=== PATIENT | male | born 1975 | race African-American/Black ===

== ENCOUNTER 2016-11-01 09:22 | Inpatient (IN) | payer OTHER ==
[2016-11-01 10:57] VITALS: BMI 24.5
--- NOTE | 2016-11-01 12:16 | HP ---
COWS - Scale Resting Pulse: 0= [place] 80 or Below Sweatin=Flushed/Facial Moisture Restless Observation: 1= Difficult to Sit Still Pupil Size: 0= Normal to Room Light Bone or Joint Aches: 2= Severe Diffuse Aches Runny Nose/ Eye Tearin= Runny Nose/Eyes GI Upset > 30mins: 0= None Tremor Observation: 2= Slight Tremor Visible Yawning Observation: 2= >3x During Session Anxiety or Irritability: 2=Irritable/Anxious Goose Flesh Skin: 3=Piloerection COWS Score: 16 CIWA Score - CIWA Score Nausea/Vomitin-No Nausea/No Vomiting Muscle Tremors: 4-Moderate,w/Arms Extend Anxiety: 3 Agitation: 4-Moderately Restless Paroxysmal Sweats: 3 Orientation: 0-Oriented Tacttile Disturbances: 0-None Auditory Disturbances: 0-None Visual Disturbances: 0-None Headache: 1-Very Mild CIWA-Ar Total Score: 15 Admission ROS BHS - HPI Chief Complaint: I am here to detox and get clean. Allergies/Adverse Reactions: Allergies Allergy/AdvReac Type Severity Reaction Status Date / Time peanut Allergy Swelling Verified 11/01/16 11:28 NKDA Allergy Uncoded 11/01/16 11:28 History of Present Illness: pt is a 40yr old male with a history of alcohol and heroin dependence seeking detox for treatment. Exam Limitations: No Limitations - Ebola screening Have you traveled outside of the country in the last 21 days: No Have you had contact with anyone from an Ebola affected area: No Have you been sick,other than usual withdrawal symptoms: No Do you have a fever: No - Review of Systems Constitutional: Chills, Diaphoresis, Loss of Appetite, Night Sweats EENT: reports: No Symptoms Reported, Nose Congestion Respiratory: reports: Cough Cardiac: reports: No Symptoms Reported GI: reports: Poor Appetite, Poor Fluid Intake, Indigestion : reports: No Symptoms Reported Musculoskeletal: reports: Back Pain, Joint Pain Integumentary: reports: Flushing, Sweating Neuro: reports: Headache, Tingling, Tremors Endocrine: reports: Excessive Sweating, Flushing, Intolerance to Cold, Intolerance to Heat Hematology: reports: No Symptoms Reported Psychiatric: reports: Judgement Intact, Mood/Affect Appropiate, Orientated x3, Agitated, Anxious Other Systems: Reviewed and Negative Patient History - Patient Medical History Hx Anemia: No Hx Asthma: Yes Hx Chronic Obstructive Pulmonary Disease (COPD): No Hx Cancer: No Hx Cardiac Disorders: No Hx Congestive Heart Failure: No Hx Hypertension: No Hx Hypercholesterolemia: No Hx Pacemaker: No HX Cerebrovascular Accident: No Hx Seizures: No Hx Dementia: No Hx Diabetes: No Hx Gastrointestinal Disorders: Yes (acid reflux) Hx Liver Disease: No Hx Genitourinary Disorders: No Hx Sexually Transmitted Disorders: No Hx Renal Disease (ESRD): No Hx Thyroid Disease: No Hx Human Immunodeficiency Virus (HIV): No Hx Hepatitis C: No Hx Depression: No Hx Suicide Attempt: No Hx Bipolar Disorder: No Hx Schizophrenia: No - Patient Surgical History Past Surgical History: No Hx Neurologic Surgery: No Hx Cataract Extraction: No Hx Cardiac Surgery: No Hx Lung Surgery: No Hx Breast Surgery: No Hx Breast Biopsy: No Hx Abdominal Surgery: No Hx Appendectomy: No Hx Cholecystectomy: No Hx Genitourinary Surgery: No Hx Section: No Hx Orthopedic Surgery: No Anesthesia Reaction: No - PPD History Previous Implant?: Yes Documented Results: Negative w/o proof Implanted On Prior [facility] Admission?: Yes Results: 0 mm PPD to be Administered?: Yes - Reproductive History Patient is a Female of Child Bearing Age (11 -55 yrs old): No - Smoking Cessation Smoking history: Current every day smoker Have you smoked in the past 12 months: Yes Aproximately how many cigarettes per day: 10 Hx Chewing Tobacco Use: No Initiated information on smoking cessation: Yes 'Breaking Loose' booklet given: 11/01/16 - Substance & Tx. History Hx Alcohol Use: Yes Hx Substance Use: Yes Substance Use Type: Alcohol, Cocaine, Heroin Hx Substance Use Treatment: Yes - Substances Abused Heroin Route: Inhalation Frequency: Daily Amount used: 5-10 bags Age of first use: 21 Date of Last Use: 10/31/16 Crack Route: Smoking Frequency: 1-2 times per week Amount used: $40 Age of first use: 30 Date of Last Use: 10/30/16 Alcohol-vodka Route: Oral Frequency: Daily Amount used: 2 pts. Age of first use: 13 Date of Last Use: 10/31/16 Family Disease History - Family Disease History Family History: Denies Admission Physical Exam BHS - Vital Signs Vital Signs: Vital Signs - 24 hr 11/01/16 10:55 Temperature 97.7 F Pulse Rate 66 Respiratory 18 Rate Blood Pressure 132/82 - Physical General Appearance: Yes: Appropriately Dressed, Moderate Distress, Tremorous, Irritable, Sweating, Anxious HEENTM: Yes: Hearing grossly Normal, Normal Voice Respiratory: Yes: Normal Breath Sounds, No Respiratory Distress, Wheezing Neck: Yes: No masses,lesions,Nodules Breast: Yes: Within Normal Limits Cardiology: Yes: Regular Rhythm, Regular Rate, S1, S2 Abdominal: Yes: Normal Bowel Sounds, Non Tender, Soft Genitourinary: Yes: Within Normal Limits Back: Yes: Normal Inspection Musculoskeletal: Yes: full range of Motion, Back pain Extremities: Yes: Normal Capillary Refill, Normal Inspection, Tremors Neurological: Yes: Fully Oriented, Alert, Normal Response Integumentary: Yes: Normal Color, Diaphoresis Lymphatic: Yes: Within Normal Limits - Diagnostic (1) Alcohol dependence with uncomplicated withdrawal Current Visit: Yes Status: Chronic (2) Asthma Current Visit: Yes Status: Chronic Qualifiers: Asthma severity: mild intermittent Asthma complication type: uncomplicated Qualified Code(s): J45.20 - Mild intermittent asthma, uncomplicated (3) Opioid dependence with withdrawal Current Visit: Yes Status: Chronic (4) GERD (gastroesophageal reflux disease) Current Visit: Yes Status: Chronic Qualifiers: Esophagitis presence: without esophagitis Qualified Code(s): K21.9 - Gastro-esophageal reflux disease without esophagitis (5) Nicotine dependence Current Visit: Yes Status: Chronic Qualifiers: Nicotine product type: cigarettes Substance use status: uncomplicated Qualified Code(s): F17.210 - Nicotine dependence, cigarettes, uncomplicated Cleared for Admission S - Detox or Rehab [facility] Level of Care: Medically Managed Detox Regimen/Protocol: Methadone/Librium [facility] Breath Alcohol Content Breath Alcohol Content: 0 Urine Drug Screen - Results Drug Screen Negative: No Urine Drug Screen Results: NIKIA-Cocaine, OPI-Opiates, TCA-Tricyclic Antidepress
[2016-11-01] MEDS ORDERED: hydrOXYzine PAMOATE 50 MG CAPSULE (FP) PO PRN (12:18)
[2016-11-01] MEDS ORDERED: MAG HYDROX/AL HYDROX/SIMETH 30 ML UNIT-DOSE CUP PO PRN (12:18)
[2016-11-01] MEDS ORDERED: chlordiazePOXIDE HCL 25 MG CAPSULE PO PRN (12:18)
[2016-11-01] MEDS ORDERED: MAGNESIUM HYDROX 2400MG/30ML ORAL SUSPENSION 30 ML CUP PO PRN (12:18)
[2016-11-01] MEDS ORDERED: P-EPHED 60MG/TRIPROLIDI 2.5MG TABLET PO PRN (12:18)
[2016-11-01] MEDS ORDERED: MENTHOL/PHENOL 1 EACH UD MM PRN (12:18)
[2016-11-01] MEDS ORDERED: IBUPROFEN 400 MG TABLET (FP) PO PRN (12:18)
[2016-11-01] MEDS ORDERED: LOPERAMIDE HCL 2 MG CAPSULE PO PRN (12:18)
[2016-11-01] MEDS ORDERED: MAGNESIUM CITRATE 300 ML BOTTLE PO PRN (12:18)
[2016-11-01] MEDS ORDERED: chlordiazePOXIDE HCL 25 MG CAPSULE PO ONE (13:15)
[2016-11-01] MEDS ORDERED: ALBUTEROL SO4 2.5/IPRATROPIUM 0.5 INH SOL 3 ML VIAL.NEB. NEB ONE (13:15)
[2016-11-01] MEDS ORDERED: METHADONE HCL 10 MG TABLET (FOR DETOX USE ONLY) PO ONE ×2 (13:15→23:00)
--- NOTE | 2016-11-01 14:07 | EKG ---
Test Reason : Blood Pressure : / mmHG Vent. Rate : 067 BPM Atrial Rate : 067 BPM P-R Int : 140 ms QRS Dur : 090 ms QT Int : 422 ms P-R-T Axes : 064 059 050 degrees QTc Int : 445 ms SINUS RHYTHM WITH PREMATURE ATRIAL COMPLEXES MINIMAL VOLTAGE CRITERIA FOR LVH, MAY BE NORMAL VARIANT BORDERLINE ECG NO PREVIOUS ECGS AVAILABLE Confirmed by ASA MELGAR MD ([id number]) on 11/01/2016 2:06:50 PM Referred By: Vito Poe Confirmed By:ASA MELGAR MD
[2016-11-01] MEDS: chlordiazePOXIDE HCL 25 MG CAPSULE PO SCH ×2 (17:09→22:02)
[2016-11-01] MEDS: ALBUTEROL SO4 6.7 GM HFA INHALER IH PRN (17:11)
[2016-11-01 17:42] LABS: URINE APPEARANCE CLEAR; URINE BILIRUBIN NEGATIVE (NEGATIVE); URINE BLOOD NEGATIVE (NEGATIVE); URINE COLOR LTYELLOW; URINE GLUCOSE (UA) NEGATIVE (NEGATIVE); URINE KETONE NEGATIVE (NEGATIVE); URINE LEUK ESTERASE NEGATIVE (NEGATIVE); URINE NITRITE NEGATIVE (NEGATIVE); URINE PROTEIN NEGATIVE (NEGATIVE); URINE UROBILINOGEN NEGATIVE E.U./dl (0.2-1.0)
[2016-11-01] MEDS: NICOTINE POLACRILEX 4 MG GUM BC PRN ×2 (18:55→21:12)
[2016-11-01] MEDS: ALBUTEROL SO4 2.5/IPRATROPIUM 0.5 INH SOL 3 ML VIAL.NEB. NEB PRN (19:46)
[2016-11-01] MEDS: ACETAMINOPHEN 325 MG TABLET (FP) PO PRN (21:12)
[2016-11-01] MEDS: guaiFENesin/D-METHORPHAN HB 10 ML UNIT-DOSE CUPS PO PRN (21:13)
[2016-11-01] MEDS: diphenhydrAMINE HCL 50 MG CAPSULE PO PRN (22:02)
[2016-11-01] MEDS: THIAMINE HCL 100 MG TABLET (FP) PO SCH (22:02)
[2016-11-02] MEDS: ALBUTEROL SO4 2.5/IPRATROPIUM 0.5 INH SOL 3 ML VIAL.NEB. NEB PRN (01:20)
[2016-11-02] MEDS: ALBUTEROL SO4 6.7 GM HFA INHALER IH PRN ×4 (01:21→20:13)
[2016-11-02] MEDS: NICOTINE POLACRILEX 4 MG GUM BC PRN ×4 (01:41→20:17)
[2016-11-02] MEDS: chlordiazePOXIDE HCL 25 MG CAPSULE PO SCH ×4 (05:39→22:00)
[2016-11-02] MEDS: guaiFENesin/D-METHORPHAN HB 10 ML UNIT-DOSE CUPS PO PRN (08:02)
[2016-11-02] MEDS: PRENATAL VITAMINS W/ FOLIC ACID TABLET (FP) PO SCH (09:09)
[2016-11-02] MEDS: ALBUTEROL SO4 2.5/IPRATROPIUM 0.5 INH SOL 3 ML VIAL.NEB. NEB SCH ×4 (09:10→22:03)
--- NOTE | 2016-11-02 09:58 | PN ---
[facility] CIWA - CIWA Score Nausea/Vomitin-No Nausea/No Vomiting Muscle Tremors: 3 Anxiety: 4-Mod. Anxious/Guarded Agitation: 4-Moderately Restless Paroxysmal Sweats: 1-Minimal Palms Moist Orientation: 0-Oriented Tacttile Disturbances: 3-Moderate Itch/Numb/Burn Auditory Disturbances: 0-None Visual Disturbances: 0-None Headache: 0-None Present CIWA-Ar Total Score: 15 BHS COWS - Scale Resting Pulse: 1= [place] 81-100 Sweatin= Chills/Flushing Restless Observation: 3= Extraneous Movement Pupil Size: 2= Moderately Dilated Bone or Joint Aches: 4=Acute Joint/Muscle Pain Runny Nose/ Eye Tearin= Nasal Congestion GI Upset > 30mins: 1= Stomach Cramp Tremor Observation of Outstretched Hands: 1= Tremor [place], Not Seen Yawning Observation: 2= >3x During Session Anxiety or Irritability: 2=Irritable/Anxious Goose Flesh Skin: 0=Smooth Skin COWS Score: 18 S Progress Note (SOAP) Subjective: ANXIETY,SWEATS,UNCONTROLLABLE DRY COUGH, WHEEZING, SOB. Objective: 11/02/16 09:59 Vital Signs Temperature 98.5 F 11/02/16 09:34 Pulse Rate 96 H 11/02/16 09:34 Respiratory Rate 18 11/02/16 09:34 Blood Pressure 124/72 11/02/16 09:34 O2 Sat by Pulse Oximetry (%) 96 11/02/16 08:45 Laboratory Last Values Urine Color Ltyellow 11/01/16 14:00 Urine Appearance Clear 11/01/16 14:00 Urine pH 7.0 (5.0-8.0) D 11/01/16 14:00 Ur Specific [place] 1.015 (1.005-1.025) 11/01/16 14:00 Urine Protein Negative (NEGATIVE) 11/01/16 14:00 Urine Glucose (UA) Negative (NEGATIVE) 11/01/16 14:00 Urine Ketones Negative (NEGATIVE) 11/01/16 14:00 Urine Blood Negative (NEGATIVE) 11/01/16 14:00 Urine Nitrite Negative (NEGATIVE) 11/01/16 14:00 Urine Bilirubin Negative (NEGATIVE) 11/01/16 14:00 Urine Urobilinogen Negative E.U./dl (0.2-1.0) 11/01/16 14:00 Ur Leukocyte Esterase Negative (NEGATIVE) 11/01/16 14:00 Assessment: 11/02/16 10:00 WITHDRAWAL SX ASTHMA EXACERBATION Plan: CONTINUE DETOX RESP TX DIRECTED
[2016-11-02] MEDS ORDERED: METHADONE HCL 10 MG TABLET (FOR DETOX USE ONLY) PO SCH (10:00)
[2016-11-02] MEDS ORDERED: predniSONE 20 MG TABLET (UD) PO SCH (10:00)
[2016-11-02 10:03] LABS: MCH 28.8 pg (25.7-33.7); MCHC 33.3 g/dl (32.0-35.9); MEAN CELL VOLUME 86.6 fl (80-96); MEAN PLT VOLUME 8.3 fl (7.5-11.1); PLATELET COUNT 242 K/MM3 (134-434); RDW 14.5 % (11.9-15.9); WHITE BLOOD COUNT 3.6 K/mm3 (4.0-10.0)
[2016-11-02] MEDS: BUDESONIDE/FORMETEROL FUMARATE 80/4.5 mcg INHALER IH SCH ×2 (10:21→22:03)
[2016-11-02] MEDS: NICOTINE 21 MG/24 HOURS TOPICAL PATCH TD SCH (10:32)
[2016-11-02 11:06] LABS: ANION GAP 7 (8-16); CO2 30 mmol/L (21-32); COCKROFT - GAULT 82.42; CREATININE 1.2 mg/dL (0.7-1.3); GLUCOSE,RANDOM 70 mg/dL (74-106)
[2016-11-02 11:07] LABS: ALBUMIN 3.9 g/dl (3.4-5.0); ALK PHOS 76 U/L (45-117); BILIRUBIN,TOTAL 0.4 mg/dL (0.2-1.0); CALCIUM 8.9 mg/dL (8.5-10.1); SGOT/AST 26 U/L (15-37); SGPT/ALT 31 U/L (12-78); TOT PROT 6.7 g/dl (6.4-8.2)
[2016-11-02 14:58] LABS: METAMYELOCYTE 1 % (0-2); PLATELET ESTIMATE ADEQUATE (NORMAL)
[2016-11-02] MEDS: ACETAMINOPHEN 325 MG TABLET (FP) PO PRN (20:34)
[2016-11-02] MEDS: THIAMINE HCL 100 MG TABLET (FP) PO SCH (22:00)
[2016-11-02] MEDS: RANITIDINE HCL 150 MG TABLET (FP) PO SCH (22:00)
[2016-11-02] MEDS: VITAMINS A AND D TOPICAL OINTMENT 60 GM TUBE TP SCH (22:00)
[2016-11-02] MEDS: diphenhydrAMINE HCL 50 MG CAPSULE PO PRN (22:02)
[2016-11-03] MEDS: ALBUTEROL SO4 2.5/IPRATROPIUM 0.5 INH SOL 3 ML VIAL.NEB. NEB PRN (05:09)
[2016-11-03] MEDS: ACETAMINOPHEN 325 MG TABLET (FP) PO PRN (05:19)
[2016-11-03] MEDS: chlordiazePOXIDE HCL 25 MG CAPSULE PO SCH ×2 (05:19→10:07)
[2016-11-03] MEDS: ALBUTEROL SO4 2.5/IPRATROPIUM 0.5 INH SOL 3 ML VIAL.NEB. NEB SCH ×4 (09:04→23:12)
[2016-11-03] MEDS: METHADONE HCL 5 MG TABLET (FOR DETOX USE ONLY) PO SCH (09:31)
[2016-11-03] MEDS: RANITIDINE HCL 150 MG TABLET (FP) PO SCH ×2 (09:32→22:21)
[2016-11-03] MEDS: VITAMINS A AND D TOPICAL OINTMENT 60 GM TUBE TP SCH ×2 (09:32→22:22)
--- NOTE | 2016-11-03 09:32 | PN ---
S CIWA - CIWA Score Nausea/Vomitin Muscle Tremors: 3 Anxiety: 3 Agitation: 2 Paroxysmal Sweats: 1-Minimal Palms Moist Orientation: 0-Oriented Tacttile Disturbances: 1-Very Mild Itch/Numbness Auditory Disturbances: 1-Very Mild Visual Disturbances: 1-Very Mild Sensitivity Headache: 2-Mild CIWA-Ar Total Score: 17 BHS COWS - Scale Resting Pulse: 0= [place] 80 or Below Sweatin=Flushed/Facial Moisture Restless Observation: 3= Extraneous Movement Pupil Size: 1= Pupils >than Normal Bone or Joint Aches: 2= Severe Diffuse Aches Runny Nose/ Eye Tearin= Nasal Congestion GI Upset > 30mins: 2= Nausea/Diarrhea Tremor Observation of Outstretched Hands: 2= Slight Tremor Visible Yawning Observation: 1= 1-2x During Session Anxiety or Irritability: 2=Irritable/Anxious Goose Flesh Skin: 0=Smooth Skin COWS Score: 16 BHS Progress Note (SOAP) Subjective: ALERT,IRRITABLE,ANXIOUS,INTERRUPTED SLEEP,PAIN IN THE BODY,MILD WHEEZING Objective: 11/03/16 09:29 Vital Signs Temperature 97.6 F 11/03/16 09:21 Pulse Rate 71 11/03/16 09:21 Respiratory Rate 18 11/03/16 09:21 Blood Pressure 144/90 11/03/16 09:21 O2 Sat by Pulse Oximetry (%) 96 11/02/16 08:45 Laboratory Last Values WBC 3.6 K/mm3 (4.0-10.0) L 11/02/16 06:00 RBC 4.99 M/mm3 (4.00-5.60) 11/02/16 06:00 Hgb 14.4 GM/dL (11.7-16.9) D 11/02/16 06:00 Hct 43.2 % (35.4-49) 11/02/16 06:00 MCV 86.6 fl (80-96) 11/02/16 06:00 MCHC 33.3 g/dl (32.0-35.9) 11/02/16 06:00 RDW 14.5 % (11.9-15.9) 11/02/16 06:00 Plt Count 242 K/MM3 (134-434) 11/02/16 06:00 MPV 8.3 fl (7.5-11.1) 11/02/16 06:00 Neutrophils % 60.0 % (42.8-82.8) 11/02/16 06:00 Lymphocytes % 25.0 % (8-40) 11/02/16 06:00 Monocytes % 7.0 % (3.8-10.2) 11/02/16 06:00 Eosinophils % 1.0 % (0-4.5) 11/02/16 06:00 Basophils % 5.0 % (0-2.0) H 11/02/16 06:00 Band Neutrophils 1.0 % (0-10) 11/02/16 06:00 Metamyelocytes 1 % (0-2) 11/02/16 06:00 Differential Comment Manual diff done 11/02/16 06:00 Platelet Estimate Adequate (NORMAL) 11/02/16 06:00 Sodium 142 mmol/L (136-145) 11/02/16 06:00 Potassium 4.6 mmol/L (3.5-5.1) 11/02/16 06:00 Chloride 105 mmol/L (98-107) 11/02/16 06:00 Carbon Dioxide 30 mmol/L (21-32) 11/02/16 06:00 Anion Gap 7 (8-16) L 11/02/16 06:00 BUN 17 mg/dL (7-18) 11/02/16 06:00 Creatinine 1.2 mg/dL (0.7-1.3) D 11/02/16 06:00 Creat Clearance w eGFR > 60 (>60) 11/02/16 06:00 Random Glucose 70 mg/dL (74-106) L 11/02/16 06:00 Calcium 8.9 mg/dL (8.5-10.1) 11/02/16 06:00 Total Bilirubin 0.4 mg/dL (0.2-1.0) 11/02/16 06:00 AST 26 U/L (15-37) D 11/02/16 06:00 ALT 31 U/L (12-78) D 11/02/16 06:00 Alkaline Phosphatase 76 U/L (45-117) 11/02/16 06:00 Total Protein 6.7 g/dl (6.4-8.2) 11/02/16 06:00 Albumin 3.9 g/dl (3.4-5.0) D 11/02/16 06:00 Urine Color Ltyellow 11/01/16 14:00 Urine Appearance Clear 11/01/16 14:00 Urine pH 7.0 (5.0-8.0) D 11/01/16 14:00 Ur Specific [place] 1.015 (1.005-1.025) 11/01/16 14:00 Urine Protein Negative (NEGATIVE) 11/01/16 14:00 Urine Glucose (UA) Negative (NEGATIVE) 11/01/16 14:00 Urine Ketones Negative (NEGATIVE) 11/01/16 14:00 Urine Blood Negative (NEGATIVE) 11/01/16 14:00 Urine Nitrite Negative (NEGATIVE) 11/01/16 14:00 Urine Bilirubin Negative (NEGATIVE) 11/01/16 14:00 Urine Urobilinogen Negative E.U./dl (0.2-1.0) 11/01/16 14:00 Ur Leukocyte Esterase Negative (NEGATIVE) 11/01/16 14:00 RPR Titer Nonreactive (NONREACTIVE) 11/02/16 06:00 Assessment: 11/03/16 09:30 WITHDRAWAL SYMPTOM Plan: CONTINUE DETOX,TAPER OFF PREDNISONE,CONTINUE ALBUTEROL AND NEBULIZER
[2016-11-03] MEDS: NICOTINE 21 MG/24 HOURS TOPICAL PATCH TD SCH (09:33)
[2016-11-03] MEDS: PRENATAL VITAMINS W/ FOLIC ACID TABLET (FP) PO SCH (09:33)
[2016-11-03] MEDS: BUDESONIDE/FORMETEROL FUMARATE 80/4.5 mcg INHALER IH SCH ×2 (09:35→22:22)
[2016-11-03] MEDS: NICOTINE POLACRILEX 4 MG GUM BC PRN ×3 (09:35→17:27)
[2016-11-03] MEDS ORDERED: predniSONE 20 MG TABLET (UD) PO ONE (10:00)
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
[2016-11-03] MEDS: chlordiazePOXIDE 5 MG CAPSULE PO SCH ×2 (16:49→22:21)
[2016-11-03] MEDS: MONTELUKAST NA 10 MG TABLET PO SCH (22:22)
[2016-11-03] MEDS: THIAMINE HCL 100 MG TABLET (FP) PO SCH (22:22)
[2016-11-03] MEDS: diphenhydrAMINE HCL 50 MG CAPSULE PO PRN (22:23)
[2016-11-04] MEDS: chlordiazePOXIDE 5 MG CAPSULE PO SCH ×2 (05:57→10:20)
[2016-11-04] MEDS: ALBUTEROL SO4 2.5/IPRATROPIUM 0.5 INH SOL 3 ML VIAL.NEB. NEB PRN (06:03)
[2016-11-04] MEDS: NICOTINE POLACRILEX 4 MG GUM BC PRN ×4 (07:11→20:46)
[2016-11-04] MEDS: ALBUTEROL SO4 2.5/IPRATROPIUM 0.5 INH SOL 3 ML VIAL.NEB. NEB SCH ×4 (09:55→22:41)
[2016-11-04] MEDS ORDERED: predniSONE 20 MG TABLET (UD) PO ONE (10:00)
[2016-11-04] MEDS: METHADONE HCL 5 MG TABLET (FOR DETOX USE ONLY) PO SCH (10:19)
[2016-11-04] MEDS: VITAMINS A AND D TOPICAL OINTMENT 60 GM TUBE TP SCH ×2 (10:20→22:05)
[2016-11-04] MEDS: PRENATAL VITAMINS W/ FOLIC ACID TABLET (FP) PO SCH (10:20)
[2016-11-04] MEDS: NICOTINE 21 MG/24 HOURS TOPICAL PATCH TD SCH (10:20)
[2016-11-04] MEDS: RANITIDINE HCL 150 MG TABLET (FP) PO SCH ×2 (10:20→22:06)
[2016-11-04] MEDS: BUDESONIDE/FORMETEROL FUMARATE 80/4.5 mcg INHALER IH SCH ×2 (10:21→22:06)
--- NOTE | 2016-11-04 11:15 | PN ---
BHS Progress Note (SOAP) Subjective: Stomach Cramping, H/A, Interrupted Sleep. Objective: PT. A & O X 3, OBSERVED AMBULATING ON UNIT. 11/04/16 11:14 Vital Signs Temperature 97.5 F L 11/04/16 09:03 Pulse Rate 90 11/04/16 09:03 Respiratory Rate 20 11/04/16 09:03 Blood Pressure 138/88 11/04/16 09:03 O2 Sat by Pulse Oximetry (%) 96 11/02/16 08:45 Laboratory Tests 11/01/16 11/02/16 11/02/16 14:00 06:00 06:00 WBC 3.6 L RBC 4.99 Hgb 14.4 D Hct 43.2 MCV 86.6 MCHC 33.3 RDW 14.5 Plt Count 242 MPV 8.3 Neutrophils % 60.0 Lymphocytes % 25.0 Monocytes % 7.0 Eosinophils % 1.0 Basophils % 5.0 H Band Neutrophils 1.0 Metamyelocytes 1 Differential Comment Manual diff done Platelet Estimate Adequate Sodium 142 Potassium 4.6 Chloride 105 Carbon Dioxide 30 Anion Gap 7 L BUN 17 Creatinine 1.2 D Creat Clearance w eGFR > 60 Random Glucose 70 L Calcium 8.9 Total Bilirubin 0.4 AST 26 D ALT 31 D Alkaline Phosphatase 76 Total Protein 6.7 Albumin 3.9 D Urine Color Ltyellow Urine Appearance Clear Urine pH 7.0 D Ur Specific [place] 1.015 Urine Protein Negative Urine Glucose (UA) Negative Urine Ketones Negative Urine Blood Negative Urine Nitrite Negative Urine Bilirubin Negative Urine Urobilinogen Negative Ur Leukocyte Esterase Negative RPR Titer 11/02/16 06:00 WBC RBC Hgb Hct MCV MCHC RDW Plt Count MPV Neutrophils % Lymphocytes % Monocytes % Eosinophils % Basophils % Band Neutrophils Metamyelocytes Differential Comment Platelet Estimate Sodium Potassium Chloride Carbon Dioxide Anion Gap BUN Creatinine Creat Clearance w eGFR Random Glucose Calcium Total Bilirubin AST ALT Alkaline Phosphatase Total Protein Albumin Urine Color Urine Appearance Urine pH Ur Specific [place] Urine Protein Urine Glucose (UA) Urine Ketones Urine Blood Urine Nitrite Urine Bilirubin Urine Urobilinogen Ur Leukocyte Esterase RPR Titer Nonreactive LABS NOTED. Assessment: 11/04/16 11:14 WITHDRAWAL SYMPTOMS. Plan: CONTINUE DETOX. CONTINUE PREDNISONE TAPER AND CONTINUE DUONEB FOR ASTHMA. ADVISED PATIENT TO FOLLOW-UP WITH BUSINESS OPERATIONS DIRECTOR AFTER DISCHARGE FOR GENERAL MEDICAL ASSESSMENT AND FOR HISTORY OF ASTHMA.
[2016-11-04] MEDS: chlordiazePOXIDE HCL 10 MG CAPSULE PO SCH ×2 (17:18→22:05)
[2016-11-04] MEDS: THIAMINE HCL 100 MG TABLET (FP) PO SCH (22:05)
[2016-11-04] MEDS: diphenhydrAMINE HCL 50 MG CAPSULE PO PRN (22:07)
[2016-11-04] MEDS: MONTELUKAST NA 10 MG TABLET PO SCH (22:07)
[2016-11-05] MEDS: chlordiazePOXIDE HCL 10 MG CAPSULE PO SCH (05:43)
[2016-11-05] MEDS: ALBUTEROL SO4 2.5/IPRATROPIUM 0.5 INH SOL 3 ML VIAL.NEB. NEB PRN (06:03)
[2016-11-05] MEDS: NICOTINE POLACRILEX 4 MG GUM BC PRN (06:21)
[2016-11-05 07:59] VITALS: PULSE 85
[2016-11-05 09:08] VITALS: BP 127/86; TEMP 97.7
[2016-11-05] MEDS: RANITIDINE HCL 150 MG TABLET (FP) PO SCH (09:53)
[2016-11-05] MEDS: PRENATAL VITAMINS W/ FOLIC ACID TABLET (FP) PO SCH (09:53)
[2016-11-05] MEDS: BUDESONIDE/FORMETEROL FUMARATE 80/4.5 mcg INHALER IH SCH (09:54)
[2016-11-05] MEDS: NICOTINE 21 MG/24 HOURS TOPICAL PATCH TD SCH (09:56)
[2016-11-05] MEDS: VITAMINS A AND D TOPICAL OINTMENT 60 GM TUBE TP SCH (09:56)
[2016-11-05] MEDS: ALBUTEROL SO4 2.5/IPRATROPIUM 0.5 INH SOL 3 ML VIAL.NEB. NEB SCH (09:56)
[2016-11-05] MEDS ORDERED: METHADONE HCL 10 MG TABLET (FOR DETOX USE ONLY) PO SCH (10:00)
[2016-11-05] MEDS ORDERED: predniSONE 10 MG TABLET (UD) PO ONE (10:00)
--- NOTE | 2016-11-05 11:18 | PN ---
BHS Progress Note (SOAP) Subjective: Sweating,interrupted sleep,restless Objective: 11/05/16 11:17 Vital Signs - 8 hr 11/05/16 11/05/16 11/05/16 03:30 06:11 07:58 Temperature 98 F Pulse Rate 62 85 Respiratory 20 18 Rate Blood Pressure 180/94 136/88 11/05/16 09:07 Temperature 97.7 F Pulse Rate 85 Respiratory 18 Rate Blood Pressure 127/86 Laboratory Last Values WBC 3.6 K/mm3 (4.0-10.0) L 11/02/16 06:00 RBC 4.99 M/mm3 (4.00-5.60) 11/02/16 06:00 Hgb 14.4 GM/dL (11.7-16.9) D 11/02/16 06:00 Hct 43.2 % (35.4-49) 11/02/16 06:00 MCV 86.6 fl (80-96) 11/02/16 06:00 MCHC 33.3 g/dl (32.0-35.9) 11/02/16 06:00 RDW 14.5 % (11.9-15.9) 11/02/16 06:00 Plt Count 242 K/MM3 (134-434) 11/02/16 06:00 MPV 8.3 fl (7.5-11.1) 11/02/16 06:00 Neutrophils % 60.0 % (42.8-82.8) 11/02/16 06:00 Lymphocytes % 25.0 % (8-40) 11/02/16 06:00 Monocytes % 7.0 % (3.8-10.2) 11/02/16 06:00 Eosinophils % 1.0 % (0-4.5) 11/02/16 06:00 Basophils % 5.0 % (0-2.0) H 11/02/16 06:00 Band Neutrophils 1.0 % (0-10) 11/02/16 06:00 Metamyelocytes 1 % (0-2) 11/02/16 06:00 Differential Comment Manual diff done 11/02/16 06:00 Platelet Estimate Adequate (NORMAL) 11/02/16 06:00 Sodium 142 mmol/L (136-145) 11/02/16 06:00 Potassium 4.6 mmol/L (3.5-5.1) 11/02/16 06:00 Chloride 105 mmol/L (98-107) 11/02/16 06:00 Carbon Dioxide 30 mmol/L (21-32) 11/02/16 06:00 Anion Gap 7 (8-16) L 11/02/16 06:00 BUN 17 mg/dL (7-18) 11/02/16 06:00 Creatinine 1.2 mg/dL (0.7-1.3) D 11/02/16 06:00 Creat Clearance w eGFR > 60 (>60) 11/02/16 06:00 Random Glucose 70 mg/dL (74-106) L 11/02/16 06:00 Calcium 8.9 mg/dL (8.5-10.1) 11/02/16 06:00 Total Bilirubin 0.4 mg/dL (0.2-1.0) 11/02/16 06:00 AST 26 U/L (15-37) D 11/02/16 06:00 ALT 31 U/L (12-78) D 11/02/16 06:00 Alkaline Phosphatase 76 U/L (45-117) 11/02/16 06:00 Total Protein 6.7 g/dl (6.4-8.2) 11/02/16 06:00 Albumin 3.9 g/dl (3.4-5.0) D 11/02/16 06:00 Urine Color Ltyellow 11/01/16 14:00 Urine Appearance Clear 11/01/16 14:00 Urine pH 7.0 (5.0-8.0) D 11/01/16 14:00 Ur Specific [place] 1.015 (1.005-1.025) 11/01/16 14:00 Urine Protein Negative (NEGATIVE) 11/01/16 14:00 Urine Glucose (UA) Negative (NEGATIVE) 11/01/16 14:00 Urine Ketones Negative (NEGATIVE) 11/01/16 14:00 Urine Blood Negative (NEGATIVE) 11/01/16 14:00 Urine Nitrite Negative (NEGATIVE) 11/01/16 14:00 Urine Bilirubin Negative (NEGATIVE) 11/01/16 14:00 Urine Urobilinogen Negative E.U./dl (0.2-1.0) 11/01/16 14:00 Ur Leukocyte Esterase Negative (NEGATIVE) 11/01/16 14:00 RPR Titer Nonreactive (NONREACTIVE) 11/02/16 06:00 labs noted Assessment: 11/05/16 11:17 Withdrawal sx. Plan: Continue detox
[2016-11-06] MEDS ORDERED: METHADONE HCL 5 MG TABLET (FOR DETOX USE ONLY) PO SCH (06:00)
--- NOTE | 2016-11-10 17:39 | DS ---
[facility] Detox Discharge Summary Admission Date: 11/01/16 Discharge Date: 11/05/16 - History Present History: Alcohol Dependence, Opioid Dependence, Sedative Dependence Pertinent Past History: Asthma GERD - Physical Exam Results Vital Signs: Vital Signs Temperature 97.7 F 11/05/16 09:07 Pulse Rate 85 11/05/16 09:07 Respiratory Rate 18 11/05/16 09:07 Blood Pressure 127/86 11/05/16 09:07 O2 Sat by Pulse Oximetry (%) 96 11/02/16 08:45 Pertinent Admission Physical Exam Findings: Withdrawal sx. Laboratory Last Values WBC 3.6 K/mm3 (4.0-10.0) L 11/02/16 06:00 RBC 4.99 M/mm3 (4.00-5.60) 11/02/16 06:00 Hgb 14.4 GM/dL (11.7-16.9) D 11/02/16 06:00 Hct 43.2 % (35.4-49) 11/02/16 06:00 MCV 86.6 fl (80-96) 11/02/16 06:00 MCHC 33.3 g/dl (32.0-35.9) 11/02/16 06:00 RDW 14.5 % (11.9-15.9) 11/02/16 06:00 Plt Count 242 K/MM3 (134-434) 11/02/16 06:00 MPV 8.3 fl (7.5-11.1) 11/02/16 06:00 Neutrophils % 60.0 % (42.8-82.8) 11/02/16 06:00 Lymphocytes % 25.0 % (8-40) 11/02/16 06:00 Monocytes % 7.0 % (3.8-10.2) 11/02/16 06:00 Eosinophils % 1.0 % (0-4.5) 11/02/16 06:00 Basophils % 5.0 % (0-2.0) H 11/02/16 06:00 Band Neutrophils 1.0 % (0-10) 11/02/16 06:00 Metamyelocytes 1 % (0-2) 11/02/16 06:00 Differential Comment Manual diff done 11/02/16 06:00 Platelet Estimate Adequate (NORMAL) 11/02/16 06:00 Sodium 142 mmol/L (136-145) 11/02/16 06:00 Potassium 4.6 mmol/L (3.5-5.1) 11/02/16 06:00 Chloride 105 mmol/L (98-107) 11/02/16 06:00 Carbon Dioxide 30 mmol/L (21-32) 11/02/16 06:00 Anion Gap 7 (8-16) L 11/02/16 06:00 BUN 17 mg/dL (7-18) 11/02/16 06:00 Creatinine 1.2 mg/dL (0.7-1.3) D 11/02/16 06:00 Creat Clearance w eGFR > 60 (>60) 11/02/16 06:00 Random Glucose 70 mg/dL (74-106) L 11/02/16 06:00 Calcium 8.9 mg/dL (8.5-10.1) 11/02/16 06:00 Total Bilirubin 0.4 mg/dL (0.2-1.0) 11/02/16 06:00 AST 26 U/L (15-37) D 11/02/16 06:00 ALT 31 U/L (12-78) D 11/02/16 06:00 Alkaline Phosphatase 76 U/L (45-117) 11/02/16 06:00 Total Protein 6.7 g/dl (6.4-8.2) 11/02/16 06:00 Albumin 3.9 g/dl (3.4-5.0) D 11/02/16 06:00 Urine Color Ltyellow 11/01/16 14:00 Urine Appearance Clear 11/01/16 14:00 Urine pH 7.0 (5.0-8.0) D 11/01/16 14:00 Ur Specific [place] 1.015 (1.005-1.025) 11/01/16 14:00 Urine Protein Negative (NEGATIVE) 11/01/16 14:00 Urine Glucose (UA) Negative (NEGATIVE) 11/01/16 14:00 Urine Ketones Negative (NEGATIVE) 11/01/16 14:00 Urine Blood Negative (NEGATIVE) 11/01/16 14:00 Urine Nitrite Negative (NEGATIVE) 11/01/16 14:00 Urine Bilirubin Negative (NEGATIVE) 11/01/16 14:00 Urine Urobilinogen Negative E.U./dl (0.2-1.0) 11/01/16 14:00 Ur Leukocyte Esterase Negative (NEGATIVE) 11/01/16 14:00 RPR Titer Nonreactive (NONREACTIVE) 11/02/16 06:00 labs noted - Medication Discharge Medications: Ambulatory Orders Albuterol Sulfate Inhaler - [Ventolin HFA Inhaler -] 2 inh PO Q4H PRN 07/16/15 Budesonide/Formeterol Fumarate [SYMBICORT 80/4.5mcg -] 2 inh PO BID 11/02/16 Fluticasone Prop 0.05% Nasal [Flonase -] 1 - 2 spray NS DAILY 11/02/16 Loratadine [Claritin] 10 mg PO HS 11/02/16 Montelukast Na [Singulair -] 10 mg PO HS 11/02/16 - Diagnosis (1) Alcohol dependence with uncomplicated withdrawal Status: Acute (2) Nicotine dependence Status: Acute Qualifiers: Nicotine product type: cigarettes Substance use status: uncomplicated Qualified Code(s): F17.210 - Nicotine dependence, cigarettes, uncomplicated (3) Opioid dependence with withdrawal Status: Acute (4) Sedative, hypnotic, or anxiolytic withdrawal Status: Acute (5) Substance induced mood disorder Status: Acute (6) Asthma Status: Chronic Qualifiers: Asthma severity: mild intermittent Asthma complication type: uncomplicated Qualified Code(s): J45.20 - Mild intermittent asthma, uncomplicated (7) GERD (gastroesophageal reflux disease) Status: Chronic Qualifiers: Esophagitis presence: without esophagitis Qualified Code(s): K21.9 - Gastro-esophageal reflux disease without esophagitis - AMA Did Patient Leave Against Medical Advice: Yes
== END 2016-11-05 10:03 | disposition left against medical advice (07) | DRG 770 ==
LOC: YASAS 09:22 → Y3N 12:07
PROVIDERS: ADMIT Internal Medicine; ATTEND Internal Medicine
PROC: HZ2ZZZZ Detoxification Services for Substance Abuse Treatment (ICD-10-PCS; principal; 2016-11-05)
DX: F11.23 Opioid dependence with withdrawal (principal); F10.230 Alcohol dependence with withdrawal, uncomplicated; F14.20 Cocaine dependence, uncomplicated; F17.210 Nicotine dependence, cigarettes, uncomplicated; F19.24 Other psychoactive substance dependence with psychoactive substance-induced mood disorder; J45.20 Mild intermittent asthma, uncomplicated; K21.9 Gastro-esophageal reflux disease without esophagitis
CPT/HCPCS: 36415; 80053; 81003; 85027; 86593; 93005; 93010; 94640

== ENCOUNTER 2018-10-28 10:01 | Inpatient (IN) | payer OTHER ==
[2018-10-28 10:39] VITALS: BMI 25.7
--- NOTE | 2018-10-28 11:48 | HP ---
COWS - Scale Resting Pulse: 1= [place] 81-100 Sweatin= Chills/Flushing Restless Observation: 1= Difficult to Sit Still Pupil Size: 0= Normal to Room Light Bone or Joint Aches: 2= Severe Diffuse Aches Runny Nose/ Eye Tearin= None GI Upset > 30mins: 2= Nausea/Diarrhea Tremor Observation: 2= Slight Tremor Visible Yawning Observation: 0= None Anxiety or Irritability: 2=Irritable/Anxious Goose Flesh Skin: 3=Piloerection COWS Score: 14 CIWA Score Nausea/Vomitin Muscle Tremors: 2 Anxiety: 3 Agitation: 4-Moderately Restless Paroxysmal Sweats: 2 Orientation: 0-Oriented Tacttile Disturbances: 0-None Auditory Disturbances: 0-None Visual Disturbances: 0-None Headache: 0-None Present CIWA-Ar Total Score: 14 - Admission Criteria [facility]ASAS Guidelines: Admission for Medically Managed Detox: Requires at least one of the followin. CIWA greater than 12 2. Seizures within the past 24 hours 3. Delirium tremens within the past 24 hours 4. Hallucinations within the past 24 hours 5. Acute intervention needed for co occurring medical disorder 6. Acute intervention needed for co occurring psychiatric disorder 7. Severe withdrawal that cannot be handled at a lower level of care (continued vomiting, continued diarrhea, abnormal vital signs) requiring intravenous medication and/or fluids 8. Patient presents the following: CIWA greater than 12 Admission Criteria Met: Admission criteria met Admission ROS [facility] Chief Complaint: "I relapsed, i need help Allergies/Adverse Reactions: Allergies Allergy/AdvReac Type Severity Reaction Status Date / Time No Known Drug Allergies Allergy Verified 11/01/16 12:50 peanut Allergy Swelling Verified 11/01/16 11:28 NKDA Allergy Uncoded 11/01/16 11:28 History of Present Illness: 42 y/o male presents requesting detox from heroin and alcohol. Pt was last here in 10/2016. He is in a methadone program at [facility] (verified by MADELIN Carrizales), last medicated on 10/25. He said he missed the last two days bvecause he relapsed. Utox positive for Methadone and opiates.He verbalized intent to return to his program after detox.He understands he will be started on 30mg today and from tomorrow will begin to get 40mg. Denies alcohol induced seizures or blackouts. Denies previous nor current suicidal or homicidal ideation. Hx: Asthma - Ebola screening Have you traveled outside of the country in the last 21 days: No (N) Have you had contact with anyone from an Ebola affected area: No Do you have a fever: No - Review of Systems Constitutional: Loss of Appetite, Changes in sleep, Unintentional Wgt. Loss EENT: reports: Other (wear glasses) Respiratory: reports: No Symptoms reported Cardiac: reports: No Symptoms Reported GI: reports: Nausea : reports: No Symptoms Reported Musculoskeletal: reports: See HPI, Back Pain, Joint Pain Integumentary: reports: No Symptoms Reported Neuro: reports: No Symptoms reported Endocrine: reports: No Symptoms Reported Hematology: reports: No Symptoms Reported Psychiatric: reports: No Sypmtoms Reported Other Systems: Reviewed and Negative Patient History - Patient Medical History Hx Anemia: No Hx Asthma: Yes Hx Chronic Obstructive Pulmonary Disease (COPD): No Hx Cancer: No Hx Cardiac Disorders: No Hx Congestive Heart Failure: No Hx Hypertension: No Hx Hypercholesterolemia: No Hx Pacemaker: No HX Cerebrovascular Accident: No Hx Seizures: No Hx Dementia: No Hx Diabetes: No Hx Gastrointestinal Disorders: Yes (acid reflux) Hx Liver Disease: No Hx Genitourinary Disorders: No Hx Sexually Transmitted Disorders: No Hx Renal Disease (ESRD): No Hx Thyroid Disease: No Hx Human Immunodeficiency Virus (HIV): No Hx Hepatitis C: No Hx Depression: No Hx Suicide Attempt: No Hx Bipolar Disorder: No Hx Schizophrenia: No - Patient Surgical History Past Surgical History: No Hx Neurologic Surgery: No Hx Cataract Extraction: No Hx Cardiac Surgery: No Hx Lung Surgery: No Hx Breast Surgery: No Hx Breast Biopsy: No Hx Abdominal Surgery: No Hx Appendectomy: No Hx Cholecystectomy: No Hx Genitourinary Surgery: No Hx Section: No Hx Orthopedic Surgery: No Anesthesia Reaction: No - PPD History Date: 11/03/16 Results: 0 mm - Reproductive History Patient is a Female of Child Bearing Age (11 -55 yrs old): No - Smoking Cessation Smoking history: Current every day smoker Have you smoked in the past 12 months: Yes Aproximately how many cigarettes per day: 10 Hx Chewing Tobacco Use: No Initiated information on smoking cessation: Yes 'Breaking Loose' booklet given: 10/28/18 - Substance & Tx. History Hx Alcohol Use: Yes Hx Substance Use: Yes Substance Use Type: Alcohol, Cocaine, Heroin, Marijuana Hx Substance Use Treatment: Yes ([facility] 2016) - Substances abused Alcohol Substance route: Oral Frequency: Daily Amount used: pint Age of first use: 13 Date of last use: 10/27/18 Heroin Substance route: Inhalation Frequency: Daily Amount used: 3-4 bags Age of first use: 21 Cocaine Substance route: Smoking Frequency: 3-6 times per week Amount used: 10 Age of first use: 21 Date of last use: 10/27/18 Family Disease History - Family Disease History Family History: Unremarkable Admission Physical Exam S - Vital Signs Vital Signs: Vital Signs - 24 hr 10/28/18 10:24 Temperature 97.9 F Pulse Rate 90 Respiratory 19 Rate Blood Pressure 153/118 H - Physical General Appearance: Yes: Moderate Distress, Irritable, Anxious HEENTM: Yes: Within Normal Limits Respiratory: Yes: Lungs Clear, Normal Breath Sounds, No Respiratory Distress Neck: Yes: No masses,lesions,Nodules, Trachea in good position Breast: Yes: Breast Exam Deferred Cardiology: Yes: Regular Rhythm, Regular Rate, S1, S2 Abdominal: Yes: Normal Bowel Sounds, Non Tender, Soft Genitourinary: Yes: Within Normal Limits Back: Yes: Normal Inspection Musculoskeletal: Yes: full range of Motion, Gait Steady, Back pain Extremities: Yes: Normal Capillary Refill, Normal Inspection, Normal Range of Motion Neurological: Yes: Fully Oriented, Alert, Motor Strength 5/5 Integumentary: Yes: Normal Color, Dry, Warm Lymphatic: Yes: Within Normal Limits - Diagnostic (1) Alcohol dependence with uncomplicated withdrawal Current Visit: Yes Status: Acute (2) Opioid dependence with withdrawal Current Visit: Yes Status: Acute (3) Asthma Current Visit: Yes Status: Chronic Qualifiers: Asthma severity: mild intermittent Asthma complication type: uncomplicated Qualified Code(s): J45.20 - Mild intermittent asthma, uncomplicated (4) GERD (gastroesophageal reflux disease) Current Visit: Yes Status: Chronic Qualifiers: Esophagitis presence: without esophagitis Qualified Code(s): K21.9 - Gastro -esophageal reflux disease without esophagitis (5) Nicotine dependence Current Visit: Yes Status: Acute Qualifiers: Nicotine product type: cigarettes Substance use status: uncomplicated Qualified Code(s): F17.210 - Nicotine dependence, cigarettes, uncomplicated (6) Substance induced mood disorder Current Visit: Yes Status: Chronic (7) Marijuana dependence Current Visit: Yes Status: Chronic Cleared for Admission [facility] - Detox or Rehab [facility] Level of Care: Medically Managed Detox Regimen/Protocol: Methadone/Librium Breathalyzer - Breathalyzer Breathalyzer: 0 Urine Drug Screen - Test Device Lot number: [id number] Expiration date: 07/13/20 - Control Is test valid?: Yes - Results Drug screen NEGATIVE: No Urine drug screen results: THC-Marijuana, NIKIA-Cocaine, MET-Methamphetamine, FEN- Fentanyl, MOP-Opiates, MTD-Methadone Inpatient Rehab Admission - Rehab Decision to Admit Inpatient rehab admission?: No
[2018-10-28] MEDS ORDERED: IBUPROFEN 400 MG TABLET (FP) PO PRN (11:59)
[2018-10-28] MEDS ORDERED: MAGNESIUM CITRATE 300 ML BOTTLE PO PRN (11:59)
[2018-10-28] MEDS ORDERED: MENTHOL/PHENOL 1 EACH UD MM PRN (11:59)
[2018-10-28] MEDS ORDERED: BISMUTH SUBSALICYLATE 524 MG/30 ML UD PO PRN (11:59)
[2018-10-28] MEDS ORDERED: MAGNESIUM HYDROX 2400MG/30ML ORAL SUSPENSION 30 ML CUP PO PRN (11:59)
[2018-10-28] MEDS ORDERED: MELATONIN 5 MG TABLETS PO PRN (11:59)
[2018-10-28] MEDS ORDERED: METHOCARBAMOL 500 MG TABLET PO PRN (11:59)
[2018-10-28] MEDS ORDERED: ACETAMINOPHEN 325 MG TABLET (FP) PO PRN ×2 (11:59)
[2018-10-28] MEDS ORDERED: ALBUTEROL SO4 8 GM HFA INHALER IH PRN (12:04)
[2018-10-28] MEDS: chlordiazePOXIDE HCL 25 MG CAPSULE PO SCH ×2 (13:00→22:32)
[2018-10-28] MEDS: METHADONE HCL 40 MG DISPERSABLE TABLET PO SCH (13:00)
[2018-10-28] MEDS: NICOTINE 14 MG/24 HOURS TOPICAL PATCH TD SCH (13:03)
[2018-10-28] MEDS: chlordiazePOXIDE HCL 10 MG CAPSULE PO PRN (17:42)
[2018-10-28] MEDS: THIAMINE HCL 100 MG TABLET (FP) PO SCH (22:32)
[2018-10-29] MEDS: METHADONE HCL 40 MG DISPERSABLE TABLET PO SCH (05:48)
[2018-10-29] MEDS: chlordiazePOXIDE HCL 25 MG CAPSULE PO SCH (05:48)
[2018-10-29] MEDS: NICOTINE 14 MG/24 HOURS TOPICAL PATCH TD SCH (10:06)
[2018-10-29] MEDS: PRENATAL VITAMINS W/ FOLIC ACID TABLET (FP) PO SCH (10:06)
[2018-10-29 10:24] LABS: HEMATOCRIT 42.1 % (35.4-49); HEMOGLOBIN 14.1 GM/dL (11.7-16.9); MCH 27.9 pg (25.7-33.7); MCHC 33.5 g/dl (32.0-35.9); MEAN CELL VOLUME 83.2 fl (80-96); MEAN PLT VOLUME 7.9 fl (7.5-11.1); PLATELET COUNT 275 K/MM3 (134-434); RBC 5.06 M/mm3 (4.00-5.60); RDW 15.4 % (11.9-15.9); WHITE BLOOD COUNT 2.9 K/mm3 (4.0-10.0)
[2018-10-29 10:25] LABS: ALBUMIN 3.6 g/dl (3.4-5.0); BILIRUBIN,TOTAL 0.7 mg/dL (0.2-1); CALCIUM 9.2 mg/dL (8.5-10.1); POTASSIUM 3.5 mmol/L (3.5-5.1); TOT PROT 6.4 g/dl (6.4-8.2)
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
[2018-10-29] MEDS: chlordiazePOXIDE 5 MG CAPSULE PO SCH ×2 (14:01→22:17)
--- NOTE | 2018-10-29 16:06 | PN ---
S CIWA - CIWA Score Nausea/Vomitin-Mild Nausea/No Vomiting Muscle Tremors: 4-Moderate,w/Arms Extend Anxiety: 3 Agitation: 2 Paroxysmal Sweats: 3 Orientation: 0-Oriented Tacttile Disturbances: 0-None Auditory Disturbances: 0-None Visual Disturbances: 0-None Headache: 0-None Present CIWA-Ar Total Score: 13 BHS Progress Note (SOAP) Subjective: Chills, anxious Objective: 10/29/18 16:04 Last Vital Signs Temp Pulse Resp BP Pulse Ox 98.2 F 73 16 101/65 10/29/18 14:23 10/29/18 14:23 10/29/18 14:23 10/29/18 14:23 Laboratory Tests 10/29/18 10/29/18 10/29/18 07:50 07:50 07:50 WBC 2.9 L RBC 5.06 Hgb 14.1 Hct 42.1 MCV 83.2 MCH 27.9 MCHC 33.5 RDW 15.4 Plt Count 275 MPV 7.9 Sodium 139 Potassium 3.5 Chloride 104 Carbon Dioxide 28 Anion Gap 6 L BUN 15 Creatinine 1.0 Est GFR (CKD-EPI)AfAm 107.12 Est GFR (CKD-EPI)NonAf 92.42 Random Glucose 101 Calcium 9.2 Total Bilirubin 0.7 AST 44 H ALT 47 Alkaline Phosphatase 76 Total Protein 6.4 Albumin 3.6 RPR Titer Nonreactive Labs reviewed: wbc 2.9 Assessment: 10/29/18 16:05 Withdrawal symptoms Plan: Continue detox Encouraged PO water hydration Neutropenia: monitor cbc periodically, follow up with PCP for monitoring
[2018-10-29] MEDS: chlordiazePOXIDE HCL 10 MG CAPSULE PO PRN (19:07)
[2018-10-29] MEDS: NICOTINE POLACRILEX 2 MG GUM BUC PRN (19:08)
[2018-10-29] MEDS: traZODone HCL 50 MG TABLET (FP) PO SCH (22:17)
[2018-10-29] MEDS: PRAZOSIN HCL 1 MG CAPSULE PO SCH (22:17)
[2018-10-29] MEDS: QUEtiapine FUMARATE 50 MG TABLET PO SCH (22:17)
[2018-10-29] MEDS: THIAMINE HCL 100 MG TABLET (FP) PO SCH (22:18)
[2018-10-29] MEDS: MAG HYDROX/AL HYDROX/SIMETH 30 ML UNIT-DOSE CUP PO PRN (22:19)
[2018-10-30] MEDS: chlordiazePOXIDE 5 MG CAPSULE PO SCH (06:11)
[2018-10-30] MEDS: METHADONE HCL 40 MG DISPERSABLE TABLET PO SCH (06:12)
[2018-10-30] MEDS: PRENATAL VITAMINS W/ FOLIC ACID TABLET (FP) PO SCH (09:35)
[2018-10-30] MEDS: NICOTINE POLACRILEX 2 MG GUM BUC PRN ×4 (09:35→22:11)
[2018-10-30] MEDS: ALBUTEROL SO4 8 GM HFA INHALER IH PRN ×2 (09:47→17:20)
--- NOTE | 2018-10-30 11:12 | PN ---
S CIWA - CIWA Score Nausea/Vomitin-No Nausea/No Vomiting Muscle Tremors: 4-Moderate,w/Arms Extend Anxiety: 3 Agitation: 3 Paroxysmal Sweats: 1-Minimal Palms Moist Orientation: 0-Oriented Tacttile Disturbances: 0-None Auditory Disturbances: 0-None Visual Disturbances: 0-None Headache: 0-None Present CIWA-Ar Total Score: 11 BHS Progress Note (SOAP) Subjective: anxiety restless Objective: 10/30/18 11:11 Vital Signs Temperature 97.9 F 10/30/18 09:32 Pulse Rate 68 10/30/18 09:32 Respiratory Rate 18 10/30/18 09:32 Blood Pressure 110/69 10/30/18 09:32 O2 Sat by Pulse Oximetry (%) Laboratory Tests 10/29/18 10/29/18 10/29/18 07:50 07:50 07:50 WBC 2.9 L RBC 5.06 Hgb 14.1 Hct 42.1 MCV 83.2 MCH 27.9 MCHC 33.5 RDW 15.4 Plt Count 275 MPV 7.9 Sodium 139 Potassium 3.5 Chloride 104 Carbon Dioxide 28 Anion Gap 6 L BUN 15 Creatinine 1.0 Est GFR (CKD-EPI)AfAm 107.12 Est GFR (CKD-EPI)NonAf 92.42 Random Glucose 101 Calcium 9.2 Total Bilirubin 0.7 AST 44 H ALT 47 Alkaline Phosphatase 76 Total Protein 6.4 Albumin 3.6 RPR Titer Nonreactive aaox3 ambulating no acute distress Assessment: 10/30/18 11:11 mild withdrawal sx Plan: continue detox increase fluids claritin ordered d/c in am
[2018-10-30] MEDS: NICOTINE 14 MG/24 HOURS TOPICAL PATCH TD SCH (12:07)
[2018-10-30] MEDS ORDERED: chlordiazePOXIDE HCL 10 MG CAPSULE PO PRN (13:00)
[2018-10-30] MEDS: chlordiazePOXIDE HCL 10 MG CAPSULE PO SCH ×2 (14:28→22:08)
[2018-10-30] MEDS: PRAZOSIN HCL 1 MG CAPSULE PO SCH ×2 (16:20→22:09)
[2018-10-30] MEDS: MAG HYDROX/AL HYDROX/SIMETH 30 ML UNIT-DOSE CUP PO PRN (20:19)
[2018-10-30] MEDS: QUEtiapine FUMARATE 50 MG TABLET PO SCH (22:08)
[2018-10-30] MEDS: traZODone HCL 50 MG TABLET (FP) PO SCH (22:08)
[2018-10-30] MEDS: THIAMINE HCL 100 MG TABLET (FP) PO SCH (22:09)
[2018-10-31] MEDS: METHADONE HCL 40 MG DISPERSABLE TABLET PO SCH (05:56)
[2018-10-31] MEDS: chlordiazePOXIDE HCL 10 MG CAPSULE PO SCH (05:57)
--- NOTE | 2018-10-31 09:25 | DS ---
[facility] Detox Discharge Summary Admission Date: 10/28/18 Discharge Date: 10/31/18 - History Present History: Alcohol Dependence, Cannabis Dependence, Opioid Dependence, Sedative Dependence - Physical Exam Results Vital Signs: Vital Signs Temperature 97.3 F L 10/31/18 08:02 Pulse Rate 89 10/31/18 08:02 Respiratory Rate 18 10/31/18 08:02 Blood Pressure 130/81 10/31/18 08:02 O2 Sat by Pulse Oximetry (%) - Treatment Hospital Course: Detox Protocol Followed, Detoxed Safely, Responded well, Discharged Condition Good, Rehab Referral Accepted - Medication Discharge Medications: Ambulatory Orders Albuterol Sulfate Inhaler - [Ventolin HFA Inhaler -] 2 inh PO Q4H PRN 07/16/15 Budesonide/Formeterol Fumarate [SYMBICORT 80/4.5mcg -] 2 inh PO BID 11/02/16 Loratadine [Claritin] 10 mg PO HS 11/02/16 Ferrous Sulfate 325 mg PO BID 10/28/18 Hydroxyzine HCl 50 mg PO TID 10/28/18 Ibuprofen 600 mg PO BID 10/28/18 Quetiapine Fumarate 25 mg PO HS 10/28/18 Venlafaxine HCl 37.5 mg PO DAILY 10/28/18 - Diagnosis (1) Alcohol dependence with uncomplicated withdrawal Current Visit: Yes Status: Chronic (2) Nicotine dependence Current Visit: Yes Status: Chronic Qualifiers: Nicotine product type: cigarettes Substance use status: uncomplicated Qualified Code(s): F17.210 - Nicotine dependence, cigarettes, uncomplicated (3) Opioid dependence with withdrawal Current Visit: Yes Status: Chronic (4) Asthma Current Visit: Yes Status: Chronic Qualifiers: Asthma severity: mild Asthma complication type: uncomplicated (5) GERD (gastroesophageal reflux disease) Current Visit: Yes Status: Chronic Qualifiers: Esophagitis presence: without esophagitis Qualified Code(s): K21.9 - Gastro -esophageal reflux disease without esophagitis (6) Marijuana dependence Current Visit: Yes Status: Chronic (7) Substance induced mood disorder Current Visit: Yes Status: Chronic (8) Sedative, hypnotic, or anxiolytic withdrawal Current Visit: No Status: Acute - AMA Did Patient Leave Against Medical Advice: No (going home; [facility] pt states he will come backl)
[2018-10-31 09:27] VITALS: BP 119/75; PULSE 77; TEMP 97.5
[2018-10-31] MEDS ORDERED: LORATADINE 10 MG TABLET PO SCH (10:00)
== END 2018-10-31 09:37 | disposition home or self-care (01) | DRG 773 ==
LOC: YASAS 10:01 → Y6N 10:55
PROVIDERS: ADMIT Surgery; ATTEND Surgery
PROC: HZ2ZZZZ Detoxification Services for Substance Abuse Treatment (ICD-10-PCS; principal; 2018-10-28)
DX: F11.23 Opioid dependence with withdrawal (principal); F10.230 Alcohol dependence with withdrawal, uncomplicated; F13.230 Sedative, hypnotic or anxiolytic dependence with withdrawal, uncomplicated; F14.20 Cocaine dependence, uncomplicated; F12.20 Cannabis dependence, uncomplicated; F17.210 Nicotine dependence, cigarettes, uncomplicated; F19.24 Other psychoactive substance dependence with psychoactive substance-induced mood disorder; J45.909 Unspecified asthma, uncomplicated; K21.9 Gastro-esophageal reflux disease without esophagitis; Z91.010 Allergy to peanuts
CPT/HCPCS: 36415; 80053; 85027; 86593

== ENCOUNTER 2018-12-10 08:35 | Inpatient (IN) | payer OTHER ==
[2018-12-10 09:27] VITALS: BMI 23.0
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
[2018-12-10] MEDS ORDERED: hydrOXYzine PAMOATE 25 MG CAPSULE (FP) PO PRN (11:06)
[2018-12-10] MEDS ORDERED: BISMUTH SUBSALICYLATE 524 MG/30 ML UD PO PRN (11:06)
[2018-12-10] MEDS ORDERED: chlordiazePOXIDE HCL 25 MG CAPSULE PO PRN (11:06)
[2018-12-10] MEDS ORDERED: ACETAMINOPHEN 325 MG TABLET (FP) PO PRN ×2 (11:06)
[2018-12-10] MEDS ORDERED: MAGNESIUM HYDROX 2400MG/30ML ORAL SUSPENSION 30 ML CUP PO PRN (11:06)
[2018-12-10] MEDS ORDERED: METHOCARBAMOL 500 MG TABLET PO PRN (11:06)
[2018-12-10] MEDS ORDERED: MAG HYDROX/AL HYDROX/SIMETH 30 ML UNIT-DOSE CUP PO PRN (11:06)
[2018-12-10] MEDS ORDERED: MAGNESIUM CITRATE 300 ML BOTTLE PO PRN (11:06)
[2018-12-10] MEDS ORDERED: MENTHOL/PHENOL 1 EACH UD MM PRN (11:06)
[2018-12-10] MEDS: chlordiazePOXIDE HCL 25 MG CAPSULE PO SCH ×3 (12:02→23:09)
[2018-12-10] MEDS: BACITRACIN 15 GM TUBE TOPICAL OINTMENT TP SCH ×2 (13:35→23:51)
[2018-12-10] MEDS: THIAMINE HCL 100 MG TABLET (FP) PO SCH (23:09)
[2018-12-10] MEDS: MELATONIN 5 MG TABLETS PO PRN (23:11)
[2018-12-10] MEDS: IBUPROFEN 400 MG TABLET (FP) PO PRN (23:11)
[2018-12-10] MEDS: BUDESONIDE/FORMETEROL FUMARATE 80/4.5 mcg INHALER IH SCH (23:51)
[2018-12-11] MEDS: chlordiazePOXIDE HCL 25 MG CAPSULE PO SCH ×5 (05:50→22:13)
[2018-12-11] MEDS ORDERED: METHADONE HCL 40 MG DISPERSABLE TABLET PO ONE (09:45)
[2018-12-11] MEDS: BUDESONIDE/FORMETEROL FUMARATE 80/4.5 mcg INHALER IH SCH ×2 (10:18→22:39)
[2018-12-11] MEDS: PRENATAL VITAMINS W/ FOLIC ACID TABLET (FP) PO SCH (10:19)
[2018-12-11] MEDS: BACITRACIN 15 GM TUBE TOPICAL OINTMENT TP SCH ×2 (10:19→22:38)
[2018-12-11 10:26] LABS: HEMATOCRIT 40.1 % (35.4-49); HEMOGLOBIN 13.2 GM/dL (11.7-16.9); MCH 28.4 pg (25.7-33.7); MCHC 32.9 g/dl (32.0-35.9); MEAN CELL VOLUME 86.5 fl (80-96); PLATELET COUNT 295 K/MM3 (134-434); RBC 4.63 M/mm3 (4.00-5.60); WHITE BLOOD COUNT 2.4 K/mm3 (4.0-10.0)
[2018-12-11 10:31] LABS: ALBUMIN 3.1 g/dl (3.4-5.0); BILIRUBIN,TOTAL 0.4 mg/dL (0.2-1); BLOOD UREA NITROGEN 18.5 mg/dL (7-18); CALCIUM 8.4 mg/dL (8.5-10.1); CREATININE 0.9 mg/dL (0.55-1.3); POTASSIUM 4.3 mmol/L (3.5-5.1); TOT PROT 5.6 g/dl (6.4-8.2)
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
--- NOTE | 2018-12-11 13:13 | PN ---
S CIWA - CIWA Score Nausea/Vomitin-No Nausea/No Vomiting Muscle Tremors: 3 Anxiety: 3 Agitation: 3 Paroxysmal Sweats: 3 Orientation: 0-Oriented Tacttile Disturbances: 0-None Auditory Disturbances: 0-None Visual Disturbances: 0-None Headache: 0-None Present CIWA-Ar Total Score: 12 S Progress Note (SOAP) Subjective: sweats shakes interrupted sleep body aches agitation Objective: 12/11/18 13:12 Vital Signs Temperature 97.7 F 12/11/18 13:06 Pulse Rate 54 L 12/11/18 13:06 Respiratory Rate 18 12/11/18 13:06 Blood Pressure 117/74 12/11/18 13:06 O2 Sat by Pulse Oximetry (%) Laboratory Tests 12/11/18 12/11/18 12/11/18 07:00 07:00 07:00 WBC 2.4 L RBC 4.63 Hgb 13.2 Hct 40.1 MCV 86.5 MCH 28.4 MCHC 32.9 RDW 16.0 H Plt Count 295 MPV 8.0 Sodium 146 H Potassium 4.3 Chloride 112 H Carbon Dioxide 30 Anion Gap 4 L BUN 18.5 H Creatinine 0.9 Est GFR (CKD-EPI)AfAm 120.81 Est GFR (CKD-EPI)NonAf 104.24 Random Glucose 83 Calcium 8.4 L Total Bilirubin 0.4 AST 13 L ALT 17 Alkaline Phosphatase 77 Total Protein 5.6 L Albumin 3.1 L RPR Titer Nonreactive labs noted aaox3 ambulating no acute distress Assessment: 12/11/18 13:13 withdrawal sx Plan: continue detox increase fluids
[2018-12-11] MEDS: MELATONIN 5 MG TABLETS PO PRN (22:13)
[2018-12-11] MEDS: QUEtiapine FUMARATE 50 MG TABLET PO SCH (22:13)
[2018-12-11] MEDS: PRAZOSIN HCL 1 MG CAPSULE PO SCH (22:15)
[2018-12-11] MEDS: ALBUTEROL SO4 8 GM HFA INHALER IH PRN (22:39)
[2018-12-11] MEDS: THIAMINE HCL 100 MG TABLET (FP) PO SCH (22:40)
[2018-12-12] MEDS: chlordiazePOXIDE HCL 10 MG CAPSULE PO SCH ×4 (05:27→22:15)
[2018-12-12] MEDS: ALBUTEROL SO4 8 GM HFA INHALER IH PRN ×3 (05:27→19:17)
[2018-12-12] MEDS: METHADONE HCL 40 MG DISPERSABLE TABLET PO SCH (05:27)
[2018-12-12] MEDS: PRENATAL VITAMINS W/ FOLIC ACID TABLET (FP) PO SCH (10:16)
[2018-12-12] MEDS: BACITRACIN 15 GM TUBE TOPICAL OINTMENT TP SCH ×2 (10:16→22:16)
[2018-12-12] MEDS: BUDESONIDE/FORMETEROL FUMARATE 80/4.5 mcg INHALER IH SCH ×2 (10:16→22:15)
[2018-12-12] MEDS ORDERED: chlordiazePOXIDE HCL 10 MG CAPSULE PO PRN (11:00)
--- NOTE | 2018-12-12 11:53 | PN ---
S CIWA - CIWA Score Nausea/Vomitin-No Nausea/No Vomiting Muscle Tremors: 3 Anxiety: 2 Agitation: 2 Paroxysmal Sweats: 2 Orientation: 0-Oriented Tacttile Disturbances: 0-None Auditory Disturbances: 0-None Visual Disturbances: 0-None Headache: 0-None Present CIWA-Ar Total Score: 9 BHS Progress Note (SOAP) Subjective: sweats anxiety interrupted sleep i need nicotine gum Objective: 12/12/18 11:46 Vital Signs Temperature 97.5 F L 12/12/18 09:35 Pulse Rate 53 L 12/12/18 09:35 Respiratory Rate 17 12/12/18 09:35 Blood Pressure 112/54 L 12/12/18 09:35 O2 Sat by Pulse Oximetry (%) Laboratory Tests 12/11/18 12/11/18 12/11/18 07:00 07:00 07:00 WBC 2.4 L RBC 4.63 Hgb 13.2 Hct 40.1 MCV 86.5 MCH 28.4 MCHC 32.9 RDW 16.0 H Plt Count 295 MPV 8.0 Sodium 146 H Potassium 4.3 Chloride 112 H Carbon Dioxide 30 Anion Gap 4 L BUN 18.5 H Creatinine 0.9 Est GFR (CKD-EPI)AfAm 120.81 Est GFR (CKD-EPI)NonAf 104.24 Random Glucose 83 Calcium 8.4 L Total Bilirubin 0.4 AST 13 L ALT 17 Alkaline Phosphatase 77 Total Protein 5.6 L Albumin 3.1 L RPR Titer Nonreactive labs noted aaox3 ambulating no acute distress Assessment: 12/12/18 11:53 withdrawal sx Plan: continue detox increase fluids nicotine 2mg gum ordered
[2018-12-12] MEDS: NICOTINE POLACRILEX 2 MG GUM BUC PRN ×2 (12:01→14:36)
[2018-12-12] MEDS: THIAMINE HCL 100 MG TABLET (FP) PO SCH (22:15)
[2018-12-12] MEDS: QUEtiapine FUMARATE 50 MG TABLET PO SCH (22:15)
[2018-12-12] MEDS: MELATONIN 5 MG TABLETS PO PRN (22:15)
[2018-12-12] MEDS: PRAZOSIN HCL 1 MG CAPSULE PO SCH (22:16)
[2018-12-13] MEDS ORDERED: chlordiazePOXIDE HCL 10 MG CAPSULE PO SCH (06:00)
[2018-12-13] MEDS: METHADONE HCL 40 MG DISPERSABLE TABLET PO SCH (06:16)
--- NOTE | 2018-12-13 09:30 | PN ---
S Progress Note Note: Patient complains of sleeping poorly despite taking Seroquel 50 mg/hs. Will increase Seroquel dosage to 100 mg/hs
[2018-12-13] MEDS: IBUPROFEN 400 MG TABLET (FP) PO PRN (10:12)
[2018-12-13] MEDS: BACITRACIN 15 GM TUBE TOPICAL OINTMENT TP SCH (10:13)
[2018-12-13] MEDS: PRENATAL VITAMINS W/ FOLIC ACID TABLET (FP) PO SCH (10:13)
[2018-12-13] MEDS: BUDESONIDE/FORMETEROL FUMARATE 80/4.5 mcg INHALER IH SCH (10:13)
[2018-12-13] MEDS: NICOTINE POLACRILEX 2 MG GUM BUC PRN (12:30)
[2018-12-13 13:19] VITALS: BP 140/86; PULSE 64; TEMP 98.5
--- NOTE | 2018-12-13 16:32 | DS ---
[facility] Detox Discharge Summary Admission Date: 12/10/18 Discharge Date: 12/13/18 - History Present History: Alcohol Dependence, Cocaine Dependence, Sedative Dependence, MMTP Additional Comments: PT COMPLETED DETOX AND DISCHARGED TO REHAB TODAY. PT IS ALERT O X 3. NAD. Pertinent Past History: PLEASE SEE DX BELOW - Physical Exam Results Vital Signs: Vital Signs Temperature 98.5 F 12/13/18 13:19 Pulse Rate 64 12/13/18 13:19 Respiratory Rate 18 12/13/18 13:19 Blood Pressure 140/86 12/13/18 13:19 O2 Sat by Pulse Oximetry (%) Pertinent Admission Physical Exam Findings: WITHDRAWAL SX Laboratory Tests 12/11/18 12/11/18 12/11/18 07:00 07:00 07:00 WBC 2.4 L RBC 4.63 Hgb 13.2 Hct 40.1 MCV 86.5 MCH 28.4 MCHC 32.9 RDW 16.0 H Plt Count 295 MPV 8.0 Sodium 146 H Potassium 4.3 Chloride 112 H Carbon Dioxide 30 Anion Gap 4 L BUN 18.5 H Creatinine 0.9 Est GFR (CKD-EPI)AfAm 120.81 Est GFR (CKD-EPI)NonAf 104.24 Random Glucose 83 Calcium 8.4 L Total Bilirubin 0.4 AST 13 L ALT 17 Alkaline Phosphatase 77 Total Protein 5.6 L Albumin 3.1 L RPR Titer Nonreactive - Treatment Hospital Course: Detox Protocol Followed, Detoxed Safely, Responded well, Discharged Condition Good, Rehab Referral Accepted Patient has Accepted a Rehab Referral to: [address] - Medication Discharge Medications: Ambulatory Orders Albuterol Sulfate Inhaler - [Ventolin HFA Inhaler -] 2 inh PO Q4H PRN 07/16/15 Budesonide/Formeterol Fumarate [SYMBICORT 80/4.5mcg -] 2 inh PO BID 11/02/16 Loratadine [Allergy] 10 mg PO DAILY 12/10/18 Omeprazole 20 mg PO DAILY 12/10/18 Prazosin HCl 5 mg PO HS 12/10/18 Quetiapine Fumarate [Seroquel -] 50 mg PO HS 12/10/18 Trazodone HCl 150 mg PO HS 12/10/18 hydrOXYzine PAMOATE [Vistaril -] 50 mg PO TID PRN 12/10/18 - Diagnosis (1) Alcohol dependence with uncomplicated withdrawal Status: Acute (2) Cocaine dependence Status: Acute Qualifiers: Substance use status: uncomplicated Qualified Code(s): F14.20 - Cocaine dependence, uncomplicated (3) Sedative, hypnotic, or anxiolytic withdrawal Status: Acute (4) Bronchial asthma Status: Chronic Qualifiers: Asthma severity: mild Asthma persistence: unspecified Asthma complication type: unspecified Qualified Code(s): J45.909 - Unspecified asthma , uncomplicated (5) GERD (gastroesophageal reflux disease) Status: Chronic Qualifiers: Esophagitis presence: esophagitis presence not specified Qualified Code(s) : K21.9 - Gastro-esophageal reflux disease without esophagitis (6) Nicotine dependence Status: Acute Qualifiers: Nicotine product type: cigarettes Substance use status: in withdrawal Qualified Code(s): F17.213 - Nicotine dependence, cigarettes, with withdrawal (7) Opioid dependence on agonist therapy Status: Chronic - AMA Did Patient Leave Against Medical Advice: No
[2018-12-13] MEDS ORDERED: QUEtiapine FUMARATE 100 MG TABLET (FP) PO SCH (22:00)
== END 2018-12-13 13:45 | disposition other institution (70) | DRG 773 ==
LOC: YASAS 08:35 → Y6N 11:32
PROVIDERS: ADMIT Surgery; ATTEND Surgery
PROC: HZ2ZZZZ Detoxification Services for Substance Abuse Treatment (ICD-10-PCS; principal; 2018-12-10)
DX: F10.230 Alcohol dependence with withdrawal, uncomplicated (principal); F13.230 Sedative, hypnotic or anxiolytic dependence with withdrawal, uncomplicated; F11.20 Opioid dependence, uncomplicated; F14.20 Cocaine dependence, uncomplicated; F17.210 Nicotine dependence, cigarettes, uncomplicated; F19.282 Other psychoactive substance dependence with psychoactive substance-induced sleep disorder; F43.10 Post-traumatic stress disorder, unspecified; F41.9 Anxiety disorder, unspecified; F32.9 Major depressive disorder, single episode, unspecified; J45.909 Unspecified asthma, uncomplicated; K21.9 Gastro-esophageal reflux disease without esophagitis; Z87.820 Personal history of traumatic brain injury
CPT/HCPCS: 36415; 80053; 85027; 86593

== ENCOUNTER 2018-12-13 12:57 | Inpatient (IN) | payer OTHER ==
--- NOTE | 2018-12-13 14:28 | PN ---
[facility] Progress Note Note: Patient was admitted today from detox. He was seen by rfp writer on 12/11/18 while admitted to detox and he was prescribed Seroquel 50 mg/hs and Prazosin 2 mg/hs. Will order both medications for patient
--- NOTE | 2018-12-13 14:45 | HP ---
[facility] Rehab Assess/Revision - Admission History Admitted to Rehab from: [facility] Date of Admission to Rehab: 12/13/18 - Findings Detox History & Physical reviewed: Yes Concur with findings: Yes Inpatient Rehab Admission - Rehab Decision to Admit Inpatient rehab admission?: Yes - Initial Determination Are CD services needed?: Yes Free of communicable disease: Yes Not in need of hospitalization: Yes - Rehab Admission Criteria Previous failed treatment: Yes Poor recovery environment: Yes Comorbidities: Yes Lacks judgement: Yes Patient is meeting Inpatient Rehab admission criteria:: Yes
[2018-12-13] MEDS ORDERED: MAG HYDROX/AL HYDROX/SIMETH 30 ML UNIT-DOSE CUP PO PRN (14:46)
[2018-12-13] MEDS ORDERED: ACETAMINOPHEN 325 MG TABLET (FP) PO PRN (14:46)
[2018-12-13] MEDS ORDERED: MAGNESIUM HYDROX 2400MG/30ML ORAL SUSPENSION 30 ML CUP PO PRN (14:46)
[2018-12-13] MEDS ORDERED: P-EPHED 60MG/TRIPROLIDI 2.5MG TABLET PO PRN (14:46)
[2018-12-13] MEDS ORDERED: LOPERAMIDE HCL 2 MG CAPSULE PO PRN (14:46)
[2018-12-13] MEDS ORDERED: MENTHOL/PHENOL 1 EACH UD MM PRN (14:46)
[2018-12-13] MEDS ORDERED: hydrOXYzine PAMOATE 50 MG CAPSULE (FP) PO PRN (14:46)
[2018-12-13] MEDS ORDERED: guaiFENesin 200 MG/10 ML 10 ML UNIT-DOSE CUPS PO PRN (14:46)
[2018-12-13] MEDS ORDERED: MAGNESIUM CITRATE 300 ML BOTTLE PO PRN (14:46)
[2018-12-13] MEDS: PANTOPRAZOLE 40 MG TABLET (FP) PO SCH (17:02)
[2018-12-13] MEDS: NICOTINE POLACRILEX 2 MG GUM BUC PRN ×2 (17:34→21:32)
[2018-12-13] MEDS: THIAMINE HCL 100 MG TABLET (FP) PO SCH (21:29)
[2018-12-13] MEDS: PRAZOSIN HCL 1 MG CAPSULE PO SCH (21:29)
[2018-12-13] MEDS: QUEtiapine FUMARATE 50 MG TABLET PO SCH (21:30)
[2018-12-13] MEDS: BUDESONIDE/FORMETEROL FUMARATE 80/4.5 mcg INHALER IH SCH (21:30)
[2018-12-13] MEDS: BACITRACIN 15 GM TUBE TOPICAL OINTMENT TP SCH (21:31)
[2018-12-14] MEDS: METHADONE HCL 40 MG DISPERSABLE TABLET PO SCH (06:16)
[2018-12-14] MEDS: BUDESONIDE/FORMETEROL FUMARATE 80/4.5 mcg INHALER IH SCH ×2 (10:14→21:19)
[2018-12-14] MEDS: PANTOPRAZOLE 40 MG TABLET (FP) PO SCH (10:14)
[2018-12-14] MEDS: BACITRACIN 15 GM TUBE TOPICAL OINTMENT TP SCH ×2 (10:14→21:20)
[2018-12-14] MEDS: NICOTINE 14 MG/24 HOURS TOPICAL PATCH TD SCH (10:14)
[2018-12-14] MEDS: PRENATAL VITAMINS W/ FOLIC ACID TABLET (FP) PO SCH (10:14)
[2018-12-14] MEDS: NICOTINE POLACRILEX 2 MG GUM BUC PRN ×3 (10:16→21:21)
[2018-12-14] MEDS: IBUPROFEN 400 MG TABLET (FP) PO PRN (10:17)
[2018-12-14] MEDS: COLLOIDAL OATMEAL 1 BAR EACH TP PRN (15:31)
[2018-12-14] MEDS: ALBUTEROL SO4 8 GM HFA INHALER IH PRN (17:11)
[2018-12-14] MEDS: QUEtiapine FUMARATE 50 MG TABLET PO SCH (21:19)
[2018-12-14] MEDS: PRAZOSIN HCL 1 MG CAPSULE PO SCH (21:19)
[2018-12-14] MEDS: THIAMINE HCL 100 MG TABLET (FP) PO SCH (21:19)
[2018-12-15] MEDS: ALBUTEROL SO4 8 GM HFA INHALER IH PRN (06:19)
[2018-12-15] MEDS: METHADONE HCL 40 MG DISPERSABLE TABLET PO SCH (06:20)
[2018-12-15] MEDS: NICOTINE POLACRILEX 2 MG GUM BUC PRN ×6 (06:22→21:26)
[2018-12-15] MEDS: BUDESONIDE/FORMETEROL FUMARATE 80/4.5 mcg INHALER IH SCH ×2 (10:25→21:25)
[2018-12-15] MEDS: NICOTINE 14 MG/24 HOURS TOPICAL PATCH TD SCH (10:25)
[2018-12-15] MEDS: BACITRACIN 15 GM TUBE TOPICAL OINTMENT TP SCH ×2 (10:26→21:26)
[2018-12-15] MEDS: PRENATAL VITAMINS W/ FOLIC ACID TABLET (FP) PO SCH (10:27)
[2018-12-15] MEDS: PANTOPRAZOLE 40 MG TABLET (FP) PO SCH (10:27)
[2018-12-15] MEDS: IBUPROFEN 400 MG TABLET (FP) PO PRN ×2 (10:29→21:24)
[2018-12-15] MEDS: PRAZOSIN HCL 1 MG CAPSULE PO SCH (21:23)
[2018-12-15] MEDS: QUEtiapine FUMARATE 50 MG TABLET PO SCH (21:23)
[2018-12-15] MEDS: THIAMINE HCL 100 MG TABLET (FP) PO SCH (21:24)
[2018-12-15] MEDS: MELATONIN 5 MG TABLETS PO PRN (21:25)
[2018-12-16] MEDS: METHADONE HCL 40 MG DISPERSABLE TABLET PO SCH (06:14)
[2018-12-16] MEDS: ALBUTEROL SO4 8 GM HFA INHALER IH PRN (06:15)
[2018-12-16] MEDS: NICOTINE POLACRILEX 2 MG GUM BUC PRN ×5 (06:16→21:09)
[2018-12-16] MEDS: PANTOPRAZOLE 40 MG TABLET (FP) PO SCH (09:52)
[2018-12-16] MEDS: PRENATAL VITAMINS W/ FOLIC ACID TABLET (FP) PO SCH (09:52)
[2018-12-16] MEDS: BUDESONIDE/FORMETEROL FUMARATE 80/4.5 mcg INHALER IH SCH ×2 (09:52→21:09)
[2018-12-16] MEDS: BACITRACIN 15 GM TUBE TOPICAL OINTMENT TP SCH ×2 (09:53→21:08)
[2018-12-16] MEDS: IBUPROFEN 400 MG TABLET (FP) PO PRN ×2 (09:53→21:09)
[2018-12-16] MEDS: NICOTINE 14 MG/24 HOURS TOPICAL PATCH TD SCH (09:53)
[2018-12-16] MEDS: MELATONIN 5 MG TABLETS PO PRN (21:08)
[2018-12-16] MEDS: THIAMINE HCL 100 MG TABLET (FP) PO SCH (21:09)
[2018-12-16] MEDS: PRAZOSIN HCL 1 MG CAPSULE PO SCH (21:09)
[2018-12-16] MEDS: QUEtiapine FUMARATE 50 MG TABLET PO SCH (21:09)
[2018-12-17] MEDS: METHADONE HCL 40 MG DISPERSABLE TABLET PO SCH (06:13)
[2018-12-17] MEDS: NICOTINE POLACRILEX 2 MG GUM BUC PRN ×4 (06:13→21:15)
[2018-12-17] MEDS: ALBUTEROL SO4 8 GM HFA INHALER IH PRN (06:13)
[2018-12-17] MEDS: BUDESONIDE/FORMETEROL FUMARATE 80/4.5 mcg INHALER IH SCH ×2 (10:04→21:15)
[2018-12-17] MEDS: NICOTINE 14 MG/24 HOURS TOPICAL PATCH TD SCH (10:04)
[2018-12-17] MEDS: PANTOPRAZOLE 40 MG TABLET (FP) PO SCH (10:04)
[2018-12-17] MEDS: PRENATAL VITAMINS W/ FOLIC ACID TABLET (FP) PO SCH (10:04)
[2018-12-17] MEDS: BACITRACIN 15 GM TUBE TOPICAL OINTMENT TP SCH ×2 (10:05→21:13)
[2018-12-17] MEDS: IBUPROFEN 400 MG TABLET (FP) PO PRN ×2 (10:05→21:13)
[2018-12-17] MEDS: PRAZOSIN HCL 1 MG CAPSULE PO SCH (21:13)
[2018-12-17] MEDS: THIAMINE HCL 100 MG TABLET (FP) PO SCH (21:13)
[2018-12-17] MEDS: MELATONIN 5 MG TABLETS PO PRN (21:15)
[2018-12-17] MEDS: QUEtiapine FUMARATE 50 MG TABLET PO SCH (21:58)
[2018-12-18] MEDS: METHADONE HCL 40 MG DISPERSABLE TABLET PO SCH (06:08)
[2018-12-18] MEDS: NICOTINE POLACRILEX 2 MG GUM BUC PRN ×5 (06:09→21:50)
[2018-12-18] MEDS: ALBUTEROL SO4 8 GM HFA INHALER IH PRN (08:42)
[2018-12-18] MEDS: NICOTINE 14 MG/24 HOURS TOPICAL PATCH TD SCH (10:45)
[2018-12-18] MEDS: PRENATAL VITAMINS W/ FOLIC ACID TABLET (FP) PO SCH (10:45)
[2018-12-18] MEDS: PANTOPRAZOLE 40 MG TABLET (FP) PO SCH (10:45)
[2018-12-18] MEDS: BACITRACIN 15 GM TUBE TOPICAL OINTMENT TP SCH ×2 (10:46→21:47)
[2018-12-18] MEDS: BUDESONIDE/FORMETEROL FUMARATE 80/4.5 mcg INHALER IH SCH ×2 (10:46→21:44)
[2018-12-18] MEDS: IBUPROFEN 400 MG TABLET (FP) PO PRN ×2 (10:47→21:49)
[2018-12-18] MEDS: THIAMINE HCL 100 MG TABLET (FP) PO SCH (21:44)
[2018-12-18] MEDS: MELATONIN 5 MG TABLETS PO PRN (21:46)
[2018-12-18] MEDS: PRAZOSIN HCL 1 MG CAPSULE PO SCH (21:46)
[2018-12-18] MEDS: QUEtiapine FUMARATE 50 MG TABLET PO SCH (21:46)
[2018-12-19] MEDS: METHADONE HCL 40 MG DISPERSABLE TABLET PO SCH (06:11)
[2018-12-19] MEDS: NICOTINE POLACRILEX 2 MG GUM BUC PRN ×6 (06:14→23:41)
[2018-12-19] MEDS: BUDESONIDE/FORMETEROL FUMARATE 80/4.5 mcg INHALER IH SCH ×2 (10:14→22:12)
[2018-12-19] MEDS: PANTOPRAZOLE 40 MG TABLET (FP) PO SCH (10:15)
[2018-12-19] MEDS: BACITRACIN 15 GM TUBE TOPICAL OINTMENT TP SCH ×2 (10:15→21:25)
[2018-12-19] MEDS: PRENATAL VITAMINS W/ FOLIC ACID TABLET (FP) PO SCH (10:15)
[2018-12-19] MEDS: NICOTINE 14 MG/24 HOURS TOPICAL PATCH TD SCH (10:16)
[2018-12-19] MEDS: IBUPROFEN 400 MG TABLET (FP) PO PRN (10:17)
[2018-12-19] MEDS: ALBUTEROL SO4 8 GM HFA INHALER IH PRN (10:18)
[2018-12-19] MEDS: THIAMINE HCL 100 MG TABLET (FP) PO SCH (21:24)
[2018-12-19] MEDS: PRAZOSIN HCL 1 MG CAPSULE PO SCH (21:25)
[2018-12-19] MEDS: QUEtiapine FUMARATE 50 MG TABLET PO SCH (21:25)
[2018-12-20] MEDS: METHADONE HCL 40 MG DISPERSABLE TABLET PO SCH (06:01)
[2018-12-20] MEDS: NICOTINE 14 MG/24 HOURS TOPICAL PATCH TD SCH (10:29)
[2018-12-20] MEDS: BACITRACIN 15 GM TUBE TOPICAL OINTMENT TP SCH ×2 (10:29→21:48)
[2018-12-20] MEDS: PANTOPRAZOLE 40 MG TABLET (FP) PO SCH (10:29)
[2018-12-20] MEDS: PRENATAL VITAMINS W/ FOLIC ACID TABLET (FP) PO SCH (10:29)
[2018-12-20] MEDS: BUDESONIDE/FORMETEROL FUMARATE 80/4.5 mcg INHALER IH SCH ×2 (10:29→21:43)
[2018-12-20] MEDS: IBUPROFEN 400 MG TABLET (FP) PO PRN (10:32)
[2018-12-20] MEDS: NICOTINE POLACRILEX 2 MG GUM BUC PRN ×2 (10:34→14:31)
[2018-12-20] MEDS: VITAMINS A AND D TOPICAL OINTMENT 60 GM TUBE TP SCH (11:01)
[2018-12-20] MEDS: NICOTINE POLACRILEX 4 MG GUM BUC PRN ×2 (18:02→21:45)
[2018-12-20] MEDS: QUEtiapine FUMARATE 50 MG TABLET PO SCH (21:42)
[2018-12-20] MEDS: PRAZOSIN HCL 1 MG CAPSULE PO SCH (21:43)
[2018-12-20] MEDS: THIAMINE HCL 100 MG TABLET (FP) PO SCH (21:44)
[2018-12-20] MEDS: MELATONIN 5 MG TABLETS PO PRN (21:44)
[2018-12-21] MEDS: METHADONE HCL 40 MG DISPERSABLE TABLET PO SCH (06:14)
[2018-12-21] MEDS: NICOTINE POLACRILEX 4 MG GUM BUC PRN ×4 (06:15→21:59)
[2018-12-21] MEDS: PRENATAL VITAMINS W/ FOLIC ACID TABLET (FP) PO SCH (10:31)
[2018-12-21] MEDS: NICOTINE 14 MG/24 HOURS TOPICAL PATCH TD SCH (10:31)
[2018-12-21] MEDS: PANTOPRAZOLE 40 MG TABLET (FP) PO SCH (10:31)
[2018-12-21] MEDS: BUDESONIDE/FORMETEROL FUMARATE 80/4.5 mcg INHALER IH SCH ×2 (10:31→21:58)
[2018-12-21] MEDS: BACITRACIN 15 GM TUBE TOPICAL OINTMENT TP SCH ×2 (10:32→21:56)
[2018-12-21] MEDS: VITAMINS A AND D TOPICAL OINTMENT 60 GM TUBE TP SCH (10:32)
[2018-12-21] MEDS: COLLOIDAL OATMEAL 1 BAR EACH TP PRN (10:34)
[2018-12-21] MEDS: IBUPROFEN 400 MG TABLET (FP) PO PRN (10:34)
[2018-12-21] MEDS: THIAMINE HCL 100 MG TABLET (FP) PO SCH (21:57)
[2018-12-21] MEDS: QUEtiapine FUMARATE 50 MG TABLET PO SCH (21:57)
[2018-12-21] MEDS: PRAZOSIN HCL 1 MG CAPSULE PO SCH (21:58)
[2018-12-21] MEDS: MELATONIN 5 MG TABLETS PO PRN (21:58)
[2018-12-22] MEDS: METHADONE HCL 40 MG DISPERSABLE TABLET PO SCH (06:14)
[2018-12-22] MEDS: NICOTINE POLACRILEX 4 MG GUM BUC PRN ×6 (06:15→21:55)
[2018-12-22] MEDS: NICOTINE 14 MG/24 HOURS TOPICAL PATCH TD SCH (10:29)
[2018-12-22] MEDS: PRENATAL VITAMINS W/ FOLIC ACID TABLET (FP) PO SCH (10:29)
[2018-12-22] MEDS: PANTOPRAZOLE 40 MG TABLET (FP) PO SCH (10:29)
[2018-12-22] MEDS: BUDESONIDE/FORMETEROL FUMARATE 80/4.5 mcg INHALER IH SCH ×2 (10:30→21:52)
[2018-12-22] MEDS: BACITRACIN 15 GM TUBE TOPICAL OINTMENT TP SCH ×2 (10:31→21:55)
[2018-12-22] MEDS: VITAMINS A AND D TOPICAL OINTMENT 60 GM TUBE TP SCH (10:34)
[2018-12-22] MEDS: THIAMINE HCL 100 MG TABLET (FP) PO SCH (21:51)
[2018-12-22] MEDS: QUEtiapine FUMARATE 50 MG TABLET PO SCH (21:51)
[2018-12-22] MEDS: PRAZOSIN HCL 1 MG CAPSULE PO SCH (21:52)
[2018-12-22] MEDS: MELATONIN 5 MG TABLETS PO PRN (21:52)
[2018-12-23] MEDS: METHADONE HCL 40 MG DISPERSABLE TABLET PO SCH (06:03)
[2018-12-23] MEDS: NICOTINE POLACRILEX 4 MG GUM BUC PRN ×6 (06:04→21:49)
[2018-12-23] MEDS: VITAMINS A AND D TOPICAL OINTMENT 60 GM TUBE TP SCH (10:24)
[2018-12-23] MEDS: BUDESONIDE/FORMETEROL FUMARATE 80/4.5 mcg INHALER IH SCH ×2 (10:24→23:26)
[2018-12-23] MEDS: PANTOPRAZOLE 40 MG TABLET (FP) PO SCH (10:24)
[2018-12-23] MEDS: PRENATAL VITAMINS W/ FOLIC ACID TABLET (FP) PO SCH (10:24)
[2018-12-23] MEDS: NICOTINE 14 MG/24 HOURS TOPICAL PATCH TD SCH (10:25)
[2018-12-23] MEDS: BACITRACIN 15 GM TUBE TOPICAL OINTMENT TP SCH ×2 (10:26→23:26)
[2018-12-23] MEDS: THIAMINE HCL 100 MG TABLET (FP) PO SCH (21:05)
[2018-12-23] MEDS: MELATONIN 5 MG TABLETS PO PRN (21:08)
[2018-12-23] MEDS: QUEtiapine FUMARATE 50 MG TABLET PO SCH (21:08)
[2018-12-23] MEDS: PRAZOSIN HCL 1 MG CAPSULE PO SCH (21:09)
[2018-12-24] MEDS: METHADONE HCL 40 MG DISPERSABLE TABLET PO SCH (06:08)
[2018-12-24] MEDS: NICOTINE POLACRILEX 4 MG GUM BUC PRN ×6 (06:09→21:41)
[2018-12-24] MEDS: BUDESONIDE/FORMETEROL FUMARATE 80/4.5 mcg INHALER IH SCH ×2 (10:34→21:42)
[2018-12-24] MEDS: PANTOPRAZOLE 40 MG TABLET (FP) PO SCH (10:34)
[2018-12-24] MEDS: NICOTINE 14 MG/24 HOURS TOPICAL PATCH TD SCH (10:34)
[2018-12-24] MEDS: BACITRACIN 15 GM TUBE TOPICAL OINTMENT TP SCH ×2 (10:34→21:40)
[2018-12-24] MEDS: PRENATAL VITAMINS W/ FOLIC ACID TABLET (FP) PO SCH (10:34)
[2018-12-24] MEDS: VITAMINS A AND D TOPICAL OINTMENT 60 GM TUBE TP SCH (10:35)
[2018-12-24] MEDS: PRAZOSIN HCL 1 MG CAPSULE PO SCH (21:39)
[2018-12-24] MEDS: MELATONIN 5 MG TABLETS PO PRN (21:39)
[2018-12-24] MEDS: QUEtiapine FUMARATE 50 MG TABLET PO SCH (21:40)
[2018-12-24] MEDS: THIAMINE HCL 100 MG TABLET (FP) PO SCH (21:43)
[2018-12-25] MEDS: METHADONE HCL 40 MG DISPERSABLE TABLET PO SCH (06:22)
[2018-12-25] MEDS: NICOTINE POLACRILEX 4 MG GUM BUC PRN ×6 (06:24→21:36)
[2018-12-25] MEDS: PRENATAL VITAMINS W/ FOLIC ACID TABLET (FP) PO SCH (10:20)
[2018-12-25] MEDS: PANTOPRAZOLE 40 MG TABLET (FP) PO SCH (10:20)
[2018-12-25] MEDS: NICOTINE 14 MG/24 HOURS TOPICAL PATCH TD SCH (10:21)
[2018-12-25] MEDS: VITAMINS A AND D TOPICAL OINTMENT 60 GM TUBE TP SCH (10:21)
[2018-12-25] MEDS: BACITRACIN 15 GM TUBE TOPICAL OINTMENT TP SCH ×2 (10:21→21:36)
[2018-12-25] MEDS: ALBUTEROL SO4 8 GM HFA INHALER IH PRN (10:22)
[2018-12-25] MEDS: BUDESONIDE/FORMETEROL FUMARATE 80/4.5 mcg INHALER IH SCH ×2 (10:22→21:36)
[2018-12-25] MEDS: QUEtiapine FUMARATE 50 MG TABLET PO SCH (21:36)
[2018-12-25] MEDS: PRAZOSIN HCL 1 MG CAPSULE PO SCH (21:36)
[2018-12-25] MEDS: THIAMINE HCL 100 MG TABLET (FP) PO SCH (21:36)
[2018-12-25] MEDS: MELATONIN 5 MG TABLETS PO PRN (21:36)
[2018-12-26] MEDS: METHADONE HCL 40 MG DISPERSABLE TABLET PO SCH (06:28)
[2018-12-26] MEDS: NICOTINE POLACRILEX 4 MG GUM BUC PRN ×7 (06:31→21:43)
[2018-12-26] MEDS: NICOTINE 14 MG/24 HOURS TOPICAL PATCH TD SCH (10:10)
[2018-12-26] MEDS: PRENATAL VITAMINS W/ FOLIC ACID TABLET (FP) PO SCH (10:10)
[2018-12-26] MEDS: PANTOPRAZOLE 40 MG TABLET (FP) PO SCH (10:10)
[2018-12-26] MEDS: BACITRACIN 15 GM TUBE TOPICAL OINTMENT TP SCH ×2 (10:10→22:10)
[2018-12-26] MEDS: BUDESONIDE/FORMETEROL FUMARATE 80/4.5 mcg INHALER IH SCH ×2 (10:10→21:40)
[2018-12-26] MEDS: VITAMINS A AND D TOPICAL OINTMENT 60 GM TUBE TP SCH (10:11)
--- NOTE | 2018-12-26 11:43 | PN ---
[facility] Progress Note (SOAP) Subjective: PT IS SCHEDULED TO BE DISCHARGED TOMORROW TO FOLLOW UP WITH AFTERCARE. PT MET WITH HIS COUNSELOR, MS JORDEN LUNA AND HAS BEEN REFERRED TO [facility] FOR CD AFTERCARE. PT REPORTS HE HAS PRIMARY CARE AT [place], [place] FOR MEDICAL MANAGEMENT. PT IS ALERT O X 3. OOB AMBULATES WITH STAEDY GAIT AND VISIBLE ON THE UNIT. DENIES S/H/I. Objective: 12/26/18 11:40 Vital Signs 12/26/18 06:51 Temperature 97.7 F Pulse Rate 97 H Respiratory 18 Rate Blood Pressure 125/75 Home Medications Medication Instructions Recorded Albuterol Sulfate Inhaler - 2 inh PO Q4H PRN 07/16/15 [Ventolin HFA Inhaler -] Budesonide/Formeterol Fumarate 2 inh PO BID 11/02/16 [SYMBICORT 80/4.5mcg -] Loratadine [Allergy] 10 mg PO DAILY 12/10/18 Omeprazole 20 mg PO DAILY 12/10/18 Prazosin HCl 5 mg PO HS 12/10/18 Quetiapine Fumarate [Seroquel -] 50 mg PO HS 12/10/18 Trazodone HCl 150 mg PO HS 12/10/18 hydrOXYzine PAMOATE [Vistaril -] 50 mg PO TID PRN 12/10/18 Pantoprazole Sodium [Protonix -] 40 mg PO DAILY #14 tablet.ec 12/26/18 FACIAL LACERATION:NO REDNESS/SWELLING/OPEN SKIN; SITE HEALED WITH SCAR ON THE RIGHT CHEEK. 12/26/18 11:51 Assessment: 12/26/18 11:41 NAD MEDICALLY STABLE [facility] Inpatient Services Medical - Diagnosis (1) Bronchial asthma Qualifiers: Asthma severity: mild Asthma persistence: unspecified Asthma complication type: uncomplicated Qualified Code(s): J45.909 - Unspecified asthma, uncomplicated Current Visit: Yes Status: Chronic (2) GERD (gastroesophageal reflux disease) Qualifiers: Esophagitis presence: esophagitis presence not specified Qualified Code(s) : K21.9 - Gastro-esophageal reflux disease without esophagitis Current Visit: Yes Status: Chronic (3) Opioid dependence on agonist therapy Current Visit: Yes Status: Chronic (4) Alcohol dependence Qualifiers: Substance use status: uncomplicated Qualified Code(s): F10.20 - Alcohol dependence, uncomplicated Current Visit: Yes Status: Chronic (5) Cocaine dependence Qualifiers: Substance use status: uncomplicated Qualified Code(s): F14.20 - Cocaine dependence, uncomplicated Current Visit: Yes Status: Chronic (6) Nicotine dependence Qualifiers: Nicotine product type: cigarettes Substance use status: uncomplicated Qualified Code(s): F17.210 - Nicotine dependence, cigarettes, uncomplicated Current Visit: Yes Status: Chronic (7) Laceration Current Visit: Yes Status: Acute Plan: MAY D/C ON 12/27/18. FOLLOW UP WITH CD AFTERCARE RECOMMENDATION. FOLLOW UP WITH PRIMARY CARE ABOVE WITHIN 1-2 WEEKS AFTER DISCHARGE.
--- NOTE | 2018-12-26 15:43 | PN ---
[facility] Progress Note Note: Patient is scheduled for discharge tomorrow. Scripts for 30 days supply of medications(Seroquel 50 mg/hs, Prazosin 2 mg/hs) will be electronically transmitted to Ann-Marie Prabhakar at [address] [place] [address]
[2018-12-26] MEDS: PRAZOSIN HCL 1 MG CAPSULE PO SCH (21:40)
[2018-12-26] MEDS: MELATONIN 5 MG TABLETS PO PRN (21:42)
[2018-12-26] MEDS: QUEtiapine FUMARATE 50 MG TABLET PO SCH (22:10)
[2018-12-26] MEDS: THIAMINE HCL 100 MG TABLET (FP) PO SCH (22:11)
[2018-12-27 06:49] VITALS: BP 142/84; PULSE 78; TEMP 97.4
[2018-12-27] MEDS: METHADONE HCL 40 MG DISPERSABLE TABLET PO SCH (07:08)
[2018-12-27] MEDS: PRENATAL VITAMINS W/ FOLIC ACID TABLET (FP) PO SCH (09:57)
[2018-12-27] MEDS: BACITRACIN 15 GM TUBE TOPICAL OINTMENT TP SCH (09:57)
[2018-12-27] MEDS: NICOTINE 14 MG/24 HOURS TOPICAL PATCH TD SCH (09:57)
[2018-12-27] MEDS: PANTOPRAZOLE 40 MG TABLET (FP) PO SCH (09:58)
[2018-12-27] MEDS: BUDESONIDE/FORMETEROL FUMARATE 80/4.5 mcg INHALER IH SCH (10:05)
[2018-12-27] MEDS: VITAMINS A AND D TOPICAL OINTMENT 60 GM TUBE TP SCH (10:05)
--- NOTE | 2018-12-27 17:05 | PN ---
[facility] Progress Note Note: PATIENT DISCHARGED (SCHEDULED) FROM REHAB UNIT TODAY. PATIENT LEFT REHAB UNIT PRIOR TO TIME OF ARRIVAL OF PROVIDER RELATIONS REP ONTO REHAB UNIT; THUS PRE -DISCHARGE MEDICAL ASSESSMENT UNABLE TO BE DONE. VS STABLE, PATIENT AFEBRILE AT TIME OF DISCHARGE FROM REHAB UNIT. PER COUNSELOR Viviana LUNA, PATIENT WILL BE RETURNING TO [facility] ([place], [place]), WHERE HE HAS PREVIOUSLY BEEN A CLIENT, FOR AFTERCARE. Vital Signs Temperature 97.4 F L 12/27/18 06:49 Pulse Rate 78 12/27/18 06:49 Respiratory Rate 18 12/27/18 06:49 Blood Pressure 142/84 12/27/18 06:49 O2 Sat by Pulse Oximetry (%) (DETOX) ADMISSION LAB RESULTS NOTED. PATIENT WAS DISCHARGED FROM REHAB UNIT IN STABLE MEDICAL CONDITION. Viviana HANKINS NP
== END 2018-12-27 08:25 | disposition home or self-care (01) | DRG 772 ==
LOC: YASAS 12:57 → Y5N 12:58
PROVIDERS: ADMIT Neuromusculoskeletal Medicine & OMM; ATTEND Neuromusculoskeletal Medicine & OMM
PROC: HZ42ZZZ Group Counseling for Substance Abuse Treatment, Cognitive-Behavioral (ICD-10-PCS; principal; 2018-12-13)
DX: F11.20 Opioid dependence, uncomplicated (principal); F10.20 Alcohol dependence, uncomplicated; F14.20 Cocaine dependence, uncomplicated; F17.210 Nicotine dependence, cigarettes, uncomplicated; F43.10 Post-traumatic stress disorder, unspecified; F19.282 Other psychoactive substance dependence with psychoactive substance-induced sleep disorder; F32.9 Major depressive disorder, single episode, unspecified; J45.909 Unspecified asthma, uncomplicated; K21.9 Gastro-esophageal reflux disease without esophagitis; Z91.010 Allergy to peanuts

== ENCOUNTER 2019-05-19 12:22 | Inpatient (IN) | payer OTHER ==
[2019-05-19 15:05] VITALS: BMI 23.0
--- NOTE | 2019-05-19 17:36 | HP ---
CIWA Score Nausea/Vomitin Muscle Tremors: 3 Anxiety: 3 Agitation: 3 Paroxysmal Sweats: 1-Minimal Palms Moist Orientation: 0-Oriented Tacttile Disturbances: 1-Very Mild Itch/Numbness Auditory Disturbances: 0-None Visual Disturbances: 0-None Headache: 2-Mild CIWA-Ar Total Score: 15 - Admission Criteria OASAS Guidelines: Admission for Medically Managed Detox: Requires at least one of the followin. CIWA greater than 12 2. Seizures within the past 24 hours 3. Delirium tremens within the past 24 hours 4. Hallucinations within the past 24 hours 5. Acute intervention needed for co occurring medical disorder 6. Acute intervention needed for co occurring psychiatric disorder 7. Severe withdrawal that cannot be handled at a lower level of care (continued vomiting, continued diarrhea, abnormal vital signs) requiring intravenous medication and/or fluids 8. Admitting History and Physical - Admission Chief Complaint: i need help to stop drinking alcohol,cocaine abused,heroin abused,mmtp 80 mgs/day History Source: Patient Limitations to Obtaining History: No Limitations - Past Medical History Pulmonary: Yes: Asthma, Other (on albuterol inhaler) Gastrointestinal: Yes: GERD - Past Surgical History Additional Past Surgical History: chest tube left 2011 post fx left rib - Smoking History Smoking history: Current every day smoker Have you smoked in the past 12 months: Yes Aproximately how many cigarettes per day: 10 - Alcohol/Substance Use Hx Alcohol Use: Yes History of Substance Use: reports: Cocaine, Heroin - Social History Usual Living Arrangement: Yes: Alone Occupation: unemployed History of Recent Travel: No Other Social History: this 43 years old with alcohol,cocaine abused,hroin abused ,mmtp 80 mgs/day,last medicated today,has bottle to take hime for 05/20/19 Admission ROS S - [facility] Chief Complaint: i need help to stop drinking alcohol,cocaine abused,heroin abused,mmtp 80 mgs/ day,has bottle to take home for 05/20/19 asthma seizure last 2in 2016 syncope fx left rib with pneumothorax post chest tube weight loss insomnia no med for 2 weeks longest period of sobriety 6 months plan for rehab after detox Allergies/Adverse Reactions: Allergies Allergy/AdvReac Type Severity Reaction Status Date / Time No Known Drug Allergies Allergy Verified 05/19/19 14:51 peanut Allergy Swelling Verified 05/19/19 14:51 NKDA Allergy Uncoded 05/19/19 14:51 History of Present Illness: as mentioned in chief complaint - Ebola screening Have you traveled outside of the country in the last 21 days: No Have you had contact with anyone from an Ebola affected area: No Have you been sick,other than usual withdrawal symptoms: No Do you have a fever: No - Review of Systems Constitutional: Loss of Appetite, Malaise, Night Sweats, Changes in sleep, Weakness, Unintentional Wgt. Loss EENT: reports: Tearing, Nose Congestion Respiratory: reports: Cough, Other (asthma) Cardiac: reports: No Symptoms Reported GI: reports: Nausea, Poor Appetite, Indigestion, Abdominal cramping : reports: No Symptoms Reported Musculoskeletal: reports: Back Pain, Muscle Pain Integumentary: reports: Dryness Neuro: reports: Headache, Tremors Endocrine: reports: No Symptoms Reported Hematology: reports: No Symptoms Reported Psychiatric: reports: No Sypmtoms Reported, Judgement Intact, Mood/Affect Appropiate, Orientated x3, Agitated, other (insomnia) Patient History - Patient Medical History Hx Anemia: No Hx Asthma: Yes (With Treatment.) Hx Chronic Obstructive Pulmonary Disease (COPD): No Hx Cancer: No Hx Cardiac Disorders: No Hx Congestive Heart Failure: No Hx Hypertension: No Hx Hypercholesterolemia: No Hx Pacemaker: No HX Cerebrovascular Accident: No Hx Seizures: No Hx Dementia: No Hx Diabetes: No Hx Gastrointestinal Disorders: No Hx Liver Disease: No Hx Genitourinary Disorders: No Hx Sexually Transmitted Disorders: No Hx Renal Disease (ESRD): No Hx Thyroid Disease: No Hx Human Immunodeficiency Virus (HIV): No (Negative 2017) Hx Hepatitis C: No Hx Depression: Yes Hx Suicide Attempt: No Hx Bipolar Disorder: No Hx Schizophrenia: No Other Medical History: insomnia,no suicidal,no homicidal - Patient Surgical History Past Surgical History: No Hx Neurologic Surgery: No Hx Cataract Extraction: No Hx Cardiac Surgery: No Hx Lung Surgery: Yes (laft chest tube in 2011) Hx Breast Surgery: No Hx Breast Biopsy: No Hx Abdominal Surgery: No Hx Appendectomy: No Hx Cholecystectomy: No Hx Genitourinary Surgery: No Hx Section: No Hx Orthopedic Surgery: No Anesthesia Reaction: No - PPD History Previous Implant?: Yes Documented Results: Negative w/proof Implanted On Prior [facility] Admission?: Yes Date: 10/30/18 Results: 0mm PPD to be Administered?: No - Smoking Cessation Smoking history: Current every day smoker Have you smoked in the past 12 months: Yes Aproximately how many cigarettes per day: 10 Hx Chewing Tobacco Use: No Initiated information on smoking cessation: Yes 'Breaking Loose' booklet given: 05/19/19 - Substance & Tx. History Hx Alcohol Use: Yes Hx Substance Use: Yes Substance Use Type: Alcohol, Cocaine, Heroin Hx Substance Use Treatment: Yes ([facility] 12/10/18 to 12/13/18,rehab 12/13/18 to ) - Substances abused Alcohol Substance route: Oral Frequency: Daily Amount used: 2pint of vodka Age of first use: 13 Date of last use: 05/19/19 Heroin Substance route: Inhalation Frequency: Daily Amount used: 1 bags Age of first use: 21 Date of last use: 05/19/19 Cocaine Substance route: Smoking Frequency: 1-2 times per week Amount used: 2-3bags Age of first use: 21 Date of last use: 05/16/19 Admission Physical Exam S - Vital Signs Vital Signs: Vital Signs - 24 hr 05/19/19 14:51 Temperature 97.8 F Pulse Rate 64 Respiratory 18 Rate Blood Pressure 119/75 - Physical General Appearance: Yes: Moderate Distress, Tremorous, Irritable, Sweating HEENTM: Yes: Normal ENT Inspection, BOYD, Pharynx Normal Respiratory: Yes: Wheezing, Surgical Scar Neck: Yes: Within Normal Limits Breast: Yes: Breast Exam Deferred Cardiology: Yes: Within Normal Limits, Regular Rhythm, Regular Rate, S1, S2 Abdominal: Yes: Within Normal Limits, Normal Bowel Sounds, Non Tender, Flat, Soft Genitourinary: Yes: Within Normal Limits Back: Yes: Muscle Spasm Musculoskeletal: Yes: Within Normal Limits, Back pain, Muscle Pain Extremities: Yes: Tremors Neurological: Yes: balloon maker II-XII NML intact, Fully Oriented, Alert, Motor Strength 5/5 Integumentary: Yes: Dry Lymphatic: Yes: Within Normal Limits - Diagnostic (1) Alcohol dependence with uncomplicated withdrawal Current Visit: No Status: Acute (2) Insomnia Current Visit: Yes Status: Acute (3) Bronchial asthma Current Visit: No Status: Chronic Qualifiers: Asthma severity: mild Asthma persistence: unspecified Asthma complication type: uncomplicated Qualified Code(s): J45.909 - Unspecified asthma, uncomplicated (4) Cocaine dependence Current Visit: No Status: Chronic Qualifiers: Substance use status: uncomplicated Qualified Code(s): F14.20 - Cocaine dependence, uncomplicated (5) GERD (gastroesophageal reflux disease) Current Visit: No Status: Chronic Qualifiers: Esophagitis presence: esophagitis presence not specified Qualified Code(s) : K21.9 - Gastro-esophageal reflux disease without esophagitis (6) Opioid dependence on agonist therapy Current Visit: No Status: Chronic (7) History of chest tube placement Current Visit: Yes Status: Resolved Cleared for Admission S - Detox or Rehab [facility] Level of Care: Medically Managed (ativan) Breathalyzer - Breathalyzer Breathalyzer: 0 Urine Drug Screen - Test Device Lot number: [id number] Expiration date: 01/09/21 - Control Is test valid?: No - Results Drug screen NEGATIVE: No Urine drug screen results: NIKIA-Cocaine, MTD-Methadone, BZO-Benzodiazepines Inpatient Rehab Admission - Rehab Decision to Admit Inpatient rehab admission?: No
[2019-05-19] MEDS ORDERED: MAGNESIUM CITRATE 300 ML BOTTLE PO PRN (17:48)
[2019-05-19] MEDS ORDERED: MAG HYDROX/AL HYDROX/SIMETH 30 ML UNIT-DOSE CUP PO PRN (17:48)
[2019-05-19] MEDS ORDERED: LORazepam 1 MG TABLET PO PRN (17:48)
[2019-05-19] MEDS ORDERED: METHOCARBAMOL 500 MG TABLET PO PRN (17:48)
[2019-05-19] MEDS ORDERED: ACETAMINOPHEN 325 MG TABLET (FP) PO PRN ×2 (17:48)
[2019-05-19] MEDS ORDERED: IBUPROFEN 400 MG TABLET (FP) PO PRN (17:48)
[2019-05-19] MEDS ORDERED: hydrOXYzine PAMOATE 25 MG CAPSULE (FP) PO PRN (17:48)
[2019-05-19] MEDS ORDERED: BISMUTH SUBSALICYLATE 524 MG/30 ML UD PO PRN (17:48)
[2019-05-19] MEDS ORDERED: MAGNESIUM HYDROX 2400MG/30ML ORAL SUSPENSION 30 ML CUP PO PRN (17:48)
[2019-05-19] MEDS ORDERED: MENTHOL/PHENOL 1 EACH UD MM PRN (17:48)
[2019-05-19] MEDS ORDERED: ALBUTEROL SO4 8 GM HFA INHALER IH PRN (17:51)
[2019-05-19] MEDS: ALBUTEROL SO4 2.5/IPRATROPIUM 0.5 INH SOL 3 ML VIAL.NEB. NEB PRN (18:45)
[2019-05-19] MEDS: NICOTINE POLACRILEX 2 MG GUM BUC PRN ×2 (18:57→22:23)
[2019-05-19] MEDS: LORazepam 2 MG TABLET PO SCH (22:20)
[2019-05-19] MEDS: THIAMINE HCL 100 MG TABLET (FP) PO SCH (22:20)
[2019-05-19] MEDS: BUDESONIDE/FORMETEROL FUMARATE 80/4.5 mcg INHALER IH SCH (22:21)
[2019-05-19] MEDS: MELATONIN 5 MG TABLETS PO PRN (22:23)
[2019-05-20] MEDS: LORazepam 2 MG TABLET PO SCH ×4 (05:32→22:28)
[2019-05-20] MEDS ORDERED: METHADONE HCL 40 MG DISPERSABLE TABLET PO ONE (06:00)
[2019-05-20 10:01] LABS: HEMATOCRIT 37.1 % (35.4-49); HEMOGLOBIN 12.2 GM/dL (11.7-16.9); MCH 28.4 pg (25.7-33.7); MCHC 32.9 g/dl (32.0-35.9); MEAN CELL VOLUME 86.3 fl (80-96); MEAN PLT VOLUME 8.1 fl (7.5-11.1); PLATELET COUNT 326 K/MM3 (134-434); RBC 4.29 M/mm3 (4.00-5.60); RDW 15.1 % (11.9-15.9); WHITE BLOOD COUNT 3.3 K/mm3 (4.0-10.0)
[2019-05-20 10:26] LABS: BILIRUBIN,TOTAL 0.2 mg/dL (0.2-1); CALCIUM 8.2 mg/dL (8.5-10.1); CREATININE 0.9 mg/dL (0.55-1.3); POTASSIUM 4.1 mmol/L (3.5-5.1); TOT PROT 5.6 g/dl (6.4-8.2)
[2019-05-20] MEDS: PRENATAL VITAMINS W/ FOLIC ACID TABLET (FP) PO SCH (10:40)
[2019-05-20] MEDS: BUDESONIDE/FORMETEROL FUMARATE 80/4.5 mcg INHALER IH SCH ×2 (10:40→22:29)
[2019-05-20] MEDS ORDERED: COLLOIDAL OATMEAL 1 BAR EACH TP PRN (10:58)
[2019-05-20] MEDS: AMMONIUM LACTATE 12% LOTION 225 GM BOTTLE TP SCH ×2 (13:14→22:29)
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
--- NOTE | 2019-05-20 14:33 | PN ---
[facility] CIWA - CIWA Score Nausea/Vomitin-Mild Nausea/No Vomiting Muscle Tremors: 2 Anxiety: 2 Agitation: 2 Paroxysmal Sweats: 2 Orientation: 0-Oriented Tacttile Disturbances: 0-None Auditory Disturbances: 0-None Visual Disturbances: 0-None Headache: 0-None Present CIWA-Ar Total Score: 9 S Progress Note (SOAP) Subjective: Interrupted sleep, itchy dry skin. Requested aveeno soap and moisturizer for dry skin (stated he had aveeno soap and lotion in his belongings but was told by security that he cannot bring it to the floor). Objective: 05/20/19 14:33 Last Vital Signs Temp Pulse Resp BP Pulse Ox 97.9 F 67 16 154/97 05/20/19 12:10 05/20/19 12:10 05/20/19 12:10 05/20/19 12:10 Elevated b/p noted (154/97): denies htn Laboratory Tests 05/20/19 05/20/19 05/20/19 07:50 07:50 07:50 WBC 3.3 L RBC 4.29 Hgb 12.2 Hct 37.1 MCV 86.3 MCH 28.4 MCHC 32.9 RDW 15.1 Plt Count 326 MPV 8.1 Sodium 144 Potassium 4.1 Chloride 107 Carbon Dioxide 31 Anion Gap 5 L BUN 16.0 Creatinine 0.9 Est GFR (CKD-EPI)AfAm 120.81 Est GFR (CKD-EPI)NonAf 104.24 Random Glucose 90 Calcium 8.2 L Total Bilirubin 0.2 AST 18 ALT 35 Alkaline Phosphatase 79 Total Protein 5.6 L Albumin 3.0 L RPR Titer Nonreactive Labs reviewed: calcium 8.2, albumin 3.0 Assessment: 05/20/19 14:35 Withdrawal sxs Noted with hypocalcemia and hypoalbuminemia Plan: Continue detox Encouraged PO water intake Hypocalcemia: start calcium carbonate 650mg PO bid x 3 days Hypoalbuminemia: encouraged diet, follow up with PCP
[2019-05-20] MEDS ORDERED: cloNIDine HCL 0.1 MG TABLET PO PRN (14:42)
[2019-05-20] MEDS: NICOTINE POLACRILEX 2 MG GUM BUC PRN ×2 (18:16→22:31)
[2019-05-20] MEDS: ALBUTEROL SO4 2.5/IPRATROPIUM 0.5 INH SOL 3 ML VIAL.NEB. NEB PRN (20:34)
[2019-05-20] MEDS: QUEtiapine FUMARATE 50 MG TABLET PO SCH (22:28)
[2019-05-20] MEDS: THIAMINE HCL 100 MG TABLET (FP) PO SCH (22:28)
[2019-05-21] MEDS ORDERED: guaiFENesin/CODEINE 5 ML UNIT-DOSE CUPS PO PRN (03:06)
[2019-05-21] MEDS: ALBUTEROL SO4 2.5/IPRATROPIUM 0.5 INH SOL 3 ML VIAL.NEB. NEB PRN ×2 (06:34→20:21)
[2019-05-21] MEDS: LORazepam 1 MG TABLET PO SCH ×4 (06:34→22:23)
[2019-05-21] MEDS ORDERED: METHADONE HCL 10 MG TABLET PO SCH (07:15)
[2019-05-21] MEDS: METHADONE HCL 40 MG DISPERSABLE TABLET PO SCH (08:16)
[2019-05-21] MEDS: CALCIUM CARBONATE 650 MG TABLET PO SCH (11:00)
[2019-05-21] MEDS: BUDESONIDE/FORMETEROL FUMARATE 80/4.5 mcg INHALER IH SCH ×2 (11:08→22:23)
[2019-05-21] MEDS: PRENATAL VITAMINS W/ FOLIC ACID TABLET (FP) PO SCH (11:08)
[2019-05-21] MEDS: AMMONIUM LACTATE 12% LOTION 225 GM BOTTLE TP SCH ×2 (11:09→22:44)
[2019-05-21] MEDS: NICOTINE POLACRILEX 2 MG GUM BUC PRN ×4 (11:39→20:28)
[2019-05-21] MEDS: LIDOCAINE 5% TOPICAL PATCH TP SCH (12:00)
--- NOTE | 2019-05-21 12:00 | PN ---
S CIWA - CIWA Score Nausea/Vomitin Muscle Tremors: 3 Anxiety: 3 Agitation: 2 Paroxysmal Sweats: No Perspiration Orientation: 0-Oriented Tacttile Disturbances: 1-Very Mild Itch/Numbness Auditory Disturbances: 0-None Visual Disturbances: 0-None Headache: 1-Very Mild CIWA-Ar Total Score: 12 BHS Progress Note (SOAP) Subjective: alert,irritable,anxious,interrupted sleep,tremor,painin the body Objective: 05/21/19 11:57 Vital Signs Temperature 98.2 F 05/21/19 11:26 Pulse Rate 71 05/21/19 11:26 Respiratory Rate 18 05/21/19 11:26 Blood Pressure 144/89 05/21/19 11:26 O2 Sat by Pulse Oximetry (%) 95 05/20/19 21:03 05/21/19 11:57 Laboratory Last Values WBC 3.3 K/mm3 (4.0-10.0) L 05/20/19 07:50 RBC 4.29 M/mm3 (4.00-5.60) 05/20/19 07:50 Hgb 12.2 GM/dL (11.7-16.9) 05/20/19 07:50 Hct 37.1 % (35.4-49) 05/20/19 07:50 MCV 86.3 fl (80-96) 05/20/19 07:50 MCH 28.4 pg (25.7-33.7) 05/20/19 07:50 MCHC 32.9 g/dl (32.0-35.9) 05/20/19 07:50 RDW 15.1 % (11.9-15.9) 05/20/19 07:50 Plt Count 326 K/MM3 (134-434) 05/20/19 07:50 MPV 8.1 fl (7.5-11.1) 05/20/19 07:50 Sodium 144 mmol/L (136-145) 05/20/19 07:50 Potassium 4.1 mmol/L (3.5-5.1) 05/20/19 07:50 Chloride 107 mmol/L (98-107) 05/20/19 07:50 Carbon Dioxide 31 mmol/L (21-32) 05/20/19 07:50 Anion Gap 5 MMOL/L (8-16) L 05/20/19 07:50 BUN 16.0 mg/dL (7-18) 05/20/19 07:50 Creatinine 0.9 mg/dL (0.55-1.3) 05/20/19 07:50 Est GFR (CKD-EPI)AfAm 120.81 05/20/19 07:50 Est GFR (CKD-EPI)NonAf 104.24 05/20/19 07:50 Random Glucose 90 mg/dL (74-106) 05/20/19 07:50 Calcium 8.2 mg/dL (8.5-10.1) L 05/20/19 07:50 Total Bilirubin 0.2 mg/dL (0.2-1) 05/20/19 07:50 AST 18 U/L (15-37) 05/20/19 07:50 ALT 35 U/L (13-61) 05/20/19 07:50 Alkaline Phosphatase 79 U/L (45-117) 05/20/19 07:50 Total Protein 5.6 g/dl (6.4-8.2) L 05/20/19 07:50 Albumin 3.0 g/dl (3.4-5.0) L 05/20/19 07:50 RPR Titer Nonreactive (NONREACTIVE) 05/20/19 07:50 Assessment: 05/21/19 11:58 withdrawal symptom Plan: continue detox ativan regimen,continue methadone maintenance 80 mgs/day, lidoderm patch
[2019-05-21 19:31] LABS: URINE APPEARANCE CLEAR; URINE BILIRUBIN NEGATIVE (NEGATIVE); URINE COLOR YELLOW; URINE GLUCOSE (UA) NEGATIVE (NEGATIVE); URINE KETONE NEGATIVE (NEGATIVE); URINE LEUK ESTERASE NEGATIVE (NEGATIVE); URINE NITRITE NEGATIVE (NEGATIVE); URINE PROTEIN NEGATIVE (NEGATIVE); URINE UROBILINOGEN 0.2 mg/dL (0.2-1.0)
[2019-05-21] MEDS: THIAMINE HCL 100 MG TABLET (FP) PO SCH (22:23)
[2019-05-21] MEDS: LIDOCAINE PATCH REMOVAL MC SCH (22:23)
[2019-05-21] MEDS: QUEtiapine FUMARATE 50 MG TABLET PO SCH (22:23)
[2019-05-22] MEDS ORDERED: LORazepam 0.5 MG TABLET PO PRN
[2019-05-22] MEDS: ALBUTEROL SO4 2.5/IPRATROPIUM 0.5 INH SOL 3 ML VIAL.NEB. NEB PRN ×2 (04:08→17:17)
[2019-05-22] MEDS: LORazepam 0.5 MG TABLET PO SCH ×4 (05:42→22:13)
[2019-05-22] MEDS: METHADONE HCL 40 MG DISPERSABLE TABLET PO SCH (05:43)
[2019-05-22] MEDS: NICOTINE POLACRILEX 2 MG GUM BUC PRN ×5 (05:46→20:43)
[2019-05-22] MEDS: BUDESONIDE/FORMETEROL FUMARATE 80/4.5 mcg INHALER IH SCH ×2 (10:10→22:12)
[2019-05-22] MEDS: LIDOCAINE 5% TOPICAL PATCH TP SCH (10:10)
[2019-05-22] MEDS: PRENATAL VITAMINS W/ FOLIC ACID TABLET (FP) PO SCH (10:11)
[2019-05-22] MEDS: CALCIUM CARBONATE 650 MG TABLET PO SCH (10:11)
[2019-05-22] MEDS: AMMONIUM LACTATE 12% LOTION 225 GM BOTTLE TP SCH ×2 (10:11→22:25)
--- NOTE | 2019-05-22 10:19 | PN ---
S CIWA - CIWA Score Nausea/Vomitin-No Nausea/No Vomiting Muscle Tremors: 1-None Visible, but [place] Anxiety: 2 Agitation: 2 Paroxysmal Sweats: No Perspiration Orientation: 0-Oriented Tacttile Disturbances: 1-Very Mild Itch/Numbness Auditory Disturbances: 0-None Visual Disturbances: 0-None Headache: 1-Very Mild CIWA-Ar Total Score: 7 BHS Progress Note (SOAP) Subjective: alert,irritable,anxious,interrupted sleep Objective: 05/22/19 10:18 Vital Signs Temperature 98.1 F 05/22/19 09:17 Pulse Rate 72 05/22/19 09:17 Respiratory Rate 19 05/22/19 09:17 Blood Pressure 158/97 05/22/19 09:17 O2 Sat by Pulse Oximetry (%) 95 05/20/19 21:03 Assessment: 05/22/19 10:20 withdrawal symptom Plan: continue detox ativan regimen,discharge in am
[2019-05-22] MEDS: THIAMINE HCL 100 MG TABLET (FP) PO SCH (22:13)
[2019-05-22] MEDS: MELATONIN 5 MG TABLETS PO PRN (22:13)
[2019-05-22] MEDS: QUEtiapine FUMARATE 50 MG TABLET PO SCH (22:13)
[2019-05-22] MEDS: LIDOCAINE PATCH REMOVAL MC SCH (22:24)
[2019-05-23] MEDS: ALBUTEROL SO4 2.5/IPRATROPIUM 0.5 INH SOL 3 ML VIAL.NEB. NEB PRN (03:29)
[2019-05-23] MEDS ORDERED: LORazepam 0.5 MG TABLET PO ONE (05:00)
[2019-05-23] MEDS: METHADONE HCL 40 MG DISPERSABLE TABLET PO SCH (06:18)
--- NOTE | 2019-05-23 09:08 | DS ---
[facility] Detox Discharge Summary Admission Date: 05/19/19 - History Present History: Alcohol Dependence, Cannabis Dependence, Cocaine Dependence, Sedative Dependence - Physical Exam Results Vital Signs: Vital Signs Temperature 96.6 F L 05/23/19 06:49 Pulse Rate 61 05/23/19 06:49 Respiratory Rate 18 05/23/19 06:49 Blood Pressure 151/87 05/23/19 06:49 O2 Sat by Pulse Oximetry (%) 95 05/20/19 21:03 Pertinent Admission Physical Exam Findings: Vital Signs Temperature 96.6 F L 05/23/19 06:49 Pulse Rate 61 05/23/19 06:49 Respiratory Rate 18 05/23/19 06:49 Blood Pressure 151/87 05/23/19 06:49 O2 Sat by Pulse Oximetry (%) 95 05/20/19 21:03 Laboratory Tests 05/20/19 05/20/19 05/20/19 07:50 07:50 07:50 WBC 3.3 L RBC 4.29 Hgb 12.2 Hct 37.1 MCV 86.3 MCH 28.4 MCHC 32.9 RDW 15.1 Plt Count 326 MPV 8.1 Sodium 144 Potassium 4.1 Chloride 107 Carbon Dioxide 31 Anion Gap 5 L BUN 16.0 Creatinine 0.9 Est GFR (CKD-EPI)AfAm 120.81 Est GFR (CKD-EPI)NonAf 104.24 Random Glucose 90 Calcium 8.2 L Total Bilirubin 0.2 AST 18 ALT 35 Alkaline Phosphatase 79 Total Protein 5.6 L Albumin 3.0 L Urine Color Urine Appearance Urine pH Ur Specific [place] Urine Protein Urine Glucose (UA) Urine Ketones Urine Blood Urine Nitrite Urine Bilirubin Urine Urobilinogen Ur Leukocyte Esterase RPR Titer Nonreactive 05/20/19 20:05 WBC RBC Hgb Hct MCV MCH MCHC RDW Plt Count MPV Sodium Potassium Chloride Carbon Dioxide Anion Gap BUN Creatinine Est GFR (CKD-EPI)AfAm Est GFR (CKD-EPI)NonAf Random Glucose Calcium Total Bilirubin AST ALT Alkaline Phosphatase Total Protein Albumin Urine Color Yellow Urine Appearance Clear Urine pH 6.0 Ur Specific [place] 1.024 Urine Protein Negative Urine Glucose (UA) Negative Urine Ketones Negative Urine Blood Negative Urine Nitrite Negative Urine Bilirubin Negative Urine Urobilinogen 0.2 Ur Leukocyte Esterase Negative RPR Titer aaox3 ambulating no acute distress - Treatment Hospital Course: Detox Protocol Followed, Detoxed Safely, Responded well, Discharged Condition Good, Rehab Referral Accepted Patient has Accepted a Rehab Referral to: pt referred to [facility] inpatient rehab - Medication Discharge Medications: Ambulatory Orders Albuterol Sulfate Inhaler - [Ventolin HFA Inhaler -] 2 inh PO Q4H PRN 07/16/15 Budesonide/Formeterol Fumarate [SYMBICORT 80/4.5mcg -] 2 inh PO BID 11/02/16 Loratadine [Allergy] 10 mg PO DAILY 12/10/18 Omeprazole 20 mg PO DAILY 12/10/18 Quetiapine Fumarate [Seroquel -] 50 mg PO HS 12/10/18 Trazodone HCl 150 mg PO HS 12/10/18 hydrOXYzine PAMOATE [Vistaril -] 50 mg PO TID PRN 12/10/18 Pantoprazole Sodium [Protonix -] 40 mg PO DAILY #14 tablet.ec 12/26/18 Prazosin HCl [Minipress -] 2 mg PO HS #30 capsule 12/26/18 - Diagnosis (1) Alcohol dependence with uncomplicated withdrawal Current Visit: Yes Status: Chronic (2) Insomnia Current Visit: Yes Status: Acute (3) Substance-induced sleep disorder Current Visit: Yes Status: Acute (4) Cocaine dependence Current Visit: Yes Status: Chronic Qualifiers: Substance use status: uncomplicated Qualified Code(s): F14.20 - Cocaine dependence, uncomplicated (5) Opioid dependence on agonist therapy Current Visit: Yes Status: Chronic (6) Substance induced mood disorder Current Visit: Yes Status: Chronic (7) Sedative, hypnotic, or anxiolytic withdrawal Current Visit: Yes Status: Chronic (8) Alcohol dependence Current Visit: Yes Status: Chronic Qualifiers: Substance use status: uncomplicated Qualified Code(s): F10.20 - Alcohol dependence, uncomplicated (9) Anxiety Current Visit: No Status: Chronic (10) Bronchial asthma Current Visit: No Status: Chronic Qualifiers: Asthma severity: mild Asthma persistence: unspecified Asthma complication type: uncomplicated Qualified Code(s): J45.909 - Unspecified asthma, uncomplicated (11) Depression Current Visit: No Status: Chronic Qualifiers: Depression Type: unspecified Qualified Code(s): F32.9 - Major depressive disorder, single episode, unspecified (12) GERD (gastroesophageal reflux disease) Current Visit: No Status: Chronic Qualifiers: Esophagitis presence: esophagitis presence not specified Qualified Code(s) : K21.9 - Gastro-esophageal reflux disease without esophagitis (13) Marijuana dependence Current Visit: Yes Status: Chronic (14) Nicotine dependence Current Visit: Yes Status: Chronic Qualifiers: Nicotine product type: cigarettes Substance use status: uncomplicated Qualified Code(s): F17.210 - Nicotine dependence, cigarettes, uncomplicated (15) PTSD (post-traumatic stress disorder) Current Visit: No Status: Chronic - AMA Did Patient Leave Against Medical Advice: No
[2019-05-23] MEDS: PRENATAL VITAMINS W/ FOLIC ACID TABLET (FP) PO SCH (10:08)
[2019-05-23] MEDS: LIDOCAINE 5% TOPICAL PATCH TP SCH (10:08)
[2019-05-23] MEDS: AMMONIUM LACTATE 12% LOTION 225 GM BOTTLE TP SCH (10:08)
[2019-05-23] MEDS: CALCIUM CARBONATE 650 MG TABLET PO SCH (10:09)
[2019-05-23] MEDS: BUDESONIDE/FORMETEROL FUMARATE 80/4.5 mcg INHALER IH SCH (10:09)
[2019-05-23] MEDS: NICOTINE POLACRILEX 2 MG GUM BUC PRN (10:12)
[2019-05-23] MEDS ORDERED: MINERAL OIL/PETROLAT/WATER TOPICAL CREAM 113 GM JAR TP PRN (10:49)
[2019-05-23 14:20] VITALS: BP 158/107; PULSE 80; TEMP 98.4
== END 2019-05-23 15:00 | disposition other institution (70) | DRG 773 ==
LOC: YASAS 12:22 → Y6N 18:17
PROVIDERS: ADMIT Allergy & Immunology; ATTEND Allergy & Immunology
PROC: HZ2ZZZZ Detoxification Services for Substance Abuse Treatment (ICD-10-PCS; principal; 2019-05-19)
DX: F10.230 Alcohol dependence with withdrawal, uncomplicated (principal); F11.20 Opioid dependence, uncomplicated; F13.230 Sedative, hypnotic or anxiolytic dependence with withdrawal, uncomplicated; F14.20 Cocaine dependence, uncomplicated; F12.20 Cannabis dependence, uncomplicated; F17.210 Nicotine dependence, cigarettes, uncomplicated; F19.282 Other psychoactive substance dependence with psychoactive substance-induced sleep disorder; F19.24 Other psychoactive substance dependence with psychoactive substance-induced mood disorder; F43.10 Post-traumatic stress disorder, unspecified; F32.9 Major depressive disorder, single episode, unspecified; F41.9 Anxiety disorder, unspecified; E88.09 Other disorders of plasma-protein metabolism, not elsewhere classified; E83.51 Hypocalcemia; J45.909 Unspecified asthma, uncomplicated; K21.9 Gastro-esophageal reflux disease without esophagitis; L85.3 Xerosis cutis; Z87.820 Personal history of traumatic brain injury; Z87.828 Personal history of other (healed) physical injury and trauma; Z91.018 Allergy to other foods
CPT/HCPCS: 36415; 80053; 81003; 85027; 86593; 94640

== ENCOUNTER 2019-05-23 15:15 | Inpatient (IN) | payer OTHER ==
--- NOTE | 2019-05-23 12:28 | HP ---
[facility] Rehab Assess/Revision - Admission History Admitted to Rehab from[facility] - Findings Detox History & Physical reviewed: Yes Concur with findings: Yes Inpatient Rehab Admission - Rehab Decision to Admit Inpatient rehab admission?: Yes - Initial Determination Are CD services needed?: Yes Free of communicable disease: Yes Not in need of hospitalization: Yes - Rehab Admission Criteria Previous failed treatment: Yes Poor recovery environment: Yes Comorbidities: Yes Lacks judgement: Yes Patient is meeting Inpatient Rehab admission criteria:: Yes
[~2019-05-23 15:15] MED LIST: ACETAMINOPHEN 325 MG TABLET (FP) PO PRN; IBUPROFEN 400 MG TABLET (FP) PO PRN; LOPERAMIDE HCL 2 MG CAPSULE PO PRN; MAG HYDROX/AL HYDROX/SIMETH 30 ML UNIT-DOSE CUP PO PRN; MAGNESIUM CITRATE 300 ML BOTTLE PO PRN; MAGNESIUM HYDROX 2400MG/30ML ORAL SUSPENSION 30 ML CUP PO PRN; P-EPHED 60MG/TRIPROLIDI 2.5MG TABLET PO PRN; guaiFENesin 200 MG/10 ML 10 ML UNIT-DOSE CUPS PO PRN
[2019-05-23] MEDS: NICOTINE POLACRILEX 4 MG GUM BUC PRN ×3 (17:26→22:41)
[2019-05-23] MEDS: BUDESONIDE/FORMETEROL FUMARATE 80/4.5 mcg INHALER IH SCH (21:22)
[2019-05-23] MEDS: MELATONIN 5 MG TABLETS PO PRN (21:22)
[2019-05-23] MEDS: THIAMINE HCL 100 MG TABLET (FP) PO SCH (21:22)
[2019-05-23] MEDS: hydrOXYzine PAMOATE 50 MG CAPSULE (FP) PO PRN (21:23)
[2019-05-23] MEDS: ALBUTEROL SO4 8 GM HFA INHALER IH PRN (21:24)
[2019-05-23] MEDS: ALBUTEROL SO4 2.5/IPRATROPIUM 0.5 INH SOL 3 ML VIAL.NEB. NEB PRN (21:26)
[2019-05-24] MEDS: METHADONE HCL 40 MG DISPERSABLE TABLET PO SCH (06:34)
[2019-05-24] MEDS: ALBUTEROL SO4 8 GM HFA INHALER IH PRN ×2 (06:34→17:06)
[2019-05-24] MEDS: NICOTINE POLACRILEX 4 MG GUM BUC PRN ×6 (06:36→21:36)
[2019-05-24] MEDS: MINERAL OIL/PETROLAT/WATER TOPICAL CREAM 113 GM JAR TP PRN (07:37)
[2019-05-24] MEDS: PRENATAL VITAMINS W/ FOLIC ACID TABLET (FP) PO SCH (10:54)
[2019-05-24] MEDS: NICOTINE 21 MG/24 HOURS TOPICAL PATCH TD SCH (10:54)
[2019-05-24] MEDS: BUDESONIDE/FORMETEROL FUMARATE 80/4.5 mcg INHALER IH SCH ×2 (10:55→21:35)
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
[2019-05-24] MEDS: THIAMINE HCL 100 MG TABLET (FP) PO SCH (21:35)
[2019-05-24] MEDS: QUEtiapine FUMARATE 50 MG TABLET PO SCH (21:35)
[2019-05-25] MEDS: METHADONE HCL 40 MG DISPERSABLE TABLET PO SCH (06:06)
[2019-05-25] MEDS: ALBUTEROL SO4 8 GM HFA INHALER IH PRN ×3 (06:07→21:27)
[2019-05-25] MEDS: NICOTINE POLACRILEX 4 MG GUM BUC PRN ×5 (06:09→23:30)
[2019-05-25] MEDS: PRENATAL VITAMINS W/ FOLIC ACID TABLET (FP) PO SCH (09:03)
[2019-05-25] MEDS: MINERAL OIL/PETROLAT/WATER TOPICAL CREAM 113 GM JAR TP PRN (09:04)
[2019-05-25] MEDS: NICOTINE 21 MG/24 HOURS TOPICAL PATCH TD SCH (09:05)
[2019-05-25] MEDS: BUDESONIDE/FORMETEROL FUMARATE 80/4.5 mcg INHALER IH SCH ×2 (09:06→21:24)
--- NOTE | 2019-05-25 10:06 | PN ---
S Progress Note Note: Patient has hx of GERD. He reports tx with PPI in past. Will start Protonix 20mg daily. Vital Signs Temperature 97.6 F 05/25/19 06:50 Pulse Rate 65 05/25/19 06:50 Respiratory Rate 18 05/25/19 06:50 Blood Pressure 140/81 05/25/19 06:50 O2 Sat by Pulse Oximetry (%)
[2019-05-25] MEDS: PANTOPRAZOLE 20 MG TABLET (FP) PO SCH (10:40)
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
[2019-05-25] MEDS: QUEtiapine FUMARATE 50 MG TABLET PO SCH (21:26)
[2019-05-25] MEDS: THIAMINE HCL 100 MG TABLET (FP) PO SCH (21:26)
[2019-05-26] MEDS: METHADONE HCL 40 MG DISPERSABLE TABLET PO SCH (06:12)
[2019-05-26] MEDS: NICOTINE POLACRILEX 4 MG GUM BUC PRN ×6 (06:13→22:10)
[2019-05-26] MEDS: PANTOPRAZOLE 20 MG TABLET (FP) PO SCH (09:49)
[2019-05-26] MEDS: BUDESONIDE/FORMETEROL FUMARATE 80/4.5 mcg INHALER IH SCH ×2 (09:49→22:09)
[2019-05-26] MEDS: NICOTINE 21 MG/24 HOURS TOPICAL PATCH TD SCH (09:49)
[2019-05-26] MEDS: PRENATAL VITAMINS W/ FOLIC ACID TABLET (FP) PO SCH (09:49)
[2019-05-26] MEDS: ALBUTEROL SO4 8 GM HFA INHALER IH PRN ×2 (12:28→22:09)
[2019-05-26] MEDS: ALBUTEROL SO4 2.5/IPRATROPIUM 0.5 INH SOL 3 ML VIAL.NEB. NEB PRN (17:48)
[2019-05-26] MEDS: QUEtiapine FUMARATE 50 MG TABLET PO SCH (22:08)
[2019-05-26] MEDS: THIAMINE HCL 100 MG TABLET (FP) PO SCH (22:08)
[2019-05-27] MEDS: METHADONE HCL 40 MG DISPERSABLE TABLET PO SCH (06:08)
[2019-05-27] MEDS: NICOTINE POLACRILEX 4 MG GUM BUC PRN ×6 (06:10→22:46)
[2019-05-27] MEDS: ALBUTEROL SO4 8 GM HFA INHALER IH PRN ×4 (06:10→21:28)
[2019-05-27] MEDS: BUDESONIDE/FORMETEROL FUMARATE 80/4.5 mcg INHALER IH SCH ×2 (10:45→21:27)
[2019-05-27] MEDS: PANTOPRAZOLE 20 MG TABLET (FP) PO SCH (10:46)
[2019-05-27] MEDS: NICOTINE 21 MG/24 HOURS TOPICAL PATCH TD SCH (10:46)
[2019-05-27] MEDS: PRENATAL VITAMINS W/ FOLIC ACID TABLET (FP) PO SCH (10:46)
[2019-05-27] MEDS: QUEtiapine FUMARATE 50 MG TABLET PO SCH (21:27)
[2019-05-27] MEDS: THIAMINE HCL 100 MG TABLET (FP) PO SCH (21:27)
[2019-05-27] MEDS: COLLOIDAL OATMEAL 1 BAR EACH TP PRN (22:06)
[2019-05-28] MEDS: METHADONE HCL 40 MG DISPERSABLE TABLET PO SCH (06:11)
[2019-05-28] MEDS: NICOTINE POLACRILEX 4 MG GUM BUC PRN ×7 (06:13→22:55)
[2019-05-28] MEDS: BUDESONIDE/FORMETEROL FUMARATE 80/4.5 mcg INHALER IH SCH ×2 (10:25→21:22)
[2019-05-28] MEDS: PANTOPRAZOLE 20 MG TABLET (FP) PO SCH (10:26)
[2019-05-28] MEDS: PRENATAL VITAMINS W/ FOLIC ACID TABLET (FP) PO SCH (10:26)
[2019-05-28] MEDS: ALBUTEROL SO4 8 GM HFA INHALER IH PRN ×2 (10:26→17:32)
[2019-05-28] MEDS: NICOTINE 21 MG/24 HOURS TOPICAL PATCH TD SCH (10:26)
[2019-05-28] MEDS: MINERAL OIL/PETROLAT/WATER TOPICAL CREAM 113 GM JAR TP PRN (10:27)
[2019-05-28] MEDS ORDERED: ALBUTEROL SO4 2.5/IPRATROPIUM 0.5 INH SOL 3 ML VIAL.NEB. NEB PRN (11:07)
[2019-05-28] MEDS: THIAMINE HCL 100 MG TABLET (FP) PO SCH (21:22)
[2019-05-28] MEDS: QUEtiapine FUMARATE 50 MG TABLET PO SCH (21:22)
[2019-05-28] MEDS: MENTHOL/PHENOL 1 EACH UD MM PRN (21:23)
[2019-05-29] MEDS: METHADONE HCL 40 MG DISPERSABLE TABLET PO SCH (06:40)
[2019-05-29] MEDS: NICOTINE POLACRILEX 4 MG GUM BUC PRN ×7 (06:42→22:45)
[2019-05-29] MEDS: ALBUTEROL SO4 8 GM HFA INHALER IH PRN ×3 (06:42→22:17)
[2019-05-29] MEDS: MENTHOL/PHENOL 1 EACH UD MM PRN ×3 (08:09→18:56)
[2019-05-29] MEDS: BUDESONIDE/FORMETEROL FUMARATE 80/4.5 mcg INHALER IH SCH ×2 (10:09→21:25)
[2019-05-29] MEDS: PRENATAL VITAMINS W/ FOLIC ACID TABLET (FP) PO SCH (10:10)
[2019-05-29] MEDS: NICOTINE 21 MG/24 HOURS TOPICAL PATCH TD SCH (10:10)
[2019-05-29] MEDS: PANTOPRAZOLE 20 MG TABLET (FP) PO SCH (10:10)
[2019-05-29] MEDS: THIAMINE HCL 100 MG TABLET (FP) PO SCH (21:26)
[2019-05-29] MEDS: QUEtiapine FUMARATE 50 MG TABLET PO SCH (21:26)
[2019-05-30] MEDS: ALBUTEROL SO4 8 GM HFA INHALER IH PRN (06:13)
[2019-05-30] MEDS: METHADONE HCL 40 MG DISPERSABLE TABLET PO SCH (06:13)
[2019-05-30] MEDS: MENTHOL/PHENOL 1 EACH UD MM PRN ×4 (06:14→21:31)
[2019-05-30] MEDS: NICOTINE POLACRILEX 4 MG GUM BUC PRN ×7 (06:14→22:25)
[2019-05-30] MEDS: BUDESONIDE/FORMETEROL FUMARATE 80/4.5 mcg INHALER IH SCH ×2 (09:23→21:30)
[2019-05-30] MEDS: PANTOPRAZOLE 20 MG TABLET (FP) PO SCH (09:23)
[2019-05-30] MEDS: PRENATAL VITAMINS W/ FOLIC ACID TABLET (FP) PO SCH (09:23)
[2019-05-30] MEDS: NICOTINE 21 MG/24 HOURS TOPICAL PATCH TD SCH (09:24)
[2019-05-30] MEDS: MINERAL OIL/PETROLAT/WATER TOPICAL CREAM 113 GM JAR TP PRN (09:28)
[2019-05-30] MEDS: QUEtiapine FUMARATE 50 MG TABLET PO SCH (21:30)
[2019-05-30] MEDS: THIAMINE HCL 100 MG TABLET (FP) PO SCH (21:30)
[2019-05-31] MEDS: METHADONE HCL 40 MG DISPERSABLE TABLET PO SCH (06:15)
[2019-05-31] MEDS: NICOTINE POLACRILEX 4 MG GUM BUC PRN ×5 (06:16→21:27)
[2019-05-31] MEDS: MENTHOL/PHENOL 1 EACH UD MM PRN ×3 (06:16→22:25)
[2019-05-31] MEDS: PRENATAL VITAMINS W/ FOLIC ACID TABLET (FP) PO SCH (11:14)
[2019-05-31] MEDS: NICOTINE 21 MG/24 HOURS TOPICAL PATCH TD SCH (11:14)
[2019-05-31] MEDS: BUDESONIDE/FORMETEROL FUMARATE 80/4.5 mcg INHALER IH SCH ×2 (11:14→21:26)
[2019-05-31] MEDS: PANTOPRAZOLE 20 MG TABLET (FP) PO SCH (11:14)
[2019-05-31] MEDS: hydrOXYzine PAMOATE 50 MG CAPSULE (FP) PO PRN ×2 (11:17→21:26)
[2019-05-31] MEDS: QUEtiapine FUMARATE 50 MG TABLET PO SCH (21:26)
[2019-05-31] MEDS: THIAMINE HCL 100 MG TABLET (FP) PO SCH (21:26)
[2019-06-01] MEDS: METHADONE HCL 40 MG DISPERSABLE TABLET PO SCH (06:09)
[2019-06-01] MEDS: NICOTINE POLACRILEX 4 MG GUM BUC PRN ×5 (06:10→20:22)
[2019-06-01] MEDS: MENTHOL/PHENOL 1 EACH UD MM PRN ×4 (06:17→23:01)
[2019-06-01] MEDS: ALBUTEROL SO4 8 GM HFA INHALER IH PRN (09:31)
[2019-06-01] MEDS: PRENATAL VITAMINS W/ FOLIC ACID TABLET (FP) PO SCH (09:31)
[2019-06-01] MEDS: PANTOPRAZOLE 20 MG TABLET (FP) PO SCH (09:31)
[2019-06-01] MEDS: NICOTINE 21 MG/24 HOURS TOPICAL PATCH TD SCH (09:31)
[2019-06-01] MEDS: BUDESONIDE/FORMETEROL FUMARATE 80/4.5 mcg INHALER IH SCH ×2 (09:31→21:27)
[2019-06-01] MEDS: THIAMINE HCL 100 MG TABLET (FP) PO SCH (21:26)
[2019-06-01] MEDS: QUEtiapine FUMARATE 50 MG TABLET PO SCH (21:26)
[2019-06-01] MEDS: MELATONIN 5 MG TABLETS PO PRN (21:27)
[2019-06-02] MEDS: METHADONE HCL 40 MG DISPERSABLE TABLET PO SCH (06:10)
[2019-06-02] MEDS: MENTHOL/PHENOL 1 EACH UD MM PRN ×4 (06:12→23:19)
[2019-06-02] MEDS: NICOTINE POLACRILEX 4 MG GUM BUC PRN ×5 (06:13→22:43)
[2019-06-02] MEDS: NICOTINE 21 MG/24 HOURS TOPICAL PATCH TD SCH (10:54)
[2019-06-02] MEDS: PRENATAL VITAMINS W/ FOLIC ACID TABLET (FP) PO SCH (10:54)
[2019-06-02] MEDS: PANTOPRAZOLE 20 MG TABLET (FP) PO SCH (10:54)
[2019-06-02] MEDS: BUDESONIDE/FORMETEROL FUMARATE 80/4.5 mcg INHALER IH SCH ×2 (10:54→21:26)
[2019-06-02] MEDS: QUEtiapine FUMARATE 50 MG TABLET PO SCH (21:26)
[2019-06-02] MEDS: THIAMINE HCL 100 MG TABLET (FP) PO SCH (21:26)
[2019-06-03] MEDS: METHADONE HCL 40 MG DISPERSABLE TABLET PO SCH (06:11)
[2019-06-03] MEDS: MENTHOL/PHENOL 1 EACH UD MM PRN ×5 (06:11→22:51)
[2019-06-03] MEDS: NICOTINE POLACRILEX 4 MG GUM BUC PRN ×6 (06:12→21:28)
[2019-06-03] MEDS: BUDESONIDE/FORMETEROL FUMARATE 80/4.5 mcg INHALER IH SCH ×2 (09:35→21:26)
[2019-06-03] MEDS: COLLOIDAL OATMEAL 1 BAR EACH TP PRN (09:36)
[2019-06-03] MEDS: PANTOPRAZOLE 20 MG TABLET (FP) PO SCH (09:36)
[2019-06-03] MEDS: PRENATAL VITAMINS W/ FOLIC ACID TABLET (FP) PO SCH (09:36)
[2019-06-03] MEDS: NICOTINE 21 MG/24 HOURS TOPICAL PATCH TD SCH (09:37)
[2019-06-03] MEDS: THIAMINE HCL 100 MG TABLET (FP) PO SCH (21:26)
[2019-06-03] MEDS: MELATONIN 5 MG TABLETS PO PRN (21:26)
[2019-06-03] MEDS: QUEtiapine FUMARATE 50 MG TABLET PO SCH (21:26)
[2019-06-04] MEDS: METHADONE HCL 40 MG DISPERSABLE TABLET PO SCH (06:06)
[2019-06-04] MEDS: NICOTINE POLACRILEX 4 MG GUM BUC PRN ×5 (06:08→21:13)
[2019-06-04] MEDS: MENTHOL/PHENOL 1 EACH UD MM PRN ×2 (06:08→18:42)
[2019-06-04] MEDS: NICOTINE 21 MG/24 HOURS TOPICAL PATCH TD SCH (09:30)
[2019-06-04] MEDS: BUDESONIDE/FORMETEROL FUMARATE 80/4.5 mcg INHALER IH SCH ×2 (09:32→21:11)
[2019-06-04] MEDS: PRENATAL VITAMINS W/ FOLIC ACID TABLET (FP) PO SCH (09:32)
[2019-06-04] MEDS: PANTOPRAZOLE 20 MG TABLET (FP) PO SCH (09:32)
--- NOTE | 2019-06-04 13:39 | DS ---
[facility] Rehab Discharge Summary - [facility] Rehab Discharge Summary Admission Date: 05/23/19 Discharge Date: 06/04/19 - History Present History: Alcohol dependence, Cocaine dependence, MMTP, Opioid dependence - Discharge Physical Exam Vital Signs: Vital Signs Temperature 98.0 F 06/04/19 07:24 Pulse Rate 62 06/04/19 07:24 Respiratory Rate 18 06/04/19 07:24 Blood Pressure 138/91 06/04/19 07:24 O2 Sat by Pulse Oximetry (%) Ambulatory Orders Methocarbamol [Robaxin -] 500 mg PO BID PRN 05/24/19 Quetiapine Fumarate [Seroquel -] 50 mg PO HS 05/24/19 levETIRAcetam [Keppra -] 750 mg PO BID 05/24/19 traZODone HCL [Trazodone HCl] 50 mg PO HS 05/24/19 Albuterol Sulfate Inhaler - [Ventolin HFA Inhaler -] 2 inh PO Q4H PRN #1 inhaler 06/04/19 Budesonide/Formeterol Fumarate [SYMBICORT 80/4.5mcg -] 2 inh PO BID #1 inhaler 06/04/19 ROS: denies alcohol, opiod cravings, chills, sweating and shakes PE; alert and oriented x 3 skin warm and dry left eye brow with small macular-brownish discoloration, no swelling or redness eoms intact bl gi nt,nd ext full rom, no tremors amb ad jeannette denies SIHI A/P: ETOH/Opiod dependence MMTP Stable at this time for discharge on 06/05/19 - Treatment Discharge Condition: Outpatient referral accepted Hospital Course: Patient for discharge from rehab 06/05/19. Attended group meetings,1:1 sessions with counselor and states he accomplished all rehab goals. Patient is medically stable and denies SI/HI. All lab results reviewed with patient and he has aftercare arranged for [facility] on 06/05/19 10am. Patient medically advised to follow up with PCP to continue medical management of chronic conditions. - Medication Discharge Medications: Ambulatory Orders Methocarbamol [Robaxin -] 500 mg PO BID PRN 05/24/19 Quetiapine Fumarate [Seroquel -] 50 mg PO HS 05/24/19 levETIRAcetam [Keppra -] 750 mg PO BID 05/24/19 traZODone HCL [Trazodone HCl] 50 mg PO HS 05/24/19 Albuterol Sulfate Inhaler - [Ventolin HFA Inhaler -] 2 inh PO Q4H PRN #1 inhaler 06/04/19 Budesonide/Formeterol Fumarate [SYMBICORT 80/4.5mcg -] 2 inh PO BID #1 inhaler 06/04/19 - Medication-Assisted Treatment (MAT) Medication-Assisted Treatment (MAT): Yes MAT [facility]. Appointment 06/05/19 at 10am. - Discharge Instructions Diet, activity, other medical instructions: Diet: reg as tolerated Activity: as tolerated Other medical instructions: patient to follow up with PCP as recommended - Follow-up Referral Minutes to complete discharge: 30 - AMA Did Patient Leave Against Medical Advice: No
[2019-06-04] MEDS: THIAMINE HCL 100 MG TABLET (FP) PO SCH (21:12)
[2019-06-04] MEDS: MELATONIN 5 MG TABLETS PO PRN (21:12)
[2019-06-04] MEDS: QUEtiapine FUMARATE 50 MG TABLET PO SCH (21:12)
[2019-06-05] MEDS: METHADONE HCL 40 MG DISPERSABLE TABLET PO SCH (05:49)
[2019-06-05] MEDS: NICOTINE POLACRILEX 4 MG GUM BUC PRN (06:03)
[2019-06-05] MEDS: MENTHOL/PHENOL 1 EACH UD MM PRN (06:03)
[2019-06-05 06:49] VITALS: BP 140/90; PULSE 59; TEMP 97.5
--- NOTE | 2019-06-05 08:27 | PN ---
S Progress Note Note: Patient is scheduled for discharge today. Script for 30 days supply of Seroquel 50 mg/hs is electronically transmitted to [facility] at [address] [place] [address]
[2019-06-05] MEDS: NICOTINE 21 MG/24 HOURS TOPICAL PATCH TD SCH (09:14)
[2019-06-05] MEDS: BUDESONIDE/FORMETEROL FUMARATE 80/4.5 mcg INHALER IH SCH (09:14)
[2019-06-05] MEDS: PRENATAL VITAMINS W/ FOLIC ACID TABLET (FP) PO SCH (09:14)
[2019-06-05] MEDS: PANTOPRAZOLE 20 MG TABLET (FP) PO SCH (09:14)
== END 2019-06-05 09:25 | disposition home or self-care (01) | DRG 772 ==
LOC: YASAS 15:15 → Y5N 15:16
PROVIDERS: ADMIT Neuromusculoskeletal Medicine & OMM; ATTEND Neuromusculoskeletal Medicine & OMM
PROC: HZ42ZZZ Group Counseling for Substance Abuse Treatment, Cognitive-Behavioral (ICD-10-PCS; principal; 2019-05-23)
DX: F10.20 Alcohol dependence, uncomplicated (principal); F11.20 Opioid dependence, uncomplicated; F14.20 Cocaine dependence, uncomplicated; F17.210 Nicotine dependence, cigarettes, uncomplicated; F43.10 Post-traumatic stress disorder, unspecified; G47.00 Insomnia, unspecified; K21.9 Gastro-esophageal reflux disease without esophagitis; J45.909 Unspecified asthma, uncomplicated; Z91.19 Patient's noncompliance with other medical treatment and regimen; Z91.010 Allergy to peanuts; Z87.820 Personal history of traumatic brain injury
CPT/HCPCS: 94640

== ENCOUNTER 2019-08-08 08:24 | Inpatient (IN) | payer OTHER ==
--- NOTE | 2019-08-08 08:55 | BHS.RME ---
Substance Use & Tx History - Substance Use History Opiates (Heroin) Substance amount: 7-8 bags Substance route: Inhalation (ex: sniffing or snorting) Date of Last Use: 08/07/19 Alcohol Substance amount: 1 pint Vodka, a few beers Frequency of use: Daily Substance route: Oral Date of Last Use: 08/07/19 Physical/Psych/Mental Status - Behavior General Behavior: Decreased activity - Cooperativeness Cooperativeness: Cooperative - Thinking Thought Processes: Tight Thought content: Future oriented - Physical Health Problems Is patient presently having any pain?: No Does patient presently have any injuries (include location): No Does patient currently have a fever: No COWS - Scale Resting Pulse: 0= [place] 80 or Below Sweatin=Flushed/Facial Moisture Restless Observation: 0= Sits Still Pupil Size: 0= Normal to Room Light Bone or Joint Aches: 2= Severe Diffuse Aches Runny Nose/ Eye Tearin= Runny Nose/Eyes GI Upset > 30mins: 0= None Tremor Observation: 0= None Yawning Observation: 0= None Anxiety or Irritability: 1=Feels Anxious/Irritable Goose Flesh Skin: 0=Smooth Skin COWS Score: 7 CIWA Nausea/Vomitin-No Nausea/No Vomiting Muscle Tremors: None Anxiety: 2 Agitation: 0-Normal Activity Paroxysmal Sweats: 3 Orientation: 0-Oriented Tacttile Disturbances: 0-None Auditory Disturbances: 1-Very Mild Visual Disturbances: 2-Mild Sensitivity Headache: 4-Moderately Severe CIWA-Ar Total Score: 12
[2019-08-08 09:53] VITALS: BMI 22.7
--- NOTE | 2019-08-08 10:23 | HP ---
COWS - Scale Resting Pulse: 0= [place] 80 or Below Sweatin=Flushed/Facial Moisture Restless Observation: 0= Sits Still Pupil Size: 0= Normal to Room Light Bone or Joint Aches: 2= Severe Diffuse Aches Runny Nose/ Eye Tearin= Runny Nose/Eyes GI Upset > 30mins: 0= None Tremor Observation: 0= None Yawning Observation: 0= None Anxiety or Irritability: 1=Feels Anxious/Irritable Goose Flesh Skin: 0=Smooth Skin COWS Score: 7 CIWA Score Nausea/Vomitin-No Nausea/No Vomiting Muscle Tremors: None Anxiety: 2 Agitation: 0-Normal Activity Paroxysmal Sweats: 3 Orientation: 0-Oriented Tacttile Disturbances: 0-None Auditory Disturbances: 1-Very Mild Visual Disturbances: 2-Mild Sensitivity Headache: 4-Moderately Severe CIWA-Ar Total Score: 12 - Admission Criteria OASAS Guidelines: Admission for Medically Managed Detox: Requires at least one of the followin. CIWA greater than 12 2. Seizures within the past 24 hours 3. Delirium tremens within the past 24 hours 4. Hallucinations within the past 24 hours 5. Acute intervention needed for co occurring medical disorder 6. Acute intervention needed for co occurring psychiatric disorder 7. Severe withdrawal that cannot be handled at a lower level of care (continued vomiting, continued diarrhea, abnormal vital signs) requiring intravenous medication and/or fluids 8. Admitting History and Physical - Admission Chief Complaint: Mr. Stevenson presents to [facility] requesting an admission for detox from heroin. History of Present Illness: Mr. Stevenson presents to [facility] requesting an admission for detox from heroin. He is a 43 yo man who was last admitted her between May 19 and Jun 05 for detox and rehab. He relapsed about one month after discharge. PMH: Asthma Psych:none PsH: none Substance use history Heroin: 7-8 bags daily, snorts, first use age 20y, last use yesterday. NO hx of ODs. No methadone program EtOH: one pint Vodka daily, a few beers daily, first use age 18y, last use yesterday. No black outs or seizures. Nicotine: one half ppd - Past Medical History Pulmonary: Yes: Asthma, Other (on albuterol inhaler) Gastrointestinal: Yes: GERD - Smoking History Smoking history: Current every day smoker Have you smoked in the past 12 months: Yes Aproximately how many cigarettes per day: 10 - Alcohol/Substance Use Hx Alcohol Use: Yes History of Substance Use: reports: Cocaine, Heroin - Social History Occupation: unemployed History of Recent Travel: No Admission ROS [facility] Allergies/Adverse Reactions: Allergies Allergy/AdvReac Type Severity Reaction Status Date / Time peanut Allergy Severe Swelling Verified 08/08/19 09:57 No Known Drug Allergies Allergy Verified 08/08/19 09:57 NKDA Allergy Uncoded 08/08/19 09:57 Exam Limitations: No Limitations - Ebola screening Have you traveled outside of the country in the last 21 days: No Have you had contact with anyone from an Ebola affected area: No Have you been sick,other than usual withdrawal symptoms: No Do you have a fever: No - Review of Systems Constitutional: Unintentional Wgt. Loss EENT: reports: No Symptoms Reported Respiratory: reports: Cough, Wheezing Cardiac: reports: No Symptoms Reported GI: reports: Nausea : reports: No Symptoms Reported Musculoskeletal: reports: No Symptoms Reported Integumentary: reports: Other (scratches on legs he attributes to bumping into objects) Neuro: reports: No Symptoms reported Endocrine: reports: No Symptoms Reported Hematology: reports: No Symptoms Reported Psychiatric: reports: Anxious Patient History - Patient Medical History Hx Anemia: No Hx Asthma: Yes Hx Chronic Obstructive Pulmonary Disease (COPD): No Hx Cancer: No Hx Cardiac Disorders: No Hx Congestive Heart Failure: No Hx Hypertension: No Hx Hypercholesterolemia: No Hx Pacemaker: No HX Cerebrovascular Accident: No Hx Seizures: No Hx Dementia: No Hx Diabetes: No Hx Gastrointestinal Disorders: No Hx Liver Disease: No Hx Genitourinary Disorders: No Hx Sexually Transmitted Disorders: No Hx Renal Disease (ESRD): No Hx Thyroid Disease: No Hx Human Immunodeficiency Virus (HIV): No (Negative 2018) Hx Hepatitis C: No Hx Depression: Yes (currently denies) Hx Suicide Attempt: No Hx Bipolar Disorder: No Hx Schizophrenia: No - Patient Surgical History Past Surgical History: Yes Hx Neurologic Surgery: No Hx Cataract Extraction: No Hx Cardiac Surgery: No Hx Lung Surgery: Yes (laft chest tube in 2011) Hx Breast Surgery: No Hx Breast Biopsy: No Hx Abdominal Surgery: No Hx Appendectomy: No Hx Cholecystectomy: No Hx Genitourinary Surgery: No Hx Section: No Hx Orthopedic Surgery: No Anesthesia Reaction: No - PPD History Previous Implant?: Yes Documented Results: Negative w/proof Implanted On Prior [facility] Admission?: Yes Date: 10/30/18 Results: 0 MM - Smoking Cessation Smoking history: Current every day smoker Have you smoked in the past 12 months: Yes Aproximately how many cigarettes per day: 10 Hx Chewing Tobacco Use: No Initiated information on smoking cessation: Yes 'Breaking Loose' booklet given: 08/08/19 - Substances abused Heroin Substance route: Injection Frequency: Daily Amount used: 7 BAGS Age of first use: 20 Date of last use: 08/07/19 Alcohol Substance route: Oral Frequency: Daily Amount used: 1 PINT VODKA Age of first use: 18 Date of last use: 08/07/19 Cocaine Substance route: Smoking Frequency: 1-2 times per week Amount used: $50 Age of first use: 30 Date of last use: 08/06/19 Admission Physical Exam [facility] - Vital Signs Vital Signs: Vital Signs - 24 hr 08/08/19 09:50 Temperature 97.3 F L Pulse Rate 66 Respiratory 16 Rate Blood Pressure 148/81 - Physical General Appearance: Yes: Intoxicated, Thin HEENTM: Yes: Hearing grossly Normal, Normocephalic Respiratory: Yes: Wheezing Neck: Yes: Within Normal Limits Breast: Yes: Breast Exam Deferred Cardiology: Yes: Regular Rate, S1, S2 Abdominal: Yes: Normal Bowel Sounds, Non Tender, Soft, Distended Back: Yes: Normal Inspection Musculoskeletal: Yes: Within Normal Limits Extremities: Yes: Within Normal Limits Neurological: Yes: Normal Mood/Affect Integumentary: Yes: Other (scratches over anterior legs, several, superficial) - Diagnostic (1) Alcohol dependence with uncomplicated withdrawal Current Visit: Yes Status: Acute (2) Opioid dependence on agonist therapy Current Visit: Yes Status: Acute Cleared for Admission [facility] - Detox or Rehab [facility] Level of Care: Medically Managed Detox Regimen/Protocol: Methadone/Librium Breathalyzer - Breathalyzer Breathalyzer: 0 Urine Drug Screen - Test Device Lot number: [id number] Expiration date: 05/12/21 - Control Is test valid?: Yes - Results Drug screen NEGATIVE: No Urine drug screen results: NIKIA-Cocaine, FEN-Fentanyl, MOP-Opiates Inpatient Rehab Admission - Rehab Decision to Admit Inpatient rehab admission?: No
[2019-08-08] MEDS ORDERED: METHOCARBAMOL 500 MG TABLET PO PRN (10:28)
[2019-08-08] MEDS ORDERED: cloNIDine HCL 0.1 MG TABLET PO PRN (10:28)
[2019-08-08] MEDS ORDERED: MAG HYDROX/AL HYDROX/SIMETH 30 ML UNIT-DOSE CUP PO PRN (10:28)
[2019-08-08] MEDS ORDERED: hydrOXYzine PAMOATE 25 MG CAPSULE (FP) PO PRN (10:28)
[2019-08-08] MEDS ORDERED: ACETAMINOPHEN 325 MG TABLET (FP) PO PRN ×2 (10:28)
[2019-08-08] MEDS ORDERED: MELATONIN 5 MG TABLETS PO PRN (10:28)
[2019-08-08] MEDS ORDERED: IBUPROFEN 400 MG TABLET (FP) PO PRN (10:28)
[2019-08-08] MEDS ORDERED: MENTHOL/PHENOL 1 EACH UD MM PRN (10:28)
[2019-08-08] MEDS ORDERED: BISMUTH SUBSALICYLATE 524 MG/30 ML UD PO PRN (10:28)
[2019-08-08] MEDS ORDERED: MAGNESIUM HYDROX 2400MG/30ML ORAL SUSPENSION 30 ML CUP PO PRN (10:28)
[2019-08-08] MEDS ORDERED: MAGNESIUM CITRATE 300 ML BOTTLE PO PRN (10:28)
[2019-08-08] MEDS ORDERED: chlordiazePOXIDE HCL 25 MG CAPSULE PO PRN (10:28)
[2019-08-08] MEDS ORDERED: METHADONE HCL 10 MG TABLET (FOR DETOX USE ONLY) PO ONE (10:45)
[2019-08-08] MEDS: NICOTINE 14 MG/24 HOURS TOPICAL PATCH TD SCH (11:55)
[2019-08-08] MEDS: chlordiazePOXIDE HCL 25 MG CAPSULE PO SCH ×3 (11:55→22:43)
[2019-08-08 15:06] LABS: ALBUMIN 3.4 g/dl (3.4-5.0); BILIRUBIN,TOTAL 0.4 mg/dL (0.2-1); BLOOD UREA NITROGEN 29.9 mg/dL (7-18); CALCIUM 8.5 mg/dL (8.5-10.1); CREATININE 1.3 mg/dL (0.55-1.3); POTASSIUM 3.8 mmol/L (3.5-5.1)
[2019-08-08 15:07] LABS: HEMATOCRIT 37.1 % (35.4-49); HEMOGLOBIN 12.4 GM/dL (11.7-16.9); MCH 28.9 pg (25.7-33.7); MCHC 33.5 g/dl (32.0-35.9); MEAN CELL VOLUME 86.5 fl (80-96); MEAN PLT VOLUME 8.4 fl (7.5-11.1); PLATELET COUNT 282 K/MM3 (134-434); RBC 4.29 M/mm3 (4.00-5.60); RDW 14.8 % (11.9-15.9); WHITE BLOOD COUNT 4.5 K/mm3 (4.0-10.0)
[2019-08-08] MEDS: ALBUTEROL SO4 HFA INHALER IH PRN ×2 (17:18→20:43)
[2019-08-08] MEDS ORDERED: THIAMINE HCL 100 MG TABLET (FP) PO SCH (22:00)
[2019-08-09] MEDS: ALBUTEROL SO4 HFA INHALER IH PRN ×2 (02:23→21:06)
[2019-08-09] MEDS: chlordiazePOXIDE HCL 25 MG CAPSULE PO SCH ×3 (05:09→17:10)
[2019-08-09] MEDS ORDERED: METHADONE HCL 5 MG TABLET (FOR DETOX USE ONLY) ONE (08:46)
[2019-08-09] MEDS ORDERED: METHADONE HCL 10 MG TABLET (FOR DETOX USE ONLY) ONE (08:46)
[2019-08-09] MEDS ORDERED: PRENATAL VITAMINS W/ FOLIC ACID TABLET (FP) PO SCH (10:00)
[2019-08-09] MEDS ORDERED: METHADONE (DETOX) 20 MG, METHADONE (DETOX) 5 MG PO ONE (10:00)
[2019-08-09] MEDS: NICOTINE 14 MG/24 HOURS TOPICAL PATCH TD SCH (10:32)
--- NOTE | 2019-08-09 11:55 | EKG ---
Test Reason : Blood Pressure : / mmHG Vent. Rate : 061 BPM Atrial Rate : 061 BPM P-R Int : 142 ms QRS Dur : 094 ms QT Int : 446 ms P-R-T Axes : 063 063 058 degrees QTc Int : 448 ms NORMAL SINUS RHYTHM MINIMAL VOLTAGE CRITERIA FOR LVH, MAY BE NORMAL VARIANT BORDERLINE ECG WHEN COMPARED WITH ECG OF 01-NOV-2016 12:27, PREMATURE ATRIAL COMPLEXES ARE NO LONGER PRESENT NONSPECIFIC T WAVE ABNORMALITY NOW EVIDENT IN ANTERIOR LEADS Confirmed by BEVERLEY ACEVEDO MD ([id number]) on 08/09/2019 11:55:37 AM Referred By: Jimmy WARREN Confirmed By:BEVERLEY ACEVEDO MD
[2019-08-09] MEDS ORDERED: COLLOIDAL OATMEAL 1 BAR EACH TP PRN (12:20)
--- NOTE | 2019-08-09 12:22 | PN ---
[facility] CIWA - CIWA Score Nausea/Vomitin-Mild Nausea/No Vomiting Muscle Tremors: 4-Moderate,w/Arms Extend Anxiety: 4-Mod. Anxious/Guarded Agitation: 0-Normal Activity Paroxysmal Sweats: 2 Orientation: 0-Oriented Tacttile Disturbances: 0-None Auditory Disturbances: 0-None Visual Disturbances: 0-None Headache: 0-None Present CIWA-Ar Total Score: 11 S COWS - Scale Resting Pulse: 0= [place] 80 or Below Sweatin= Chills/Flushing Restless Observation: 0= Sits Still Pupil Size: 1= Pupils >than Normal Bone or Joint Aches: 1= Mild Discomfort Runny Nose/ Eye Tearin= None GI Upset > 30mins: 2= Nausea/Diarrhea Tremor Observation of Outstretched Hands: 2= Slight Tremor Visible Yawning Observation: 0= None Anxiety or Irritability: 1=Feels Anxious/Irritable Goose Flesh Skin: 3=Piloerection COWS Score: 11 S Progress Note (SOAP) Subjective: 43 years old male admitted on 08/08/19 for alcohol and opiate withdrawal sx management treating with librium and methadone detox regiments feeling weak and poor appetite sweating chills abdominal cramping Objective: 08/09/19 12:22 Laboratory Last Values WBC 4.5 K/mm3 (4.0-10.0) 08/08/19 10:40 RBC 4.29 M/mm3 (4.00-5.60) 08/08/19 10:40 Hgb 12.4 GM/dL (11.7-16.9) 08/08/19 10:40 Hct 37.1 % (35.4-49) 08/08/19 10:40 MCV 86.5 fl (80-96) 08/08/19 10:40 MCH 28.9 pg (25.7-33.7) 08/08/19 10:40 MCHC 33.5 g/dl (32.0-35.9) 08/08/19 10:40 RDW 14.8 % (11.9-15.9) 08/08/19 10:40 Plt Count 282 K/MM3 (134-434) 08/08/19 10:40 MPV 8.4 fl (7.5-11.1) 08/08/19 10:40 Sodium 143 mmol/L (136-145) 08/08/19 10:40 Potassium 3.8 mmol/L (3.5-5.1) 08/08/19 10:40 Chloride 108 mmol/L (98-107) H 08/08/19 10:40 Carbon Dioxide 29 mmol/L (21-32) 08/08/19 10:40 Anion Gap 6 MMOL/L (8-16) L 08/08/19 10:40 BUN 29.9 mg/dL (7-18) H 08/08/19 10:40 Creatinine 1.3 mg/dL (0.55-1.3) 08/08/19 10:40 Est GFR (CKD-EPI)AfAm 77.45 08/08/19 10:40 Est GFR (CKD-EPI)NonAf 66.83 08/08/19 10:40 Random Glucose 132 mg/dL (74-106) H 08/08/19 10:40 Calcium 8.5 mg/dL (8.5-10.1) 08/08/19 10:40 Total Bilirubin 0.4 mg/dL (0.2-1) 08/08/19 10:40 AST 35 U/L (15-37) 08/08/19 10:40 ALT 35 U/L (13-61) 08/08/19 10:40 Alkaline Phosphatase 88 U/L (45-117) 08/08/19 10:40 Total Protein 6.0 g/dl (6.4-8.2) L 08/08/19 10:40 Albumin 3.4 g/dl (3.4-5.0) 08/08/19 10:40 RPR Titer Nonreactive (NONREACTIVE) 08/08/19 10:40 08/09/19 12:24 lab noted fasting glucose Assessment: 08/09/19 12:25 alcohol and opiate withdrawal Plan: librium and methadone regiments
[2019-08-09] MEDS ORDERED: MINERAL OIL/PETROLAT/WATER TOPICAL CREAM 113 GM JAR TP SCH (12:55)
[2019-08-09] MEDS ORDERED: cloNIDine HCL 0.1 MG TABLET PO ONE (12:55)
[2019-08-09] MEDS ORDERED: DICYCLOMINE HCL 10 MG CAPSULE PO ONE (12:55)
[2019-08-09 21:15] VITALS: BP 114/73; PULSE 75; TEMP 97.3
--- NOTE | 2019-08-09 21:49 | PN ---
S Progress Note Note: called by nurse for pt leaving AMA , pt states he has financial issues to take care of at home and needs to leave immediately . No SI /HI . Insists on leaving despite risks of leaving AMA, explained to pt at length . Ambulating freely , no distress , no complaints . Vital Signs - 24 hr 08/09/19 08/09/19 08/09/19 00:34 03:30 06:43 Temperature 97.2 F L Pulse Rate 61 Respiratory 20 18 18 Rate Blood Pressure 152/92 08/09/19 08/09/19 08/09/19 08:54 12:53 17:21 Temperature 97.0 F L 97.6 F 96.3 F L Pulse Rate 70 66 57 L Respiratory 16 17 18 Rate Blood Pressure 133/90 117/71 111/70 08/09/19 20:29 Temperature 97.3 F L Pulse Rate 75 Respiratory 17 Rate Blood Pressure 114/73
[2019-08-10] MEDS ORDERED: chlordiazePOXIDE HCL 25 MG CAPSULE PO SCH (05:00)
[2019-08-10] MEDS ORDERED: METHADONE HCL 10 MG TABLET (FOR DETOX USE ONLY) PO ONE (10:00)
[2019-08-11] MEDS ORDERED: chlordiazePOXIDE HCL 10 MG CAPSULE PO PRN
[2019-08-11] MEDS ORDERED: chlordiazePOXIDE HCL 10 MG CAPSULE PO SCH (05:00)
[2019-08-11] MEDS ORDERED: METHADONE (DETOX) 10 MG, METHADONE (DETOX) 5 MG PO ONE (10:00)
[2019-08-12] MEDS ORDERED: chlordiazePOXIDE HCL 10 MG CAPSULE PO SCH (05:00)
[2019-08-12] MEDS ORDERED: METHADONE HCL 10 MG TABLET (FOR DETOX USE ONLY) PO ONE (10:00)
[2019-08-13] MEDS ORDERED: chlordiazePOXIDE HCL 10 MG CAPSULE PO ONE (05:00)
[2019-08-13] MEDS ORDERED: METHADONE HCL 5 MG TABLET (FOR DETOX USE ONLY) PO ONE (06:00)
== END 2019-08-09 21:36 | disposition left against medical advice (07) | DRG 770 ==
LOC: YASAS 08:24 → Y3N 10:33
PROVIDERS: ADMIT Allergy & Immunology; ATTEND Allergy & Immunology
PROC: HZ2ZZZZ Detoxification Services for Substance Abuse Treatment (ICD-10-PCS; principal; 2019-08-08)
DX: F10.230 Alcohol dependence with withdrawal, uncomplicated (principal); F11.20 Opioid dependence, uncomplicated; F14.20 Cocaine dependence, uncomplicated; F17.210 Nicotine dependence, cigarettes, uncomplicated; J45.909 Unspecified asthma, uncomplicated; K21.9 Gastro-esophageal reflux disease without esophagitis; Z91.010 Allergy to peanuts
CPT/HCPCS: 36415; 80053; 85027; 86593; 93005; 93010; J0735

== ENCOUNTER 2019-08-22 09:08 | Inpatient (IN) | payer OTHER ==
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
--- NOTE | 2019-08-22 11:05 | HP ---
COWS - Scale Resting Pulse: 0= [place] 80 or Below Sweatin= No chills or Flushing Restless Observation: 1= Difficult to Sit Still Pupil Size: 1= Pupils >than Normal Bone or Joint Aches: 2= Severe Diffuse Aches Runny Nose/ Eye Tearin= Runny Nose/Eyes GI Upset > 30mins: 2= Nausea/Diarrhea Tremor Observation: 2= Slight Tremor Visible Yawning Observation: 1= 1-2x During Session Anxiety or Irritability: 2=Irritable/Anxious Goose Flesh Skin: 0=Smooth Skin COWS Score: 13 CIWA Score Nausea/Vomitin Muscle Tremors: 3 Anxiety: 3 Agitation: 3 Paroxysmal Sweats: 1-Minimal Palms Moist Orientation: 0-Oriented Tacttile Disturbances: 1-Very Mild Itch/Numbness Auditory Disturbances: 0-None Visual Disturbances: 0-None Headache: 2-Mild CIWA-Ar Total Score: 15 - Admission Criteria [facility]ASAS Guidelines: Admission for Medically Managed Detox: Requires at least one of the followin. CIWA greater than 12 2. Seizures within the past 24 hours 3. Delirium tremens within the past 24 hours 4. Hallucinations within the past 24 hours 5. Acute intervention needed for co occurring medical disorder 6. Acute intervention needed for co occurring psychiatric disorder 7. Severe withdrawal that cannot be handled at a lower level of care (continued vomiting, continued diarrhea, abnormal vital signs) requiring intravenous medication and/or fluids 8. Admitting History and Physical - Admission Chief Complaint: i am here to stop using heroin,alcohol,benzo abused History of Present Illness: this 43 years old male with heroin,alcohol dependence,benzo abused,seeking help,seen in [place] last night with syncope and face injury multiple admissions in detox last [facility] 08/08/2019 to 08/09/2019 History Source: Patient Limitations to Obtaining History: No Limitations - Past Medical History POLYMER SPECIALIST: Yes: Syncope Pulmonary: Yes: Asthma, Other (on albuterol inhaler) Gastrointestinal: Yes: GERD - Past Surgical History Past Surgical History: Yes: None - Smoking History Smoking history: Current every day smoker Have you smoked in the past 12 months: Yes Aproximately how many cigarettes per day: 10 - Alcohol/Substance Use Hx Alcohol Use: Yes History of Substance Use: reports: Cocaine, Heroin - Social History Usual Living Arrangement: Yes: Alone Occupation: unemployed History of Recent Travel: No Admission [facility] Chief Complaint: i need help to stop using heroin,alcohol and benzo abused Allergies/Adverse Reactions: Allergies Allergy/AdvReac Type Severity Reaction Status Date / Time peanut Allergy Severe Swelling Verified 08/08/19 09:57 No Known Drug Allergies Allergy Verified 08/08/19 09:57 NKDA Allergy Uncoded 08/08/19 09:57 History of Present Illness: this 43 years old male with heroin,alcohol dependence with benzo abused,withdrawal symptom,seen in [place] last night with head and face injury syncope went to [place] by ambulance denied seizure multiple admissions in detox,last [facility] 08/08/2019 to 08/09/2019 no significant period of sobriety plan for rehab after detox history of asthma.gerd insomnia living alone,unemployed - Ebola screening Have you traveled outside of the country in the last 21 days: No Have you had contact with anyone from an Ebola affected area: No Have you been sick,other than usual withdrawal symptoms: No Do you have a fever: No - Review of Systems Constitutional: Loss of Appetite, Malaise, Night Sweats, Changes in sleep, Weakness, Unintentional Wgt. Loss EENT: reports: Tearing, Nose Congestion Respiratory: reports: Other (asthma) Cardiac: reports: No Symptoms Reported GI: reports: Nausea, Poor Appetite, Abdominal cramping : reports: No Symptoms Reported Musculoskeletal: reports: Back Pain, Muscle Pain Integumentary: reports: Dryness Endocrine: reports: No Symptoms Reported Hematology: reports: No Symptoms Reported Psychiatric: reports: No Sypmtoms Reported, Judgement Intact, Mood/Affect Appropiate, Orientated x3, other (insomnia) Patient History - Patient Medical History Hx Anemia: No Hx Asthma: Yes (on albuterol inhaler) Hx Chronic Obstructive Pulmonary Disease (COPD): No Hx Cancer: No Hx Cardiac Disorders: No Hx Congestive Heart Failure: No Hx Hypertension: No Hx Hypercholesterolemia: No Hx Pacemaker: No HX Cerebrovascular Accident: No Hx Seizures: No Hx Dementia: No Hx Diabetes: No Hx Gastrointestinal Disorders: No Hx Liver Disease: No Hx Genitourinary Disorders: No Hx Sexually Transmitted Disorders: No Hx Renal Disease (ESRD): No Hx Thyroid Disease: No Hx Human Immunodeficiency Virus (HIV): No (Negative 2017) Hx Hepatitis C: No Hx Depression: No Hx Suicide Attempt: No Hx Bipolar Disorder: No Hx Schizophrenia: No Other Medical History: no suicidal,no homicidal,insomnia - Patient Surgical History Past Surgical History: Yes Hx Neurologic Surgery: No Hx Cataract Extraction: No Hx Cardiac Surgery: No Hx Lung Surgery: Yes (laft chest tube in 2011 fx rib) Hx Breast Surgery: No Hx Breast Biopsy: No Hx Abdominal Surgery: No Hx Appendectomy: No Hx Cholecystectomy: No Hx Genitourinary Surgery: No Hx Section: No Hx Orthopedic Surgery: No Anesthesia Reaction: No - PPD History Previous Implant?: Yes Documented Results: Negative w/o proof Date: 10/30/18 Results: 0 MM PPD to be Administered?: No - Smoking Cessation Smoking history: Current every day smoker Have you smoked in the past 12 months: Yes Aproximately how many cigarettes per day: 10 Hx Chewing Tobacco Use: No Initiated information on smoking cessation: Yes 'Breaking Loose' booklet given: 08/22/19 - Substance & Tx. History Hx Alcohol Use: Yes Hx Substance Use: Yes Substance Use Type: Alcohol, Heroin Hx Substance Use Treatment: Yes ([facility] 08/08/2019 to 08/09/2019) - Substances abused Alcohol Substance route: Oral Frequency: Daily Amount used: pint f vodka Age of first use: 13 Date of last use: 08/21/19 Heroin Substance route: Inhalation Frequency: Daily Amount used: 8-10 Bags Age of first use: 20 Date of last use: 08/21/19 Alprazolam (Xanax) Substance route: Oral Frequency: Daily Amount used: 1-2MG Age of first use: 20 Date of last use: 08/21/19 Cocaine Substance route: Inhalation Frequency: 1-3 times last 30 days Amount used: not sure Age of first use: 20 Date of last use: 08/21/19 Admission Physical Exam S - Physical General Appearance: Yes: Moderate Distress, Tremorous, Irritable, Anxious HEENTM: Yes: Normal ENT Inspection, BOYD, Pharynx Normal, Other (laceration of right face with stitches) Respiratory: Yes: Lungs Clear, Normal Breath Sounds, No Respiratory Distress, Other (scar left chest) Neck: Yes: Within Normal Limits, Supple, Trachea in good position Breast: Yes: Within Normal Limits Cardiology: Yes: Within Normal Limits, Regular Rhythm, S1, S2 Abdominal: Yes: Within Normal Limits, Normal Bowel Sounds, Non Tender, Flat, Soft Genitourinary: Yes: Within Normal Limits, Burning, Frequency, Hesitency, Itiching Back: Yes: Within Normal Limits, Muscle Spasm Musculoskeletal: Yes: Back pain, Muscle Pain Extremities: Yes: Within Normal Limits, Normal Range of Motion, Tremors Neurological: Yes: outside physical damage appraiser II-XII NML intact, Alert, Motor Strength 5/5 Integumentary: Yes: Dry Lymphatic: Yes: Within Normal Limits - Diagnostic (1) Opioid dependence with withdrawal Current Visit: Yes Status: Acute (2) Alcohol dependence with uncomplicated withdrawal Current Visit: No Status: Acute (3) Nicotine dependence Current Visit: No Status: Chronic Qualifiers: Nicotine product type: cigarettes Substance use status: uncomplicated Qualified Code(s): F17.210 - Nicotine dependence, cigarettes, uncomplicated (4) Sedative, hypnotic, or anxiolytic withdrawal Current Visit: No Status: Chronic (5) Syncope Current Visit: Yes Status: Acute Cleared for Admission [facility] - Detox or Rehab [facility] Level of Care: Medically Managed Detox Regimen/Protocol: Methadone/Valium Breathalyzer - Breathalyzer Breathalyzer: 0 Urine Drug Screen - Test Device Lot number: [id number] Expiration date: 05/12/21 - Control Is test valid?: Yes - Results Drug screen NEGATIVE: No Urine drug screen results: NIKIA-Cocaine, MOP-Opiates, BZO-Benzodiazepines Inpatient Rehab Admission - Rehab Decision to Admit Inpatient rehab admission?: No
[2019-08-22] MEDS ORDERED: ACETAMINOPHEN 325 MG TABLET (FP) PO PRN ×2 (11:23)
[2019-08-22] MEDS ORDERED: MENTHOL/PHENOL 1 EACH UD MM PRN (11:23)
[2019-08-22] MEDS ORDERED: MAGNESIUM HYDROX 2400MG/30ML ORAL SUSPENSION 30 ML CUP PO PRN (11:23)
[2019-08-22] MEDS ORDERED: cloNIDine HCL 0.1 MG TABLET PO PRN (11:23)
[2019-08-22] MEDS ORDERED: MAGNESIUM CITRATE 300 ML BOTTLE PO PRN (11:23)
[2019-08-22] MEDS ORDERED: BISMUTH SUBSALICYLATE 262 MG/15 ML BTL PO PRN (11:23)
[2019-08-22] MEDS ORDERED: IBUPROFEN 400 MG TABLET (FP) PO PRN (11:23)
[2019-08-22] MEDS ORDERED: MAG HYDROX/AL HYDROX/SIMETH 30 ML UNIT-DOSE CUP PO PRN (11:23)
[2019-08-22] MEDS ORDERED: diazePAM 5 MG TABLET PO PRN (11:23)
[2019-08-22] MEDS ORDERED: ALBUTEROL SO4 HFA INHALER IH PRN (11:26)
[2019-08-22] MEDS ORDERED: METHADONE HCL 10 MG TABLET (FOR DETOX USE ONLY) PO ONE (11:41)
[2019-08-22] MEDS ORDERED: ONDANSETRON *ODT* 4 MG TABLET SL ONE (11:43)
[2019-08-22] MEDS: CEPHALEXIN MONOHYDRATE 500 MG CAPSULE (UD) PO SCH ×2 (12:01→18:05)
[2019-08-22] MEDS: NICOTINE 21 MG/24 HOURS TOPICAL PATCH TD SCH (12:02)
[2019-08-22] MEDS: hydrOXYzine PAMOATE 25 MG CAPSULE (FP) PO SCH ×4 (13:28→22:48)
[2019-08-22] MEDS: diazePAM 5 MG TABLET PO SCH ×3 (13:28→22:45)
[2019-08-22 14:38] LABS: HEMATOCRIT 35.2 % (35.4-49); HEMOGLOBIN 11.7 GM/dL (11.7-16.9); MCHC 33.3 g/dl (32.0-35.9); MEAN CELL VOLUME 87.1 fl (80-96); MEAN PLT VOLUME 7.7 fl (7.5-11.1); PLATELET COUNT 397 K/MM3 (134-434); RBC 4.04 M/mm3 (4.00-5.60); RDW 15.3 % (11.9-15.9); WHITE BLOOD COUNT 2.4 K/mm3 (4.0-10.0)
[2019-08-22 14:53] LABS: ALBUMIN 3.6 g/dl (3.4-5.0); BILIRUBIN,TOTAL 0.7 mg/dL (0.2-1); BLOOD UREA NITROGEN 19.7 mg/dL (7-18); CALCIUM 8.6 mg/dL (8.5-10.1); POTASSIUM 4.3 mmol/L (3.5-5.1); TOT PROT 6.6 g/dl (6.4-8.2)
[2019-08-22] MEDS: BUDESONIDE/FORMETEROL FUMARATE 80/4.5 mcg INHALER IH SCH ×2 (22:43→22:48)
[2019-08-22] MEDS: QUEtiapine FUMARATE 50 MG TABLET PO SCH ×2 (22:43→22:48)
[2019-08-22] MEDS: THIAMINE HCL 100 MG TABLET (FP) PO SCH ×2 (22:43→22:48)
[2019-08-22] MEDS: MELATONIN 5 MG TABLETS PO SCH (22:43)
[2019-08-23] MEDS: CEPHALEXIN MONOHYDRATE 500 MG CAPSULE (UD) PO SCH ×5 (00:30→23:18)
[2019-08-23] MEDS: diazePAM 5 MG TABLET PO SCH ×3 (07:16→22:35)
[2019-08-23] MEDS: hydrOXYzine PAMOATE 25 MG CAPSULE (FP) PO SCH ×5 (07:17→22:35)
[2019-08-23] MEDS ORDERED: METHADONE HCL 10 MG TABLET (FOR DETOX USE ONLY) ONE (08:58)
[2019-08-23] MEDS ORDERED: METHADONE HCL 5 MG TABLET (FOR DETOX USE ONLY) ONE (08:59)
[2019-08-23] MEDS ORDERED: METHADONE (DETOX) 20 MG, METHADONE (DETOX) 5 MG PO ONE (10:00)
[2019-08-23] MEDS: PRENATAL VITAMINS W/ FOLIC ACID TABLET (FP) PO SCH (10:18)
[2019-08-23] MEDS: NICOTINE 21 MG/24 HOURS TOPICAL PATCH TD SCH (10:18)
[2019-08-23] MEDS: BUDESONIDE/FORMETEROL FUMARATE 80/4.5 mcg INHALER IH SCH ×2 (10:19→22:37)
--- NOTE | 2019-08-23 11:53 | PN ---
[facility] CIWA - CIWA Score Nausea/Vomitin-Mild Nausea/No Vomiting Muscle Tremors: 2 Anxiety: 3 Agitation: 1-Slight > Activity Paroxysmal Sweats: 2 Orientation: 0-Oriented Tacttile Disturbances: 1-Very Mild Itch/Numbness Auditory Disturbances: 0-None Visual Disturbances: 2-Mild Sensitivity Headache: 0-None Present CIWA-Ar Total Score: 12 [facility] COWS - Scale Resting Pulse: 0= [place] 80 or Below Sweatin= Chills/Flushing Restless Observation: 0= Sits Still Pupil Size: 1= Pupils >than Normal Bone or Joint Aches: 2= Severe Diffuse Aches Runny Nose/ Eye Tearin= None GI Upset > 30mins: 2= Nausea/Diarrhea Tremor Observation of Outstretched Hands: 2= Slight Tremor Visible Yawning Observation: 0= None Anxiety or Irritability: 1=Feels Anxious/Irritable Goose Flesh Skin: 3=Piloerection COWS Score: 12 S Progress Note (SOAP) Subjective: 43 years old male admitted on 08/22/19 for alcohol benzo opiate withdrawal sx management treating with valium and methadone detox regiments ate breakfast tolerated food and fluid well ambulating from bed to bathroom steady gait Objective: 08/23/19 11:54 Vital Signs Temperature 97.1 F L 08/23/19 08:40 Pulse Rate 77 08/23/19 08:40 Respiratory Rate 18 08/23/19 08:40 Blood Pressure 112/60 08/23/19 08:40 O2 Sat by Pulse Oximetry (%) Laboratory Last Values WBC 2.4 K/mm3 (4.0-10.0) L 08/22/19 11:25 RBC 4.04 M/mm3 (4.00-5.60) 08/22/19 11:25 Hgb 11.7 GM/dL (11.7-16.9) 08/22/19 11:25 Hct 35.2 % (35.4-49) L 08/22/19 11:25 MCV 87.1 fl (80-96) 08/22/19 11:25 MCH 29.0 pg (25.7-33.7) 08/22/19 11:25 MCHC 33.3 g/dl (32.0-35.9) 08/22/19 11:25 RDW 15.3 % (11.9-15.9) 08/22/19 11:25 Plt Count 397 K/MM3 (134-434) D 08/22/19 11:25 MPV 7.7 fl (7.5-11.1) 08/22/19 11:25 Sodium 143 mmol/L (136-145) 08/22/19 11:25 Potassium 4.3 mmol/L (3.5-5.1) 08/22/19 11:25 Chloride 109 mmol/L (98-107) H 08/22/19 11:25 Carbon Dioxide 30 mmol/L (21-32) 08/22/19 11:25 Anion Gap 5 MMOL/L (8-16) L 08/22/19 11:25 BUN 19.7 mg/dL (7-18) H 08/22/19 11:25 Creatinine 1.0 mg/dL (0.55-1.3) 08/22/19 11:25 Est GFR (CKD-EPI)AfAm 106.36 08/22/19 11:25 Est GFR (CKD-EPI)NonAf 91.77 08/22/19 11:25 Random Glucose 89 mg/dL (74-106) 08/22/19 11:25 Calcium 8.6 mg/dL (8.5-10.1) 08/22/19 11:25 Total Bilirubin 0.7 mg/dL (0.2-1) 08/22/19 11:25 AST 38 U/L (15-37) H 08/22/19 11:25 ALT 40 U/L (13-61) 08/22/19 11:25 Alkaline Phosphatase 103 U/L (45-117) 08/22/19 11:25 Total Protein 6.6 g/dl (6.4-8.2) 08/22/19 11:25 Albumin 3.6 g/dl (3.4-5.0) 08/22/19 11:25 RPR Titer Nonreactive (NONREACTIVE) 08/22/19 11:25 lab noted 08/23/19 11:56 long history of wbc fluctuation repeat cbc Assessment: 08/23/19 11:56 alcohol benzo opiate withdrawal Plan: valium and methadone regiments
--- NOTE | 2019-08-23 12:54 | CONSULT ---
[facility] Psychiatric Consult - Data Date of interview: 08/23/19 Admission source: [facility] Identifying data: Bods Developer approached patient for psychiatric consultation. Patient stated, "i'm too tired to talk.". Psychiatric consultation refused.
[2019-08-23] MEDS: METHOCARBAMOL 500 MG TABLET PO PRN (14:09)
[2019-08-23] MEDS: NICOTINE POLACRILEX 2 MG GUM BUC PRN (14:13)
[2019-08-23] MEDS: THIAMINE HCL 100 MG TABLET (FP) PO SCH (22:35)
[2019-08-23] MEDS: MELATONIN 5 MG TABLETS PO SCH (22:35)
[2019-08-23] MEDS: QUEtiapine FUMARATE 50 MG TABLET PO SCH (22:35)
[2019-08-24] MEDS: hydrOXYzine PAMOATE 25 MG CAPSULE (FP) PO SCH ×5 (05:16→22:20)
[2019-08-24] MEDS: CEPHALEXIN MONOHYDRATE 500 MG CAPSULE (UD) PO SCH ×4 (05:16→23:55)
[2019-08-24] MEDS: diazePAM 5 MG TABLET PO SCH ×2 (05:16→18:06)
[2019-08-24] MEDS ORDERED: METHADONE HCL 10 MG TABLET (FOR DETOX USE ONLY) PO ONE (10:00)
[2019-08-24] MEDS: NICOTINE 21 MG/24 HOURS TOPICAL PATCH TD SCH (10:03)
[2019-08-24] MEDS: BUDESONIDE/FORMETEROL FUMARATE 80/4.5 mcg INHALER IH SCH ×2 (10:03→22:20)
[2019-08-24] MEDS: PRENATAL VITAMINS W/ FOLIC ACID TABLET (FP) PO SCH (10:03)
[2019-08-24 10:25] LABS: BASO % 0.9 % (0-2.0); EOS % 5.2 % (0-4.5); HEMATOCRIT 33.7 % (35.4-49); HEMOGLOBIN 11.2 GM/dL (11.7-16.9); LYMPH % 46.2 % (8-40); MCHC 33.4 g/dl (32.0-35.9); MEAN CELL VOLUME 86.8 fl (80-96); MEAN PLT VOLUME 7.6 fl (7.5-11.1); MONO % 7.5 % (3.8-10.2); NEUT % 40.2 % (42.8-82.8); PLATELET COUNT 376 K/MM3 (134-434); RBC 3.88 M/mm3 (4.00-5.60); RDW 15.2 % (11.9-15.9); WHITE BLOOD COUNT 3.5 K/mm3 (4.0-10.0)
--- NOTE | 2019-08-24 11:37 | PN ---
[facility] CIWA - CIWA Score Nausea/Vomitin-No Nausea/No Vomiting Muscle Tremors: None Anxiety: 0-No Anxiety, at Ease Agitation: 0-Normal Activity Paroxysmal Sweats: No Perspiration Orientation: 3-Disoriented Date>2 days Tacttile Disturbances: 0-None Auditory Disturbances: 2-Mild Harshness/Frighten Visual Disturbances: 2-Mild Sensitivity Headache: 0-None Present CIWA-Ar Total Score: 7 [facility] COWS - Scale Resting Pulse: 0= [place] 80 or Below Sweatin=Flushed/Facial Moisture Restless Observation: 0= Sits Still Pupil Size: 0= Normal to Room Light Bone or Joint Aches: 1= Mild Discomfort Runny Nose/ Eye Tearin= Nasal Congestion GI Upset > 30mins: 0= None Tremor Observation of Outstretched Hands: 0= None Yawning Observation: 0= None Anxiety or Irritability: 0= None Goose Flesh Skin: 0=Smooth Skin COWS Score: 4 [facility] Progress Note (SOAP) Subjective: Complaints of feeling sweaty, bone aches, nasal congestion, states today is the "8th" Objective: 08/24/19 11:34 Laboratory Tests 08/22/19 08/22/19 08/22/19 11:25 11:25 11:25 WBC 2.4 L RBC 4.04 Hgb 11.7 Hct 35.2 L MCV 87.1 MCH 29.0 MCHC 33.3 RDW 15.3 Plt Count 397 D MPV 7.7 Absolute Neuts (auto) Neutrophils % Lymphocytes % Monocytes % Eosinophils % Basophils % Nucleated RBC % Sodium 143 Potassium 4.3 Chloride 109 H Carbon Dioxide 30 Anion Gap 5 L BUN 19.7 H Creatinine 1.0 Est GFR (CKD-EPI)AfAm 106.36 Est GFR (CKD-EPI)NonAf 91.77 Random Glucose 89 Calcium 8.6 Total Bilirubin 0.7 AST 38 H ALT 40 Alkaline Phosphatase 103 Total Protein 6.6 Albumin 3.6 RPR Titer Nonreactive 08/24/19 07:30 WBC 3.5 L RBC 3.88 L Hgb 11.2 L Hct 33.7 L MCV 86.8 MCH 29.0 MCHC 33.4 RDW 15.2 Plt Count 376 MPV 7.6 Absolute Neuts (auto) 1.4 L Neutrophils % 40.2 L D Lymphocytes % 46.2 H D Monocytes % 7.5 Eosinophils % 5.2 H D Basophils % 0.9 Nucleated RBC % 0 Sodium Potassium Chloride Carbon Dioxide Anion Gap BUN Creatinine Est GFR (CKD-EPI)AfAm Est GFR (CKD-EPI)NonAf Random Glucose Calcium Total Bilirubin AST ALT Alkaline Phosphatase Total Protein Albumin RPR Titer Vital Signs Temperature 96.9 F L 08/24/19 08:34 Pulse Rate 64 08/24/19 08:34 Respiratory Rate 18 08/24/19 08:34 Blood Pressure 111/62 08/24/19 08:34 O2 Sat by Pulse Oximetry (%) PE Gnl: WDWN, in bed, in mild distress HEENT; audible nasal congestion Mental status: awake, alert, nl language Motor: no tremor Coord: nl Assessment: 08/24/19 11:36 1. Alcohol use disorder 2. Opioid use disorder 3. s/p injury with sutures right side of face/anterior to right ear, site clean, per pt sutures are now 7-8 days old Plan: 1. Continue Valium withdrawal protocol for AUD 2. continue methadone withdrawal protocol 3. remove sutures today, staff getting kit from supply
[2019-08-24] MEDS: NICOTINE POLACRILEX 2 MG GUM BUC PRN ×2 (13:26→22:21)
[2019-08-24] MEDS: METHOCARBAMOL 500 MG TABLET PO PRN (15:52)
--- NOTE | 2019-08-24 17:46 | PN ---
[facility] Progress Note Note: Sutures right side of face anterior to tragus Removed all except 3 which are imbeded in skin Will order topical bacitracin will attempt to get better tweezers and scissors for remaining sutures
[2019-08-24] MEDS: BACITRACIN 0.9 GM PACKET TP SCH (18:06)
[2019-08-24] MEDS: THIAMINE HCL 100 MG TABLET (FP) PO SCH (22:20)
[2019-08-24] MEDS: QUEtiapine FUMARATE 50 MG TABLET PO SCH (22:20)
[2019-08-24] MEDS: MELATONIN 5 MG TABLETS PO SCH (22:20)
[2019-08-25] MEDS: CEPHALEXIN MONOHYDRATE 500 MG CAPSULE (UD) PO SCH ×4 (05:42→23:08)
[2019-08-25] MEDS: hydrOXYzine PAMOATE 25 MG CAPSULE (FP) PO SCH ×5 (05:42→22:31)
[2019-08-25] MEDS: NICOTINE POLACRILEX 2 MG GUM BUC PRN ×5 (05:43→22:32)
[2019-08-25] MEDS ORDERED: diazePAM 5 MG TABLET PO ONE (06:00)
[2019-08-25] MEDS ORDERED: METHADONE HCL 10 MG TABLET (FOR DETOX USE ONLY) ONE (08:52)
[2019-08-25] MEDS ORDERED: METHADONE HCL 5 MG TABLET (FOR DETOX USE ONLY) ONE (08:53)
[2019-08-25] MEDS ORDERED: METHADONE (DETOX) 10 MG, METHADONE (DETOX) 5 MG PO ONE (10:00)
[2019-08-25] MEDS: PRENATAL VITAMINS W/ FOLIC ACID TABLET (FP) PO SCH (10:11)
[2019-08-25] MEDS: BUDESONIDE/FORMETEROL FUMARATE 80/4.5 mcg INHALER IH SCH ×2 (10:12→22:31)
[2019-08-25] MEDS: BACITRACIN 0.9 GM PACKET TP SCH (10:12)
[2019-08-25] MEDS: NICOTINE 21 MG/24 HOURS TOPICAL PATCH TD SCH (10:12)
--- NOTE | 2019-08-25 11:47 | PN ---
[facility] CIWA - CIWA Score Nausea/Vomitin-No Nausea/No Vomiting Muscle Tremors: None Anxiety: 2 Agitation: 0-Normal Activity Paroxysmal Sweats: 2 Orientation: 0-Oriented Tacttile Disturbances: 0-None Auditory Disturbances: 0-None Visual Disturbances: 0-None Headache: 1-Very Mild CIWA-Ar Total Score: 5 [facility] COWS - Scale Resting Pulse: 0= [place] 80 or Below Sweatin= Chills/Flushing Restless Observation: 1= Difficult to Sit Still Pupil Size: 0= Normal to Room Light Bone or Joint Aches: 2= Severe Diffuse Aches Runny Nose/ Eye Tearin= None GI Upset > 30mins: 0= None Tremor Observation of Outstretched Hands: 0= None Yawning Observation: 1= 1-2x During Session Anxiety or Irritability: 2=Irritable/Anxious Goose Flesh Skin: 0=Smooth Skin COWS Score: 7 S Progress Note (SOAP) Subjective: c/o muscle aches, anxiety, sweats, and mild headache. Objective: 08/25/19 11:44 Vital Signs 08/25/19 08/25/19 07:58 08:59 Temperature 97.3 F L 97 F L Pulse Rate 56 L 67 Respiratory 16 17 Rate Blood Pressure 130/90 123/79 Laboratory Last Values WBC 3.5 K/mm3 (4.0-10.0) L 08/24/19 07:30 RBC 3.88 M/mm3 (4.00-5.60) L 08/24/19 07:30 Hgb 11.2 GM/dL (11.7-16.9) L 08/24/19 07:30 Hct 33.7 % (35.4-49) L 08/24/19 07:30 MCV 86.8 fl (80-96) 08/24/19 07:30 MCH 29.0 pg (25.7-33.7) 08/24/19 07:30 MCHC 33.4 g/dl (32.0-35.9) 08/24/19 07:30 RDW 15.2 % (11.9-15.9) 08/24/19 07:30 Plt Count 376 K/MM3 (134-434) 08/24/19 07:30 MPV 7.6 fl (7.5-11.1) 08/24/19 07:30 Absolute Neuts (auto) 1.4 K/mm3 (1.5-8.0) L 08/24/19 07:30 Neutrophils % 40.2 % (42.8-82.8) L D 08/24/19 07:30 Lymphocytes % 46.2 % (8-40) H D 08/24/19 07:30 Monocytes % 7.5 % (3.8-10.2) 08/24/19 07:30 Eosinophils % 5.2 % (0-4.5) H D 08/24/19 07:30 Basophils % 0.9 % (0-2.0) 08/24/19 07:30 Nucleated RBC % 0 % (0-0) 08/24/19 07:30 Sodium 143 mmol/L (136-145) 08/22/19 11:25 Potassium 4.3 mmol/L (3.5-5.1) 08/22/19 11:25 Chloride 109 mmol/L (98-107) H 08/22/19 11:25 Carbon Dioxide 30 mmol/L (21-32) 08/22/19 11:25 Anion Gap 5 MMOL/L (8-16) L 08/22/19 11:25 BUN 19.7 mg/dL (7-18) H 08/22/19 11:25 Creatinine 1.0 mg/dL (0.55-1.3) 08/22/19 11:25 Est GFR (CKD-EPI)AfAm 106.36 08/22/19 11:25 Est GFR (CKD-EPI)NonAf 91.77 08/22/19 11:25 Random Glucose 89 mg/dL (74-106) 08/22/19 11:25 Calcium 8.6 mg/dL (8.5-10.1) 08/22/19 11:25 Total Bilirubin 0.7 mg/dL (0.2-1) 08/22/19 11:25 AST 38 U/L (15-37) H 08/22/19 11:25 ALT 40 U/L (13-61) 08/22/19 11:25 Alkaline Phosphatase 103 U/L (45-117) 08/22/19 11:25 Total Protein 6.6 g/dl (6.4-8.2) 08/22/19 11:25 Albumin 3.6 g/dl (3.4-5.0) 08/22/19 11:25 RPR Titer Nonreactive (NONREACTIVE) 08/22/19 11:25 Labs noted. Assessment: 08/25/19 11:45 AOX3, in no acute respiratory distress. Full ROM, ambulating in the unit. Withdrawal symptoms. Plan: continue detox.
[2019-08-25] MEDS ORDERED: COLLOIDAL OATMEAL 1 BAR EACH TP PRN (13:59)
[2019-08-25] MEDS: FAMOTIDINE 20 MG TABLET PO SCH (15:01)
[2019-08-25] MEDS: MINERAL OIL/PETROLAT/WATER TOPICAL CREAM 113 GM JAR TP SCH (15:01)
[2019-08-25] MEDS: MELATONIN 5 MG TABLETS PO SCH (22:29)
[2019-08-25] MEDS: QUEtiapine FUMARATE 50 MG TABLET PO SCH (22:29)
[2019-08-25] MEDS: THIAMINE HCL 100 MG TABLET (FP) PO SCH (22:29)
[2019-08-26] MEDS: CEPHALEXIN MONOHYDRATE 500 MG CAPSULE (UD) PO SCH ×4 (06:08→23:08)
[2019-08-26] MEDS: hydrOXYzine PAMOATE 25 MG CAPSULE (FP) PO SCH ×5 (06:09→22:13)
[2019-08-26] MEDS: NICOTINE POLACRILEX 2 MG GUM BUC PRN ×6 (06:11→22:12)
[2019-08-26] MEDS ORDERED: METHADONE HCL 10 MG TABLET (FOR DETOX USE ONLY) PO ONE (10:00)
[2019-08-26] MEDS: PRENATAL VITAMINS W/ FOLIC ACID TABLET (FP) PO SCH (10:02)
[2019-08-26] MEDS: BACITRACIN 0.9 GM PACKET TP SCH (10:02)
[2019-08-26] MEDS: BUDESONIDE/FORMETEROL FUMARATE 80/4.5 mcg INHALER IH SCH ×2 (10:03→22:13)
[2019-08-26] MEDS: FAMOTIDINE 20 MG TABLET PO SCH (10:03)
[2019-08-26] MEDS: NICOTINE 21 MG/24 HOURS TOPICAL PATCH TD SCH (10:03)
[2019-08-26] MEDS: MINERAL OIL/PETROLAT/WATER TOPICAL CREAM 113 GM JAR TP SCH (10:03)
--- NOTE | 2019-08-26 12:13 | PN ---
[facility] CIWA - CIWA Score Nausea/Vomitin-No Nausea/No Vomiting Muscle Tremors: 1-None Visible, but [place] Anxiety: 1-Mildly Anxious Agitation: 0-Normal Activity Paroxysmal Sweats: 1-Minimal Palms Moist Orientation: 0-Oriented Tacttile Disturbances: 0-None Auditory Disturbances: 0-None Visual Disturbances: 1-Very Mild Sensitivity Headache: 0-None Present CIWA-Ar Total Score: 4 [facility] COWS - Scale Resting Pulse: 0= [place] 80 or Below Sweatin= No chills or Flushing Restless Observation: 0= Sits Still Pupil Size: 0= Normal to Room Light Bone or Joint Aches: 1= Mild Discomfort Runny Nose/ Eye Tearin= None GI Upset > 30mins: 0= None Tremor Observation of Outstretched Hands: 1= Tremor [place], Not Seen Yawning Observation: 1= 1-2x During Session Anxiety or Irritability: 1=Feels Anxious/Irritable Goose Flesh Skin: 0=Smooth Skin COWS Score: 4 S Progress Note (SOAP) Subjective: 43 years old male admitted on 08/22/19 for alcohol benzo opiate withdrawal sx management treating wih valium and methadone detox regiments feeling better today less tremor mild anxiety right tragus sutures intact lower part of sutures were out no exudate no pain no swell no redness Objective: 08/26/19 12:13 Vital Signs Temperature 96.8 F L 08/26/19 08:30 Pulse Rate 79 08/26/19 08:30 Respiratory Rate 18 08/26/19 08:30 Blood Pressure 134/94 08/26/19 08:30 O2 Sat by Pulse Oximetry (%) Laboratory Last Values WBC 3.5 K/mm3 (4.0-10.0) L 08/24/19 07:30 RBC 3.88 M/mm3 (4.00-5.60) L 08/24/19 07:30 Hgb 11.2 GM/dL (11.7-16.9) L 08/24/19 07:30 Hct 33.7 % (35.4-49) L 08/24/19 07:30 MCV 86.8 fl (80-96) 08/24/19 07:30 MCH 29.0 pg (25.7-33.7) 08/24/19 07:30 MCHC 33.4 g/dl (32.0-35.9) 08/24/19 07:30 RDW 15.2 % (11.9-15.9) 08/24/19 07:30 Plt Count 376 K/MM3 (134-434) 08/24/19 07:30 MPV 7.6 fl (7.5-11.1) 08/24/19 07:30 Absolute Neuts (auto) 1.4 K/mm3 (1.5-8.0) L 08/24/19 07:30 Neutrophils % 40.2 % (42.8-82.8) L D 08/24/19 07:30 Lymphocytes % 46.2 % (8-40) H D 08/24/19 07:30 Monocytes % 7.5 % (3.8-10.2) 08/24/19 07:30 Eosinophils % 5.2 % (0-4.5) H D 08/24/19 07:30 Basophils % 0.9 % (0-2.0) 08/24/19 07:30 Nucleated RBC % 0 % (0-0) 08/24/19 07:30 Sodium 143 mmol/L (136-145) 08/22/19 11:25 Potassium 4.3 mmol/L (3.5-5.1) 08/22/19 11:25 Chloride 109 mmol/L (98-107) H 08/22/19 11:25 Carbon Dioxide 30 mmol/L (21-32) 08/22/19 11:25 Anion Gap 5 MMOL/L (8-16) L 08/22/19 11:25 BUN 19.7 mg/dL (7-18) H 08/22/19 11:25 Creatinine 1.0 mg/dL (0.55-1.3) 08/22/19 11:25 Est GFR (CKD-EPI)AfAm 106.36 08/22/19 11:25 Est GFR (CKD-EPI)NonAf 91.77 08/22/19 11:25 Random Glucose 89 mg/dL (74-106) 08/22/19 11:25 Calcium 8.6 mg/dL (8.5-10.1) 08/22/19 11:25 Total Bilirubin 0.7 mg/dL (0.2-1) 03/11/20 11:25 AST 38 U/L (15-37) H 08/22/19 11:25 ALT 40 U/L (13-61) 08/22/19 11:25 Alkaline Phosphatase 103 U/L (45-117) 08/22/19 11:25 Total Protein 6.6 g/dl (6.4-8.2) 08/22/19 11:25 Albumin 3.6 g/dl (3.4-5.0) 08/22/19 11:25 RPR Titer Nonreactive (NONREACTIVE) 08/22/19 11:25 lab noted continue keflex Assessment: 08/26/19 12:13 alcohol benzo opiate withdrawal Plan: valium and methadone regiment
[2019-08-26] MEDS: QUEtiapine FUMARATE 50 MG TABLET PO SCH (22:13)
[2019-08-26] MEDS: THIAMINE HCL 100 MG TABLET (FP) PO SCH (22:13)
[2019-08-26] MEDS: MELATONIN 5 MG TABLETS PO SCH (22:13)
[2019-08-27] MEDS: hydrOXYzine PAMOATE 25 MG CAPSULE (FP) PO SCH ×3 (05:51→14:02)
[2019-08-27] MEDS: CEPHALEXIN MONOHYDRATE 500 MG CAPSULE (UD) PO SCH ×2 (05:51→14:00)
[2019-08-27] MEDS: NICOTINE POLACRILEX 2 MG GUM BUC PRN ×2 (05:52→14:01)
[2019-08-27] MEDS ORDERED: METHADONE HCL 5 MG TABLET (FOR DETOX USE ONLY) PO ONE (06:00)
[2019-08-27] MEDS: PRENATAL VITAMINS W/ FOLIC ACID TABLET (FP) PO SCH (10:47)
[2019-08-27] MEDS: BACITRACIN 0.9 GM PACKET TP SCH (10:47)
[2019-08-27] MEDS: NICOTINE 21 MG/24 HOURS TOPICAL PATCH TD SCH (10:47)
[2019-08-27] MEDS: MINERAL OIL/PETROLAT/WATER TOPICAL CREAM 113 GM JAR TP SCH (10:47)
[2019-08-27] MEDS: FAMOTIDINE 20 MG TABLET PO SCH (10:47)
[2019-08-27] MEDS: BUDESONIDE/FORMETEROL FUMARATE 80/4.5 mcg INHALER IH SCH (10:48)
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
[2019-08-27 13:50] VITALS: BP 130/86; PULSE 74; TEMP 98.8
== END 2019-08-27 15:28 | disposition other institution (70) | DRG 773 ==
LOC: YASAS 09:08 → Y3N 11:30
PROVIDERS: ADMIT Allergy & Immunology; ATTEND Allergy & Immunology
PROC: HZ2ZZZZ Detoxification Services for Substance Abuse Treatment (ICD-10-PCS; principal; 2019-08-22)
DX: F10.230 Alcohol dependence with withdrawal, uncomplicated (principal); F11.23 Opioid dependence with withdrawal; F13.230 Sedative, hypnotic or anxiolytic dependence with withdrawal, uncomplicated; F14.20 Cocaine dependence, uncomplicated; F17.210 Nicotine dependence, cigarettes, uncomplicated; F19.24 Other psychoactive substance dependence with psychoactive substance-induced mood disorder; K21.9 Gastro-esophageal reflux disease without esophagitis; J45.909 Unspecified asthma, uncomplicated; R55 Syncope and collapse; Z91.010 Allergy to peanuts
CPT/HCPCS: 36415; 80053; 85025; 85027; 86593; Q0162

== ENCOUNTER 2019-08-27 15:47 | Inpatient (IN) | payer OTHER ==
--- NOTE | 2019-08-27 12:37 | HP ---
[facility] Rehab Assess/Revision - Admission History Admitted to Rehab from: [facility] Date of Admission to Rehab: 08/27/19 - Findings Detox History & Physical reviewed: Yes Concur with findings: Yes Comments/Additional Findings: transferred from detox to rehab admission as per protocol Inpatient Rehab Admission - Rehab Decision to Admit Inpatient rehab admission?: Yes - Initial Determination Are CD services needed?: Yes Free of communicable disease: Yes Not in need of hospitalization: Yes - Rehab Admission Criteria Previous failed treatment: Yes Poor recovery environment: Yes Comorbidities: Yes Lacks judgement: Yes Patient is meeting Inpatient Rehab admission criteria:: Yes
[~2019-08-27 15:47] MED LIST changes: -ACETAMINOPHEN 325 MG TABLET (FP) PO PRN; +COLLOIDAL OATMEAL 1 BAR EACH TP PRN
[2019-08-27] MEDS ORDERED: ALBUTEROL SO4 0.083% IH SOL 2.5 MG/3 ML VIAL.NEB. NEB PRN (16:59)
[2019-08-27] MEDS: CEPHALEXIN MONOHYDRATE 500 MG CAPSULE (UD) PO SCH (18:40)
[2019-08-27] MEDS: NICOTINE POLACRILEX 2 MG GUM BC PRN ×2 (18:41→21:31)
[2019-08-27] MEDS: BACITRACIN 0.9 GM PACKET TP SCH (21:28)
[2019-08-27] MEDS: THIAMINE HCL 100 MG TABLET (FP) PO SCH (21:29)
[2019-08-27] MEDS: FAMOTIDINE 20 MG TABLET PO SCH (21:29)
[2019-08-27] MEDS: MELATONIN 5 MG TABLETS PO SCH (21:29)
[2019-08-27] MEDS: MINERAL OIL/PETROLAT/WATER TOPICAL CREAM 113 GM JAR TP SCH (21:29)
[2019-08-27] MEDS: QUEtiapine FUMARATE 50 MG TABLET PO SCH (21:29)
[2019-08-27] MEDS: BUDESONIDE/FORMETEROL FUMARATE 80/4.5 mcg INHALER IH SCH (21:30)
[2019-08-28] MEDS: CEPHALEXIN MONOHYDRATE 500 MG CAPSULE (UD) PO SCH ×5 (01:06→23:53)
[2019-08-28] MEDS: NICOTINE POLACRILEX 2 MG GUM BC PRN ×6 (07:40→22:34)
[2019-08-28] MEDS: BACITRACIN 0.9 GM PACKET TP SCH ×2 (10:40→21:16)
[2019-08-28] MEDS: FAMOTIDINE 20 MG TABLET PO SCH ×2 (10:40→22:05)
[2019-08-28] MEDS: PRENATAL VITAMINS W/ FOLIC ACID TABLET (FP) PO SCH (10:40)
[2019-08-28] MEDS: NICOTINE 21 MG/24 HOURS TOPICAL PATCH TD SCH (10:41)
[2019-08-28] MEDS: MINERAL OIL/PETROLAT/WATER TOPICAL CREAM 113 GM JAR TP SCH ×2 (10:41→21:16)
[2019-08-28] MEDS: BUDESONIDE/FORMETEROL FUMARATE 80/4.5 mcg INHALER IH SCH ×2 (10:41→21:16)
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
[2019-08-28] MEDS: QUEtiapine FUMARATE 50 MG TABLET PO SCH (21:15)
[2019-08-28] MEDS: THIAMINE HCL 100 MG TABLET (FP) PO SCH (21:16)
[2019-08-28] MEDS: MELATONIN 5 MG TABLETS PO SCH (21:16)
[2019-08-28] MEDS ORDERED: SUVOREXANT 10 MG TABLET PO PRN (22:00)
[2019-08-29] MEDS: NICOTINE POLACRILEX 2 MG GUM BC PRN ×4 (06:13→21:23)
[2019-08-29] MEDS: CEPHALEXIN MONOHYDRATE 500 MG CAPSULE (UD) PO SCH ×4 (06:16→23:07)
[2019-08-29] MEDS: BACITRACIN 0.9 GM PACKET TP SCH ×2 (10:26→21:22)
[2019-08-29] MEDS: PRENATAL VITAMINS W/ FOLIC ACID TABLET (FP) PO SCH (10:27)
[2019-08-29] MEDS: FAMOTIDINE 20 MG TABLET PO SCH ×2 (10:27→21:22)
[2019-08-29] MEDS: NICOTINE 21 MG/24 HOURS TOPICAL PATCH TD SCH (10:28)
[2019-08-29] MEDS: BUDESONIDE/FORMETEROL FUMARATE 80/4.5 mcg INHALER IH SCH ×2 (10:28→21:23)
[2019-08-29] MEDS: MINERAL OIL/PETROLAT/WATER TOPICAL CREAM 113 GM JAR TP SCH ×2 (10:51→21:22)
--- NOTE | 2019-08-29 12:08 | PN ---
S Progress Note Note: Patient reports sleeping poorly despite taking Belsomra 10 mg/hs. Requests for medication dosage to be increased
[2019-08-29] MEDS: MELATONIN 5 MG TABLETS PO SCH (21:22)
[2019-08-29] MEDS: SUVOREXANT 15 MG TABLET PO PRN (21:22)
[2019-08-29] MEDS: THIAMINE HCL 100 MG TABLET (FP) PO SCH (21:22)
[2019-08-29] MEDS: QUEtiapine FUMARATE 50 MG TABLET PO SCH (21:23)
[2019-08-29] MEDS: ACETAMINOPHEN 325 MG TABLET (FP) PO PRN (21:24)
[2019-08-30] MEDS: CEPHALEXIN MONOHYDRATE 500 MG CAPSULE (UD) PO SCH ×2 (06:35→13:14)
[2019-08-30] MEDS: NICOTINE POLACRILEX 2 MG GUM BC PRN ×6 (06:36→21:15)
[2019-08-30] MEDS: BACITRACIN 0.9 GM PACKET TP SCH ×2 (10:23→21:15)
[2019-08-30] MEDS: NICOTINE 21 MG/24 HOURS TOPICAL PATCH TD SCH (10:24)
[2019-08-30] MEDS: FAMOTIDINE 20 MG TABLET PO SCH ×2 (10:24→21:15)
[2019-08-30] MEDS: PRENATAL VITAMINS W/ FOLIC ACID TABLET (FP) PO SCH (10:24)
[2019-08-30] MEDS: BUDESONIDE/FORMETEROL FUMARATE 80/4.5 mcg INHALER IH SCH ×2 (10:24→21:15)
[2019-08-30] MEDS: MINERAL OIL/PETROLAT/WATER TOPICAL CREAM 113 GM JAR TP SCH ×2 (11:21→21:14)
[2019-08-30] MEDS ORDERED: MELATONIN 5 MG TABLETS PO SCH (12:32)
--- NOTE | 2019-08-30 12:57 | PN ---
[facility] COWS - Scale Resting Pulse: 0= [place] 80 or Below Sweatin= Chills/Flushing Restless Observation: 3= Extraneous Movement Pupil Size: 0= Normal to Room Light Bone or Joint Aches: 4=Acute Joint/Muscle Pain Runny Nose/ Eye Tearin= None GI Upset > 30mins: 0= None Tremor Observation of Outstretched Hands: 1= Tremor [place], Not Seen Yawning Observation: 0= None Anxiety or Irritability: 2=Irritable/Anxious Goose Flesh Skin: 0=Smooth Skin COWS Score: 11 [facility] Progress Note (SOAP) Subjective: Pt c/o w/s irritability,hot and cold chills,muscle aches and spasms,diarrhea. Requesting if he can start Suboxone. PT States it worked better when he previously was on Suboxone than when he was on Methadone which he walked away from about one month ago according to pt's account. Objective: 08/30/19 12:56 Vital Signs - 24 hr 08/29/19 08/29/19 08/30/19 15:35 20:35 00:30 Temperature Pulse Rate Respiratory 18 Rate Blood Pressure O2 Sat by Pulse 96 97 Oximetry (%) 08/30/19 06:35 Temperature 97.8 F Pulse Rate 67 Respiratory 18 Rate Blood Pressure 134/82 O2 Sat by Pulse 97 Oximetry (%) URINE DRUG SCREEN RESULTS Drug Screen Negative No Urine Drug Screen Results BZO-Benzodiazepines,MTD-Methadone Alert o x 3 nad oob ambulating with steady gait cardiac;s1 s2,rrr lungs:cta,fabiola. abdomen:+bs,soft,nt,flat extremities/skin:no edema Assessment: 08/30/19 15:49 protracted w/s s/p detox x48 hrs Plan: UDS today Pt met with his counselor and has been referred to [place], [place] after rehab treatment to continue care. Suboxone 4 mg/1 mg sl now then daily
[2019-08-30] MEDS ORDERED: BUPRENORPHINE/NALOXONE 4 MG/1 MG FILM PACKET SL ONE (17:00)
[2019-08-30] MEDS: THIAMINE HCL 100 MG TABLET (FP) PO SCH (21:14)
[2019-08-30] MEDS: SUVOREXANT 15 MG TABLET PO PRN (21:14)
[2019-08-30] MEDS: QUEtiapine FUMARATE 50 MG TABLET PO SCH (21:14)
[2019-08-30] MEDS: MELATONIN 5 MG TABLETS PO SCH (21:15)
[2019-08-31] MEDS: NICOTINE POLACRILEX 2 MG GUM BC PRN ×4 (06:23→22:19)
[2019-08-31] MEDS: MINERAL OIL/PETROLAT/WATER TOPICAL CREAM 113 GM JAR TP SCH ×2 (09:35→21:17)
[2019-08-31] MEDS: NICOTINE 21 MG/24 HOURS TOPICAL PATCH TD SCH (09:35)
[2019-08-31] MEDS: BACITRACIN 0.9 GM PACKET TP SCH ×2 (09:35→21:15)
[2019-08-31] MEDS: BUPRENORPHINE/NALOXONE 4 MG/1 MG FILM PACKET SL SCH (09:37)
[2019-08-31] MEDS: FAMOTIDINE 20 MG TABLET PO SCH (09:37)
[2019-08-31] MEDS: PRENATAL VITAMINS W/ FOLIC ACID TABLET (FP) PO SCH (09:37)
[2019-08-31] MEDS: BUDESONIDE/FORMETEROL FUMARATE 80/4.5 mcg INHALER IH SCH ×2 (09:38→21:17)
--- NOTE | 2019-08-31 10:01 | PN ---
S Progress Note Note: Patient reports sleeping poorly despite taking Belsomra 15 mg/hs. Will increase Belsomra dosage to 20 mg/hs prn for insomnia
[2019-08-31] MEDS ORDERED: ALBUTEROL SO4 HFA INHALER IH PRN (12:35)
[2019-08-31] MEDS: QUEtiapine FUMARATE 50 MG TABLET PO SCH (21:15)
[2019-08-31] MEDS: MELATONIN 5 MG TABLETS PO SCH (21:16)
[2019-08-31] MEDS: THIAMINE HCL 100 MG TABLET (FP) PO SCH (21:16)
[2019-08-31] MEDS: SUVOREXANT 20 MG TABLET PO PRN (21:17)
[2019-09-01] MEDS: PANTOPRAZOLE 40 MG TABLET PO SCH (09:44)
[2019-09-01] MEDS: BACITRACIN 0.9 GM PACKET TP SCH ×2 (09:44→21:07)
[2019-09-01] MEDS: BUDESONIDE/FORMETEROL FUMARATE 80/4.5 mcg INHALER IH SCH ×2 (09:44→21:09)
[2019-09-01] MEDS: MINERAL OIL/PETROLAT/WATER TOPICAL CREAM 113 GM JAR TP SCH ×2 (09:44→21:09)
[2019-09-01] MEDS: BUPRENORPHINE/NALOXONE 4 MG/1 MG FILM PACKET SL SCH (09:44)
[2019-09-01] MEDS: PRENATAL VITAMINS W/ FOLIC ACID TABLET (FP) PO SCH (09:44)
[2019-09-01] MEDS: NICOTINE 21 MG/24 HOURS TOPICAL PATCH TD SCH (09:44)
[2019-09-01] MEDS: NICOTINE POLACRILEX 2 MG GUM BC PRN ×5 (09:46→21:10)
[2019-09-01] MEDS: QUEtiapine FUMARATE 50 MG TABLET PO SCH (21:08)
[2019-09-01] MEDS: MELATONIN 5 MG TABLETS PO SCH (21:08)
[2019-09-01] MEDS: THIAMINE HCL 100 MG TABLET (FP) PO SCH (21:09)
[2019-09-01] MEDS: SUVOREXANT 20 MG TABLET PO PRN (21:10)
[2019-09-02] MEDS: NICOTINE POLACRILEX 2 MG GUM BC PRN ×4 (06:49→17:35)
[2019-09-02] MEDS: BUPRENORPHINE/NALOXONE 4 MG/1 MG FILM PACKET SL SCH (10:04)
[2019-09-02] MEDS: PANTOPRAZOLE 40 MG TABLET PO SCH (10:04)
[2019-09-02] MEDS: PRENATAL VITAMINS W/ FOLIC ACID TABLET (FP) PO SCH (10:04)
[2019-09-02] MEDS: BUDESONIDE/FORMETEROL FUMARATE 80/4.5 mcg INHALER IH SCH ×2 (10:05→21:49)
[2019-09-02] MEDS: BACITRACIN 0.9 GM PACKET TP SCH ×2 (10:05→21:48)
[2019-09-02] MEDS: NICOTINE 21 MG/24 HOURS TOPICAL PATCH TD SCH (10:05)
[2019-09-02] MEDS: MINERAL OIL/PETROLAT/WATER TOPICAL CREAM 113 GM JAR TP SCH ×2 (10:06→21:49)
[2019-09-02] MEDS: THIAMINE HCL 100 MG TABLET (FP) PO SCH (21:48)
[2019-09-02] MEDS: MELATONIN 5 MG TABLETS PO SCH (21:48)
[2019-09-02] MEDS: SUVOREXANT 20 MG TABLET PO PRN (21:48)
[2019-09-02] MEDS: QUEtiapine FUMARATE 50 MG TABLET PO SCH (21:48)
[2019-09-03] MEDS: PANTOPRAZOLE 40 MG TABLET PO SCH (09:35)
[2019-09-03] MEDS: BACITRACIN 0.9 GM PACKET TP SCH ×2 (09:35→21:22)
[2019-09-03] MEDS: BUPRENORPHINE/NALOXONE 4 MG/1 MG FILM PACKET SL SCH (09:35)
[2019-09-03] MEDS: PRENATAL VITAMINS W/ FOLIC ACID TABLET (FP) PO SCH (09:35)
[2019-09-03] MEDS: NICOTINE 21 MG/24 HOURS TOPICAL PATCH TD SCH (09:36)
[2019-09-03] MEDS: NICOTINE POLACRILEX 2 MG GUM BC PRN ×4 (09:36→21:25)
[2019-09-03] MEDS: MINERAL OIL/PETROLAT/WATER TOPICAL CREAM 113 GM JAR TP SCH (09:36)
[2019-09-03] MEDS: BUDESONIDE/FORMETEROL FUMARATE 80/4.5 mcg INHALER IH SCH ×2 (09:37→21:23)
[2019-09-03] MEDS: AMMONIUM LACTATE 12% LOTION 225 GM BOTTLE TP SCH ×2 (13:58→21:24)
--- NOTE | 2019-09-03 15:19 | PN ---
[facility] Progress Note Note: informed by RESIDENTIAL ENERGY AUDITOR Nicki Vale to evaluate patient with imbedded stitches right side of face evaluation showed imbedded stitches right facial area numbness and asymetrical of facial area,possible facial nerve injury treated at [facility] patient agreed and consent for removal of imbedded stitches removed all imbedded stitches has been removed to continue bacitracin ointment bid advise to go back to [facility] upon discharge for further evaluation ad treatment for numbness and facial palsy asymetrical when smiling patient understood and will follow up with [facility]
[2019-09-03] MEDS: QUEtiapine FUMARATE 50 MG TABLET PO SCH (21:22)
[2019-09-03] MEDS: MELATONIN 5 MG TABLETS PO SCH (21:22)
[2019-09-03] MEDS: SUVOREXANT 20 MG TABLET PO PRN (21:23)
[2019-09-03] MEDS: THIAMINE HCL 100 MG TABLET (FP) PO SCH (21:24)
[2019-09-04] MEDS: NICOTINE POLACRILEX 2 MG GUM BC PRN ×7 (07:22→21:35)
[2019-09-04] MEDS: PANTOPRAZOLE 40 MG TABLET PO SCH (09:07)
[2019-09-04] MEDS: PRENATAL VITAMINS W/ FOLIC ACID TABLET (FP) PO SCH (09:08)
[2019-09-04] MEDS: AMMONIUM LACTATE 12% LOTION 225 GM BOTTLE TP SCH (09:08)
[2019-09-04] MEDS: NICOTINE 21 MG/24 HOURS TOPICAL PATCH TD SCH (09:08)
[2019-09-04] MEDS: BUPRENORPHINE/NALOXONE 4 MG/1 MG FILM PACKET SL SCH (09:08)
[2019-09-04] MEDS: BACITRACIN 0.9 GM PACKET TP SCH ×2 (09:08→21:02)
[2019-09-04] MEDS: BUDESONIDE/FORMETEROL FUMARATE 80/4.5 mcg INHALER IH SCH ×2 (09:09→21:06)
[2019-09-04] MEDS ORDERED: MINERAL OIL/PETROLAT/WATER TOPICAL CREAM 113 GM JAR TP PRN (13:43)
--- NOTE | 2019-09-04 13:45 | PN ---
[facility] Progress Note Note: Pt states he would like Eucerin cream for his skin which is very sensitive. Pt is on lac Hydrin> stopped and restarted Eucerin.
--- NOTE | 2019-09-04 14:49 | PN ---
[facility] Progress Note Note: Requesting increased dose of SUboxone to 8mg/day
[2019-09-04] MEDS: MELATONIN 5 MG TABLETS PO SCH (21:02)
[2019-09-04] MEDS: QUEtiapine FUMARATE 50 MG TABLET PO SCH (21:02)
[2019-09-04] MEDS: THIAMINE HCL 100 MG TABLET (FP) PO SCH (21:03)
[2019-09-04] MEDS: SUVOREXANT 20 MG TABLET PO PRN (21:04)
[2019-09-05] MEDS: NICOTINE POLACRILEX 2 MG GUM BC PRN ×6 (07:03→22:04)
[2019-09-05] MEDS: BUPRENORPHINE/NALOXONE 8 MG/2 MG FILM PACKET SL SCH (09:29)
[2019-09-05] MEDS: PANTOPRAZOLE 40 MG TABLET PO SCH (09:29)
[2019-09-05] MEDS: PRENATAL VITAMINS W/ FOLIC ACID TABLET (FP) PO SCH (09:29)
[2019-09-05] MEDS: BACITRACIN 0.9 GM PACKET TP SCH ×2 (09:29→21:19)
[2019-09-05] MEDS: NICOTINE 21 MG/24 HOURS TOPICAL PATCH TD SCH (09:30)
[2019-09-05] MEDS: BUDESONIDE/FORMETEROL FUMARATE 80/4.5 mcg INHALER IH SCH ×2 (09:31→21:22)
[2019-09-05] MEDS: MELATONIN 5 MG TABLETS PO SCH (21:19)
[2019-09-05] MEDS: SUVOREXANT 20 MG TABLET PO PRN (21:20)
[2019-09-05] MEDS: THIAMINE HCL 100 MG TABLET (FP) PO SCH (21:20)
[2019-09-05] MEDS: METHOCARBAMOL 500 MG TABLET PO PRN (21:20)
[2019-09-05] MEDS: QUEtiapine FUMARATE 50 MG TABLET PO SCH (21:20)
[2019-09-06] MEDS: NICOTINE POLACRILEX 2 MG GUM BC PRN ×7 (06:24→22:13)
[2019-09-06] MEDS: PRENATAL VITAMINS W/ FOLIC ACID TABLET (FP) PO SCH (09:13)
[2019-09-06] MEDS: PANTOPRAZOLE 40 MG TABLET PO SCH (09:13)
[2019-09-06] MEDS: NICOTINE 21 MG/24 HOURS TOPICAL PATCH TD SCH (09:14)
[2019-09-06] MEDS: BUDESONIDE/FORMETEROL FUMARATE 80/4.5 mcg INHALER IH SCH ×2 (09:14→21:16)
[2019-09-06] MEDS: BACITRACIN 0.9 GM PACKET TP SCH ×2 (09:14→21:17)
[2019-09-06] MEDS: BUPRENORPHINE/NALOXONE 8 MG/2 MG FILM PACKET SL SCH (09:15)
--- NOTE | 2019-09-06 11:11 | PN ---
[facility] COWS - Scale Resting Pulse: 0= [place] 80 or Below Sweatin= Chills/Flushing Restless Observation: 0= Sits Still Pupil Size: 0= Normal to Room Light Bone or Joint Aches: 4=Acute Joint/Muscle Pain Runny Nose/ Eye Tearin= None GI Upset > 30mins: 2= Nausea/Diarrhea Tremor Observation of Outstretched Hands: 0= None Yawning Observation: 0= None Anxiety or Irritability: 1=Feels Anxious/Irritable Goose Flesh Skin: 0=Smooth Skin COWS Score: 8 [facility] Progress Note (SOAP) Subjective: Pt c/o cravings and diarrhea,anxiety and requests to up dose of suboxone. Objective: 09/06/19 11:09 Vital Signs - 24 hr 09/05/19 09/05/19 09/06/19 13:41 20:45 00:30 Temperature Pulse Rate Respiratory 18 Rate Blood Pressure O2 Sat by Pulse 97 96 Oximetry (%) 09/06/19 09/06/19 06:00 07:07 Temperature 97.3 F L Pulse Rate 63 Respiratory 18 Rate Blood Pressure 130/80 O2 Sat by Pulse 97 Oximetry (%) Alert o x 3 nad oob ambulating with steady gait Assessment: 09/06/19 11:15 Suboxone MAT patient Drug cravings/Withdrawal sx Plan: Increase to Suboxone 8mg/2 mg sl BID@1000,1800
[2019-09-06] MEDS: SUVOREXANT 20 MG TABLET PO PRN (21:16)
[2019-09-06] MEDS: QUEtiapine FUMARATE 50 MG TABLET PO SCH (21:17)
[2019-09-06] MEDS: METHOCARBAMOL 500 MG TABLET PO PRN (21:17)
[2019-09-06] MEDS: MELATONIN 5 MG TABLETS PO SCH (21:17)
[2019-09-06] MEDS: THIAMINE HCL 100 MG TABLET (FP) PO SCH (21:17)
[2019-09-07] MEDS: NICOTINE POLACRILEX 2 MG GUM BC PRN ×6 (07:09→21:20)
[2019-09-07] MEDS: PRENATAL VITAMINS W/ FOLIC ACID TABLET (FP) PO SCH (09:36)
[2019-09-07] MEDS: NICOTINE 21 MG/24 HOURS TOPICAL PATCH TD SCH (09:36)
[2019-09-07] MEDS: BUPRENORPHINE/NALOXONE 8 MG/2 MG FILM PACKET SL SCH ×3 (09:37→17:04)
[2019-09-07] MEDS: BACITRACIN 0.9 GM PACKET TP SCH ×2 (09:37→21:16)
[2019-09-07] MEDS: PANTOPRAZOLE 40 MG TABLET PO SCH (09:37)
[2019-09-07] MEDS: BUDESONIDE/FORMETEROL FUMARATE 80/4.5 mcg INHALER IH SCH ×2 (09:38→21:16)
[2019-09-07] MEDS: MELATONIN 5 MG TABLETS PO SCH (21:16)
[2019-09-07] MEDS: THIAMINE HCL 100 MG TABLET (FP) PO SCH (21:16)
[2019-09-07] MEDS: QUEtiapine FUMARATE 50 MG TABLET PO SCH (21:16)
[2019-09-07] MEDS: METHOCARBAMOL 500 MG TABLET PO PRN (21:17)
[2019-09-08] MEDS: NICOTINE POLACRILEX 2 MG GUM BC PRN ×7 (04:58→22:04)
[2019-09-08] MEDS: PANTOPRAZOLE 40 MG TABLET PO SCH (09:42)
[2019-09-08] MEDS: PRENATAL VITAMINS W/ FOLIC ACID TABLET (FP) PO SCH (09:42)
[2019-09-08] MEDS: BUPRENORPHINE/NALOXONE 8 MG/2 MG FILM PACKET SL SCH ×2 (09:43→17:31)
[2019-09-08] MEDS: NICOTINE 21 MG/24 HOURS TOPICAL PATCH TD SCH (09:43)
[2019-09-08] MEDS: BUDESONIDE/FORMETEROL FUMARATE 80/4.5 mcg INHALER IH SCH ×2 (09:43→21:23)
[2019-09-08] MEDS: BACITRACIN 0.9 GM PACKET TP SCH ×2 (09:43→21:15)
--- NOTE | 2019-09-08 17:26 | PN ---
[facility] Progress Note Note: irritation in both eyes right more than left,artificial tear drop 1 gtt both eye prn q 6hrs ordered,close monitoring
[2019-09-08] MEDS: THIAMINE HCL 100 MG TABLET (FP) PO SCH (21:15)
[2019-09-08] MEDS: QUEtiapine FUMARATE 50 MG TABLET PO SCH (21:15)
[2019-09-08] MEDS: MELATONIN 5 MG TABLETS PO SCH (21:15)
[2019-09-08] MEDS: SUVOREXANT 20 MG TABLET PO PRN (21:17)
[2019-09-08] MEDS: ARTIFICIAL TEARS (POLYVINYL ALCOHOL) OPTH DROPS OU PRN (22:04)
[2019-09-09] MEDS: ARTIFICIAL TEARS (POLYVINYL ALCOHOL) OPTH DROPS OU PRN ×3 (07:40→22:02)
[2019-09-09] MEDS: PANTOPRAZOLE 40 MG TABLET PO SCH (09:34)
[2019-09-09] MEDS: BACITRACIN 0.9 GM PACKET TP SCH ×2 (09:34→21:11)
[2019-09-09] MEDS: PRENATAL VITAMINS W/ FOLIC ACID TABLET (FP) PO SCH (09:34)
[2019-09-09] MEDS: BUPRENORPHINE/NALOXONE 8 MG/2 MG FILM PACKET SL SCH ×2 (09:34→17:24)
[2019-09-09] MEDS: NICOTINE POLACRILEX 2 MG GUM BC PRN ×6 (09:35→22:03)
[2019-09-09] MEDS: NICOTINE 21 MG/24 HOURS TOPICAL PATCH TD SCH (09:35)
[2019-09-09] MEDS: BUDESONIDE/FORMETEROL FUMARATE 80/4.5 mcg INHALER IH SCH ×2 (09:36→21:12)
[2019-09-09] MEDS: THIAMINE HCL 100 MG TABLET (FP) PO SCH (21:12)
[2019-09-09] MEDS: QUEtiapine FUMARATE 50 MG TABLET PO SCH (21:12)
[2019-09-09] MEDS: MELATONIN 5 MG TABLETS PO SCH (21:12)
[2019-09-09] MEDS: SUVOREXANT 20 MG TABLET PO PRN (21:13)
[2019-09-10] MEDS: NICOTINE POLACRILEX 2 MG GUM BC PRN ×7 (07:12→21:16)
[2019-09-10] MEDS: ARTIFICIAL TEARS (POLYVINYL ALCOHOL) OPTH DROPS OU PRN ×3 (07:12→21:58)
[2019-09-10] MEDS: NICOTINE 21 MG/24 HOURS TOPICAL PATCH TD SCH (09:23)
[2019-09-10] MEDS: BACITRACIN 0.9 GM PACKET TP SCH ×2 (09:23→21:14)
[2019-09-10] MEDS: PRENATAL VITAMINS W/ FOLIC ACID TABLET (FP) PO SCH (09:23)
[2019-09-10] MEDS: PANTOPRAZOLE 40 MG TABLET PO SCH (09:23)
[2019-09-10] MEDS: BUPRENORPHINE/NALOXONE 8 MG/2 MG FILM PACKET SL SCH ×2 (09:23→17:36)
[2019-09-10] MEDS: BUDESONIDE/FORMETEROL FUMARATE 80/4.5 mcg INHALER IH SCH ×2 (09:24→21:13)
[2019-09-10] MEDS: ACETAMINOPHEN 325 MG TABLET (FP) PO PRN (10:13)
[2019-09-10] MEDS: QUEtiapine FUMARATE 50 MG TABLET PO SCH (21:13)
[2019-09-10] MEDS: MELATONIN 5 MG TABLETS PO SCH (21:13)
[2019-09-10] MEDS: THIAMINE HCL 100 MG TABLET (FP) PO SCH (21:13)
[2019-09-10] MEDS: METHOCARBAMOL 500 MG TABLET PO PRN (21:13)
[2019-09-10] MEDS ORDERED: SUVOREXANT 20 MG TABLET PO PRN (22:00)
[2019-09-11 07:24] VITALS: BP 133/81; PULSE 104; TEMP 98.4
--- NOTE | 2019-09-11 08:51 | DS ---
[facility] Rehab Discharge Summary - [facility] Rehab Discharge Summary Admission Date: 08/27/19 Discharge Date: 09/11/19 - History Present History: Opioid dependence Additional Comments: Pt is a 43 y/o male with a hx of OXANA admitted to rehab and scheduled for discharge today, 09/11/19. Pt has been referred to [facility] for CD aftercare. Pt reports he has has [facility]. Pt has own Housing. Pertinent Past History: Asthma GERD Hx Truamatic Brain Injury PTSD - Discharge Physical Exam Vital Signs: Vital Signs Temperature 98.4 F 09/11/19 07:23 Pulse Rate 104 H 09/11/19 07:23 Respiratory Rate 18 09/11/19 07:23 Blood Pressure 133/81 09/11/19 07:23 O2 Sat by Pulse Oximetry (%) 96 09/11/19 07:23 Alert o x 3,denies s/h/i nad oob ambulating with steady gait cardiac:s1 s2,rrr lungs:cta,fabiola. abdomen:soft,+bs,nt,nd extremities/skin:no edema,skin warm,dry and intact. Pertinent Admission Physical Exam Findings: Stable and Unchanged. - Treatment Discharge Condition: Discharge condition good Hospital Course: Rehabilitated safely and responded well CD aftercare referral accepted Attended and participated in groups and individual sessions. - Medication Discharge Medications: Ambulatory Orders Cephalexin [Keflex] 500 mg PO QID 08/22/19 Fluticasone Propionate [Flovent Hfa] 44 mcg IN PRN 08/22/19 Quetiapine Fumarate [Seroquel -] 50 mg PO HS 08/22/19 Sumatriptan 5 mg NS DAILY 08/22/19 Thiamine HCl [B-1] 100 mg PO DAILY 08/22/19 Albuterol Sulfate Inhaler - [Ventolin HFA Inhaler -] 2 inh PO Q4H PRN #1 inhaler 09/11/19 Budesonide/Formeterol Fumarate [SYMBICORT 80/4.5mcg -] 1 inh PO DAILY #1 inhaler 09/11/19 Buprenorphine/Naloxone [Suboxone 8Mg/2Mg Sl Film -] 1 each SL DAILY 7 Days #14 packet MDD 2 09/11/19 Multivitamin [Multiple Vitamins] 1 each PO DAILY #30 tablet 09/11/19 Omeprazole 20 mg PO DAILY #30 cap.sr 09/11/19 - Medication-Assisted Treatment (MAT) Medication-Assisted Treatment (MAT): Yes Medication Prescribed: Suboxone MAT Follow-up Referral: [facility] [address] [address] - Discharge Instructions Diet, activity, other medical instructions: Diet:Regular Activity: oob ad jeannette Other medical instructions:follow up with Cd aftercare as recommended. Follow up with primary care at [facility] within 1-2 weeks after discharge. - Diagnosis (1) Encounter for monitoring Suboxone maintenance therapy Status: Chronic (2) Opioid dependence Status: Inactive Qualifiers: Substance use status: uncomplicated Qualified Code(s): F11.20 - Opioid dependence, uncomplicated (3) GERD (gastroesophageal reflux disease) Status: Chronic Qualifiers: Esophagitis presence: esophagitis presence not specified Qualified Code(s): K21.9 - Gastro-esophageal reflux disease without esophagitis (4) Nicotine dependence Status: Chronic Qualifiers: Nicotine product type: cigarettes Substance use status: in withdrawal Qualified Code(s): F17.213 - Nicotine dependence, cigarettes, with withdrawal - Follow-up Referral Minutes to complete discharge: 30 - AMA Did Patient Leave Against Medical Advice: No
[2019-09-11] MEDS: BUPRENORPHINE/NALOXONE 8 MG/2 MG FILM PACKET SL SCH (09:20)
[2019-09-11] MEDS: PRENATAL VITAMINS W/ FOLIC ACID TABLET (FP) PO SCH (09:21)
[2019-09-11] MEDS: BACITRACIN 0.9 GM PACKET TP SCH (09:21)
[2019-09-11] MEDS: PANTOPRAZOLE 40 MG TABLET PO SCH (09:21)
[2019-09-11] MEDS: ARTIFICIAL TEARS (POLYVINYL ALCOHOL) OPTH DROPS OU PRN (09:22)
[2019-09-11] MEDS: BUDESONIDE/FORMETEROL FUMARATE 80/4.5 mcg INHALER IH SCH (09:22)
[2019-09-11] MEDS: NICOTINE 21 MG/24 HOURS TOPICAL PATCH TD SCH (09:22)
== END 2019-09-11 10:15 | disposition home or self-care (01) | DRG 772 ==
LOC: YASAS 15:47 → Y5N 15:48
PROVIDERS: ADMIT Allergy & Immunology; ATTEND Allergy & Immunology
PROC: HZ42ZZZ Group Counseling for Substance Abuse Treatment, Cognitive-Behavioral (ICD-10-PCS; principal; 2019-08-27)
PROC: HZ42ZZZ Group Counseling for Substance Abuse Treatment, Cognitive-Behavioral (ICD-10-PCS; 2019-08-27)
DX: F10.20 Alcohol dependence, uncomplicated (principal); F13.20 Sedative, hypnotic or anxiolytic dependence, uncomplicated; F14.20 Cocaine dependence, uncomplicated; F11.20 Opioid dependence, uncomplicated; F17.210 Nicotine dependence, cigarettes, uncomplicated; F19.282 Other psychoactive substance dependence with psychoactive substance-induced sleep disorder; F41.9 Anxiety disorder, unspecified; F43.10 Post-traumatic stress disorder, unspecified; G47.00 Insomnia, unspecified; J45.909 Unspecified asthma, uncomplicated; K21.9 Gastro-esophageal reflux disease without esophagitis; H57.89 Other specified disorders of eye and adnexa; Z86.69 Personal history of other diseases of the nervous system and sense organs; Z51.81 Encounter for therapeutic drug level monitoring; Z79.899 Other long term (current) drug therapy; Z87.820 Personal history of traumatic brain injury; Z56.0 Unemployment, unspecified; Z91.010 Allergy to peanuts

== ENCOUNTER 2020-01-16 08:52 | Inpatient (IN) | payer OTHER ==
--- NOTE | 2020-01-16 09:14 | BHS.RME ---
Physical/Psych/Mental Status - Behavior General Behavior: Increased activity (restlessness, agitation) Eye Contact: Normal - Cooperativeness Cooperativeness: Cooperative - Thinking Thought Processes: Tight, Logical, Goal Directed - Physical Health Problems Is patient presently having any pain?: No Does patient presently have any injuries (include location): No Does patient currently have a fever: No Is patient : No COWS - Scale Resting Pulse: 0= [place] 80 or Below Sweatin=Flushed/Facial Moisture Restless Observation: 1= Difficult to Sit Still Pupil Size: 1= Pupils >than Normal Bone or Joint Aches: 2= Severe Diffuse Aches Runny Nose/ Eye Tearin= Runny Nose/Eyes GI Upset > 30mins: 0= None Tremor Observation: 1= Tremor [place], Not Seen Yawning Observation: 1= 1-2x During Session Anxiety or Irritability: 2=Irritable/Anxious Goose Flesh Skin: 3=Piloerection COWS Score: 15 CIWA Nausea/Vomitin-No Nausea/No Vomiting Muscle Tremors: 1-None Visible, but [place] Anxiety: 3 Agitation: 3 Paroxysmal Sweats: 4-Forehead w/Sweat Beads Orientation: 1-Uncertain about Date Tacttile Disturbances: 0-None Auditory Disturbances: 0-None Visual Disturbances: 0-None Headache: 4-Moderately Severe CIWA-Ar Total Score: 16
--- NOTE | 2020-01-16 09:56 | HP ---
COWS - Scale Resting Pulse: 0= [place] 80 or Below Sweatin=Flushed/Facial Moisture Restless Observation: 1= Difficult to Sit Still Pupil Size: 1= Pupils >than Normal Bone or Joint Aches: 2= Severe Diffuse Aches Runny Nose/ Eye Tearin= Runny Nose/Eyes GI Upset > 30mins: 0= None Tremor Observation: 1= Tremor [place], Not Seen Yawning Observation: 1= 1-2x During Session Anxiety or Irritability: 2=Irritable/Anxious Goose Flesh Skin: 3=Piloerection COWS Score: 15 CIWA Score Nausea/Vomitin-No Nausea/No Vomiting Muscle Tremors: 1-None Visible, but [place] Anxiety: 3 Agitation: 3 Paroxysmal Sweats: 4-Forehead w/Sweat Beads Orientation: 1-Uncertain about Date Tacttile Disturbances: 0-None Auditory Disturbances: 0-None Visual Disturbances: 0-None Headache: 4-Moderately Severe CIWA-Ar Total Score: 16 - Admission Criteria OASAS Guidelines: Admission for Medically Managed Detox: Requires at least one of the followin. CIWA greater than 12 2. Seizures within the past 24 hours 3. Delirium tremens within the past 24 hours 4. Hallucinations within the past 24 hours 5. Acute intervention needed for co occurring medical disorder 6. Acute intervention needed for co occurring psychiatric disorder 7. Severe withdrawal that cannot be handled at a lower level of care (continued vomiting, continued diarrhea, abnormal vital signs) requiring intravenous medication and/or fluids 8. Admitting History and Physical - Admission Chief Complaint: Mr. Stevenson presents to [facility] requesting detox admission for alcohol and heroin use. History of Present Illness: Mr. Stevenson presents to [facility] requesting detox admission for alcohol and heroin use. He comes today from [facility] where he was seen for polysubstance use. He was treated wtih hydration. He was last here in August of this year for detox and rehab. PMH: Asthma PSH: none Psych: PtSD SOC: lives at a friend's place, in the [place] Legal: none Substance use hx Alcohol: 1-2 pints Vodka, first use age 15 y. Last use 01/14. 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 First use age 20y Last use 01/15/20 OD x 2, last was one year ago. Has Narcan at home Nicotine: one ppd, began at 18 y. 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 Pulmonary: Yes: Asthma, Other (on albuterol inhaler) Gastrointestinal: Yes: GERD - Past Surgical History Past Surgical History: Yes: None - Smoking History Smoking history: Current every day smoker Have you smoked in the past 12 months: Yes Aproximately how many cigarettes per day: 10 - Alcohol/Substance Use Hx Alcohol Use: Yes History of Substance Use: reports: Cocaine, Heroin - Social History Occupation: unemployed History of Recent Travel: No Admission ROS [facility] - [facility] Allergies/Adverse Reactions: Allergies Allergy/AdvReac Type Severity Reaction Status Date / Time peanut Allergy Severe Swelling Verified 08/27/19 16:53 No Known Drug Allergies Allergy Verified 08/08/19 09:57 NKDA Allergy Uncoded 08/08/19 09:57 Exam Limitations: No Limitations - Ebola screening Have you traveled outside of the country in the last 21 days: No Have you been sick,other than usual withdrawal symptoms: No Do you have a fever: No - Review of Systems Constitutional: No Symptoms Reported EENT: reports: No Symptoms Reported Respiratory: reports: Cough (he attributes to asthma) Cardiac: reports: No Symptoms Reported GI: reports: Nausea : reports: No Symptoms Reported Musculoskeletal: reports: Back Pain Integumentary: reports: No Symptoms Reported Neuro: reports: No Symptoms reported Hematology: reports: No Symptoms Reported Psychiatric: reports: Anxious Patient History - Patient Medical History Hx Anemia: No Hx Asthma: Yes (on albuterol inhaler) Hx Chronic Obstructive Pulmonary Disease (COPD): No Hx Cancer: No Hx Cardiac Disorders: No Hx Congestive Heart Failure: No Hx Hypertension: No Hx Hypercholesterolemia: No Hx Pacemaker: No HX Cerebrovascular Accident: No Hx Seizures: No Hx Dementia: No Hx Diabetes: No Hx Gastrointestinal Disorders: No Hx Liver Disease: No Hx Genitourinary Disorders: No Hx Sexually Transmitted Disorders: No Hx Renal Disease (ESRD): No Hx Thyroid Disease: No Hx Human Immunodeficiency Virus (HIV): No (Negative 2018) Hx Hepatitis C: No Hx Depression: Yes Hx Suicide Attempt: No Hx Bipolar Disorder: No Hx Schizophrenia: No - Patient Surgical History Past Surgical History: Yes Hx Neurologic Surgery: No Hx Cataract Extraction: No Hx Cardiac Surgery: No Hx Lung Surgery: Yes (laft chest tube in 2012 fx rib) Hx Breast Surgery: No Hx Breast Biopsy: No Hx Abdominal Surgery: No Hx Appendectomy: No Hx Cholecystectomy: No Hx Genitourinary Surgery: No Hx Section: No Hx Orthopedic Surgery: No Anesthesia Reaction: No - PPD History Date: 10/30/18 Results: 0 MM - Smoking Cessation Smoking history: Current every day smoker Have you smoked in the past 12 months: Yes Aproximately how many cigarettes per day: 20 Hx Chewing Tobacco Use: No Initiated information on smoking cessation: Yes 'Breaking Loose' booklet given: 01/16/20 Admission Physical Exam [facility] Physical General Appearance: Yes: No Apparent Distress, Nourished, Appropriately Dressed HEENTM: Yes: EOMI, Hearing grossly Normal, Normocephalic, Normal Voice Respiratory: Yes: Lungs Clear, Normal Breath Sounds, No Respiratory Distress, No Accessory Muscle Use Neck: Yes: Within Normal Limits, Supple Breast: Yes: Breast Exam Deferred Cardiology: Yes: Regular Rhythm, Regular Rate, S1, S2 Abdominal: Yes: Normal Bowel Sounds, Non Tender, Flat, Soft Back: Yes: Normal Inspection Musculoskeletal: Yes: Within Normal Limits Extremities: Yes: Normal Inspection, Non-Tender Neurological: Yes: Alert Integumentary: Yes: Other (multiple well healed scars on legs, few abrasions, fell while intoxicated last night: denies head trauma or LOC, given cane at [place]) Cleared for Admission [facility] - Detox or Rehab [facility] Level of Care: Medically Managed Detox Regimen/Protocol: Methadone/Librium Breathalyzer - Breathalyzer Breathalyzer: 0 Urine Drug Screen - Test Device Lot number: [id number] Expiration date: 01/14/22 - Control Is test valid?: Yes - Results Drug screen NEGATIVE: No Urine drug screen results: NIKIA-Cocaine, MOP-Opiates Inpatient Rehab Admission - Rehab Decision to Admit Inpatient rehab admission?: No
[2020-01-16 10:20] VITALS: BMI 23.5
[2020-01-16] MEDS ORDERED: ACETAMINOPHEN 325 MG TABLET (FP) PO PRN ×2 (11:05)
[2020-01-16] MEDS ORDERED: MAG HYDROX/AL HYDROX/SIMETH 30 ML UNIT-DOSE CUP PO PRN (11:05)
[2020-01-16] MEDS ORDERED: MENTHOL/PHENOL 1 EACH UD MM PRN (11:05)
[2020-01-16] MEDS ORDERED: chlordiazePOXIDE HCL 25 MG CAPSULE PO PRN (11:05)
[2020-01-16] MEDS ORDERED: MAGNESIUM HYDROX 2400MG/30ML ORAL SUSPENSION 30 ML CUP PO PRN (11:05)
[2020-01-16] MEDS ORDERED: BISMUTH SUBSALICYLATE 262 MG/15 ML BTL PO PRN (11:05)
[2020-01-16] MEDS ORDERED: IBUPROFEN 400 MG TABLET (FP) PO PRN (11:05)
[2020-01-16] MEDS ORDERED: MAGNESIUM CITRATE 300 ML BOTTLE PO PRN (11:05)
[2020-01-16] MEDS ORDERED: METHADONE HCL 10 MG TABLET (FOR DETOX USE ONLY) PO ONE (11:05)
[2020-01-16] MEDS ORDERED: ONDANSETRON *ODT* 4 MG TABLET SL PRN (11:05)
[2020-01-16] MEDS: cloNIDine HCL 0.1 MG TABLET PO PRN (12:42)
[2020-01-16] MEDS: NICOTINE 14 MG/24 HOURS TOPICAL PATCH TD SCH (12:43)
[2020-01-16 15:06] LABS: HEMATOCRIT 36.3 % (35.4-49); HEMOGLOBIN 11.8 GM/dL (11.7-16.9); MCH 26.7 pg (25.7-33.7); MCHC 32.4 g/dl (32.0-35.9); MEAN CELL VOLUME 82.4 fl (80-96); MEAN PLT VOLUME 8.6 fl (7.5-11.1); PLATELET COUNT 239 K/MM3 (134-434); RBC 4.41 M/mm3 (4.00-5.60); WHITE BLOOD COUNT 4.3 K/mm3 (4.0-10.0)
[2020-01-16 15:08] LABS: ALBUMIN 3.3 g/dl (3.4-5.0); BILIRUBIN,TOTAL 0.5 mg/dL (0.2-1); BLOOD UREA NITROGEN 30.5 mg/dL (7-18); CREATININE 1.2 mg/dL (0.55-1.3); POTASSIUM 4.3 mmol/L (3.5-5.1); TOT PROT 6.2 g/dl (6.4-8.2)
[2020-01-16 15:14] LABS: CALCIUM 8.6 mg/dL (8.5-10.1)
[2020-01-16] MEDS: hydrOXYzine PAMOATE 25 MG CAPSULE (FP) PO SCH ×3 (15:14→22:33)
[2020-01-16] MEDS ORDERED: ALBUTEROL SO4 HFA INHALER IH ONE (17:00)
[2020-01-16] MEDS: chlordiazePOXIDE HCL 25 MG CAPSULE PO SCH ×2 (17:02→22:34)
[2020-01-16] MEDS: ALBUTEROL SO4 HFA INHALER IH PRN (18:27)
[2020-01-16] MEDS: MELATONIN 5 MG TABLETS PO SCH (22:33)
[2020-01-16] MEDS: THIAMINE HCL 100 MG TABLET (FP) PO SCH (22:34)
[2020-01-17] MEDS: chlordiazePOXIDE HCL 25 MG CAPSULE PO SCH ×4 (06:12→22:35)
[2020-01-17] MEDS: hydrOXYzine PAMOATE 25 MG CAPSULE (FP) PO SCH ×5 (06:13→22:35)
[2020-01-17] MEDS ORDERED: METHADONE HCL 10 MG TABLET (FOR DETOX USE ONLY) ONE (09:33)
[2020-01-17] MEDS ORDERED: METHADONE HCL 5 MG TABLET (FOR DETOX USE ONLY) ONE (09:33)
[2020-01-17] MEDS ORDERED: METHADONE (DETOX) 20 MG, METHADONE (DETOX) 5 MG PO ONE (10:00)
[2020-01-17] MEDS: PRENATAL VITAMINS W/ FOLIC ACID TABLET (FP) PO SCH (10:29)
[2020-01-17] MEDS: NICOTINE 14 MG/24 HOURS TOPICAL PATCH TD SCH (10:31)
--- NOTE | 2020-01-17 10:50 | PN ---
[facility] CIWA - CIWA Score Nausea/Vomitin-Mild Nausea/No Vomiting Muscle Tremors: 3 Anxiety: 3 Agitation: 2 Paroxysmal Sweats: No Perspiration Orientation: 0-Oriented Tacttile Disturbances: 1-Very Mild Itch/Numbness Auditory Disturbances: 0-None Visual Disturbances: 2-Mild Sensitivity Headache: 1-Very Mild CIWA-Ar Total Score: 13 S COWS - Scale Resting Pulse: 0= [place] 80 or Below Sweatin= Chills/Flushing Restless Observation: 0= Sits Still Pupil Size: 1= Pupils >than Normal Bone or Joint Aches: 1= Mild Discomfort Runny Nose/ Eye Tearin= None GI Upset > 30mins: 2= Nausea/Diarrhea Tremor Observation of Outstretched Hands: 2= Slight Tremor Visible Yawning Observation: 0= None Anxiety or Irritability: 2=Irritable/Anxious Goose Flesh Skin: 0=Smooth Skin COWS Score: 9 S Progress Note (SOAP) Subjective: 44 years old male admitted on 01/16/20 for alcohol and opiate withdrawal sx management treating with librium and methadone detox regiments Vital Signs - 24 hr 01/16/20 01/16/20 01/16/20 11:54 12:34 16:38 Temperature 97.3 F L 97.3 F L 97.5 F L Pulse Rate 58 L 58 L 49 L Respiratory 18 18 17 Rate Blood Pressure 157/96 157/96 155/88 O2 Sat by Pulse 96 Oximetry (%) 01/16/20 01/17/20 01/17/20 21:20 06:18 09:04 Temperature 97.5 F L 97.5 F L 97.5 F L Pulse Rate 64 52 L 56 L Respiratory 18 18 18 Rate Blood Pressure 159/93 156/85 147/90 O2 Sat by Pulse 99 99 Oximetry (%) bp elevation lisinopril initiated Objective: 01/17/20 10:53 Laboratory Tests 01/16/20 01/16/20 01/16/20 10:15 10:15 10:15 WBC 4.3 RBC 4.41 Hgb 11.8 Hct 36.3 MCV 82.4 MCH 26.7 MCHC 32.4 RDW 19.0 H Plt Count 239 D MPV 8.6 D Sodium 143 Potassium 4.3 Chloride 111 H Carbon Dioxide 29 Anion Gap 3 L BUN 30.5 H Creatinine 1.2 Est GFR (CKD-EPI)AfAm 84.73 Est GFR (CKD-EPI)NonAf 73.10 Random Glucose 67 L Calcium 8.6 Total Bilirubin 0.5 AST 56 H ALT 64 H Alkaline Phosphatase 96 Total Protein 6.2 L Albumin 3.3 L Syphilis Serology Non-reactive COVID-19 (AVANI) 01/16/20 10:15 WBC RBC Hgb Hct MCV MCH MCHC RDW Plt Count MPV Sodium Potassium Chloride Carbon Dioxide Anion Gap BUN Creatinine Est GFR (CKD-EPI)AfAm Est GFR (CKD-EPI)NonAf Random Glucose Calcium Total Bilirubin AST ALT Alkaline Phosphatase Total Protein Albumin Syphilis Serology COVID-19 (AVANI) Not detected bun elevation encourage oral fluid repeat bun Assessment: 01/17/20 10:55 alcohol and opiate withdrawal Plan: librium and methadone regiment
[2020-01-17] MEDS: LISINOPRIL 10 MG TABLET (FP) PO SCH (12:20)
[2020-01-17] MEDS: ALBUTEROL SO4 HFA INHALER IH PRN (18:08)
[2020-01-17] MEDS: cloNIDine HCL 0.1 MG TABLET PO PRN (19:50)
[2020-01-17] MEDS: THIAMINE HCL 100 MG TABLET (FP) PO SCH (22:35)
[2020-01-17] MEDS: MELATONIN 5 MG TABLETS PO SCH (22:35)
[2020-01-17] MEDS: NICOTINE POLACRILEX 2 MG GUM BUC PRN (22:37)
[2020-01-18] MEDS: chlordiazePOXIDE HCL 25 MG CAPSULE PO SCH ×4 (06:26→22:22)
[2020-01-18] MEDS: hydrOXYzine PAMOATE 25 MG CAPSULE (FP) PO SCH ×5 (06:26→22:22)
[2020-01-18] MEDS ORDERED: METHADONE HCL 10 MG TABLET (FOR DETOX USE ONLY) PO ONE (10:00)
[2020-01-18] MEDS: NICOTINE 14 MG/24 HOURS TOPICAL PATCH TD SCH (10:20)
[2020-01-18] MEDS: PRENATAL VITAMINS W/ FOLIC ACID TABLET (FP) PO SCH (10:20)
[2020-01-18] MEDS: NICOTINE POLACRILEX 2 MG GUM BUC PRN ×3 (10:21→17:50)
[2020-01-18] MEDS: LISINOPRIL 10 MG TABLET (FP) PO SCH (10:21)
--- NOTE | 2020-01-18 10:45 | PN ---
[facility] CIWA - CIWA Score Nausea/Vomitin-No Nausea/No Vomiting Muscle Tremors: None Anxiety: 0-No Anxiety, at Ease Agitation: 0-Normal Activity Paroxysmal Sweats: 2 Orientation: 1-Uncertain about Date Tacttile Disturbances: 0-None Auditory Disturbances: 2-Mild Harshness/Frighten Visual Disturbances: 2-Mild Sensitivity Headache: 4-Moderately Severe CIWA-Ar Total Score: 11 S COWS - Scale Resting Pulse: 0= [place] 80 or Below Sweatin= Chills/Flushing Restless Observation: 0= Sits Still Pupil Size: 1= Pupils >than Normal Bone or Joint Aches: 0= None Runny Nose/ Eye Tearin= None GI Upset > 30mins: 0= None Tremor Observation of Outstretched Hands: 0= None Yawning Observation: 0= None Anxiety or Irritability: 0= None Goose Flesh Skin: 0=Smooth Skin COWS Score: 2 S Progress Note (SOAP) Subjective: Mr. Baker reports some diaphoresis, auditory/visual sensitivity, and headache. He is coughing and requesting inhaler for asthma. Also states his skin is being irritated by the soap. Will order Aveeno. Objective: 01/18/20 10:421. Physical Exam General: Patient resting in bed, no acute distress MSK: normal ROM, gait steady Respiratory: normal respiratory rate, without accessory muscle use HEENT: Normocephalic, atraumatic, nares patent, Pupils dilated 3-4 mm Neuro: Patient oriented to self and place, not time (oriented to month/year, not day) Laboratory Tests 01/16/20 01/16/20 01/16/20 10:15 10:15 10:15 WBC 4.3 RBC 4.41 Hgb 11.8 Hct 36.3 MCV 82.4 MCH 26.7 MCHC 32.4 RDW 19.0 H Plt Count 239 D MPV 8.6 D Sodium 143 Potassium 4.3 Chloride 111 H Carbon Dioxide 29 Anion Gap 3 L BUN 30.5 H Creatinine 1.2 Est GFR (CKD-EPI)AfAm 84.73 Est GFR (CKD-EPI)NonAf 73.10 Random Glucose 67 L Calcium 8.6 Total Bilirubin 0.5 AST 56 H ALT 64 H Alkaline Phosphatase 96 Total Protein 6.2 L Albumin 3.3 L Syphilis Serology Non-reactive COVID-19 (AVANI) 01/16/20 10:15 WBC RBC Hgb Hct MCV MCH MCHC RDW Plt Count MPV Sodium Potassium Chloride Carbon Dioxide Anion Gap BUN Creatinine Est GFR (CKD-EPI)AfAm Est GFR (CKD-EPI)NonAf Random Glucose Calcium Total Bilirubin AST ALT Alkaline Phosphatase Total Protein Albumin Syphilis Serology COVID-19 (AVANI) Not detected Last Vital Signs Temp Pulse Resp BP Pulse Ox 97.1 F L 53 L 18 107/67 97 01/18/20 08:32 01/18/20 08:32 01/18/20 08:32 01/18/20 08:32 01/18/20 08:32 Home Medication List Medication Instructions Recorded Confirmed Type Quetiapine Fumarate [Seroquel -] 50 mg PO HS 08/22/19 01/16/20 History Active Medications Generic Name Dose Route Start Last Admin Trade Name Freq PRN Reason Stop Dose Admin Acetaminophen 650 mg 01/16/20 11:05 Tylenol - PO Q6H PRN PAIN LEVEL 4 - 6 Acetaminophen 650 mg 01/16/20 11:05 Tylenol - PO Q6H PRN FEVER Al Hydroxide/Mg Hydroxide 30 ml 01/16/20 11:05 Mylanta Oral Suspension - PO Q6H PRN DYSPEPSIA Albuterol Sulfate 2 puff 01/16/20 18:12 01/17/20 18:08 Ventolin Hfa Inhaler - IH 2 puff Q4H PRN Administration ASTHMA Bismuth Subsalicylate 30 ml 01/16/20 11:05 Pepto-Bismol Liquid - PO Q1H PRN DIARRHEA Chlordiazepoxide HCl 25 mg 01/18/20 05:00 01/18/20 10:20 Librium - PO 01/18/20 23:01 25 mg [id number] JOEL Administration Chlordiazepoxide HCl 25 mg 01/16/20 11:05 01/17/20 19:50 Librium - PO 01/18/20 23:59 25 mg Q4H PRN Administration WITHDRAWAL(CONT SUBST) Chlordiazepoxide HCl 10 mg 01/19/20 05:00 Librium - PO 01/19/20 23:01 [id number] JOEL Chlordiazepoxide HCl 10 mg 01/20/20 05:00 Librium - PO 01/20/20 17:01 Q12H JOEL Chlordiazepoxide HCl 10 mg 01/19/20 00:00 Librium - PO 01/20/20 00:00 Q4H PRN WITHDRAWAL(CONT SUBST) Chlordiazepoxide HCl 10 mg 01/21/20 05:00 Librium - PO 01/21/20 05:01 ONCE@0500 ONE Clonidine 0.1 mg 01/16/20 11:05 01/17/20 19:50 Catapres - PO 01/18/20 23:59 0.1 mg Q4H PRN Administration Withdrawal Symptoms Eucalyptus/Menthol/Phenol/Sorbitol 1 each 01/16/20 11:05 Cepastat Lozenge - MM 01/22/20 11:05 Q4H PRN SORE THROAT Hydroxyzine Pamoate 25 mg 01/16/20 14:00 01/18/20 10:21 Vistaril - PO 01/22/20 11:05 25 mg Q4HWA JOEL Administration Ibuprofen 400 mg 01/16/20 11:05 Motrin - PO Q6H PRN PAIN LEVEL 1 - 3 Lisinopril 10 mg 01/17/20 11:00 01/18/20 10:21 Prinivil PO 10 mg DAILY JOEL Administration Magnesium Citrate 300 ml 01/16/20 11:05 Citroma - PO Q48H PRN CONSTIPATION Magnesium Hydroxide 30 ml 01/16/20 11:05 Milk Of Magnesia - PO PRN PRN CONSTIPATION Melatonin 5 mg 01/16/20 22:00 01/17/20 22:35 Melatonin PO 5 mg HS JOEL Administration Methadone HCl 5 mg 01/21/20 06:00 Dolophine - PO 01/21/20 06:01 ONCE@0600 ONE Methadone HCl 10 mg 01/20/20 10:00 Dolophine - PO 01/20/20 10:01 ONCE ONE Methadone HCl 10 mg/ Methadone 15 mg 01/19/20 10:00 HCl 5 mg PO 01/19/20 10:01 ONCE ONE Methocarbamol 500 mg 01/16/20 11:05 Robaxin - PO 01/22/20 11:05 Q6H PRN MUSCLE SPASMS Nicotine 14 mg 01/16/20 11:15 01/18/20 10:20 Nicoderm Patch - TD Not Given DAILY [facility] Nicotine Polacrilex 2 mg 01/16/20 11:05 01/18/20 10:21 Nicorette Gum - BUC 2 mg Q2H PRN Administration NICOTINE REPLACEMENT RX Ondansetron HCl 4 mg 01/16/20 11:05 Zofran Odt - SL 01/22/20 11:07 Q8H PRN Nausea/Vomiting Multivit/Folic Acid/Iron 1 tab 01/17/20 10:00 01/18/20 10:20 Vitamins (Sjr) - PO 1 tab DAILY JOEL Administration Thiamine HCl 100 mg 01/16/20 22:00 01/17/20 22:35 Vitamin B1 - PO 100 mg HS JOEL Administration Assessment: 01/18/20 10:45 1. Alcohol Detox 2. Opioid Detox Plan: Detox 1. Alcohol Detox-- continue Librium protocol (last dose scheduled 01/20) 2. Opioid Detox -- continue Methadone protocol (last dose scheduled 01/20) 3. Anticipate discharge on 01/20 Asthma 1. Use inhaler as needed
[2020-01-18] MEDS ORDERED: COLLOIDAL OATMEAL 1 BAR EACH TP PRN (10:54)
[2020-01-18] MEDS: ALBUTEROL SO4 HFA INHALER IH PRN ×2 (11:58→22:23)
[2020-01-18] MEDS: PANTOPRAZOLE 40 MG TABLET PO SCH (12:50)
--- NOTE | 2020-01-18 13:48 | PN ---
[facility] Progress Note Note: Pt asking for increase in medication for insomnia Imp 1. Insomnia Plan 1. increase melatonin to 10 mg hs
[2020-01-18] MEDS: MELATONIN 5 MG TABLETS PO SCH (22:22)
[2020-01-18] MEDS: THIAMINE HCL 100 MG TABLET (FP) PO SCH (22:22)
[2020-01-18] MEDS: METHOCARBAMOL 500 MG TABLET PO PRN (22:22)
[2020-01-19] MEDS ORDERED: chlordiazePOXIDE HCL 10 MG CAPSULE PO PRN
[2020-01-19] MEDS: ALBUTEROL SO4 HFA INHALER IH PRN ×2 (03:39→21:25)
[2020-01-19] MEDS: hydrOXYzine PAMOATE 25 MG CAPSULE (FP) PO SCH ×5 (05:26→21:53)
[2020-01-19] MEDS: chlordiazePOXIDE HCL 10 MG CAPSULE PO SCH ×4 (05:26→22:04)
[2020-01-19] MEDS: NICOTINE POLACRILEX 2 MG GUM BUC PRN ×5 (05:27→19:24)
[2020-01-19] MEDS ORDERED: METHADONE HCL 10 MG TABLET (FOR DETOX USE ONLY) ONE (09:41)
[2020-01-19] MEDS ORDERED: METHADONE HCL 5 MG TABLET (FOR DETOX USE ONLY) ONE (09:42)
[2020-01-19] MEDS ORDERED: METHADONE (DETOX) 10 MG, METHADONE (DETOX) 5 MG PO ONE (10:00)
[2020-01-19] MEDS: LISINOPRIL 10 MG TABLET (FP) PO SCH (10:22)
[2020-01-19] MEDS: NICOTINE 14 MG/24 HOURS TOPICAL PATCH TD SCH (10:22)
[2020-01-19] MEDS: PANTOPRAZOLE 40 MG TABLET PO SCH (10:22)
[2020-01-19] MEDS: PRENATAL VITAMINS W/ FOLIC ACID TABLET (FP) PO SCH (10:22)
[2020-01-19] MEDS: METHOCARBAMOL 500 MG TABLET PO PRN ×2 (12:07→21:55)
--- NOTE | 2020-01-19 12:40 | PN ---
[facility] CIWA - CIWA Score Nausea/Vomitin-No Nausea/No Vomiting Muscle Tremors: None Anxiety: 2 Agitation: 0-Normal Activity Paroxysmal Sweats: 2 Orientation: 0-Oriented Tacttile Disturbances: 0-None Auditory Disturbances: 0-None Visual Disturbances: 0-None Headache: 2-Mild CIWA-Ar Total Score: 6 BHS COWS - Scale Resting Pulse: 0= [place] 80 or Below Sweatin= No chills or Flushing Restless Observation: 1= Difficult to Sit Still Pupil Size: 0= Normal to Room Light Bone or Joint Aches: 2= Severe Diffuse Aches Runny Nose/ Eye Tearin= None GI Upset > 30mins: 1= Stomach Cramp Tremor Observation of Outstretched Hands: 0= None Yawning Observation: 0= None Anxiety or Irritability: 2=Irritable/Anxious Goose Flesh Skin: 0=Smooth Skin COWS Score: 6 S Progress Note (SOAP) Subjective: c/o stomach cramp, sweats, anxiety, and muscle aches. Objective: 01/19/20 12:37 Vital Signs 01/19/20 06:42 Temperature 97.2 F L Pulse Rate 71 Respiratory 18 Rate Blood Pressure 125/86 O2 Sat by Pulse 100 Oximetry (%) Assessment: 01/19/20 12:39 AOX3 and in no acute respiratory distress. Full ROM, ambulating in the unit. Withdrawal symptoms. Plan: continue detox.
[2020-01-19] MEDS: MELATONIN 5 MG TABLETS PO SCH (21:52)
[2020-01-19] MEDS: THIAMINE HCL 100 MG TABLET (FP) PO SCH (21:53)
[2020-01-20] MEDS: hydrOXYzine PAMOATE 25 MG CAPSULE (FP) PO SCH ×5 (05:14→22:05)
[2020-01-20] MEDS: chlordiazePOXIDE HCL 10 MG CAPSULE PO SCH ×2 (05:14→17:48)
[2020-01-20] MEDS: NICOTINE POLACRILEX 2 MG GUM BUC PRN ×4 (05:15→22:06)
[2020-01-20] MEDS: ALBUTEROL SO4 HFA INHALER IH PRN (05:16)
[2020-01-20] MEDS ORDERED: METHADONE HCL 10 MG TABLET (FOR DETOX USE ONLY) PO ONE (10:00)
[2020-01-20] MEDS: PRENATAL VITAMINS W/ FOLIC ACID TABLET (FP) PO SCH (10:16)
[2020-01-20] MEDS: PANTOPRAZOLE 40 MG TABLET PO SCH (10:16)
[2020-01-20] MEDS: LISINOPRIL 10 MG TABLET (FP) PO SCH (10:16)
[2020-01-20] MEDS: NICOTINE 14 MG/24 HOURS TOPICAL PATCH TD SCH (10:18)
--- NOTE | 2020-01-20 11:43 | PN ---
[facility] CIWA - CIWA Score Nausea/Vomitin-No Nausea/No Vomiting Muscle Tremors: 1-None Visible, but [place] Anxiety: 1-Mildly Anxious Agitation: 0-Normal Activity Paroxysmal Sweats: No Perspiration Orientation: 0-Oriented Tacttile Disturbances: 1-Very Mild Itch/Numbness Auditory Disturbances: 0-None Visual Disturbances: 0-None Headache: 0-None Present CIWA-Ar Total Score: 3 BHS COWS - Scale Resting Pulse: 0= [place] 80 or Below Sweatin= No chills or Flushing Restless Observation: 0= Sits Still Pupil Size: 0= Normal to Room Light Bone or Joint Aches: 1= Mild Discomfort Runny Nose/ Eye Tearin= None GI Upset > 30mins: 0= None Tremor Observation of Outstretched Hands: 1= Tremor [place], Not Seen Yawning Observation: 0= None Anxiety or Irritability: 1=Feels Anxious/Irritable Goose Flesh Skin: 0=Smooth Skin COWS Score: 3 S Progress Note (SOAP) Subjective: 44 years old male admitted on 01/16/20 for alcohol and opiate withdrawal sx management treating with librum and methadone detox regiments feeling better today requests ucerin cream for dry skin and symbicort for asthma discussing cigarette smoking induced asthma episode encourage picking up narcan from pharmacy upon discharge Objective: 01/20/20 11:46 Vital Signs - 24 hr 01/19/20 01/19/20 01/19/20 13:05 16:31 20:28 Temperature 97.7 F 97.3 F L 97.1 F L Pulse Rate 72 63 62 Respiratory 18 18 18 Rate Blood Pressure 111/67 124/74 123/77 O2 Sat by Pulse 98 100 Oximetry (%) 01/20/20 01/20/20 05:54 08:40 Temperature 97.3 F L 97.1 F L Pulse Rate 62 70 Respiratory 20 18 Rate Blood Pressure 122/88 124/85 O2 Sat by Pulse 100 Oximetry (%) Laboratory Tests 01/16/20 01/16/20 01/16/20 10:15 10:15 10:15 WBC 4.3 RBC 4.41 Hgb 11.8 Hct 36.3 MCV 82.4 MCH 26.7 MCHC 32.4 RDW 19.0 H Plt Count 239 D MPV 8.6 D Sodium 143 Potassium 4.3 Chloride 111 H Carbon Dioxide 29 Anion Gap 3 L BUN 30.5 H Creatinine 1.2 Est GFR (CKD-EPI)AfAm 84.73 Est GFR (CKD-EPI)NonAf 73.10 Random Glucose 67 L Calcium 8.6 Total Bilirubin 0.5 AST 56 H ALT 64 H Alkaline Phosphatase 96 Total Protein 6.2 L Albumin 3.3 L Syphilis Serology Non-reactive COVID-19 (AVANI) 01/16/20 01/18/20 10:15 07:30 WBC RBC Hgb Hct MCV MCH MCHC RDW Plt Count MPV Sodium Potassium Chloride Carbon Dioxide Anion Gap BUN 18.3 H Creatinine Est GFR (CKD-EPI)AfAm Est GFR (CKD-EPI)NonAf Random Glucose Calcium Total Bilirubin AST ALT Alkaline Phosphatase Total Protein Albumin Syphilis Serology COVID-19 (AVANI) Not detected lab noted bun 30.5 treated with oral hydration current bun 18.3 01/20/20 11:49 Assessment: 01/20/20 11:49 alcohol and opiate withdrawal Plan: librium and methadone regiment
[2020-01-20] MEDS: BUDESONIDE/FORMETEROL FUMARATE 80/4.5 mcg INHALER IH SCH ×2 (11:57→22:04)
[2020-01-20] MEDS: MINERAL OIL/PETROLAT/WATER TOPICAL CREAM 113 GM JAR TP SCH ×2 (15:00→22:04)
[2020-01-20] MEDS: MELATONIN 5 MG TABLETS PO SCH (22:05)
[2020-01-20] MEDS: THIAMINE HCL 100 MG TABLET (FP) PO SCH (22:05)
[2020-01-20] MEDS: METHOCARBAMOL 500 MG TABLET PO PRN (22:05)
[2020-01-21] MEDS ORDERED: chlordiazePOXIDE HCL 10 MG CAPSULE PO ONE (05:00)
[2020-01-21] MEDS: hydrOXYzine PAMOATE 25 MG CAPSULE (FP) PO SCH ×2 (05:58→09:08)
[2020-01-21] MEDS: NICOTINE POLACRILEX 2 MG GUM BUC PRN ×2 (05:59→09:12)
[2020-01-21] MEDS ORDERED: METHADONE HCL 5 MG TABLET (FOR DETOX USE ONLY) PO ONE (06:00)
[2020-01-21] MEDS ORDERED: LISINOPRIL 10 MG TABLET (FP) PO SCH ×2 (08:08→10:00)
--- NOTE | 2020-01-21 08:10 | DS ---
[facility] Detox Discharge Summary Admission Date: 01/16/20 Discharge Date: 01/21/20 - History Present History: Alcohol Dependence, Opioid Dependence Additional Comments: 44 years old male admitted on 01/16/20 for alcohol and opiate withdrawal sx management treating with libriium and methadone detox regiments has completed librium regiment and is tolerated well General Appearance: Yes: No Apparent Distress, Nourished, Appropriately Dressed HEENTM: Yes: EOMI, Hearing grossly Normal, Normocephalic, Normal Voice Respiratory: Yes: Lungs Clear, Normal Breath Sounds, No Respiratory Distress, No Accessory Muscle Use Neck: Yes: Within Normal Limits, Supple Breast: Yes: Breast Exam Deferred Cardiology: Yes: Regular Rhythm, Regular Rate, S1, S2 Abdominal: Yes: Normal Bowel Sounds, Non Tender, Flat, Soft Back: Yes: Normal Inspection Musculoskeletal: Yes: Within Normal Limits Extremities: Yes: Normal Inspection, Non-Tender Neurological: Yes: Alert Integumentary: Yes: Other (multiple well healed scars on legs, few abrasions, fell while intoxicated last night: denies head trauma or LOC, given cane at [place]) Pertinent Past History: time for discharge 62 minutes bp elevation Vital Signs - 24 hr 01/20/20 01/20/20 01/20/20 08:40 12:40 16:45 Temperature 97.1 F L 97.1 F L 97.3 F L Pulse Rate 70 71 62 Respiratory 18 18 18 Rate Blood Pressure 124/85 111/69 127/82 O2 Sat by Pulse 98 Oximetry (%) 01/20/20 01/20/20 01/21/20 20:28 23:10 07:35 Temperature 97.5 F L 97.8 F Pulse Rate 58 L 66 63 Respiratory 18 18 Rate Blood Pressure 130/88 152/89 O2 Sat by Pulse 97 97 Oximetry (%) lisinopril 10 mg change schedule from 10 am to 0809 am repeat bp mr vazquez has not received lisinopril Vital Signs - 24 hr 01/20/20 01/20/20 01/20/20 16:45 20:28 23:10 Temperature 97.3 F L 97.5 F L Pulse Rate 62 58 L 66 Respiratory 18 18 Rate Blood Pressure 127/82 130/88 O2 Sat by Pulse 97 Oximetry (%) 08/10/20 08/10/20 07:35 09:02 Temperature 97.8 F 97.3 F L Pulse Rate 63 71 Respiratory 18 18 Rate Blood Pressure 152/89 121/72 O2 Sat by Pulse 97 Oximetry (%) bp 121/72 administer lisinopril as 10 am scheduled transferred order set from detox to rehab - Physical Exam Results Vital Signs: Vital Signs Temperature 97.8 F 01/21/20 07:35 Pulse Rate 63 01/21/20 07:35 Respiratory Rate 18 01/21/20 07:35 Blood Pressure 152/89 01/21/20 07:35 O2 Sat by Pulse Oximetry (%) 97 01/21/20 07:35 current bp 120/70 without lisinorpil discontinue lisinopril stat resume lisinopril as scheduled on 10 am Pertinent Admission Physical Exam Findings: alcohol and opiate withdrawal Laboratory Tests 01/16/20 01/16/20 01/16/20 10:15 10:15 10:15 WBC 4.3 RBC 4.41 Hgb 11.8 Hct 36.3 MCV 82.4 MCH 26.7 MCHC 32.4 RDW 19.0 H Plt Count 239 D MPV 8.6 D Sodium 143 Potassium 4.3 Chloride 111 H Carbon Dioxide 29 Anion Gap 3 L BUN 30.5 H Creatinine 1.2 Est GFR (CKD-EPI)AfAm 84.73 Est GFR (CKD-EPI)NonAf 73.10 Random Glucose 67 L Calcium 8.6 Total Bilirubin 0.5 AST 56 H ALT 64 H Alkaline Phosphatase 96 Total Protein 6.2 L Albumin 3.3 L Syphilis Serology Non-reactive COVID-19 (AVANI) 01/16/20 01/18/20 10:15 07:30 WBC RBC Hgb Hct MCV MCH MCHC RDW Plt Count MPV Sodium Potassium Chloride Carbon Dioxide Anion Gap BUN 18.3 H Creatinine Est GFR (CKD-EPI)AfAm Est GFR (CKD-EPI)NonAf Random Glucose Calcium Total Bilirubin AST ALT Alkaline Phosphatase Total Protein Albumin Syphilis Serology COVID-19 (AVANI) Not detected lab noted - Treatment Hospital Course: Detox Protocol Followed, Detoxed Safely, Responded well, Discharged Condition Good, Rehab Referral Accepted Patient has Accepted a [facility] Ref[facility] - Medication Discharge Medications: Ambulatory Orders Quetiapine Fumarate [Seroquel -] 50 mg PO HS 08/22/19 Albuterol Sulfate Inhaler - [Ventolin HFA Inhaler -] 2 inh PO Q4H PRN #1 inhaler 09/11/19 Budesonide/Formeterol Fumarate [SYMBICORT 80/4.5mcg -] 1 inh PO DAILY #1 inhaler 09/11/19 Omeprazole 20 mg PO DAILY #30 cap.sr 09/11/19 Naloxone HCl [Narcan] 4 mg NS ASDIR PRN #1 spray 01/20/20 - Diagnosis (1) Hypertension Status: Chronic Qualifiers: Hypertension type: essential hypertension Qualified Code(s): I10 - Essential (primary) hypertension (2) Alcohol dependence with uncomplicated withdrawal Status: Acute (3) Opioid dependence with withdrawal Status: Acute (4) GERD (gastroesophageal reflux disease) Status: Chronic Qualifiers: Esophagitis presence: without esophagitis Qualified Code(s): K21.9 - Gastro-esophageal reflux disease without esophagitis (5) Nicotine dependence Status: Acute Qualifiers: Nicotine product type: cigarettes Substance use status: in withdrawal Qualified Code(s): F17.213 - Nicotine dependence, cigarettes, with withdrawal (6) Substance induced mood disorder Status: Suspected - AMA Did Patient Leave Against Medical Advice: No CIWA Score - CIWA Score Nausea/Vomitin-No Nausea/No Vomiting Muscle Tremors: None Anxiety: 1-Mildly Anxious Agitation: 0-Normal Activity Paroxysmal Sweats: No Perspiration Orientation: 0-Oriented Tacttile Disturbances: 0-None Auditory Disturbances: 0-None Visual Disturbances: 0-None Headache: 0-None Present CIWA-Ar Total Score: 1 COWS (PN) - Opiate Withdrawal Resting Pulse: 0= CA 80 or Below Sweatin= No chills or Flushing Restless Observation: 0= Sits Still Pupil Size: 0= Normal to Room Light Bone or Joint Aches: 1= Mild Discomfort Runny Nose/ Eye Tearin= None GI Upset > 30mins: 0= None Tremor Observation of Outstretched Hands: 0= None Yawning Observation: 0= None Anxiety or Irritability: 1=Feels Anxious/Irritable Goose Flesh Skin: 0=Smooth Skin COWS Score: 2
[2020-01-21] MEDS ORDERED: LISINOPRIL 10 MG TABLET (FP) PO ONE (08:43)
[2020-01-21] MEDS: PANTOPRAZOLE 40 MG TABLET PO SCH (09:08)
[2020-01-21] MEDS: PRENATAL VITAMINS W/ FOLIC ACID TABLET (FP) PO SCH (09:08)
[2020-01-21] MEDS: MINERAL OIL/PETROLAT/WATER TOPICAL CREAM 113 GM JAR TP SCH (09:09)
[2020-01-21] MEDS: BUDESONIDE/FORMETEROL FUMARATE 80/4.5 mcg INHALER IH SCH (09:10)
[2020-01-21] MEDS: NICOTINE 14 MG/24 HOURS TOPICAL PATCH TD SCH (09:10)
[2020-01-21 09:47] VITALS: BP 121/72; PULSE 71; TEMP 97.3
== END 2020-01-21 12:16 | disposition other institution (70) | DRG 773 ==
LOC: YASAS 08:52 → Y3N 11:19
PROVIDERS: ADMIT Allergy & Immunology; ATTEND Allergy & Immunology
PROC: HZ2ZZZZ Detoxification Services for Substance Abuse Treatment (ICD-10-PCS; principal; 2020-01-16)
DX: F11.23 Opioid dependence with withdrawal (principal); F10.230 Alcohol dependence with withdrawal, uncomplicated; F17.213 Nicotine dependence, cigarettes, with withdrawal; F19.24 Other psychoactive substance dependence with psychoactive substance-induced mood disorder; I10 Essential (primary) hypertension; K21.9 Gastro-esophageal reflux disease without esophagitis; G47.00 Insomnia, unspecified; J45.909 Unspecified asthma, uncomplicated; Z91.010 Allergy to peanuts
CPT/HCPCS: 36415; 80053; 84520; 85027; 86780; J0735; U0003

== ENCOUNTER 2020-01-21 11:44 | Inpatient (IN) | payer OTHER ==
--- NOTE | 2020-01-21 12:43 | HP ---
[facility] Rehab Assess/Revision - Admission History Admitted to Rehab from: [facility] Date of Admission to Rehab: 01/21/20 - Findings Detox History & Physical reviewed: Yes Concur with findings: Yes Comments/Additional Findings: transerred from detox to rehab admission as per protocol Inpatient Rehab Admission - Rehab Decision to Admit Inpatient rehab admission?: Yes - Initial Determination Are CD services needed?: Yes Free of communicable disease: Yes Not in need of hospitalization: Yes - Rehab Admission Criteria Previous failed treatment: Yes Poor recovery environment: Yes Comorbidities: Yes Lacks judgement: Yes Patient is meeting Inpatient Rehab admission criteria:: Yes
[2020-01-21] MEDS ORDERED: P-EPHED 60MG/TRIPROLIDI 2.5MG TABLET PO PRN (12:44)
[2020-01-21] MEDS ORDERED: MAG HYDROX/AL HYDROX/SIMETH 30 ML UNIT-DOSE CUP PO PRN (12:44)
[2020-01-21] MEDS ORDERED: IBUPROFEN 400 MG TABLET (FP) PO PRN (12:44)
[2020-01-21] MEDS ORDERED: MAGNESIUM HYDROX 2400MG/30ML ORAL SUSPENSION 30 ML CUP PO PRN (12:44)
[2020-01-21] MEDS ORDERED: ACETAMINOPHEN 325 MG TABLET (FP) PO PRN (12:44)
[2020-01-21] MEDS ORDERED: LOPERAMIDE HCL 2 MG CAPSULE PO PRN (12:44)
[2020-01-21] MEDS ORDERED: guaiFENesin 200 MG/10 ML 10 ML UNIT-DOSE CUPS PO PRN (12:44)
[2020-01-21] MEDS ORDERED: MAGNESIUM CITRATE 300 ML BOTTLE PO PRN (12:44)
[2020-01-21] MEDS: MELATONIN 5 MG TABLETS PO SCH (20:59)
[2020-01-21] MEDS: MINERAL OIL/PETROLAT/WATER TOPICAL CREAM 113 GM JAR TP SCH (20:59)
[2020-01-21] MEDS: THIAMINE HCL 100 MG TABLET (FP) PO SCH (21:00)
[2020-01-21] MEDS: BUDESONIDE/FORMETEROL FUMARATE 80/4.5 mcg INHALER IH SCH (21:06)
[2020-01-21] MEDS ORDERED: PT OWN MED DRAWER 7, Y5N ONE (21:07)
[2020-01-21] MEDS: ALBUTEROL SO4 HFA INHALER IH PRN (21:08)
[2020-01-21] MEDS: hydrOXYzine PAMOATE 25 MG CAPSULE (FP) PO PRN (21:12)
[2020-01-21] MEDS: FAMOTIDINE 20 MG TABLET PO SCH (21:27)
[2020-01-21] MEDS ORDERED: BUDESONIDE/FORMETEROL FUMARATE 80/4.5 mcg INHALER IH SCH (22:00)
[2020-01-22] MEDS ORDERED: PT OWN MED DRAWER 7, Y5N ONE ×2 (05:18→08:52)
[2020-01-22] MEDS: ALBUTEROL SO4 HFA INHALER IH PRN (05:19)
[2020-01-22] MEDS: NICOTINE POLACRILEX 2 MG GUM BUC PRN ×6 (07:08→21:34)
[2020-01-22] MEDS: PRENATAL VITAMINS W/ FOLIC ACID TABLET (FP) PO SCH (09:55)
[2020-01-22] MEDS: NICOTINE 14 MG/24 HOURS TOPICAL PATCH TD SCH (09:55)
[2020-01-22] MEDS: MINERAL OIL/PETROLAT/WATER TOPICAL CREAM 113 GM JAR TP SCH ×2 (09:55→21:34)
[2020-01-22] MEDS: LISINOPRIL 10 MG TABLET (FP) PO SCH (09:55)
[2020-01-22] MEDS: FAMOTIDINE 20 MG TABLET PO SCH ×2 (09:56→21:34)
[2020-01-22] MEDS: BUDESONIDE/FORMETEROL FUMARATE 80/4.5 mcg INHALER IH SCH ×2 (09:56→21:35)
--- NOTE | 2020-01-22 09:56 | PN ---
S Progress Note Note: Pt is a 44 y/o male who completed detox on and referred to rehab. Pt requesting to see the psych today. Vital Signs - 24 hr 01/21/20 01/21/20 01/21/20 13:54 15:06 20:30 Temperature 97.5 F L Pulse Rate 69 Respiratory 18 Rate Blood Pressure 148/87 O2 Sat by Pulse 100 96 Oximetry (%) 01/22/20 01/22/20 04:00 06:00 Temperature 97.8 F Pulse Rate 88 Respiratory 18 Rate Blood Pressure 121/81 O2 Sat by Pulse 96 96 Oximetry (%) Alert o x 3 nad oob ambulating with steady gait. s/p detox cont rehab
[2020-01-22] MEDS: hydrOXYzine PAMOATE 25 MG CAPSULE (FP) PO PRN ×2 (10:01→21:32)
--- NOTE | 2020-01-22 19:18 | PN ---
S Progress Note Note: per staff , pt c/o discomfort , s/p detox Vital Signs - 24 hr 01/21/20 01/22/20 01/22/20 20:30 04:00 06:00 Temperature 97.8 F Pulse Rate 88 Respiratory 18 Rate Blood Pressure 121/81 O2 Sat by Pulse 96 96 96 Oximetry (%) 01/22/20 01/22/20 10:00 14:06 Temperature Pulse Rate 79 Respiratory Rate Blood Pressure 130/85 O2 Sat by Pulse 98 Oximetry (%) P : clonidine prn f/up w/ rehab staff in the a.m.
[2020-01-22] MEDS: THIAMINE HCL 100 MG TABLET (FP) PO SCH (21:32)
[2020-01-22] MEDS: MELATONIN 5 MG TABLETS PO SCH (21:32)
[2020-01-22] MEDS: cloNIDine HCL 0.1 MG TABLET PO PRN (21:32)
[2020-01-23] MEDS: ALBUTEROL SO4 HFA INHALER IH PRN (06:10)
[2020-01-23] MEDS: NICOTINE POLACRILEX 2 MG GUM BUC PRN ×5 (06:11→19:56)
[2020-01-23] MEDS: NICOTINE 14 MG/24 HOURS TOPICAL PATCH TD SCH (10:50)
[2020-01-23] MEDS: LISINOPRIL 10 MG TABLET (FP) PO SCH (10:51)
[2020-01-23] MEDS: PRENATAL VITAMINS W/ FOLIC ACID TABLET (FP) PO SCH (10:51)
[2020-01-23] MEDS: FAMOTIDINE 20 MG TABLET PO SCH ×2 (10:51→21:21)
[2020-01-23] MEDS: BUDESONIDE/FORMETEROL FUMARATE 80/4.5 mcg INHALER IH SCH ×2 (10:51→21:24)
--- NOTE | 2020-01-23 10:51 | PN ---
[facility] Progress Note Note: Pt requesting to restart on Suboxone MAT after completing detox from heroin on 01/21/20 on 3 [facility]. Suboxone Hx as below as seen on online Drug PNP. Pt has spoken to her counselor and is connected to [facility] where he has an existing suboxone prescriber, Dr. Kiera Aviles. Others' Prescriptions Patient Name: Luis BakerBirth Date: 1975 Address: [address] [place] [id number]: Male Rx Written Rx Dispensed Drug Quantity Days Supply Prescriber Name Payment Method Dispenser 01/04/2020 01/04/2020 buprenorphine-naloxone 8-2 mg sl film 45 15 Sam Felderssica [employer] [facility] 12/20/2019 12/20/2019 buprenorphine-naloxone 8-2 mg sl film 45 15 Gabriella Hernadez MD Insurance [facility] 11/27/2019 11/27/2019 buprenorphine-naloxone 8-2 mg sl film 45 15 Bairon Agee [employer] [facility] 11/13/2019 11/16/2019 buprenorphine-naloxone 8-2 mg sl film 45 15 David Miller Kiera [employer] [facility] 10/12/2019 10/19/2019 buprenorphine-naloxone 8-2 mg sl film 60 30 Ziembabran Miller, Kiera [facility] 09/14/2019 09/17/2019 buprenorphine-naloxone 8-2 mg sl film 60 30 Ziemba Angela, Kiera [facility] 09/11/2019 09/11/2019 buprenorphine-naloxone 8-2 mg sl film 14 7 Kiana De La Cruz NP Insurance [facility] Patient Name: Luis BakerBirth Date: 1975 Address: [place], [place] [address]Hip: Male Rx Written Rx Dispensed Drug Quantity Days Supply Prescriber Name Payment Method Dispenser 02/21/2019 02/22/2019 chlordiazepoxide 25 mg capsule 8 2 Lori Le MD Medicaid [facility], [facility] * - Drugs marked with an asterisk are compound drugs. If the compound drug is made up of more than one controlled substance, then each controlled substance will be a separate row in the table. Vital Signs - 24 hr 01/22/20 01/22/20 01/23/20 14:06 19:57 06:53 Temperature 97.5 F L 97.4 F L Pulse Rate 69 77 Respiratory 18 18 Rate Blood Pressure 136/83 140/94 O2 Sat by Pulse 98 98 96 Oximetry (%) alert o x 3 nad oob ambulating with steady gait s/p detox Repeat Utox to restart suboxone pt to follow up with his prescriber after rehab.
[2020-01-23] MEDS: MINERAL OIL/PETROLAT/WATER TOPICAL CREAM 113 GM JAR TP SCH ×2 (10:52→21:23)
--- NOTE | 2020-01-23 15:39 | PN ---
[facility] COWS - Scale Resting Pulse: 1= MD 81-100 Sweatin=Flushed/Facial Moisture Restless Observation: 0= Sits Still Pupil Size: 0= Normal to Room Light Bone or Joint Aches: 2= Severe Diffuse Aches Runny Nose/ Eye Tearin= None GI Upset > 30mins: 2= Nausea/Diarrhea Tremor Observation of Outstretched Hands: 1= Tremor [place], Not Seen Yawning Observation: 0= None Anxiety or Irritability: 2=Irritable/Anxious Goose Flesh Skin: 0=Smooth Skin COWS Score: 10 [facility] Progress Note (SOAP) Subjective: Patient requesting suboxone. Lost his last script from his provider and relapsed. He was on 8mg TID, confirmed with [facility] Patient Name: Luis BakerBirth Date: 1975 Address: [address] [place] [id number]: Male Rx Written Rx Dispensed Drug Quantity Days Supply Prescriber Name Payment Method Dispenser 01/04/2020 01/04/2020 buprenorphine-naloxone 8-2 mg sl film 45 15 Kiera Felder Insurance [facility] 12/20/2019 12/20/2019 buprenorphine-naloxone 8-2 mg sl film 45 15 Gabriella Hernadez MD Insurance [facility] 11/27/2019 11/27/2019 buprenorphine-naloxone 8-2 mg sl film 45 15 Bairon Agee [employer] [facility] 11/13/2019 11/16/2019 buprenorphine-naloxone 8-2 mg sl film 45 15 Kiera Felder [facility] 10/12/2019 10/19/2019 buprenorphine-naloxone 8-2 mg sl film 60 30 Sam Felderssica [employer] [facility] 09/14/2019 09/17/2019 buprenorphine-naloxone 8-2 mg sl film 60 30 Sam Felderssica [employer] [facility] 09/11/2019 09/11/2019 buprenorphine-naloxone 8-2 mg sl film 14 7 Kiana De La Cruz NP [facility] Patient Name: Luis BakerBirth Date: 1975 Address: [place], [place] [address]Tag: Male Rx Written Rx Dispensed Drug Quantity Days Supply Prescriber Name Payment Method Dispenser 02/21/2019 02/22/2019 chlordiazepoxide 25 mg capsule 8 2 Lori Le MD Medicaid [facility], [facility] Objective: P/E: General: appears calm, states he feels anxious HEENTM: PERRLA NEck: supple RESP: unlabored, no use of accessory muscles ABD:+BS MSK: full weight bearing, full ROM Neuro: CN 2-12 intact, no cognitive deficits, muscle strength equal bilaterally 01/23/20 15:51 Assessment: withdrawal from heroin 01/23/20 15:40 Plan: Will start suboxone on 8mg daily. Will reassess tomorrow. Patient agrees with plan.
[2020-01-23] MEDS ORDERED: BUPRENORPHINE/NALOXONE 8 MG/2 MG FILM PACKET SL ONE (15:56)
[2020-01-23] MEDS: MELATONIN 5 MG TABLETS PO SCH (21:21)
[2020-01-23] MEDS: THIAMINE HCL 100 MG TABLET (FP) PO SCH (21:21)
[2020-01-23] MEDS: cloNIDine HCL 0.1 MG TABLET PO PRN (21:23)
[2020-01-23] MEDS: hydrOXYzine PAMOATE 25 MG CAPSULE (FP) PO PRN (21:26)
[2020-01-24] MEDS: ALBUTEROL SO4 HFA INHALER IH PRN (04:41)
[2020-01-24] MEDS: NICOTINE POLACRILEX 2 MG GUM BUC PRN ×5 (06:12→21:29)
[2020-01-24] MEDS ORDERED: BUPRENORPHINE/NALOXONE 8 MG/2 MG FILM PACKET SL SCH (10:00)
[2020-01-24] MEDS: PRENATAL VITAMINS W/ FOLIC ACID TABLET (FP) PO SCH (11:16)
[2020-01-24] MEDS: NICOTINE 14 MG/24 HOURS TOPICAL PATCH TD SCH (11:16)
[2020-01-24] MEDS: LISINOPRIL 10 MG TABLET (FP) PO SCH (11:17)
[2020-01-24] MEDS: FAMOTIDINE 20 MG TABLET PO SCH ×2 (11:17→21:48)
[2020-01-24] MEDS: MINERAL OIL/PETROLAT/WATER TOPICAL CREAM 113 GM JAR TP SCH ×2 (11:18→21:57)
[2020-01-24] MEDS: BUDESONIDE/FORMETEROL FUMARATE 80/4.5 mcg INHALER IH SCH ×2 (11:20→21:26)
[2020-01-24] MEDS: hydrOXYzine PAMOATE 25 MG CAPSULE (FP) PO PRN ×2 (11:23→21:27)
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
[2020-01-24] MEDS: MELATONIN 5 MG TABLETS PO SCH (21:26)
[2020-01-24] MEDS: BUPRENORPHINE/NALOXONE 8 MG/2 MG FILM PACKET SL SCH (21:26)
[2020-01-24] MEDS: THIAMINE HCL 100 MG TABLET (FP) PO SCH (21:27)
[2020-01-24] MEDS: SUVOREXANT 10 MG TABLET PO PRN (21:27)
[2020-01-24] MEDS ORDERED: SUVOREXANT 10 MG TABLET PO ONE (22:00)
[2020-01-25] MEDS: NICOTINE POLACRILEX 2 MG GUM BUC PRN ×4 (06:21→19:05)
[2020-01-25] MEDS: BUDESONIDE/FORMETEROL FUMARATE 80/4.5 mcg INHALER IH SCH ×2 (11:19→21:58)
[2020-01-25] MEDS: BUPRENORPHINE/NALOXONE 8 MG/2 MG FILM PACKET SL SCH ×2 (11:20→21:09)
[2020-01-25] MEDS: PRENATAL VITAMINS W/ FOLIC ACID TABLET (FP) PO SCH (11:21)
[2020-01-25] MEDS: MINERAL OIL/PETROLAT/WATER TOPICAL CREAM 113 GM JAR TP SCH ×2 (11:21→21:58)
[2020-01-25] MEDS: NICOTINE 14 MG/24 HOURS TOPICAL PATCH TD SCH (11:21)
[2020-01-25] MEDS: FAMOTIDINE 20 MG TABLET PO SCH ×2 (11:21→21:09)
[2020-01-25] MEDS: LISINOPRIL 10 MG TABLET (FP) PO SCH (11:22)
[2020-01-25] MEDS: THIAMINE HCL 100 MG TABLET (FP) PO SCH (21:09)
[2020-01-25] MEDS: MELATONIN 5 MG TABLETS PO SCH (21:09)
[2020-01-25] MEDS: SUVOREXANT 10 MG TABLET PO PRN (21:11)
[2020-01-26] MEDS: NICOTINE POLACRILEX 2 MG GUM BUC PRN ×6 (06:36→21:56)
[2020-01-26] MEDS: LISINOPRIL 10 MG TABLET (FP) PO SCH (10:42)
[2020-01-26] MEDS: BUDESONIDE/FORMETEROL FUMARATE 80/4.5 mcg INHALER IH SCH ×2 (10:43→21:40)
[2020-01-26] MEDS: FAMOTIDINE 20 MG TABLET PO SCH ×2 (10:43→21:38)
[2020-01-26] MEDS: PRENATAL VITAMINS W/ FOLIC ACID TABLET (FP) PO SCH (10:43)
[2020-01-26] MEDS: BUPRENORPHINE/NALOXONE 8 MG/2 MG FILM PACKET SL SCH ×2 (10:43→21:38)
[2020-01-26] MEDS: NICOTINE 14 MG/24 HOURS TOPICAL PATCH TD SCH (10:44)
[2020-01-26] MEDS: MINERAL OIL/PETROLAT/WATER TOPICAL CREAM 113 GM JAR TP SCH ×2 (10:44→21:39)
[2020-01-26] MEDS: COLLOIDAL OATMEAL 1 BAR EACH TP PRN (21:38)
[2020-01-26] MEDS: THIAMINE HCL 100 MG TABLET (FP) PO SCH (21:38)
[2020-01-26] MEDS: MELATONIN 5 MG TABLETS PO SCH (21:38)
[2020-01-26] MEDS: SUVOREXANT 10 MG TABLET PO PRN (21:38)
[2020-01-26] MEDS: hydrOXYzine PAMOATE 25 MG CAPSULE (FP) PO PRN (21:38)
[2020-01-27] MEDS: NICOTINE POLACRILEX 2 MG GUM BUC PRN ×4 (06:49→21:52)
[2020-01-27] MEDS: FAMOTIDINE 20 MG TABLET PO SCH ×2 (10:32→21:51)
[2020-01-27] MEDS: BUDESONIDE/FORMETEROL FUMARATE 80/4.5 mcg INHALER IH SCH ×2 (10:32→21:51)
[2020-01-27] MEDS: LISINOPRIL 10 MG TABLET (FP) PO SCH (10:32)
[2020-01-27] MEDS: NICOTINE 14 MG/24 HOURS TOPICAL PATCH TD SCH (10:32)
[2020-01-27] MEDS: PRENATAL VITAMINS W/ FOLIC ACID TABLET (FP) PO SCH (10:32)
[2020-01-27] MEDS: BUPRENORPHINE/NALOXONE 8 MG/2 MG FILM PACKET SL SCH ×2 (10:32→21:51)
[2020-01-27] MEDS: MINERAL OIL/PETROLAT/WATER TOPICAL CREAM 113 GM JAR TP SCH ×2 (10:33→21:51)
--- NOTE | 2020-01-27 13:22 | PN ---
[facility] Progress Note Note: Psychiatric nurse practitioner note: Belsomra 10mg renewed X3 days. Verbal consent given.
[2020-01-27] MEDS: SUVOREXANT 10 MG TABLET PO PRN (21:50)
[2020-01-27] MEDS: MELATONIN 5 MG TABLETS PO SCH (21:51)
[2020-01-27] MEDS: hydrOXYzine PAMOATE 25 MG CAPSULE (FP) PO PRN (21:51)
[2020-01-27] MEDS: THIAMINE HCL 100 MG TABLET (FP) PO SCH (21:51)
[2020-01-28] MEDS: NICOTINE POLACRILEX 2 MG GUM BUC PRN ×4 (06:18→15:54)
[2020-01-28] MEDS: FAMOTIDINE 20 MG TABLET PO SCH ×2 (10:55→22:29)
[2020-01-28] MEDS: NICOTINE 14 MG/24 HOURS TOPICAL PATCH TD SCH (10:55)
[2020-01-28] MEDS: BUDESONIDE/FORMETEROL FUMARATE 80/4.5 mcg INHALER IH SCH ×2 (10:55→22:28)
[2020-01-28] MEDS: BUPRENORPHINE/NALOXONE 8 MG/2 MG FILM PACKET SL SCH ×2 (10:55→22:29)
[2020-01-28] MEDS: LISINOPRIL 10 MG TABLET (FP) PO SCH (10:55)
[2020-01-28] MEDS: PRENATAL VITAMINS W/ FOLIC ACID TABLET (FP) PO SCH (10:55)
[2020-01-28] MEDS: MINERAL OIL/PETROLAT/WATER TOPICAL CREAM 113 GM JAR TP SCH ×2 (10:56→22:29)
[2020-01-28] MEDS: THIAMINE HCL 100 MG TABLET (FP) PO SCH (22:29)
[2020-01-28] MEDS: MELATONIN 5 MG TABLETS PO SCH (22:29)
[2020-01-28] MEDS: SUVOREXANT 10 MG TABLET PO PRN (22:29)
[2020-01-29] MEDS: NICOTINE POLACRILEX 2 MG GUM BUC PRN ×6 (06:08→22:41)
[2020-01-29] MEDS: BUDESONIDE/FORMETEROL FUMARATE 80/4.5 mcg INHALER IH SCH ×2 (11:04→21:31)
[2020-01-29] MEDS: FAMOTIDINE 20 MG TABLET PO SCH ×2 (11:04→21:31)
[2020-01-29] MEDS: BUPRENORPHINE/NALOXONE 8 MG/2 MG FILM PACKET SL SCH ×2 (11:04→17:17)
[2020-01-29] MEDS: LISINOPRIL 10 MG TABLET (FP) PO SCH (11:04)
[2020-01-29] MEDS: PRENATAL VITAMINS W/ FOLIC ACID TABLET (FP) PO SCH (11:05)
[2020-01-29] MEDS: NICOTINE 14 MG/24 HOURS TOPICAL PATCH TD SCH (11:05)
[2020-01-29] MEDS: MINERAL OIL/PETROLAT/WATER TOPICAL CREAM 113 GM JAR TP SCH ×2 (11:06→21:58)
[2020-01-29] MEDS: MELATONIN 5 MG TABLETS PO SCH (21:31)
[2020-01-29] MEDS: THIAMINE HCL 100 MG TABLET (FP) PO SCH (21:31)
[2020-01-29] MEDS: SUVOREXANT 10 MG TABLET PO PRN (21:33)
[2020-01-30] MEDS: BUPRENORPHINE/NALOXONE 8 MG/2 MG FILM PACKET SL SCH ×2 (06:10→17:04)
[2020-01-30] MEDS: NICOTINE POLACRILEX 2 MG GUM BUC PRN ×7 (06:11→22:31)
[2020-01-30] MEDS: NICOTINE 14 MG/24 HOURS TOPICAL PATCH TD SCH (10:55)
[2020-01-30] MEDS: BUDESONIDE/FORMETEROL FUMARATE 80/4.5 mcg INHALER IH SCH ×2 (10:55→21:54)
[2020-01-30] MEDS: FAMOTIDINE 20 MG TABLET PO SCH ×2 (10:55→21:55)
[2020-01-30] MEDS: PRENATAL VITAMINS W/ FOLIC ACID TABLET (FP) PO SCH (10:55)
[2020-01-30] MEDS: LISINOPRIL 10 MG TABLET (FP) PO SCH (10:55)
[2020-01-30] MEDS: MINERAL OIL/PETROLAT/WATER TOPICAL CREAM 113 GM JAR TP SCH ×2 (10:56→21:55)
--- NOTE | 2020-01-30 11:10 | PN ---
S Progress Note Note: Psychiatric nurse practitioner note: Patient requesting an increase in Belsomra as he continues to report poor sleep despite accepting belsomra 10mg HS PRN. Will d/c Belsomra 10mg HS. 2) Will order Belsomra 15mg HS PRN.
[2020-01-30] MEDS: THIAMINE HCL 100 MG TABLET (FP) PO SCH (21:55)
[2020-01-30] MEDS: MELATONIN 5 MG TABLETS PO SCH (21:55)
[2020-01-30] MEDS: SUVOREXANT 15 MG TABLET PO PRN (21:56)
[2020-01-30] MEDS ORDERED: SUVOREXANT 10 MG TABLET PO PRN ×3 (22:00)
[2020-01-31] MEDS: BUPRENORPHINE/NALOXONE 8 MG/2 MG FILM PACKET SL SCH ×2 (06:02→17:42)
[2020-01-31] MEDS: NICOTINE POLACRILEX 2 MG GUM BUC PRN ×7 (06:03→22:58)
[2020-01-31] MEDS: PRENATAL VITAMINS W/ FOLIC ACID TABLET (FP) PO SCH (09:32)
[2020-01-31] MEDS: BUDESONIDE/FORMETEROL FUMARATE 80/4.5 mcg INHALER IH SCH ×2 (09:33→21:38)
[2020-01-31] MEDS: MINERAL OIL/PETROLAT/WATER TOPICAL CREAM 113 GM JAR TP SCH ×2 (09:33→21:38)
[2020-01-31] MEDS: FAMOTIDINE 20 MG TABLET PO SCH ×2 (09:33→21:37)
[2020-01-31] MEDS: NICOTINE 14 MG/24 HOURS TOPICAL PATCH TD SCH (09:33)
[2020-01-31] MEDS: LISINOPRIL 10 MG TABLET (FP) PO SCH (09:33)
[2020-01-31 10:51] LABS: ALBUMIN 4.2 g/dl (3.4-5.0); BILIRUBIN,TOTAL 1.4 mg/dL (0.2-1); BLOOD UREA NITROGEN 24.5 mg/dL (7-18); CALCIUM 9.8 mg/dL (8.5-10.1); POTASSIUM 4.4 mmol/L (3.5-5.1); TOT PROT 7.7 g/dl (6.4-8.2)
--- NOTE | 2020-01-31 11:29 | PN ---
[facility] Progress Note Note: Pt requesting to increase to previous dose schedule of Suboxone 8mg/2mg sl TID. Pt met with his counselor, Vania Herrera and has made appointment to follow up with Dr. Kiera Hernandez on 02/05/20 after discharging same day from rehab. Pt will not need any courtesy Rx as he will be going to his clinic/ from here. Vital Signs - 24 hr 01/30/20 01/30/20 01/31/20 12:55 20:27 05:50 Temperature 97.7 F Pulse Rate 83 Respiratory 18 Rate Blood Pressure 128/79 O2 Sat by Pulse 96 97 97 Oximetry (%) Alert o x 3 nad oob ambulating with steady gait. Suboxone-MAT Add Suboxone 4mg/1 mg sl @ 1400 x 2 days then Suboxone 8 mg/2 mg sl TID
[2020-01-31] MEDS: BUPRENORPHINE/NALOXONE 4 MG/1 MG FILM PACKET SL SCH (13:10)
[2020-01-31] MEDS: THIAMINE HCL 100 MG TABLET (FP) PO SCH (21:37)
[2020-01-31] MEDS: hydrOXYzine PAMOATE 25 MG CAPSULE (FP) PO PRN (21:37)
[2020-01-31] MEDS: SUVOREXANT 15 MG TABLET PO PRN (21:38)
[2020-01-31] MEDS: MELATONIN 5 MG TABLETS PO SCH (21:38)
[2020-02-01] MEDS: NICOTINE POLACRILEX 2 MG GUM BUC PRN ×7 (05:59→22:16)
[2020-02-01] MEDS: BUPRENORPHINE/NALOXONE 8 MG/2 MG FILM PACKET SL SCH ×2 (05:59→17:09)
[2020-02-01] MEDS: PRENATAL VITAMINS W/ FOLIC ACID TABLET (FP) PO SCH (09:28)
[2020-02-01] MEDS: LISINOPRIL 10 MG TABLET (FP) PO SCH (09:28)
[2020-02-01] MEDS: FAMOTIDINE 20 MG TABLET PO SCH ×2 (09:29→21:20)
[2020-02-01] MEDS: NICOTINE 14 MG/24 HOURS TOPICAL PATCH TD SCH (09:29)
[2020-02-01] MEDS: BUDESONIDE/FORMETEROL FUMARATE 80/4.5 mcg INHALER IH SCH ×2 (09:29→21:19)
[2020-02-01] MEDS: MINERAL OIL/PETROLAT/WATER TOPICAL CREAM 113 GM JAR TP SCH ×2 (09:29→21:20)
[2020-02-01] MEDS: BUPRENORPHINE/NALOXONE 4 MG/1 MG FILM PACKET SL SCH (13:11)
[2020-02-01] MEDS: SUVOREXANT 15 MG TABLET PO PRN (21:19)
[2020-02-01] MEDS: THIAMINE HCL 100 MG TABLET (FP) PO SCH (21:20)
[2020-02-01] MEDS: hydrOXYzine PAMOATE 25 MG CAPSULE (FP) PO PRN (21:20)
[2020-02-01] MEDS: MELATONIN 5 MG TABLETS PO SCH (21:20)
[2020-02-02] MEDS: NICOTINE POLACRILEX 2 MG GUM BUC PRN ×6 (05:59→21:43)
[2020-02-02] MEDS: BUPRENORPHINE/NALOXONE 8 MG/2 MG FILM PACKET SL SCH ×3 (05:59→17:09)
[2020-02-02] MEDS: LISINOPRIL 10 MG TABLET (FP) PO SCH ×2 (10:14→10:15)
[2020-02-02] MEDS: BUDESONIDE/FORMETEROL FUMARATE 80/4.5 mcg INHALER IH SCH ×2 (10:15→21:41)
[2020-02-02] MEDS: PRENATAL VITAMINS W/ FOLIC ACID TABLET (FP) PO SCH (10:15)
[2020-02-02] MEDS: NICOTINE 14 MG/24 HOURS TOPICAL PATCH TD SCH (10:15)
[2020-02-02] MEDS: MINERAL OIL/PETROLAT/WATER TOPICAL CREAM 113 GM JAR TP SCH ×2 (10:15→21:42)
[2020-02-02] MEDS: FAMOTIDINE 20 MG TABLET PO SCH ×2 (10:15→21:43)
--- NOTE | 2020-02-02 16:47 | PN ---
[facility] Progress Note Note: Psychiatry Attending's note : Suvorexant due for renewal. Chart reviewed. Medication verified. No report of adverse effects. Well tolerated. Belsomra 15 mg po hs prn. Resumed at MADELIN Strauss's request.
[2020-02-02] MEDS: COLLOIDAL OATMEAL 1 BAR EACH TP PRN (21:42)
[2020-02-02] MEDS: hydrOXYzine PAMOATE 25 MG CAPSULE (FP) PO PRN (21:42)
[2020-02-02] MEDS: SUVOREXANT 5 MG TABLET PO PRN (21:42)
[2020-02-02] MEDS: THIAMINE HCL 100 MG TABLET (FP) PO SCH (21:42)
[2020-02-02] MEDS: MELATONIN 5 MG TABLETS PO SCH (21:42)
[2020-02-03] MEDS: BUPRENORPHINE/NALOXONE 8 MG/2 MG FILM PACKET SL SCH ×3 (06:17→17:36)
[2020-02-03] MEDS: NICOTINE POLACRILEX 2 MG GUM BUC PRN ×6 (06:18→19:57)
[2020-02-03] MEDS: BUDESONIDE/FORMETEROL FUMARATE 80/4.5 mcg INHALER IH SCH ×2 (10:07→21:06)
[2020-02-03] MEDS: MINERAL OIL/PETROLAT/WATER TOPICAL CREAM 113 GM JAR TP SCH ×2 (10:07→21:06)
[2020-02-03] MEDS: FAMOTIDINE 20 MG TABLET PO SCH ×2 (10:08→21:08)
[2020-02-03] MEDS: LISINOPRIL 10 MG TABLET (FP) PO SCH (10:08)
[2020-02-03] MEDS: NICOTINE 14 MG/24 HOURS TOPICAL PATCH TD SCH (10:08)
[2020-02-03] MEDS: PRENATAL VITAMINS W/ FOLIC ACID TABLET (FP) PO SCH (10:08)
[2020-02-03] MEDS: SUVOREXANT 15 MG TABLET PO PRN (21:06)
[2020-02-03] MEDS: hydrOXYzine PAMOATE 25 MG CAPSULE (FP) PO PRN (21:07)
[2020-02-03] MEDS: SUVOREXANT 5 MG TABLET PO PRN (21:07)
[2020-02-03] MEDS: THIAMINE HCL 100 MG TABLET (FP) PO SCH (21:07)
[2020-02-03] MEDS: MELATONIN 5 MG TABLETS PO SCH (21:07)
[2020-02-04] MEDS: BUPRENORPHINE/NALOXONE 8 MG/2 MG FILM PACKET SL SCH ×3 (06:16→21:09)
[2020-02-04] MEDS: FAMOTIDINE 20 MG TABLET PO SCH ×2 (10:32→21:09)
[2020-02-04] MEDS: NICOTINE 14 MG/24 HOURS TOPICAL PATCH TD SCH (10:32)
[2020-02-04] MEDS: PRENATAL VITAMINS W/ FOLIC ACID TABLET (FP) PO SCH (10:32)
[2020-02-04] MEDS: LISINOPRIL 10 MG TABLET (FP) PO SCH (10:32)
[2020-02-04] MEDS: BUDESONIDE/FORMETEROL FUMARATE 80/4.5 mcg INHALER IH SCH ×2 (10:32→21:08)
[2020-02-04] MEDS: MINERAL OIL/PETROLAT/WATER TOPICAL CREAM 113 GM JAR TP SCH ×2 (10:34→21:43)
--- NOTE | 2020-02-04 11:30 | PN ---
[facility] Progress Note Note: Pt c/o itchy rash on face since over the weekend. Vital Signs - 24 hr 02/03/20 02/03/20 02/04/20 14:32 20:50 06:06 Temperature 97.8 F Pulse Rate 92 H Respiratory 18 Rate Blood Pressure 134/82 O2 Sat by Pulse 96 97 95 Oximetry (%) 02/04/20 09:05 Temperature Pulse Rate 84 Respiratory Rate Blood Pressure 119/73 O2 Sat by Pulse Oximetry (%) Alert o x 3 nad oob ambulating with steady gait skin:macula rash on forehead, no redness or pus. A:Facial rash Hydrocortisone cream 1% apply as directed
[2020-02-04] MEDS: NICOTINE POLACRILEX 2 MG GUM BUC PRN ×5 (12:43→22:44)
[2020-02-04] MEDS ORDERED: HYDROCORTISONE 1% TOPICAL CREAM 30 GM TUBE TP ONE (15:05)
[2020-02-04] MEDS: hydrOXYzine PAMOATE 25 MG CAPSULE (FP) PO PRN (21:08)
[2020-02-04] MEDS: SUVOREXANT 5 MG TABLET PO PRN (21:08)
[2020-02-04] MEDS: HYDROCORTISONE 1% TOPICAL CREAM 30 GM TUBE TP SCH (21:08)
[2020-02-04] MEDS: THIAMINE HCL 100 MG TABLET (FP) PO SCH (21:09)
[2020-02-04] MEDS: MELATONIN 5 MG TABLETS PO SCH (21:09)
[2020-02-05] MEDS: BUPRENORPHINE/NALOXONE 8 MG/2 MG FILM PACKET SL SCH (06:01)
[2020-02-05] MEDS: NICOTINE POLACRILEX 2 MG GUM BUC PRN ×2 (06:03→09:04)
[2020-02-05 07:13] VITALS: BP 155/93; PULSE 119; TEMP 98.7
--- NOTE | 2020-02-05 08:53 | DS ---
[facility] Rehab Discharge Summary - [facility] Rehab Discharge Summary Admission Date: 01/21/20 Discharge Date: 02/05/20 - History Present History: Alcohol dependence, Opioid dependence, Sedative dependence Pertinent Past History: Asthma GERD HTN Hx PTSD Hx TBI Hx Chest Tube placement - Discharge Physical Exam Vital Signs: Vital Signs Temperature 98.7 F 02/05/20 05:56 Pulse Rate 119 H 02/05/20 05:56 Respiratory Rate 18 02/05/20 05:56 Blood Pressure 155/93 02/05/20 05:56 O2 Sat by Pulse Oximetry (%) 96 02/05/20 05:56 Alert o x 3 nad oob ambulating with steady gait cardiac:s1 s2,rrr lungs:ctab abdomen:soft,+bs,nt,nd Extremities:no edema,skin intact, multiple skin discoloration scars from old healed abrasions on both shins. Pertinent Admission Physical Exam Findings: Laboratory Tests 01/31/20 08:00 Sodium 140 Potassium 4.4 Chloride 106 Carbon Dioxide 28 Anion Gap 7 L BUN 24.5 H Creatinine 1.0 Est GFR (CKD-EPI)AfAm 105.62 Est GFR (CKD-EPI)NonAf 91.13 Random Glucose 60 L Calcium 9.8 Total Bilirubin 1.4 H AST 34 ALT 105 H Alkaline Phosphatase 87 Total Protein 7.7 Albumin 4.2 Copies of lab result given to pt to follow up with his PCP Angela Bravo at [facility]. - Treatment Discharge Condition: Discharge condition good Hospital Course: Pt is a 44 y/o male admitted to rehab after detox . pt was re-started on Suboxone and will continue with his prescriber Dr. Kiera Miller at [facility]. CD aftercare referral accepted to [facility] - Medication Discharge Medications: Ambulatory Orders Quetiapine Fumarate [Seroquel -] 50 mg PO HS 08/22/19 Albuterol Sulfate Inhaler - [Ventolin HFA Inhaler -] 2 inh PO Q4H PRN #1 inhaler 09/11/19 Budesonide/Formeterol Fumarate [SYMBICORT 80/4.5mcg -] 1 inh PO DAILY #1 inhaler 09/11/19 Omeprazole 20 mg PO DAILY #30 cap.sr 09/11/19 Lisinopril 10 mg PO DAILY 01/21/20 traZODone HCL [Trazodone HCl] 100 mg PO HS 01/21/20 - Medication-Assisted Treatment (MAT) Medication-Assisted Treatment (MAT): Yes Medication Prescribed: Suboxone MAT Follow-up Referral: Suboxone provider : Dr. Kiera Miller at [facility] - Discharge Instructions Diet, activity, other medical instructions: Diet:MISSAEL Activity: oob ad jeannette Other medical instructions:follow up with Cd aftercare and primary care as recommended - Diagnosis (1) Cocaine dependence Status: Chronic Qualifiers: Substance use status: uncomplicated Qualified Code(s): F14.20 - Cocaine dependence, uncomplicated (2) Opiate dependence Status: Chronic Qualifiers: Substance use status: uncomplicated Qualified Code(s): F11.20 - Opioid dependence, uncomplicated (3) Nicotine dependence Status: Chronic Qualifiers: Nicotine product type: cigarettes Substance use status: uncomplicated Qualified Code(s): F17.210 - Nicotine dependence, cigarettes, uncomplicated (4) Bronchial asthma Status: Chronic Qualifiers: Asthma severity: mild Asthma persistence: unspecified Asthma complication type: uncomplicated Qualified Code(s): J45.909 - Unspecified asthma, uncomplicated (5) Encounter for monitoring Suboxone maintenance therapy Status: Chronic (6) GERD (gastroesophageal reflux disease) Status: Chronic Qualifiers: Esophagitis presence: without esophagitis Qualified Code(s): K21.9 - Gastro-esophageal reflux disease without esophagitis (7) Hypertension Status: Chronic Qualifiers: Hypertension type: essential hypertension Qualified Code(s): I10 - Essential (primary) hypertension - Follow-up Referral Minutes to complete discharge: 25 - AMA Did Patient Leave Against Medical Advice: No Additional Comments: Pt reports he has own meds and will not need courtesy Rx today.
[2020-02-05] MEDS: BUDESONIDE/FORMETEROL FUMARATE 80/4.5 mcg INHALER IH SCH (09:02)
[2020-02-05] MEDS: NICOTINE 14 MG/24 HOURS TOPICAL PATCH TD SCH (09:03)
[2020-02-05] MEDS: HYDROCORTISONE 1% TOPICAL CREAM 30 GM TUBE TP SCH (09:03)
[2020-02-05] MEDS: MINERAL OIL/PETROLAT/WATER TOPICAL CREAM 113 GM JAR TP SCH (09:03)
[2020-02-05] MEDS: FAMOTIDINE 20 MG TABLET PO SCH (09:03)
[2020-02-05] MEDS: PRENATAL VITAMINS W/ FOLIC ACID TABLET (FP) PO SCH (09:03)
[2020-02-05] MEDS: LISINOPRIL 10 MG TABLET (FP) PO SCH (09:04)
== END 2020-02-05 09:00 | disposition home or self-care (01) | DRG 772 ==
LOC: YASAS 11:44 → Y3E 11:45 → Y5N 01-22 14:30
PROVIDERS: ADMIT Allergy & Immunology; ATTEND Allergy & Immunology
PROC: HZ42ZZZ Group Counseling for Substance Abuse Treatment, Cognitive-Behavioral (ICD-10-PCS; principal; 2020-01-21)
DX: F10.20 Alcohol dependence, uncomplicated (principal); F14.20 Cocaine dependence, uncomplicated; F13.20 Sedative, hypnotic or anxiolytic dependence, uncomplicated; F11.20 Opioid dependence, uncomplicated; F17.210 Nicotine dependence, cigarettes, uncomplicated; F43.10 Post-traumatic stress disorder, unspecified; I10 Essential (primary) hypertension; J45.909 Unspecified asthma, uncomplicated; K21.9 Gastro-esophageal reflux disease without esophagitis; R21 Rash and other nonspecific skin eruption; Z87.820 Personal history of traumatic brain injury; Z87.828 Personal history of other (healed) physical injury and trauma; Z51.81 Encounter for therapeutic drug level monitoring; Z79.899 Other long term (current) drug therapy; Z56.0 Unemployment, unspecified; Z91.010 Allergy to peanuts
CPT/HCPCS: 36415; 80053; J0735

== ENCOUNTER 2020-04-22 16:10 | Inpatient (IN) | payer OTHER ==
[2020-04-22] MEDS ORDERED: MAGNESIUM HYDROX 2400MG/30ML ORAL SUSPENSION 30 ML CUP PO PRN (18:03)
[2020-04-22] MEDS ORDERED: BISMUTH SUBSALICYLATE 524 MG/30 ML UD PO PRN (18:03)
[2020-04-22] MEDS ORDERED: ACETAMINOPHEN 325 MG TABLET (FP) PO PRN ×2 (18:03)
[2020-04-22] MEDS ORDERED: MENTHOL/PHENOL 1 EACH UD MM PRN (18:03)
[2020-04-22] MEDS ORDERED: ONDANSETRON *ODT* 4 MG TABLET SL PRN (18:03)
[2020-04-22] MEDS ORDERED: IBUPROFEN 400 MG TABLET (FP) PO PRN (18:03)
[2020-04-22] MEDS ORDERED: cloNIDine HCL 0.1 MG TABLET PO PRN (18:03)
[2020-04-22] MEDS ORDERED: MAGNESIUM CITRATE 300 ML BOTTLE PO PRN (18:03)
[2020-04-22] MEDS ORDERED: MAG HYDROX/AL HYDROX/SIMETH 30 ML UNIT-DOSE CUP PO PRN (18:03)
[2020-04-22 18:53] VITALS: BMI 23.0
[2020-04-22] MEDS ORDERED: METHADONE HCL 10 MG TABLET (FOR DETOX USE ONLY) PO ONE (19:15)
[2020-04-22] MEDS: diazePAM 5 MG TABLET PO PRN (19:33)
[2020-04-22] MEDS: ALBUTEROL SO4 HFA INHALER IH PRN (19:34)
[2020-04-22] MEDS: BUDESONIDE/FORMETEROL FUMARATE 80/4.5 mcg INHALER IH SCH (22:44)
[2020-04-22] MEDS: THIAMINE HCL 100 MG TABLET (FP) PO SCH (22:44)
[2020-04-22] MEDS: MELATONIN 5 MG TABLETS PO SCH (22:44)
[2020-04-22] MEDS: hydrOXYzine PAMOATE 25 MG CAPSULE (FP) PO SCH (22:44)
[2020-04-22] MEDS: diazePAM 5 MG TABLET PO SCH (22:45)
[2020-04-23] MEDS: hydrOXYzine PAMOATE 25 MG CAPSULE (FP) PO SCH ×5 (05:10→22:44)
[2020-04-23] MEDS: diazePAM 5 MG TABLET PO SCH ×4 (05:10→22:44)
[2020-04-23] MEDS ORDERED: METHADONE HCL 5 MG TABLET (FOR DETOX USE ONLY) ONE (09:11)
[2020-04-23] MEDS ORDERED: METHADONE HCL 10 MG TABLET (FOR DETOX USE ONLY) ONE (09:11)
[2020-04-23 10:00] LABS: HEMOGLOBIN 13.7 GM/dL (11.7-16.9); MCH 27.9 pg (25.7-33.7); MCHC 32.6 g/dl (32.0-35.9); MEAN CELL VOLUME 85.6 fl (80-96); MEAN PLT VOLUME 8.2 fl (7.5-11.1); PLATELET COUNT 290 K/MM3 (134-434); RDW 14.8 % (11.9-15.9); WHITE BLOOD COUNT 3.4 K/mm3 (4.0-10.0)
[2020-04-23] MEDS ORDERED: METHADONE (DETOX) 20 MG, METHADONE (DETOX) 5 MG PO ONE (10:00)
[2020-04-23 10:09] LABS: POTASSIUM 4.2 mmol/L (3.5-5.1)
[2020-04-23 10:13] LABS: CALCIUM 9.1 mg/dL (8.5-10.1)
[2020-04-23 10:14] LABS: ALBUMIN 3.1 g/dl (3.4-5.0); BLOOD UREA NITROGEN 22.4 mg/dL (7-18)
[2020-04-23 10:17] LABS: CREATININE 0.9 mg/dL (0.55-1.3)
[2020-04-23 10:19] LABS: BILIRUBIN,TOTAL 1.4 mg/dL (0.2-1); TOT PROT 6.1 g/dl (6.4-8.2)
[2020-04-23] MEDS: PRENATAL VITAMINS W/ FOLIC ACID TABLET (FP) PO SCH (10:34)
[2020-04-23] MEDS: LISINOPRIL 10 MG TABLET PO SCH (10:34)
[2020-04-23] MEDS: PANTOPRAZOLE 20 MG TABLET PO SCH (10:34)
[2020-04-23] MEDS: BUDESONIDE/FORMETEROL FUMARATE 80/4.5 mcg INHALER IH SCH ×2 (10:35→22:44)
[2020-04-23] MEDS: NICOTINE 14 MG/24 HOURS TOPICAL PATCH TD SCH (10:36)
[2020-04-23] MEDS: NICOTINE POLACRILEX 2 MG GUM BUC PRN (10:37)
[2020-04-23] MEDS: MELATONIN 5 MG TABLETS PO SCH (22:44)
[2020-04-23] MEDS: THIAMINE HCL 100 MG TABLET (FP) PO SCH (22:44)
[2020-04-23] MEDS: ALBUTEROL SO4 HFA INHALER IH PRN (22:44)
[2020-04-24] MEDS: hydrOXYzine PAMOATE 25 MG CAPSULE (FP) PO SCH ×5 (05:44→22:25)
[2020-04-24] MEDS: diazePAM 5 MG TABLET PO SCH ×3 (05:44→22:25)
[2020-04-24] MEDS ORDERED: METHADONE HCL 10 MG TABLET (FOR DETOX USE ONLY) PO ONE (10:00)
[2020-04-24] MEDS: BUDESONIDE/FORMETEROL FUMARATE 80/4.5 mcg INHALER IH SCH ×2 (10:19→22:27)
[2020-04-24] MEDS: LISINOPRIL 10 MG TABLET PO SCH (10:19)
[2020-04-24] MEDS: PANTOPRAZOLE 20 MG TABLET PO SCH (10:19)
[2020-04-24] MEDS: METHOCARBAMOL 500 MG TABLET PO PRN (10:19)
[2020-04-24] MEDS: NICOTINE POLACRILEX 2 MG GUM BUC PRN ×3 (10:20→22:27)
[2020-04-24] MEDS: NICOTINE 14 MG/24 HOURS TOPICAL PATCH TD SCH (10:20)
[2020-04-24] MEDS: PRENATAL VITAMINS W/ FOLIC ACID TABLET (FP) PO SCH (10:20)
[2020-04-24] MEDS: ALBUTEROL SO4 HFA INHALER IH PRN ×2 (10:21→22:27)
[2020-04-24] MEDS ORDERED: FLU VACCINE (FLULAVAL) PF 60 MCG/0.5 ML SYRINGE 2020-2021 IM ONE (12:00)
[2020-04-24] MEDS: diazePAM 5 MG TABLET PO PRN (17:48)
[2020-04-24] MEDS: SUVOREXANT 15 MG TABLET PO PRN (22:25)
[2020-04-24] MEDS: MELATONIN 5 MG TABLETS PO SCH (22:25)
[2020-04-24] MEDS: THIAMINE HCL 100 MG TABLET (FP) PO SCH (22:25)
[2020-04-25] MEDS: diazePAM 5 MG TABLET PO SCH ×2 (05:17→18:06)
[2020-04-25] MEDS: hydrOXYzine PAMOATE 25 MG CAPSULE (FP) PO SCH ×5 (05:17→22:47)
[2020-04-25] MEDS: NICOTINE POLACRILEX 2 MG GUM BUC PRN ×5 (06:17→22:51)
[2020-04-25] MEDS ORDERED: COLLOIDAL OATMEAL 1 BAR EACH TP PRN (09:07)
[2020-04-25] MEDS ORDERED: METHADONE HCL 10 MG TABLET (FOR DETOX USE ONLY) ONE (09:12)
[2020-04-25] MEDS ORDERED: METHADONE HCL 5 MG TABLET (FOR DETOX USE ONLY) ONE (09:12)
[2020-04-25] MEDS ORDERED: METHADONE (DETOX) 10 MG, METHADONE (DETOX) 5 MG PO ONE (10:00)
[2020-04-25] MEDS ORDERED: HYDROCORTISONE 0.5% TOPICAL CREAM 30 GM TUBE TP SCH (10:00)
[2020-04-25] MEDS: PANTOPRAZOLE 20 MG TABLET PO SCH (10:51)
[2020-04-25] MEDS: LISINOPRIL 10 MG TABLET PO SCH (10:51)
[2020-04-25] MEDS: PRENATAL VITAMINS W/ FOLIC ACID TABLET (FP) PO SCH (10:52)
[2020-04-25] MEDS: BUDESONIDE/FORMETEROL FUMARATE 80/4.5 mcg INHALER IH SCH ×2 (10:52→22:47)
[2020-04-25] MEDS: NICOTINE 14 MG/24 HOURS TOPICAL PATCH TD SCH (10:53)
[2020-04-25] MEDS: diazePAM 5 MG TABLET PO PRN (10:54)
[2020-04-25] MEDS: ALBUTEROL SO4 HFA INHALER IH PRN ×2 (10:55→20:42)
[2020-04-25] MEDS: MINERAL OIL/PETROLAT/WATER TOPICAL CREAM 454 GM JAR TP SCH ×2 (14:55→23:06)
[2020-04-25] MEDS: MELATONIN 5 MG TABLETS PO SCH (22:47)
[2020-04-25] MEDS: THIAMINE HCL 100 MG TABLET (FP) PO SCH (22:48)
[2020-04-25] MEDS: SUVOREXANT 15 MG TABLET PO PRN (22:49)
[2020-04-26] MEDS: hydrOXYzine PAMOATE 25 MG CAPSULE (FP) PO SCH ×5 (05:14→22:09)
[2020-04-26] MEDS: ALBUTEROL SO4 HFA INHALER IH PRN ×3 (05:15→22:38)
[2020-04-26] MEDS: NICOTINE POLACRILEX 2 MG GUM BUC PRN ×4 (05:15→17:57)
[2020-04-26] MEDS ORDERED: diazePAM 5 MG TABLET PO ONE (06:00)
[2020-04-26] MEDS ORDERED: METHADONE HCL 10 MG TABLET (FOR DETOX USE ONLY) PO ONE (10:00)
[2020-04-26] MEDS: PRENATAL VITAMINS W/ FOLIC ACID TABLET (FP) PO SCH (10:20)
[2020-04-26] MEDS: PANTOPRAZOLE 20 MG TABLET PO SCH (10:20)
[2020-04-26] MEDS: LISINOPRIL 10 MG TABLET PO SCH (10:20)
[2020-04-26] MEDS: BUDESONIDE/FORMETEROL FUMARATE 80/4.5 mcg INHALER IH SCH ×2 (10:21→22:38)
[2020-04-26] MEDS: NICOTINE 14 MG/24 HOURS TOPICAL PATCH TD SCH (10:22)
[2020-04-26] MEDS: MINERAL OIL/PETROLAT/WATER TOPICAL CREAM 454 GM JAR TP SCH ×2 (10:23→22:09)
[2020-04-26] MEDS: MELATONIN 5 MG TABLETS PO SCH (22:09)
[2020-04-26] MEDS: THIAMINE HCL 100 MG TABLET (FP) PO SCH (22:09)
[2020-04-26] MEDS: SUVOREXANT 15 MG TABLET PO PRN (22:35)
[2020-04-27] MEDS: hydrOXYzine PAMOATE 25 MG CAPSULE (FP) PO SCH ×2 (05:06→10:19)
[2020-04-27] MEDS ORDERED: METHADONE HCL 5 MG TABLET (FOR DETOX USE ONLY) PO ONE (06:00)
[2020-04-27 06:04] VITALS: TEMP 97.1
[2020-04-27 09:24] VITALS: BP 129/88; PULSE 83
[2020-04-27] MEDS: PANTOPRAZOLE 20 MG TABLET PO SCH (10:19)
[2020-04-27] MEDS: ALBUTEROL SO4 HFA INHALER IH PRN (10:19)
[2020-04-27] MEDS: BUDESONIDE/FORMETEROL FUMARATE 80/4.5 mcg INHALER IH SCH (10:19)
[2020-04-27] MEDS: LISINOPRIL 10 MG TABLET PO SCH (10:19)
[2020-04-27] MEDS: PRENATAL VITAMINS W/ FOLIC ACID TABLET (FP) PO SCH (10:19)
[2020-04-27] MEDS: METHOCARBAMOL 500 MG TABLET PO PRN (10:21)
[2020-04-27] MEDS: MINERAL OIL/PETROLAT/WATER TOPICAL CREAM 454 GM JAR TP SCH (10:21)
[2020-04-27] MEDS: NICOTINE 14 MG/24 HOURS TOPICAL PATCH TD SCH (10:22)
[2020-04-27] MEDS: NICOTINE POLACRILEX 2 MG GUM BUC PRN (10:22)
== END 2020-04-27 11:18 | disposition other institution (70) | DRG 773 ==
LOC: YASAS 16:10 → Y3N 18:39
PROVIDERS: ADMIT Allergy & Immunology; ATTEND Allergy & Immunology
PROC: HZ2ZZZZ Detoxification Services for Substance Abuse Treatment (ICD-10-PCS; principal; 2020-04-22)
DX: F10.230 Alcohol dependence with withdrawal, uncomplicated (principal); F11.23 Opioid dependence with withdrawal; F13.230 Sedative, hypnotic or anxiolytic dependence with withdrawal, uncomplicated; F14.20 Cocaine dependence, uncomplicated; F12.20 Cannabis dependence, uncomplicated; F17.210 Nicotine dependence, cigarettes, uncomplicated; F19.24 Other psychoactive substance dependence with psychoactive substance-induced mood disorder; F19.282 Other psychoactive substance dependence with psychoactive substance-induced sleep disorder; F43.10 Post-traumatic stress disorder, unspecified; F32.9 Major depressive disorder, single episode, unspecified; I10 Essential (primary) hypertension; J45.909 Unspecified asthma, uncomplicated; K21.9 Gastro-esophageal reflux disease without esophagitis; Z87.820 Personal history of traumatic brain injury; Z87.828 Personal history of other (healed) physical injury and trauma; Z91.010 Allergy to peanuts; Z56.0 Unemployment, unspecified; Z59.0 Homelessness
CPT/HCPCS: 36415; 80053; 85027; 86780; 93005; 93010; C9803; U0003

== ENCOUNTER 2020-04-27 11:26 | Inpatient (IN) | payer OTHER ==
[2020-04-27] MEDS ORDERED: FLU VACCINE (FLULAVAL) PF 60 MCG/0.5 ML SYRINGE 2020-2021 IM ONE (11:35)
[2020-04-27] MEDS ORDERED: IBUPROFEN 400 MG TABLET (FP) PO PRN (11:44)
[2020-04-27] MEDS ORDERED: MAGNESIUM HYDROX 2400MG/30ML ORAL SUSPENSION 30 ML CUP PO PRN (11:44)
[2020-04-27] MEDS ORDERED: guaiFENesin 200 MG/10 ML 10 ML UNIT-DOSE CUPS PO PRN (11:44)
[2020-04-27] MEDS ORDERED: P-EPHED 60MG/TRIPROLIDI 2.5MG TABLET PO PRN (11:44)
[2020-04-27] MEDS ORDERED: LOPERAMIDE HCL 2 MG CAPSULE PO PRN (11:44)
[2020-04-27] MEDS ORDERED: MAGNESIUM CITRATE 300 ML BOTTLE PO PRN (11:44)
[2020-04-27] MEDS ORDERED: ACETAMINOPHEN 325 MG TABLET (FP) PO PRN (11:44)
[2020-04-27] MEDS ORDERED: MAG HYDROX/AL HYDROX/SIMETH 30 ML UNIT-DOSE CUP PO PRN (11:44)
[2020-04-27] MEDS: NICOTINE POLACRILEX 2 MG GUM BC PRN ×2 (17:02→22:07)
[2020-04-27] MEDS: THIAMINE HCL 100 MG TABLET (FP) PO SCH (21:46)
[2020-04-27] MEDS: MELATONIN 5 MG TABLETS PO SCH (21:47)
[2020-04-27] MEDS: MINERAL OIL/PETROLAT/WATER TOPICAL CREAM 113 GM JAR TP SCH (21:48)
[2020-04-27] MEDS: BUDESONIDE/FORMETEROL FUMARATE 80/4.5 mcg INHALER IH SCH (21:48)
[2020-04-27] MEDS ORDERED: SUVOREXANT 15 MG TABLET PO ONE (22:00)
[2020-04-28] MEDS: ALBUTEROL SO4 HFA INHALER IH PRN (06:21)
[2020-04-28] MEDS: NICOTINE POLACRILEX 2 MG GUM BC PRN ×6 (06:22→19:48)
[2020-04-28] MEDS ORDERED: PT OWN MED DRAWER 7, Y5N ONE (09:08)
[2020-04-28] MEDS: LISINOPRIL 10 MG TABLET PO SCH (10:02)
[2020-04-28] MEDS: PRENATAL VITAMINS W/ FOLIC ACID TABLET (FP) PO SCH (10:02)
[2020-04-28] MEDS: BUDESONIDE/FORMETEROL FUMARATE 80/4.5 mcg INHALER IH SCH ×2 (10:03→21:58)
[2020-04-28] MEDS: FAMOTIDINE 20 MG TABLET PO SCH ×2 (10:03→21:10)
[2020-04-28] MEDS: MINERAL OIL/PETROLAT/WATER TOPICAL CREAM 113 GM JAR TP SCH ×2 (10:03→21:10)
[2020-04-28] MEDS: NICOTINE 14 MG/24 HOURS TOPICAL PATCH TD SCH (10:03)
[2020-04-28] MEDS: PETROLATUM, WHITE 30 GM TUBE TP SCH (10:04)
[2020-04-28] MEDS: SUVOREXANT 10 MG TABLET PO PRN (21:09)
[2020-04-28] MEDS: MELATONIN 5 MG TABLETS PO SCH (21:10)
[2020-04-28] MEDS: THIAMINE HCL 100 MG TABLET (FP) PO SCH (21:10)
[2020-04-28] MEDS ORDERED: SUVOREXANT 10 MG TABLET PO PRN (22:00)
[2020-04-29] MEDS: NICOTINE POLACRILEX 2 MG GUM BC PRN ×7 (06:03→21:30)
[2020-04-29] MEDS: ALBUTEROL SO4 HFA INHALER IH PRN ×2 (06:03→10:07)
[2020-04-29] MEDS ORDERED: PT OWN MED DRAWER 7, Y5N ONE (08:46)
[2020-04-29] MEDS: LISINOPRIL 10 MG TABLET PO SCH (10:02)
[2020-04-29] MEDS: BUPRENORPHINE/NALOXONE 8 MG/2 MG FILM PACKET SL SCH (10:02)
[2020-04-29] MEDS: FAMOTIDINE 20 MG TABLET PO SCH ×2 (10:02→21:28)
[2020-04-29] MEDS: NICOTINE 14 MG/24 HOURS TOPICAL PATCH TD SCH (10:02)
[2020-04-29] MEDS: BUDESONIDE/FORMETEROL FUMARATE 80/4.5 mcg INHALER IH SCH ×2 (10:02→21:28)
[2020-04-29] MEDS: PRENATAL VITAMINS W/ FOLIC ACID TABLET (FP) PO SCH (10:02)
[2020-04-29] MEDS: MINERAL OIL/PETROLAT/WATER TOPICAL CREAM 113 GM JAR TP SCH ×2 (10:02→21:29)
[2020-04-29] MEDS: PETROLATUM, WHITE 30 GM TUBE TP SCH (10:03)
[2020-04-29] MEDS: THIAMINE HCL 100 MG TABLET (FP) PO SCH (21:27)
[2020-04-29] MEDS: MELATONIN 5 MG TABLETS PO SCH (21:27)
[2020-04-29] MEDS: SUVOREXANT 10 MG TABLET PO PRN (21:28)
[2020-04-30] MEDS: ALBUTEROL SO4 HFA INHALER IH PRN (03:59)
[2020-04-30] MEDS: LISINOPRIL 10 MG TABLET PO SCH (09:43)
[2020-04-30] MEDS: BUPRENORPHINE/NALOXONE 8 MG/2 MG FILM PACKET SL SCH (09:43)
[2020-04-30] MEDS: PRENATAL VITAMINS W/ FOLIC ACID TABLET (FP) PO SCH (09:43)
[2020-04-30] MEDS: NICOTINE POLACRILEX 2 MG GUM BC PRN ×6 (09:44→21:35)
[2020-04-30] MEDS: MINERAL OIL/PETROLAT/WATER TOPICAL CREAM 113 GM JAR TP SCH ×2 (09:44→21:34)
[2020-04-30] MEDS: BUDESONIDE/FORMETEROL FUMARATE 80/4.5 mcg INHALER IH SCH ×2 (09:44→21:34)
[2020-04-30] MEDS: FAMOTIDINE 20 MG TABLET PO SCH ×2 (09:47→21:31)
[2020-04-30] MEDS: PETROLATUM, WHITE 30 GM TUBE TP SCH (09:48)
[2020-04-30] MEDS: NICOTINE 14 MG/24 HOURS TOPICAL PATCH TD SCH (12:25)
[2020-04-30] MEDS: MELATONIN 5 MG TABLETS PO SCH (21:31)
[2020-04-30] MEDS: THIAMINE HCL 100 MG TABLET (FP) PO SCH (21:31)
[2020-04-30] MEDS: SUVOREXANT 10 MG TABLET PO PRN (21:32)
[2020-05-01] MEDS: NICOTINE POLACRILEX 2 MG GUM BC PRN ×6 (06:10→21:06)
[2020-05-01] MEDS: FAMOTIDINE 20 MG TABLET PO SCH ×2 (09:35→21:06)
[2020-05-01] MEDS: PRENATAL VITAMINS W/ FOLIC ACID TABLET (FP) PO SCH (09:35)
[2020-05-01] MEDS: BUDESONIDE/FORMETEROL FUMARATE 80/4.5 mcg INHALER IH SCH ×2 (09:35→21:06)
[2020-05-01] MEDS: NICOTINE 14 MG/24 HOURS TOPICAL PATCH TD SCH (09:35)
[2020-05-01] MEDS: LISINOPRIL 10 MG TABLET PO SCH (09:35)
[2020-05-01] MEDS: BUPRENORPHINE/NALOXONE 8 MG/2 MG FILM PACKET SL SCH (09:35)
[2020-05-01] MEDS: MINERAL OIL/PETROLAT/WATER TOPICAL CREAM 113 GM JAR TP SCH ×2 (09:36→21:07)
[2020-05-01] MEDS: PETROLATUM, WHITE 30 GM TUBE TP SCH (09:36)
[2020-05-01] MEDS: MELATONIN 5 MG TABLETS PO SCH (21:05)
[2020-05-01] MEDS: THIAMINE HCL 100 MG TABLET (FP) PO SCH (21:05)
[2020-05-01] MEDS ORDERED: PT OWN MED DRAWER 7, Y5N ONE (21:06)
[2020-05-01] MEDS: SUVOREXANT 10 MG TABLET PO PRN (21:06)
[2020-05-02] MEDS: NICOTINE POLACRILEX 2 MG GUM BC PRN ×6 (06:08→22:07)
[2020-05-02] MEDS: MINERAL OIL/PETROLAT/WATER TOPICAL CREAM 113 GM JAR TP SCH ×2 (09:40→22:07)
[2020-05-02] MEDS: BUDESONIDE/FORMETEROL FUMARATE 80/4.5 mcg INHALER IH SCH ×2 (09:40→22:05)
[2020-05-02] MEDS: PRENATAL VITAMINS W/ FOLIC ACID TABLET (FP) PO SCH (09:40)
[2020-05-02] MEDS: LISINOPRIL 10 MG TABLET PO SCH (09:40)
[2020-05-02] MEDS: NICOTINE 14 MG/24 HOURS TOPICAL PATCH TD SCH (09:41)
[2020-05-02] MEDS: FAMOTIDINE 20 MG TABLET PO SCH ×2 (09:41→22:07)
[2020-05-02] MEDS: BUPRENORPHINE/NALOXONE 8 MG/2 MG FILM PACKET SL SCH (09:41)
[2020-05-02] MEDS: PETROLATUM, WHITE 30 GM TUBE TP SCH (09:42)
[2020-05-02] MEDS: MELATONIN 5 MG TABLETS PO SCH (22:03)
[2020-05-02] MEDS: THIAMINE HCL 100 MG TABLET (FP) PO SCH (22:03)
[2020-05-03] MEDS: NICOTINE POLACRILEX 2 MG GUM BC PRN ×5 (05:54→17:50)
[2020-05-03] MEDS: LISINOPRIL 10 MG TABLET PO SCH (09:44)
[2020-05-03] MEDS: BUPRENORPHINE/NALOXONE 8 MG/2 MG FILM PACKET SL SCH (09:44)
[2020-05-03] MEDS: BUDESONIDE/FORMETEROL FUMARATE 80/4.5 mcg INHALER IH SCH ×2 (09:44→22:27)
[2020-05-03] MEDS: PRENATAL VITAMINS W/ FOLIC ACID TABLET (FP) PO SCH (09:44)
[2020-05-03] MEDS: FAMOTIDINE 20 MG TABLET PO SCH ×2 (09:44→21:06)
[2020-05-03] MEDS: PETROLATUM, WHITE 30 GM TUBE TP SCH (09:45)
[2020-05-03] MEDS: NICOTINE 14 MG/24 HOURS TOPICAL PATCH TD SCH (09:45)
[2020-05-03] MEDS: MINERAL OIL/PETROLAT/WATER TOPICAL CREAM 113 GM JAR TP SCH ×2 (09:45→21:06)
[2020-05-03] MEDS: COLLOIDAL OATMEAL 1 BAR EACH TP PRN (12:37)
[2020-05-03] MEDS: SUVOREXANT 10 MG TABLET PO PRN (21:03)
[2020-05-03] MEDS: THIAMINE HCL 100 MG TABLET (FP) PO SCH (21:04)
[2020-05-03] MEDS: MELATONIN 5 MG TABLETS PO SCH (21:05)
[2020-05-04] MEDS: NICOTINE POLACRILEX 2 MG GUM BC PRN ×6 (05:55→22:08)
[2020-05-04] MEDS: FAMOTIDINE 20 MG TABLET PO SCH ×2 (09:34→22:07)
[2020-05-04] MEDS: LISINOPRIL 10 MG TABLET PO SCH (09:34)
[2020-05-04] MEDS: BUDESONIDE/FORMETEROL FUMARATE 80/4.5 mcg INHALER IH SCH ×2 (09:34→22:07)
[2020-05-04] MEDS: BUPRENORPHINE/NALOXONE 8 MG/2 MG FILM PACKET SL SCH (09:34)
[2020-05-04] MEDS: PRENATAL VITAMINS W/ FOLIC ACID TABLET (FP) PO SCH (09:34)
[2020-05-04] MEDS: NICOTINE 14 MG/24 HOURS TOPICAL PATCH TD SCH (09:35)
[2020-05-04] MEDS: MINERAL OIL/PETROLAT/WATER TOPICAL CREAM 113 GM JAR TP SCH ×2 (09:35→22:07)
[2020-05-04] MEDS: PETROLATUM, WHITE 30 GM TUBE TP SCH (09:35)
[2020-05-04] MEDS: SUVOREXANT 10 MG TABLET PO PRN (22:06)
[2020-05-04] MEDS: MELATONIN 5 MG TABLETS PO SCH (22:07)
[2020-05-04] MEDS: THIAMINE HCL 100 MG TABLET (FP) PO SCH (22:07)
[2020-05-05] MEDS: NICOTINE POLACRILEX 2 MG GUM BC PRN ×5 (05:53→17:34)
[2020-05-05] MEDS: LISINOPRIL 10 MG TABLET PO SCH (09:47)
[2020-05-05] MEDS: NICOTINE 14 MG/24 HOURS TOPICAL PATCH TD SCH (09:47)
[2020-05-05] MEDS: PRENATAL VITAMINS W/ FOLIC ACID TABLET (FP) PO SCH (09:47)
[2020-05-05] MEDS: FAMOTIDINE 20 MG TABLET PO SCH ×2 (09:47→21:12)
[2020-05-05] MEDS: BUPRENORPHINE/NALOXONE 8 MG/2 MG FILM PACKET SL SCH (09:47)
[2020-05-05] MEDS: MINERAL OIL/PETROLAT/WATER TOPICAL CREAM 113 GM JAR TP SCH ×2 (09:48→21:12)
[2020-05-05] MEDS: PETROLATUM, WHITE 30 GM TUBE TP SCH (09:48)
[2020-05-05] MEDS: BUDESONIDE/FORMETEROL FUMARATE 80/4.5 mcg INHALER IH SCH ×2 (09:48→21:12)
[2020-05-05] MEDS: SUVOREXANT 10 MG TABLET PO PRN (21:09)
[2020-05-05] MEDS: MELATONIN 5 MG TABLETS PO SCH (21:10)
[2020-05-05] MEDS: THIAMINE HCL 100 MG TABLET (FP) PO SCH (21:11)
[2020-05-05] MEDS ORDERED: PT OWN MED DRAWER 7, Y5N ONE ×2 (21:12→22:07)
[2020-05-06] MEDS: NICOTINE POLACRILEX 2 MG GUM BC PRN ×7 (06:08→21:48)
[2020-05-06] MEDS: FAMOTIDINE 20 MG TABLET PO SCH ×2 (09:43→21:43)
[2020-05-06] MEDS: BUPRENORPHINE/NALOXONE 8 MG/2 MG FILM PACKET SL SCH (09:43)
[2020-05-06] MEDS: NICOTINE 14 MG/24 HOURS TOPICAL PATCH TD SCH (09:43)
[2020-05-06] MEDS: PRENATAL VITAMINS W/ FOLIC ACID TABLET (FP) PO SCH (09:43)
[2020-05-06] MEDS: LISINOPRIL 10 MG TABLET PO SCH (09:43)
[2020-05-06] MEDS: MINERAL OIL/PETROLAT/WATER TOPICAL CREAM 113 GM JAR TP SCH ×2 (09:43→21:44)
[2020-05-06] MEDS: PETROLATUM, WHITE 30 GM TUBE TP SCH (09:44)
[2020-05-06] MEDS: BUDESONIDE/FORMETEROL FUMARATE 80/4.5 mcg INHALER IH SCH ×2 (09:44→21:44)
[2020-05-06] MEDS: BUPRENORPHINE/NALOXONE 4 MG/1 MG FILM PACKET SL SCH (17:04)
[2020-05-06] MEDS: MELATONIN 5 MG TABLETS PO SCH (21:43)
[2020-05-06] MEDS: THIAMINE HCL 100 MG TABLET (FP) PO SCH (21:43)
[2020-05-06] MEDS: SUVOREXANT 10 MG TABLET PO PRN (21:44)
[2020-05-07] MEDS: NICOTINE POLACRILEX 2 MG GUM BC PRN ×5 (05:58→21:08)
[2020-05-07] MEDS: BUPRENORPHINE/NALOXONE 8 MG/2 MG FILM PACKET SL SCH (10:03)
[2020-05-07] MEDS: LISINOPRIL 10 MG TABLET PO SCH (10:03)
[2020-05-07] MEDS: PRENATAL VITAMINS W/ FOLIC ACID TABLET (FP) PO SCH (10:04)
[2020-05-07] MEDS: MINERAL OIL/PETROLAT/WATER TOPICAL CREAM 113 GM JAR TP SCH ×2 (10:04→21:09)
[2020-05-07] MEDS: NICOTINE 14 MG/24 HOURS TOPICAL PATCH TD SCH (10:04)
[2020-05-07] MEDS: FAMOTIDINE 20 MG TABLET PO SCH ×2 (10:04→21:07)
[2020-05-07] MEDS: BUDESONIDE/FORMETEROL FUMARATE 80/4.5 mcg INHALER IH SCH ×2 (10:05→21:08)
[2020-05-07] MEDS: PETROLATUM, WHITE 30 GM TUBE TP SCH (10:06)
[2020-05-07] MEDS: BUPRENORPHINE/NALOXONE 4 MG/1 MG FILM PACKET SL SCH (17:53)
[2020-05-07] MEDS: THIAMINE HCL 100 MG TABLET (FP) PO SCH (21:06)
[2020-05-07] MEDS: MELATONIN 5 MG TABLETS PO SCH (21:07)
[2020-05-07] MEDS: SUVOREXANT 20 MG TABLET PO PRN (21:08)
[2020-05-08] MEDS: NICOTINE POLACRILEX 2 MG GUM BC PRN ×7 (06:00→21:49)
[2020-05-08] MEDS ORDERED: PT OWN MED DRAWER 7, Y5N ONE (08:35)
[2020-05-08] MEDS: PRENATAL VITAMINS W/ FOLIC ACID TABLET (FP) PO SCH (09:42)
[2020-05-08] MEDS: FAMOTIDINE 20 MG TABLET PO SCH ×2 (09:43→21:49)
[2020-05-08] MEDS: LISINOPRIL 10 MG TABLET PO SCH (09:43)
[2020-05-08] MEDS: BUPRENORPHINE/NALOXONE 8 MG/2 MG FILM PACKET SL SCH ×2 (09:43→17:48)
[2020-05-08] MEDS: MINERAL OIL/PETROLAT/WATER TOPICAL CREAM 113 GM JAR TP SCH ×2 (09:43→21:51)
[2020-05-08] MEDS: NICOTINE 14 MG/24 HOURS TOPICAL PATCH TD SCH (09:43)
[2020-05-08] MEDS: PETROLATUM, WHITE 30 GM TUBE TP SCH (09:43)
[2020-05-08] MEDS: BUDESONIDE/FORMETEROL FUMARATE 80/4.5 mcg INHALER IH SCH ×2 (09:44→21:51)
[2020-05-08] MEDS: THIAMINE HCL 100 MG TABLET (FP) PO SCH (21:49)
[2020-05-08] MEDS: MELATONIN 5 MG TABLETS PO SCH (21:49)
[2020-05-08] MEDS: SUVOREXANT 20 MG TABLET PO PRN (21:49)
[2020-05-09] MEDS: NICOTINE POLACRILEX 2 MG GUM BC PRN ×5 (06:33→17:09)
[2020-05-09] MEDS: BUPRENORPHINE/NALOXONE 8 MG/2 MG FILM PACKET SL SCH ×2 (09:43→17:58)
[2020-05-09] MEDS: LISINOPRIL 10 MG TABLET PO SCH (09:43)
[2020-05-09] MEDS: FAMOTIDINE 20 MG TABLET PO SCH ×2 (09:44→21:03)
[2020-05-09] MEDS: PRENATAL VITAMINS W/ FOLIC ACID TABLET (FP) PO SCH (09:44)
[2020-05-09] MEDS: NICOTINE 14 MG/24 HOURS TOPICAL PATCH TD SCH (09:44)
[2020-05-09] MEDS: MINERAL OIL/PETROLAT/WATER TOPICAL CREAM 113 GM JAR TP SCH ×2 (09:45→21:03)
[2020-05-09] MEDS: PETROLATUM, WHITE 30 GM TUBE TP SCH (09:45)
[2020-05-09] MEDS: BUDESONIDE/FORMETEROL FUMARATE 80/4.5 mcg INHALER IH SCH ×2 (09:45→21:03)
[2020-05-09] MEDS: SUVOREXANT 20 MG TABLET PO PRN (21:01)
[2020-05-09] MEDS: THIAMINE HCL 100 MG TABLET (FP) PO SCH (21:02)
[2020-05-09] MEDS: MELATONIN 5 MG TABLETS PO SCH (21:02)
[2020-05-10] MEDS: NICOTINE POLACRILEX 2 MG GUM BC PRN ×6 (06:04→21:56)
[2020-05-10] MEDS: BUPRENORPHINE/NALOXONE 8 MG/2 MG FILM PACKET SL SCH ×3 (06:04→21:48)
[2020-05-10] MEDS: COLLOIDAL OATMEAL 1 BAR EACH TP PRN (06:37)
[2020-05-10] MEDS: BUDESONIDE/FORMETEROL FUMARATE 80/4.5 mcg INHALER IH SCH ×2 (09:33→21:50)
[2020-05-10] MEDS: NICOTINE 14 MG/24 HOURS TOPICAL PATCH TD SCH (09:33)
[2020-05-10] MEDS: LISINOPRIL 10 MG TABLET PO SCH (09:34)
[2020-05-10] MEDS: PRENATAL VITAMINS W/ FOLIC ACID TABLET (FP) PO SCH (09:34)
[2020-05-10] MEDS: MINERAL OIL/PETROLAT/WATER TOPICAL CREAM 113 GM JAR TP SCH ×2 (09:34→21:49)
[2020-05-10] MEDS: PETROLATUM, WHITE 30 GM TUBE TP SCH (09:34)
[2020-05-10] MEDS: FAMOTIDINE 20 MG TABLET PO SCH ×2 (09:34→21:48)
[2020-05-10] MEDS ORDERED: PT OWN MED DRAWER 7, Y5N ONE (11:09)
[2020-05-10] MEDS: MELATONIN 5 MG TABLETS PO SCH (21:48)
[2020-05-10] MEDS: SUVOREXANT 20 MG TABLET PO PRN (21:48)
[2020-05-10] MEDS: THIAMINE HCL 100 MG TABLET (FP) PO SCH (21:48)
[2020-05-10] MEDS ORDERED: SUVOREXANT 10 MG TABLET PO PRN (22:00)
[2020-05-11] MEDS: BUPRENORPHINE/NALOXONE 8 MG/2 MG FILM PACKET SL SCH ×3 (06:07→21:09)
[2020-05-11] MEDS: NICOTINE POLACRILEX 2 MG GUM BC PRN ×7 (06:08→21:41)
[2020-05-11] MEDS: NICOTINE 14 MG/24 HOURS TOPICAL PATCH TD SCH (09:36)
[2020-05-11] MEDS: FAMOTIDINE 20 MG TABLET PO SCH ×2 (09:37→21:08)
[2020-05-11] MEDS: BUDESONIDE/FORMETEROL FUMARATE 80/4.5 mcg INHALER IH SCH ×2 (09:38→21:08)
[2020-05-11] MEDS: MINERAL OIL/PETROLAT/WATER TOPICAL CREAM 113 GM JAR TP SCH ×2 (09:38→21:10)
[2020-05-11] MEDS: LISINOPRIL 10 MG TABLET PO SCH (09:38)
[2020-05-11] MEDS: PETROLATUM, WHITE 30 GM TUBE TP SCH (09:38)
[2020-05-11] MEDS: PRENATAL VITAMINS W/ FOLIC ACID TABLET (FP) PO SCH (09:38)
[2020-05-11] MEDS: ALBUTEROL SO4 HFA INHALER IH PRN (12:42)
[2020-05-11] MEDS: TETRAHYDROZOLINE HCL EYE DROPS OD PRN (17:32)
[2020-05-11] MEDS: MELATONIN 5 MG TABLETS PO SCH (21:07)
[2020-05-11] MEDS: THIAMINE HCL 100 MG TABLET (FP) PO SCH (21:08)
[2020-05-12] MEDS: BUPRENORPHINE/NALOXONE 8 MG/2 MG FILM PACKET SL SCH (05:53)
[2020-05-12] MEDS: TETRAHYDROZOLINE HCL EYE DROPS OD PRN (05:55)
[2020-05-12 06:34] VITALS: BP 127/76; PULSE 87; TEMP 97.1
[2020-05-12] MEDS: NICOTINE POLACRILEX 2 MG GUM BC PRN ×2 (06:37→09:16)
[2020-05-12] MEDS: FAMOTIDINE 20 MG TABLET PO SCH (09:12)
[2020-05-12] MEDS: PRENATAL VITAMINS W/ FOLIC ACID TABLET (FP) PO SCH (09:12)
[2020-05-12] MEDS: NICOTINE 14 MG/24 HOURS TOPICAL PATCH TD SCH (09:12)
[2020-05-12] MEDS: LISINOPRIL 10 MG TABLET PO SCH (09:14)
[2020-05-12] MEDS ORDERED: PT OWN MED DRAWER 7, Y5N ONE (09:14)
[2020-05-12] MEDS: BUDESONIDE/FORMETEROL FUMARATE 80/4.5 mcg INHALER IH SCH (09:14)
[2020-05-12] MEDS: PETROLATUM, WHITE 30 GM TUBE TP SCH (09:15)
[2020-05-12] MEDS ORDERED: BUPRENORPHINE/NALOXONE 8 MG/2 MG FILM PACKET SL ONE (10:00)
== END 2020-05-12 09:35 | disposition home or self-care (01) | DRG 772 ==
LOC: YASAS 11:26 → Y3W 11:27
PROVIDERS: ADMIT Allergy & Immunology; ATTEND Allergy & Immunology
PROC: HZ42ZZZ Group Counseling for Substance Abuse Treatment, Cognitive-Behavioral (ICD-10-PCS; principal; 2020-04-27)
DX: F11.20 Opioid dependence, uncomplicated (principal); F10.20 Alcohol dependence, uncomplicated; F14.20 Cocaine dependence, uncomplicated; F13.20 Sedative, hypnotic or anxiolytic dependence, uncomplicated; F17.210 Nicotine dependence, cigarettes, uncomplicated; F19.282 Other psychoactive substance dependence with psychoactive substance-induced sleep disorder; F32.9 Major depressive disorder, single episode, unspecified; F43.10 Post-traumatic stress disorder, unspecified; I10 Essential (primary) hypertension; J45.909 Unspecified asthma, uncomplicated; K21.9 Gastro-esophageal reflux disease without esophagitis; Z87.820 Personal history of traumatic brain injury; Z87.81 Personal history of (healed) traumatic fracture; Z91.010 Allergy to peanuts; Z59.0 Homelessness
CPT/HCPCS: G0008; Q2036

== ENCOUNTER 2020-12-23 18:19 | Inpatient (IN) | payer OTHER ==
[2020-12-23] MEDS ORDERED: MAG HYDROX/AL HYDROX/SIMETH 30 ML UNIT-DOSE CUP PO PRN (22:12)
[2020-12-23] MEDS ORDERED: ACETAMINOPHEN 325 MG TABLET (FP) PO PRN (22:12)
[2020-12-23] MEDS ORDERED: MAGNESIUM CITRATE 300 ML BOTTLE PO PRN (22:12)
[2020-12-23] MEDS ORDERED: BISMUTH SUBSALICYLATE 524 MG/30 ML PO PRN (22:12)
[2020-12-23] MEDS ORDERED: ONDANSETRON *ODT* 4 MG TABLET SL PRN (22:12)
[2020-12-23] MEDS ORDERED: MAGNESIUM HYDROX 2400MG/30ML ORAL SUSPENSION 30 ML CUP PO PRN (22:12)
[2020-12-23] MEDS ORDERED: methaDONE HCL 10 MG TABLET (FOR DETOX USE ONLY) PO ONE (22:16)
[2020-12-24 01:29] VITALS: BMI 20.9
[2020-12-24] MEDS ORDERED: methaDONE HCL 10 MG TABLET PO ONE (03:01)
[2020-12-24] MEDS: diazePAM 5 MG TABLET PO SCH ×5 (03:02→22:26)
[2020-12-24] MEDS: ALBUTEROL SO4 HFA INHALER IH PRN (03:11)
[2020-12-24] MEDS: cloNIDine HCL 0.1 MG TABLET PO PRN ×3 (03:12→22:28)
[2020-12-24] MEDS: METHOCARBAMOL 500 MG TABLET PO PRN ×2 (03:12→10:48)
[2020-12-24] MEDS: diazePAM 5 MG TABLET PO PRN (03:13)
[2020-12-24] MEDS: MENTHOL/PHENOL 1 EACH UD MM PRN ×3 (03:15→22:51)
[2020-12-24] MEDS: ACETAMINOPHEN 325 MG TABLET (FP) PO PRN (03:15)
[2020-12-24] MEDS ORDERED: methaDONE HCL 10 MG TABLET (FOR DETOX USE ONLY) ONE (09:55)
[2020-12-24 10:24] LABS: HEMATOCRIT 36.8 % (35.4-49); HEMOGLOBIN 12.3 GM/dL (11.7-16.9); MCH 28.8 pg (25.7-33.7); MCHC 33.4 g/dl (32.0-35.9); MEAN CELL VOLUME 86.2 fl (80-96); MEAN PLT VOLUME 7.9 fl (7.5-11.1); PLATELET COUNT 386 10^3/uL (134-434); RBC 4.27 M/mm3 (4.00-5.60); RDW 14.4 % (11.9-15.9); WHITE BLOOD COUNT 4.1 K/mm3 (4.0-10.0)
[2020-12-24 10:33] LABS: ALBUMIN 3.2 g/dl (3.4-5.0); CALCIUM 8.5 mg/dL (8.5-10.1)
[2020-12-24 10:34] LABS: BLOOD UREA NITROGEN 19.6 mg/dL (7-18)
[2020-12-24 10:37] LABS: CREATININE 0.7 mg/dL (0.55-1.3)
[2020-12-24 10:38] LABS: BILIRUBIN,TOTAL 0.8 mg/dL (0.2-1)
[2020-12-24] MEDS: NICOTINE 14 MG/24 HOURS TOPICAL PATCH TD SCH (10:48)
[2020-12-24] MEDS: PRENATAL VITAMINS W/ FOLIC ACID TABLET (FP) PO SCH (10:48)
[2020-12-24] MEDS ORDERED: ALBUTEROL SO4 HFA INHALER IH PRN (11:39)
[2020-12-24] MEDS ORDERED: MELATONIN 5 MG TABLETS PO SCH (22:00)
[2020-12-24] MEDS: THIAMINE HCL 100 MG TABLET (FP) PO SCH (22:25)
[2020-12-24] MEDS: BUDESONIDE/FORMETEROL FUMARATE 80/4.5 mcg INHALER IH SCH (22:25)
[2020-12-24] MEDS: IBUPROFEN 400 MG TABLET (FP) PO PRN (22:29)
[2020-12-25] MEDS: diazePAM 5 MG TABLET PO SCH ×3 (06:50→22:26)
[2020-12-25] MEDS: MENTHOL/PHENOL 1 EACH UD MM PRN ×3 (06:55→22:38)
[2020-12-25] MEDS ORDERED: methaDONE HCL 10 MG TABLET (FOR DETOX USE ONLY) PO ONE (10:00)
[2020-12-25] MEDS: diazePAM 5 MG TABLET PO PRN (10:38)
[2020-12-25] MEDS: METHOCARBAMOL 500 MG TABLET PO PRN (10:39)
[2020-12-25] MEDS: LISINOPRIL 10 MG TABLET PO SCH (10:39)
[2020-12-25] MEDS: BUDESONIDE/FORMETEROL FUMARATE 80/4.5 mcg INHALER IH SCH ×2 (10:39→22:26)
[2020-12-25] MEDS: PRENATAL VITAMINS W/ FOLIC ACID TABLET (FP) PO SCH (10:39)
[2020-12-25] MEDS: NICOTINE 14 MG/24 HOURS TOPICAL PATCH TD SCH (10:39)
[2020-12-25] MEDS: cloNIDine HCL 0.1 MG TABLET PO PRN ×2 (12:17→17:27)
[2020-12-25] MEDS: NICOTINE POLACRILEX 2 MG GUM BUC PRN (15:12)
[2020-12-25] MEDS: ACETAMINOPHEN 325 MG TABLET (FP) PO PRN (16:13)
[2020-12-25] MEDS: ALBUTEROL SO4 HFA INHALER IH PRN (21:33)
[2020-12-25] MEDS: THIAMINE HCL 100 MG TABLET (FP) PO SCH (22:26)
[2020-12-25] MEDS: SUVOREXANT 10 MG TABLET PO PRN (22:30)
[2020-12-26] MEDS: diazePAM 5 MG TABLET PO SCH ×2 (05:05→17:52)
[2020-12-26] MEDS: IBUPROFEN 400 MG TABLET (FP) PO PRN ×2 (06:58→14:13)
[2020-12-26] MEDS ORDERED: methaDONE HCL 10 MG TABLET (FOR DETOX USE ONLY) ONE (09:01)
[2020-12-26] MEDS: PRENATAL VITAMINS W/ FOLIC ACID TABLET (FP) PO SCH (10:07)
[2020-12-26] MEDS: BUDESONIDE/FORMETEROL FUMARATE 80/4.5 mcg INHALER IH SCH (10:07)
[2020-12-26] MEDS: LISINOPRIL 10 MG TABLET PO SCH (10:08)
[2020-12-26] MEDS: NICOTINE 14 MG/24 HOURS TOPICAL PATCH TD SCH (10:09)
[2020-12-26] MEDS: NICOTINE POLACRILEX 2 MG GUM BUC PRN ×4 (10:11→20:13)
[2020-12-26] MEDS: MENTHOL/PHENOL 1 EACH UD MM PRN ×4 (10:11→22:10)
[2020-12-26] MEDS ORDERED: COLLOIDAL OATMEAL 1 BAR EACH TP PRN (11:05)
[2020-12-26] MEDS ORDERED: LIDOCAINE 5% TOPICAL PATCH TP ONE (12:50)
[2020-12-26] MEDS: ALBUTEROL SO4 HFA INHALER IH PRN (20:12)
[2020-12-26] MEDS: LIDOCAINE PATCH REMOVAL MC SCH ×2 (22:07→22:08)
[2020-12-26] MEDS: MINERAL OIL/PETROLAT/WATER TOPICAL CREAM 113 GM JAR TP SCH (22:07)
[2020-12-26] MEDS: THIAMINE HCL 100 MG TABLET (FP) PO SCH (22:07)
[2020-12-26] MEDS: SUVOREXANT 10 MG TABLET PO PRN (22:08)
[2020-12-26] MEDS: diazePAM 5 MG TABLET PO PRN (22:13)
[2020-12-27] MEDS: BUDESONIDE/FORMETEROL FUMARATE 80/4.5 mcg INHALER IH SCH ×3 (00:15→23:12)
[2020-12-27] MEDS ORDERED: diazePAM 5 MG TABLET PO ONE (06:00)
[2020-12-27] MEDS: NICOTINE POLACRILEX 2 MG GUM BUC PRN ×4 (06:08→23:47)
[2020-12-27] MEDS: MENTHOL/PHENOL 1 EACH UD MM PRN ×3 (06:09→23:10)
[2020-12-27] MEDS: ALBUTEROL SO4 HFA INHALER IH PRN ×2 (07:43→16:54)
[2020-12-27] MEDS: NICOTINE 14 MG/24 HOURS TOPICAL PATCH TD SCH (09:46)
[2020-12-27] MEDS ORDERED: methaDONE HCL 10 MG TABLET (FOR DETOX USE ONLY) PO ONE (10:00)
[2020-12-27] MEDS: MINERAL OIL/PETROLAT/WATER TOPICAL CREAM 113 GM JAR TP SCH ×2 (10:23→23:10)
[2020-12-27] MEDS: LIDOCAINE 5% TOPICAL PATCH TP SCH (10:23)
[2020-12-27] MEDS: METHOCARBAMOL 500 MG TABLET PO PRN ×2 (10:24→23:14)
[2020-12-27] MEDS: LISINOPRIL 10 MG TABLET PO SCH (10:24)
[2020-12-27] MEDS: PRENATAL VITAMINS W/ FOLIC ACID TABLET (FP) PO SCH (10:25)
[2020-12-27] MEDS: LIDOCAINE PATCH REMOVAL MC SCH ×2 (23:10→23:11)
[2020-12-27] MEDS: SUVOREXANT 10 MG TABLET PO PRN (23:10)
[2020-12-27] MEDS: THIAMINE HCL 100 MG TABLET (FP) PO SCH (23:12)
[2020-12-28] MEDS: MENTHOL/PHENOL 1 EACH UD MM PRN (06:11)
[2020-12-28] MEDS: NICOTINE POLACRILEX 2 MG GUM BUC PRN (06:11)
[2020-12-28 08:38] VITALS: BP 135/96; PULSE 81; TEMP 98.1
[2020-12-28] MEDS: LIDOCAINE 5% TOPICAL PATCH TP SCH (10:27)
[2020-12-28] MEDS: BUDESONIDE/FORMETEROL FUMARATE 80/4.5 mcg INHALER IH SCH (10:27)
[2020-12-28] MEDS: MINERAL OIL/PETROLAT/WATER TOPICAL CREAM 113 GM JAR TP SCH (10:27)
[2020-12-28] MEDS: NICOTINE 14 MG/24 HOURS TOPICAL PATCH TD SCH (10:27)
[2020-12-28] MEDS: PRENATAL VITAMINS W/ FOLIC ACID TABLET (FP) PO SCH (10:27)
[2020-12-28] MEDS: LISINOPRIL 10 MG TABLET PO SCH (10:27)
== END 2020-12-28 10:05 | disposition other institution (70) | DRG 773 ==
LOC: YASAS 18:19 → Y3N 22:19
PROVIDERS: ADMIT Allergy & Immunology; ATTEND Allergy & Immunology
PROC: HZ2ZZZZ Detoxification Services for Substance Abuse Treatment (ICD-10-PCS; principal; 2020-12-23)
DX: F11.23 Opioid dependence with withdrawal (principal); F10.230 Alcohol dependence with withdrawal, uncomplicated; F14.20 Cocaine dependence, uncomplicated; F13.20 Sedative, hypnotic or anxiolytic dependence, uncomplicated; F17.210 Nicotine dependence, cigarettes, uncomplicated; F19.24 Other psychoactive substance dependence with psychoactive substance-induced mood disorder; F32.9 Major depressive disorder, single episode, unspecified; F43.10 Post-traumatic stress disorder, unspecified; F41.9 Anxiety disorder, unspecified; E46 Unspecified protein-calorie malnutrition; Z68.21 Body mass index [BMI] 21.0-21.9, adult; I10 Essential (primary) hypertension; J45.909 Unspecified asthma, uncomplicated; K21.9 Gastro-esophageal reflux disease without esophagitis; L85.3 Xerosis cutis; R74.01 Elevation of levels of liver transaminase levels; R79.89 Other specified abnormal findings of blood chemistry; Z86.69 Personal history of other diseases of the nervous system and sense organs; Z91.19 Patient's noncompliance with other medical treatment and regimen; Z56.0 Unemployment, unspecified; Z59.0 Homelessness
CPT/HCPCS: 36415; 80053; 85027; 86780; 93005; 93010; C9803; J0735; Q0162; U0003; U0005

== ENCOUNTER 2024-06-10 11:07 | Inpatient (IN) | payer OTHER ==
[2024-06-10 11:38] VITALS: BMI 21.6
[2024-06-10] MEDS: methaDONE HCL 10 MG TABLET (FOR DETOX USE ONLY) PO ONE (16:03)
[2024-06-10] MEDS: diazePAM 5 MG TABLET PO SCH (16:04)
[2024-06-10] MEDS: cloNIDine HCL 0.1 MG TABLET PO SCH (17:20)
[2024-06-10] MEDS: FAMOTIDINE 20 MG TABLET PO SCH (22:28)
[2024-06-10] MEDS: BUPRENORPHINE/NALOXONE 0.5 MG/0.125 MG FILM SL ONE (22:29)
[2024-06-10] MEDS: ALBUTEROL SO4 HFA INHALER IH PRN (22:58)
[2024-06-11] MEDS: BUPRENORPHINE/NALOXONE 0.5 MG/0.125 MG FILM SL SCH (10:38)
[2024-06-11] MEDS: NICOTINE POLACRILEX 2 MG GUM BUC PRN (13:35)
[2024-06-11] MEDS: MINERAL OIL/PETROLAT/WATER TOPICAL CREAM 113 GM JAR TP SCH (13:35)
[2024-06-12] MEDS: diazePAM 5 MG TABLET PO SCH (05:24)
[2024-06-12] MEDS: methaDONE HCL 10 MG TABLET (FOR DETOX USE ONLY) PO ONE (10:37)
[2024-06-12] MEDS: BUPRENORPHINE/NALOXONE 2 MG/0.5 MG FILM PACKET SL SCH (10:39)
[2024-06-12] MEDS ORDERED: ALBUTEROL SO4 0.083% IH SOL 2.5 MG/3 ML VIAL.NEB. NEB PRN (13:28)
[2024-06-12 13:48] LABS: POTASSIUM 4.5 mmol/L (3.5-5.1)
[2024-06-12 13:50] LABS: CALCIUM 8.8 mg/dL (8.5-10.1)
[2024-06-12 13:53] LABS: BLOOD UREA NITROGEN 21.9 mg/dL (7-18)
[2024-06-12 13:55] LABS: BILIRUBIN,TOTAL 0.3 mg/dL (0.2-1)
[2024-06-12 13:56] LABS: TOT PROT 5.5 g/dl (6.4-8.2)
[2024-06-12 14:14] LABS: HEMATOCRIT 36.7 % (35.4-49); HEMOGLOBIN 12.1 GM/dL (11.7-16.9); MCH 29.1 pg (25.7-33.7); MCHC 32.8 g/dl (32.0-35.9); MEAN CELL VOLUME 88.6 fl (80-96); MEAN PLT VOLUME 9.4 fl (7.5-11.1); PLATELET COUNT 234 10^3/uL (134-434); RBC 4.15 M/mm3 (4.00-5.60)
[2024-06-12 14:20] LABS: WHITE BLOOD COUNT 5.3 K/mm3 (4.0-10.0)
[2024-06-12] MEDS: SUVOREXANT 10 MG TABLET PO PRN (22:14)
[2024-06-13] MEDS: diazePAM 5 MG TABLET PO SCH (05:55)
[2024-06-13] MEDS: diazePAM 5 MG TABLET PO PRN (09:11)
[2024-06-13] MEDS: LORATADINE 10 MG TABLET PO SCH (09:11)
[2024-06-13] MEDS: BUPRENORPHINE/NALOXONE 4 MG/1 MG FILM PACKET SL SCH (09:12)
[2024-06-13] MEDS ORDERED: LORATADINE 10 MG TABLET PO SCH (10:00)
[2024-06-13] MEDS: LISINOPRIL 10 MG TABLET PO SCH (12:46)
[2024-06-13] MEDS: FLUTICASONE/UMECLIDIN/VILANTER(100-62.5-25 TRELEGY ELLIPTA) INAHLER IH SCH (13:24)
[2024-06-13] MEDS: CLOTRIMAZOLE 1% CREAM TP SCH (22:00)
[2024-06-13] MEDS: SUVOREXANT 15 MG TABLET PO PRN (22:00)
[2024-06-14] MEDS: diazePAM 5 MG TABLET PO ONE (05:52)
[2024-06-14] MEDS: methaDONE HCL 10 MG TABLET (FOR DETOX USE ONLY) PO ONE (09:24)
[2024-06-14] MEDS: BUPRENORPHINE/NALOXONE 8 MG/2 MG FILM PACKET SL SCH (09:25)
[2024-06-14] MEDS: NALOXONE (NYS OPIOID OVERDOSE PROGRAM) 4 MG/0.1 ML SPRAY NS SCH (12:16)
[2024-06-14] MEDS ORDERED: METHOCARBAMOL 500 MG TABLET PO PRN (19:48)
[2024-06-15] MEDS: BUPRENORPHINE/NALOXONE 8 MG/2 MG FILM PACKET SL SCH (10:10)
[2024-06-15 13:16] VITALS: BP 142/85; PULSE 60; RESP 16; TEMP 97.1
[2024-06-15] MEDS ORDERED: SUVOREXANT 15 MG TABLET PO PRN ×2 (22:00)
== END 2024-06-15 13:32 | disposition other institution (70) | DRG 773 ==
LOC: YASAS 11:07 → Y6N 15:22
PROVIDERS: ADMIT Surgery; ATTEND Family Medicine Addiction Medicine
PROC: HZ2ZZZZ Detoxification Services for Substance Abuse Treatment (ICD-10-PCS; principal; 2024-06-10)
DX: F11.23 Opioid dependence with withdrawal (principal); F10.230 Alcohol dependence with withdrawal, uncomplicated; F13.230 Sedative, hypnotic or anxiolytic dependence with withdrawal, uncomplicated; F17.210 Nicotine dependence, cigarettes, uncomplicated; F19.282 Other psychoactive substance dependence with psychoactive substance-induced sleep disorder; F41.9 Anxiety disorder, unspecified; F43.10 Post-traumatic stress disorder, unspecified; I10 Essential (primary) hypertension; J45.20 Mild intermittent asthma, uncomplicated; K21.9 Gastro-esophageal reflux disease without esophagitis; R63.6 Underweight; Z68.21 Body mass index [BMI] 21.0-21.9, adult; Z87.820 Personal history of traumatic brain injury; Z86.69 Personal history of other diseases of the nervous system and sense organs
CPT/HCPCS: 36415; 80053; 80305; 80307; 85027; 86780; 87811; 93005; 93010

== ENCOUNTER 2024-06-15 13:44 | Inpatient (IN) | payer OTHER ==
[2024-06-15] MEDS ORDERED: MAG HYDROX/AL HYDROX/SIMETH 30 ML UNIT-DOSE CUP PO PRN (18:10)
[2024-06-15] MEDS ORDERED: METHOCARBAMOL 500 MG TABLET PO PRN (18:10)
[2024-06-15] MEDS ORDERED: ACETAMINOPHEN 325 MG TABLET (FP) PO PRN (18:10)
[2024-06-15] MEDS ORDERED: LOPERAMIDE HCL 2 MG CAPSULE PO PRN (18:10)
[2024-06-15] MEDS ORDERED: POLYETHYLENE GLYCOL (HEALTHYLAX) 3350 17 GM PACKET PO PRN (18:10)
[2024-06-15] MEDS ORDERED: guaiFENesin 600 MG TABLET.ER (FP) PO PRN (18:10)
[2024-06-15] MEDS ORDERED: BENZOCAINE/MENTHOL (CHLORASEPTIC ) LOZENGE MM PRN (18:10)
[2024-06-15] MEDS ORDERED: BENZONATATE 200 MG CAPSULE PO PRN (18:10)
[2024-06-15] MEDS ORDERED: hydrOXYzine PAMOATE 25 MG CAPSULE (FP) PO PRN (18:10)
[2024-06-15] MEDS ORDERED: MAGNESIUM HYDROX 2400MG/30ML ORAL SUSPENSION 30 ML CUP PO PRN (18:10)
[2024-06-15] MEDS: NICOTINE POLACRILEX 2 MG GUM BUC PRN (20:27)
[2024-06-15] MEDS: SUVOREXANT 15 MG TABLET PO PRN (21:07)
[2024-06-15] MEDS: THIAMINE 100 MG TABLET PO SCH (21:07)
[2024-06-15] MEDS: QUEtiapine FUMARATE 50 MG TABLET PO SCH (21:07)
[2024-06-15] MEDS: MELATONIN 5 MG TABLETS PO SCH (21:08)
[2024-06-15] MEDS: ALBUTEROL SO4 HFA INHALER IH PRN (21:57)
[2024-06-16] MEDS: PRENATAL VITAMINS W/ FOLIC ACID TABLET (FP) PO SCH (05:22)
[2024-06-16] MEDS: FAMOTIDINE 20 MG TABLET PO SCH (07:25)
[2024-06-16] MEDS: BUPRENORPHINE/NALOXONE 8 MG/2 MG FILM PACKET SL SCH (10:02)
[2024-06-16] MEDS: LISINOPRIL 10 MG TABLET PO SCH (10:02)
[2024-06-16] MEDS: FLUTICASONE/UMECLIDIN/VILANTER(100-62.5-25 TRELEGY ELLIPTA) INAHLER IH SCH (13:15)
[2024-06-18] MEDS: TOLNAFTATE 1% CREAM 15 GM TUBE TP SCH (13:44)
[2024-06-21] MEDS: MINERAL OIL/PETROLAT/WATER TOPICAL CREAM 454 GM JAR TP PRN (06:36)
[2024-06-24] MEDS: IBUPROFEN 600 MG TABLET (FP) PO PRN (21:06)
[2024-06-25 07:02] VITALS: BMI 23.8
[2024-06-27] MEDS: IBUPROFEN 400 MG TABLET (FP) PO PRN (16:44)
[2024-06-29 06:50] VITALS: RESP 18; TEMP 97.8
[2024-06-29 09:14] VITALS: BP 144/77; PULSE 68
[2024-06-29] MEDS: NALOXONE (NYS OPIOID OVERDOSE PROGRAM) 4 MG/0.1 ML SPRAY NS SCH (09:33)
== END 2024-06-29 10:04 | disposition home or self-care (01) | DRG 772 ==
LOC: YASAS 13:44 → Y3NR 13:46 → Y5N 06-16 09:02
PROVIDERS: ADMIT Psychiatry & Neurology Pain Medicine; ATTEND Psychiatry & Neurology Pain Medicine
PROC: HZ42ZZZ Group Counseling for Substance Abuse Treatment, Cognitive-Behavioral (ICD-10-PCS; principal; 2024-06-15)
DX: F11.10 Opioid abuse, uncomplicated (principal); F10.20 Alcohol dependence, uncomplicated; F13.20 Sedative, hypnotic or anxiolytic dependence, uncomplicated; F14.10 Cocaine abuse, uncomplicated; F12.20 Cannabis dependence, uncomplicated; F17.210 Nicotine dependence, cigarettes, uncomplicated; F41.9 Anxiety disorder, unspecified; F32.A Depression, unspecified; I10 Essential (primary) hypertension; J45.20 Mild intermittent asthma, uncomplicated; K21.9 Gastro-esophageal reflux disease without esophagitis; B35.3 Tinea pedis; L85.3 Xerosis cutis; R74.01 Elevation of levels of liver transaminase levels; Z87.820 Personal history of traumatic brain injury
CPT/HCPCS: 0241U-QW

== ENCOUNTER 2024-10-01 11:48 | Inpatient (IN) | payer OTHER ==
[2024-10-01 12:02] VITALS: BMI 22.8
[2024-10-01] MEDS ORDERED: BENZONATATE 200 MG CAPSULE PO PRN (13:03)
[2024-10-01] MEDS ORDERED: LOPERAMIDE HCL 2 MG CAPSULE PO PRN (13:03)
[2024-10-01] MEDS ORDERED: METHOCARBAMOL 500 MG TABLET PO PRN (13:03)
[2024-10-01] MEDS ORDERED: hydrOXYzine PAMOATE 25 MG CAPSULE (FP) PO PRN (13:03)
[2024-10-01] MEDS ORDERED: IBUPROFEN 400 MG TABLET (FP) PO PRN (13:03)
[2024-10-01] MEDS ORDERED: ONDANSETRON *ODT* 4 MG TABLET SL PRN (13:03)
[2024-10-01] MEDS ORDERED: MAG HYDROX/AL HYDROX/SIMETH 30 ML UNIT-DOSE CUP PO PRN (13:03)
[2024-10-01] MEDS ORDERED: MAGNESIUM HYDROX 2400MG/30ML ORAL SUSPENSION 30 ML CUP PO PRN (13:03)
[2024-10-01] MEDS ORDERED: POLYETHYLENE GLYCOL (HEALTHYLAX) 3350 17 GM PACKET PO PRN (13:03)
[2024-10-01] MEDS ORDERED: methaDONE HCL 10 MG TABLET (FOR DETOX USE ONLY) PO PRN (13:03)
[2024-10-01] MEDS ORDERED: BENZOCAINE/MENTHOL (CHLORASEPTIC ) LOZENGE MM PRN (13:03)
[2024-10-01] MEDS ORDERED: BISMUTH SUBSALICYLATE 262 MG/15 ML BTL PO PRN (13:03)
[2024-10-01] MEDS ORDERED: IBUPROFEN 600 MG TABLET (FP) PO PRN (13:03)
[2024-10-01] MEDS ORDERED: DICYCLOMINE HCL 10 MG CAPSULE PO PRN (13:03)
[2024-10-01] MEDS ORDERED: guaiFENesin 600 MG TABLET.ER (FP) PO PRN (13:03)
[2024-10-01] MEDS ORDERED: diazePAM 5 MG TABLET PO PRN (13:03)
[2024-10-01] MEDS ORDERED: ACETAMINOPHEN 325 MG TABLET (FP) PO PRN (13:03)
[2024-10-01] MEDS ORDERED: BUPRENORPHINE/NALOXONE 0.5 MG/0.125 MG FILM ONE (14:27)
[2024-10-01] MEDS ORDERED: methaDONE HCL 10 MG TABLET (FOR DETOX USE ONLY) ONE (14:27)
[2024-10-01] MEDS ORDERED: cloNIDine HCL 0.1 MG TABLET ONE (14:27)
[2024-10-01] MEDS: methaDONE HCL 10 MG TABLET (FOR DETOX USE ONLY) PO ONE (14:30)
[2024-10-01] MEDS: cloNIDine HCL 0.1 MG TABLET PO SCH (14:30)
[2024-10-01] MEDS: BUPRENORPHINE/NALOXONE 0.5 MG/0.125 MG FILM SL ONE ×2 (14:31→22:10)
[2024-10-01] MEDS: LISINOPRIL 10 MG TABLET PO SCH (15:03)
[2024-10-01] MEDS: ALBUTEROL SO4 HFA INHALER IH PRN (15:03)
[2024-10-01] MEDS: FAMOTIDINE 20 MG TABLET PO SCH (15:03)
[2024-10-01] MEDS: NICOTINE POLACRILEX 2 MG GUM BUC PRN (15:06)
[2024-10-01] MEDS: FLUTICASONE/UMECLIDIN/VILANTER(100-62.5-25 TRELEGY ELLIPTA) INAHLER IH SCH (15:31)
[2024-10-01] MEDS: diazePAM 5 MG TABLET PO SCH (17:05)
[2024-10-01] MEDS: THIAMINE 100 MG TABLET PO SCH (22:11)
[2024-10-01] MEDS: MELATONIN 5 MG TABLETS PO SCH (22:11)
[2024-10-02] MEDS: PRENATAL VITAMINS W/ FOLIC ACID TABLET (FP) PO SCH (10:24)
[2024-10-02] MEDS: BUPRENORPHINE/NALOXONE 0.5 MG/0.125 MG FILM SL SCH (10:24)
[2024-10-02] MEDS: NICOTINE 14 MG/24 HOURS TOPICAL PATCH TD SCH (10:29)
[2024-10-02 11:38] LABS: HEMATOCRIT 39.3 % (40.1-51.0); HEMOGLOBIN 12.1 g/dL (13.7-17.5); MCHC 30.8 g/dl (32.3-36.5); MEAN CELL VOLUME 91.2 fl (79.0-92.2); MEAN PLT VOLUME 10.6 fl (9.4-12.4); PLATELET COUNT 301 x10^3/uL (163-337); POTASSIUM 4.4 mmol/L (3.5-5.1); RDW 14.5 % (12.1-15.9)
[2024-10-02 11:41] LABS: CALCIUM 9.4 mg/dL (8.5-10.1)
[2024-10-02 11:42] LABS: ALBUMIN 3.5 g/dl (3.4-5.0); BLOOD UREA NITROGEN 16.6 mg/dL (7-18)
[2024-10-02 11:47] LABS: BILIRUBIN,TOTAL 0.6 mg/dL (0.2-1); TOT PROT 6.2 g/dl (6.4-8.2)
[2024-10-03] MEDS: diazePAM 5 MG TABLET PO SCH (06:10)
[2024-10-03] MEDS: methaDONE HCL 10 MG TABLET (FOR DETOX USE ONLY) PO ONE (09:54)
[2024-10-03] MEDS: BUPRENORPHINE/NALOXONE 2 MG/0.5 MG FILM PACKET SL SCH (09:55)
[2024-10-03] MEDS: SUVOREXANT 10 MG TABLET PO PRN (22:31)
[2024-10-04] MEDS: diazePAM 5 MG TABLET PO SCH (05:48)
[2024-10-04] MEDS: BUPRENORPHINE/NALOXONE 4 MG/1 MG FILM PACKET SL SCH (09:24)
[2024-10-04] MEDS: MINERAL OIL/PETROLAT/WATER TOPICAL CREAM 113 GM JAR TP SCH (09:26)
[2024-10-04] MEDS: FLUTICASONE PROP 0.05% 16 GM NASAL SPRAY NS SCH (10:26)
[2024-10-05] MEDS: diazePAM 5 MG TABLET PO ONE (05:16)
[2024-10-05] MEDS: methaDONE HCL 10 MG TABLET (FOR DETOX USE ONLY) PO ONE (09:44)
[2024-10-05] MEDS: BUPRENORPHINE/NALOXONE 8 MG/2 MG FILM PACKET SL SCH (09:45)
[2024-10-06 08:59] VITALS: BP 140/82; PULSE 58; RESP 16; TEMP 98.3
[2024-10-06] MEDS: BUPRENORPHINE/NALOXONE 8 MG/2 MG FILM PACKET SL SCH (10:00)
[2024-10-06] MEDS: NALOXONE (NARCAN) HCL 4 MG/0.1 ML SPRAY NS PRN (10:35)
== END 2024-10-06 10:35 | disposition home or self-care (01) | DRG 773 ==
LOC: YASAS 11:48 → Y3N 14:36
PROVIDERS: ADMIT Allergy & Immunology; ATTEND Allergy & Immunology
PROC: HZ2ZZZZ Detoxification Services for Substance Abuse Treatment (ICD-10-PCS; principal; 2024-10-01)
DX: F11.23 Opioid dependence with withdrawal (principal); F14.20 Cocaine dependence, uncomplicated; F17.210 Nicotine dependence, cigarettes, uncomplicated; F19.282 Other psychoactive substance dependence with psychoactive substance-induced sleep disorder; F19.280 Other psychoactive substance dependence with psychoactive substance-induced anxiety disorder; F43.10 Post-traumatic stress disorder, unspecified; G47.00 Insomnia, unspecified; G40.909 Epilepsy, unspecified, not intractable, without status epilepticus; I10 Essential (primary) hypertension; J45.20 Mild intermittent asthma, uncomplicated; K21.9 Gastro-esophageal reflux disease without esophagitis; Z87.820 Personal history of traumatic brain injury
CPT/HCPCS: 36415; 80053; 80305; 80307; 85027; 86780; 93005; 93010